=== PATIENT | male | born 1950 | race Caucasian/White ===

== ENCOUNTER → 2022-01-31 | Outpatient (CLI) | payer MEDICARE, SELFPAY ==
--- NOTE | 2022-01-31 07:27 | ECHOD_ITS ---
Reason For Study: Abnormal EKG Procedure This was a 2D Doppler, Color Flow transthoracic echocardiogram. Bubble Study performed. Exam performed in department. Left Ventricle Normal LV size. Left ventricular systolic function is normal. The estimated ejection fraction is 55 %. No regional wall motion abnormalities noted. Right Ventricle Normal RV size. Normal systolic function. Atria Normal left atrium. Normal right atrium. Bubble contrast study negative for right to left interatrial shunt. Mitral Valve Normal mitral valve. Tricuspid Valve Normal tricuspid valve. Trivial tricuspid valve insufficiency. Aortic Valve Normal aortic valve. Trisinus/trileaflet aortic valve. Pulmonic Valve Normal pulmonic valve. Great Vessels Normal aortic root. The pulmonary artery is normal size. Normal inferior vena cava. Pericardium/Pleural No pericardial effusion. Medication 22 gauge I.V. with prn adaptor inserted into left arm. Performed a rapid injection of agitated mix of 9 cc saline and 1cc air to assess for atrial septal defect. MMode/2D Measurements & Calculations LVIDd: 3.6 cm IVSd: 1.1 cm LA dimension: 2.7 cm LVIDs: 2.3 cm LVPWd: 0.91 cm RVDd: 2.8 cm FS: 35.2 % LAV(MOD-bp): 21.7 ml LA A4 area: 8.8 cm2 RA A4 area: 7.9 cm2 LAV(MOD-bp) Indexed: 12.3 ml/m2 LAV(MOD-sp2): 27.9 ml LAV(MOD-sp4): 15.3 ml Doppler Measurements & Calculations MV E max ignacio: 59.2 cm/sec Lat Peak E' Ignacio: 7.7 cm/sec Med Peak E' Ignacio: 6.6 cm/sec E/E' lat: 7.7 E/E' med: 8.9 Ao V2 max: 98.2 cm/sec LV V1 max: 86.6 cm/sec PA V2 max: 86.7 cm/sec Ao max P.9 mmHg LV V1 max P.0 mmHg TR max ignacio: 219.0 cm/sec TR max P.2 mmHg ECHO/Echo Complete Interpretation Summary Normal LV size. Left ventricular systolic function is normal. The estimated ejection fraction is 55 %. Trivial tricuspid valve insufficiency. Bubble contrast study negative for right to left interatrial shunt. Ordering Physician: Juan Jose Lynne Referring Physician: Juan Jose Lynne Performed By: Juvenal Chung RCS
--- NOTE | 2022-01-31 18:20 | STRESSREP ---
Stress Test Report Exercise myocardial perfusion stress test 71-year-old man with a history of chest pain. Stress protocol: Resting EKG demonstrates normal sinus rhythm with a rate of 82 bpm normal intervals are noted resting blood pressure is 140/72 mmHg. The patient exercised according to the regular Saqib protocol for total duration of 4 minutes completing 1 minute into stage II of the Saqib protocol. The maximum heart rate attained was 137 bpm which was 92% of max impacted heart rate the maximum workload was 7 metabolic equivalents. At rest there were no ST or T wave changes noted to suggest ischemia and at peak exercise upsloping ST changes were noted which did not meet the criteria for ischemia. At peak exercise and during recovery frequent premature ventricular complexes were noted. The above were asymptomatic. The peak blood pressure was 170/72 mmHg and the test was terminated due to dyspnea. Myocardial perfusion protocol. 11.2 mCi of technetium 99m sestamibi was injected at rest. The patient exercised according to regular Saqib protocol for 4 minutes and at peak exercise 31.3 mCi of technetium 99m sestamibi was injected stress images were obtained stress and rest images were reconstructed in comparing the short axis vertical long and horizontal long axis. Gated images were also obtained. Perfusion SPECT analysis: Review of the stress images demonstrate normal uptake of tracer noted in all areas of the myocardium. The resting images similarly demonstrate normal uptake of tracer noted in all areas of the myocardium. No areas of reversibility are noted suggest ischemia and no previous infarct is noted. Gated SPECT analysis: The gated ejection fraction is 69%. Conclusion: Normal exercise myocardial perfusion stress test at a moderate workload. Preserved ejection fraction.
== END | disposition home or self-care (01) ==
PROVIDERS: Referring Provider Internal Medicine Cardiovascular Disease; Visit Provider Internal Medicine Cardiovascular Disease
DX: I49.3 Ventricular premature depolarization (principal); R06.00 Dyspnea, unspecified; R94.31 Abnormal electrocardiogram [ECG] [EKG]
CPT/HCPCS: 78452; 93017; 93306; A9500; A4216

== ENCOUNTER → 2022-02-01 | Outpatient (CLI) | payer MEDICARE, SELFPAY ==
--- NOTE | 2022-02-01 14:57 | CT_ITS ---
STUDY: LOW DOSE CT LUNG CANCER SCREENING REASON FOR EXAM: Male, 71 years old. NICOTINE DEPENDENCE RADIATION DOSAGE (If Supplied By Facility): CTDIvol = ( 3.02 ) mGy, DLP = ( 111.74 ) mGycm TECHNIQUE: No contrast was administered. Low dose technique was utilized (average mAS-38 and kVp 120). 1.25 mm axial source images with a slice interval of 1.25-mm were reconstructed in lung windows. 2.5 mm axial source images with a slice interval of 2.5-mm were reconstructed in lung windows. 5.0 mm axial source images with a slice interval of 5.0-mm were reconstructed in soft tissue windows. COMPARISON: None. NODULES: There is a 1.4 cm x 1.7 cm nodule in the posterior medial aspect of the right upper lobe abutting the pleural surface. A neoplastic process should be ruled out. This is seen on axial image #71 and coronal image #189. Emphysema: Hyperinflation. Diffuse emphysematous changes with multiple bolus formation more prominent in the upper lobes. There is evidence of bronchiectasis and there is scarring with volume loss in the medial aspect of the right upper lobe. Endobronchial lesion: None Aorta: Atherosclerotic plaque formation. CORONARY ARTERIES: Coronary artery calcification is seen. Heart: Unremarkable Pulmonary artery: Unremarkable Mediastinal nodes: Small mediastinal lymph nodes. Other chest and abdominal findings: CT/Low Dose CT Lung Screening IMPRESSION: Lung-RADS category 4B - Chest CT with or without contrast, PET/CT and/or tissue sampling can be obtained depending on the probability of malignancy and comorbidities. IMPORTANT NOTES FOR USE: ACR Lung-RADS Version 1.1 Assessment Categories Release Date: 2018 Category: Coded 0-4 bases on nodule(s) with highest degree of suspicion. Negative screen is defined as categories 1 and 2; a positive screen is defined as categories 3 and 4. Category 3 and 4A nodules that are unchanged on interval CT should be coded as category 2, and individuals returned to screening in 12 months. Category 4X: Category 3 or 4 nodules with additional imaging findings that increase the suspicion of lung cancer, such as spiculation, GGN that doubles in size in 1 year, enlarged lymph notes, etc. Category Modifiers: S (significant finding unrelated to lung cancer) Electronically Signed: Chino Camilo MD at 15:40 EDT ,
== END | disposition home or self-care (01) ==
LOC: CT 14:53
PROVIDERS: PCP Nurse Practitioner Adult Health; Visit Provider Nurse Practitioner Adult Health
DX: Z87.891 Personal history of nicotine dependence (principal); Z12.2 Encounter for screening for malignant neoplasm of respiratory organs
CPT/HCPCS: 71271

== ENCOUNTER → 2022-03-16 | Outpatient (CLI) | payer MEDICARE, SELFPAY ==
--- NOTE | 2022-03-16 08:00 | PET_ITS ---
EXAMINATION: FDG PET-CT INDICATIONS: A 71-year-old male with history of pulmonary nodularity. COMPARISON EXAMINATION: CT of the chest report dated 02/01/22 INDEX LESION SIZE SUV INTERPRETATION Superior-right precarinal mediastinum, right of the midline, midline 51.2-mm (largest) 10.6 (max) Fulfills quantitative criteria for viable neoplasm Right posteromedial lung zone, pleural-based density 14.7-mm 3.3 Fulfills quantitative criteria for viable neoplasm Second right upper lobe posterior nodule 1.3 (max) Quantitative criteria for viable neoplasm are not fulfilled Left lateral neck level IIA 11.1-mm 7.2 May necessitate histopathologic investigation secondary to the quantitative degree of uptake TECHNIQUE: Following the intravenous administration of 13.32 mCi of F-18 deoxyglucose via the right antecubital fossa, multiplanar image acquisitions of the neck, chest, abdomen and pelvis to level of mid thigh, obtained at one hour post radiopharmaceutical administration contemporaneously interpreted with the current CT of the neck, chest, abdomen and pelvis, to level of mid thigh, dated 03/16/[address] of the chest report dated 02/01/22 reveals: BLOOD GLUCOSE LEVEL:?? 63 mg/dl? FINDINGS: Head/Neck: A focus of increased radiopharmaceutical is asymmetrically apparent in the left lateral neck involving level IIA, the periauricular region. The calculated maximal standard uptake value is 7.2. The maximal axial diameter of the metabolic, morphologic abnormality is 11.1-mm. The visualized portion of the cerebral cortical-subcortical structures demonstrate symmetric and preserved glucose metabolism. CHEST: A focus of enhanced FDG uptake is identified in the superior-precarinal mediastinum in the midline and to the right of the midline. The calculated maximal standard uptake value is 10.6. The maximal axial diameter of the metabolic, morphologic abnormality is 51.2-mm. Focal increased glucose metabolism is identified in the right upper posteromedial lung field, right upper lobe generating a calculated maximal standard uptake value of 3.3. The maximal axial diameter of the metabolic, morphologic pleural based parenchymal density is 14.7-mm. A mild increase in glucose uptake is defined in the right upper posterior lung zone, right upper lobe adjacent to the major fissure. The calculated maximal standard uptake value is 1.3. Pertinent chest CT findings are as follows. There is atherosclerotic calcification defined in the thoracic aorta without evidence of dilatation-aneurysm formation. Coronary arterial calcification is observed. Bilateral axillary soft tissue densities are non-glucose avid, the majority of which express fatty hilus. Additional parenchymal densities defined in the bilateral hemithorax are non-glucose avid. Additional mediastinal soft tissue is non-glucose avid. Abdomen/Pelvis: Mild enhanced FDG uptake is defined in the region of the normal size right adrenal gland with a calculated maximal standard uptake value of 2.1. Quantitative criteria for viable neoplasm are not fulfilled. Normal physiologic distribution of the radiopharmaceutical is apparent in the hepatic (2.4) and splenic parenchyma, both renal units, bladder and visualized intestinal tract. Diffuse radiopharmaceutical concentration is noted in all four quadrants of the abdomen and pelvis. Review of the CT of the abdomen and reveals the following. Atherosclerotic calcification is defined in the abdominal aorta. The maximal axial diameter of the distal abdominal aorta is 36.2-mm. The maximal axial diameter of the right common iliac artery is 17.1-mm. Cyst formation is encountered in the right kidney. Right and left inguinal soft tissue is ametabolic. Calcification is defined in the prostate gland. Occasional colonic diverticulosis is noted without evidence of colonic diverticulitis. Skeletal: Degenerative changes are noted in the cervical, thoracic and lumbar spine without evidence of increased radiopharmaceutical concentration. There are no well-defined sclerotic-lytic changes manifest on review of the appendicular-axial skeletal structures. PET/PET/CT Tumor Base -Thigh Init IMPRESSION: 1. The increase in glucose metabolism identified in the superior and precarinal mediastinum to the right of the midline and in the midline should be further investigated with histopathologic analysis secondary to the quantitative degree of uptake. 2. Enhanced tracer concentration noted in the right upper posteromedial lung zone fulfills quantitative criteria for viable neoplasm. (Joshi et al, Annals of Internal Medicine, 138:724, 2003). 3. The second right lobe anatomic abnormality demonstrates minimal glucose metabolism and does not fulfill quantitative criteria for viable malignant transformation. 4. The left lateral neck hypermetabolic focus may necessitate histopathologic investigation secondary to the quantitative degree of uptake. Electronic Signature Torito Multani D.O. Accurate Quantification of SUVs for this report are calculated using the exclusive [employer] Technology. (U.S. Patent No. 10, [id number] 983). Standardization and correction of the FDG SUV metric via [employer] technology allow for vendor non-specific objective quantitative examination comparison and optimization of the sensitivity and specificity of the FDG PET-CT examination. Electronically Signed: Torito Multani, at 16:32 EDT ,
== END | disposition home or self-care (01) ==
PROVIDERS: PCP Nurse Practitioner Adult Health; Referring Provider Nurse Practitioner Adult Health; Visit Provider Nurse Practitioner Adult Health
DX: R91.1 Solitary pulmonary nodule (principal)
CPT/HCPCS: 78815; A9552

== ENCOUNTER 2022-04-12 10:44 | Day surgery (SDC) | payer MEDICARE, SELFPAY ==
[2022-04-12] VITALS (7 sets, daily range): BP systolic 125–159; BP diastolic 64–88; PULSE 54–74; RESP 16; TEMP 36.4; O2SAT 94–98; BMI 20.9
[2022-04-12] MEDS: Lactated Ringers 1,000 ML 15 ML IV (11:18)
--- NOTE | 2022-04-12 12:00 | HP.PCM_ITS ---
History and Physical Date of Admission: 04/12/22 NADIYA MACHADO, is a 71 M who presents to the office today for Initial consult. Nadiya established with this clinic 04.08.22. August, he had a general physical who noted heart palpitation; EKG and blood test performed and referred to [facility] for this and pulmonology for fingernail clubbing. [facility] ordered imaging which noted lung nodule. Pulmonology seen for pulmonology for mass and fingernail clubbing suspected to be pulmonary origin. Director [employer] discussed case with Gastroenterology who also reviewed PET/CT and was not able to determine if esophageal or pulmonary origin; recommended EGD for evaluation. He has been noting increased phlegm, sometimes blood tinged, requiring spitting; substernal discomfort. Denies dysphagia. History of cigarette smoking for the last 65+years; has quit with recent health concerns. Established with [facility]. CT chest 02.01.22 noting right upper lobe of lung nodule recommend r/o neoplastic process; emphysema; small mediastinal lymph nodes. PET/CT 03.16.22 noting increase uptake in superior and precarinal mediastinum to the right of the midline and in the midline; noted in right upper posteromedial for viable neoplasm; left lateral neck hypermetabolic focus. ROS Const Constitutional: No anorexia, fatigue, fever(s), weight change or sleep problems Eyes Eyes: No change in vision ENT ENT: No abnormal hearing, difficulty swallowing, mouth lesions, tongue swelling or throat swelling Resp Respiratory: No cough or shortness of breath Cardio Cardiology: No chest pain at rest, chest pain with exertion, shortness of breath or dyspnea on exertion Gastro GI: No difficulty swallowing Genitourinary Male: No difficulty urinating or burning urination Musc Musculoskeletal: No joint pain, joint swelling, muscle weakness or decreased muscle mass Skin Skin: No hair loss in leg, yellowing of the eye, itchy eyes, rash, skin ulcer or skin swelling Neuro Neurology: No abnormal hearing, abnormal movements, confusion, unsteady gait/balance or memory loss Psych Psychiatric: No anxiety, No confusion and No memory loss Endo Endocrine: No fatigue or weight change Aller/Imm Allergy/Immunologic: No itchy eyes, throat swelling or tongue swelling Francisco/Lymp Hematologic/Lymphatic: No easy bleeding, easy bruising or enlarged lymph nodes Exam Const General: cooperative and comfortable Nutritional Appearance: average body habitus and well nourished [facility] Head: normal to inspection Ears: hearing grossly normal bilaterally Nose: external nose normal Face and sinus: normal facial exam Mouth: oral mucosae normal Throat: posterior oropharynx normal Eyes General: appearance normal, both eyes and all related structures Neck Neck: normal visual inspection Chest Chest palpation & inspection: normal inspection of the chest and normal palpation of entire chest wall Resp Effort & Inspection: normal respiratory effort Auscultation: Bilateral: Clear to Auscultation Cardio Palpation: normal PMI Rate: regular rate Rhythm: regular rhythm GI Inspection: normal to inspection Auscultation: normal bowel sounds Percussion: normal to percussion Palpation: no hepatosplenomegaly Skin General: no rashes or lesions noted Neuro General: patient alert Extrem General: normal to inspection Psych Affect: normal affect Quality Reporting Tobacco Screening ([facility] [address]) Smoking Status: Current every day smoker Assessment and Plan Assessment and Plan (1) Esophageal mass: ?Status:?Acute ?Plan: Possible esophageal mass as the PET scan cannot ascertain whether it is coming from the mediastinum or from the esophagus.? He is losing weight but is not having any appreciable esophageal dysphagia.? He is not having any chest pain or shortness of breath.? He is not have any nausea, vomiting or diarrhea.? Hopefully we will be able to get him a diagnosis without him having to undergo lung biopsy.? All the questions were asked from the patient appropriately in initial consultation took 45 minutes. I have re-examined the patient. There are no clinical changes since date of exam.
--- NOTE | 2022-04-12 12:00 | IMM_PTH ---
PATIENT: NADIYA MACHADO LOC: EN U#:[id number] AGE/SX: 71/M ROOM: RE04/12/[address]: Dr. Harpreet Mayer DO : 1950 BED: DIS: 04/12/2022 SPEC #: [id number] RECD: 04/13/22 10:07 STATUS: EMILY MAHNAZ #: [id number] RUCHI: 04/12/22 12:[address]: Harpreet Mayer DEPT: IMMUNOHISTOCHEMISTRY RECD BY: Maria Esther Carias ENTERED: 04/13/22 10:08 SP TYPE: IMMUNO OTHR DR: Xiomy Carpenter, WATER TREATMENT TECHNICIAN-C Samra Jones NP-James Tissues: C - Stomach, NOS Procedures: H Pylori (initial) PHYSICIAN & INSTITUTION [place] [address] SPECIMEN INFORMATION: Tissue Source: C ? Antrum biopsy Clinical Info: Esophageal mass Specimen Number: [id number] CPT code: 35525 METHODOLOGY: Deparaffinized sections of prefer/formalin-fixed tissue or PAP/DQ stained slides are incubated with monoclonal/polyclonal antibodies/oligonucleotide probes. Localization is made via biotin free immunoperoxidase method. Appropriate controls are performed and reacted as expected. Results on target cell population are indicated in the following table: RESULTS: ANTIBODY / CLONE RESULT Block C H Pylori (polyclonal) negative These tests were developed and their performance characteristics determined by [facility]. They may not have been cleared or approved by the U.S. Food and Drug Administration. The FDA has determined that such clearance or approval is not necessary. The above immunohistochemical/dualISH markers are ordered and reviewed by the Pathologist. INTERPRETATION: C. Antrum, biopsy: Negative for Helicobacter pylori organisms. DIONE:cherise 04/14/2022
--- NOTE | 2022-04-12 12:00 | EGD_PTH ---
PATIENT: NADIYA MACHADO LOC: EN U#:[id number] AGE/SX: 71/M ROOM: RE04/12/[address]: Dr. Harpreet Mayer DO : 1950 BED: DIS: 04/12/2022 SPEC #: [id number] RECD: 04/12/22 15:18 STATUS: EMILY MAHNAZ #: [id number] RUCHI: 04/12/22 12:[address]: Harpreet Mayer DEPT: SURGICAL PATHOLOGY RECD BY: Porsha Art ENTERED: 04/13/22 07:52 SP TYPE: EGD BIOPSY OT DR: Xiomy Carpenter, DROP BOARD MAN-C WINIFRED LeosC Tissues: A - Esophagus, NOS B - Duodenum, NOS C - Gastric mucous membrane Procedures: Special Stain Group II Surgery Specimen Level IV Alcian Blue/PAS (control) HEADER OPERATION: EGD (MAC), biopsy PRE-OP DIAGNOSIS: Esophageal mass TISSUE SUBMITTED: A ? Distal esophagus biopsy, B ? Duodenum biopsy, C ? Antrum biopsy for histo and H. pylori MICROSCOPIC DIAGNOSIS A. Distal esophagus, biopsy: Fragments of gastroesophageal mucosa with chronic inflammation. Intestinal metaplasia (goblet cell metaplasia) not identified. See comment. B. Duodenum, biopsy: Fragments of duodenal mucosa with focal ulceration and acute and chronic inflammation. C. Antrum, biopsy: Mild gastritis. See microscopic description and comment. SJ:cherise 04/14/2022 COMMENT A. Alcian blue/PAS stain with matched control is used in the evaluation of the specimen. C. The results of immunohistochemistry for Helicobacter pylori will be reported separately ([id number]). MICROSCOPIC DESCRIPTION Slides are reviewed. The specimen shows fragments of gastric mucosa with chronic inflammatory cell infiltrates in the lamina propria consisting of lymphocytes and plasma cells, consistent with mild chronic gastritis. GROSS DESCRIPTION A - Received in fixative is one container labeled with the patient's name and designated distal esophagus. The specimen consists of multiple irregular fragments of light gastelum soft tissue that in aggregate measure 1 x 0.8 x 0.1 cm. The specimen is totally submitted in one cassette. B - Received in fixative is one container labeled with the patient's name and designated duodenum biopsy. The specimen consists of two irregular fragments of light gastelum soft tissue that in aggregate measure 0.5 x 0.4 x 0.1 cm. The specimen is totally submitted in one cassette. C - Received in fixative is one container labeled with the patient's name and designated antrum biopsy. The specimen consists of two irregular fragments of light gastelum soft tissue that in aggregate measure 0.8 x 0.5 x 0.1 cm. The specimen is totally submitted in one cassette. / SJ:rg 04/13/2022 TC:2 CPT: 65917 x3, 38333
--- NOTE | 2022-04-12 12:30 | OP.EGD_ITS ---
Patient Name: Elie Barrios Procedure Date: 04/12/2022 11:01 AM Date of : 1950 Age: 71 Procedure: Upper GI endoscopy Indications: Dysphagia, Heartburn Providers: Harpreet Mayer DO Medicines: Propofol per Anesthesia, Monitored Anesthesia Care Patient Profile: This is a 71 year old male. Refer to note in patient chart for documentation of history and physical. Patient has symptoms. Complications: No immediate complications. Procedure: Pre-Anesthesia Assessment: - Prior to the procedure, a History and Physical was performed, and patient medications and allergies were reviewed. The risks and benefits of the procedure and the sedation options and risks were discussed with the patient. All questions were answered and informed consent was obtained. Patient identification and proposed procedure were verified by the physician in the pre-procedure area. Mental Status Examination: alert and oriented. Airway Examination: normal oropharyngeal airway and neck mobility. Respiratory Examination: clear to auscultation. CV Examination: normal. Prophylactic Antibiotics: The patient does not require prophylactic antibiotics. Prior Anticoagulants: The patient has taken no previous anticoagulant or antiplatelet agents. ASA Grade Assessment: II - A patient with mild systemic disease. After reviewing the risks and benefits, the patient was deemed in satisfactory condition to undergo the procedure. The anesthesia plan was to use monitored anesthesia care (MAC). Immediately prior to administration of medications, the patient was re-assessed for adequacy to receive sedatives. The heart rate, respiratory rate, oxygen saturations, blood pressure, adequacy of pulmonary ventilation, and response to care were monitored throughout the procedure. The physical status of the patient was re-assessed after the procedure. After obtaining informed consent, the endoscope was passed under direct vision. Throughout the procedure, the patient's blood pressure, pulse, and oxygen saturations were monitored continuously. The gastroscope was introduced through the mouth, and advanced to the second part of duodenum. The upper GI endoscopy was accomplished without difficulty. The patient tolerated the procedure well. Scope In: 12:11:47 PM Scope Out: 12:18:47 PM Total Procedure Duration Time 0 hours 7 minutes 0 seconds Findings: LA Grade C (one or more mucosal breaks continuous between tops of 2 or more mucosal folds, less than 75% circumference) esophagitis with no bleeding was found 37 to 39 cm from the incisors. Biopsies were taken with a cold forceps for histology. Verification of patient identification for the specimen was done. Estimated blood loss was minimal. A medium-sized hiatal hernia was present. Patchy moderate inflammation characterized by erythema was found in the gastric body. Biopsies were taken with a cold forceps for histology. Verification of patient identification for the specimen was done. Estimated blood loss was minimal. Three non-bleeding cratered duodenal ulcers with no stigmata of bleeding were found in the duodenal bulb. The largest lesion was 6 mm in largest dimension. Biopsies were taken with a cold forceps for histology. Verification of patient identification for the specimen was done. Estimated blood loss was minimal. Impression: - LA Grade C reflux esophagitis. Biopsied. - Medium-sized hiatal hernia. - Chronic gastritis. Biopsied. - Multiple non-bleeding duodenal ulcers with no stigmata of bleeding. Biopsied. Recommendation: - Discharge patient to home. - Resume previous diet. - Continue present medications. - Await pathology results. - Repeat upper endoscopy in 3 months for surveillance based on pathology results. - Use Protonix (pantoprazole) 40 mg PO BID for 8 weeks. Procedure Code(s): --- Professional --- 60083, Esophagogastroduodenoscopy, flexible, transoral; with biopsy, single or multiple CPT copyright 2017 [employer]. All rights reserved. The codes documented in this report are preliminary and upon photoengraving sketch maker review may be revised to meet current compliance requirements. Harpreet Mayer DO 04/12/2022 12:30:17 PM This report has been signed electronically. Number of Addenda: 0 Note Initiated On: 04/12/2022 11:01 AM
--- NOTE | 2022-04-12 12:30 | OP.CCLET_ITS ---
04/12/2022 Alysia Pat Re : Upper GI endoscopy procedure for Elie Barrios Dear Jayden This procedure was performed on Tuesday, April 12, 2022. My impressions and recommendations are as follows: Impressions : - LA Grade C reflux esophagitis. Biopsied. - Medium-sized hiatal hernia. - Chronic gastritis. Biopsied. - Multiple non-bleeding duodenal ulcers with no stigmata of bleeding. Biopsied. Recommendations : - Discharge patient to home. - Resume previous diet. - Continue present medications. - Await pathology results. - Repeat upper endoscopy in 3 months for surveillance based on pathology results. - Use Protonix (pantoprazole) 40 mg PO BID for 8 weeks. My findings are described in the full procedure note, which is enclosed. If I can be of further assistance, please feel free to contact me at . Sincerely, Harpreet Friend, 04/12/2022 12:30:17 PM This report has been signed electronically.
== END 2022-04-12 13:24 | disposition home or self-care (01) ==
LOC: EN 10:47 → AC 10:49
PROVIDERS: PCP Nurse Practitioner Adult Health; Referring Provider Nurse Practitioner Adult Health; Visit Provider Internal Medicine Gastroenterology
PROC: 0DJ08ZZ Inspection of Upper Intestinal Tract, Via Natural or Artificial Opening Endoscopic (ICD-10-PCS; CPT 43235; principal; 2022-04-12 11:55)
DX: K21.00 Gastro-esophageal reflux disease with esophagitis, without bleeding (principal); K44.9 Diaphragmatic hernia without obstruction or gangrene; K25.3 Acute gastric ulcer without hemorrhage or perforation; K29.50 Unspecified chronic gastritis without bleeding; K31.89 Other diseases of stomach and duodenum; F17.200 Nicotine dependence, unspecified, uncomplicated; E78.5 Hyperlipidemia, unspecified; Z79.899 Other long term (current) drug therapy
CPT/HCPCS: 43239; 88305; 88313; 88342; J7120; J2405

== ENCOUNTER → 2022-04-28 | Outpatient (CLI) | payer MEDICARE, SELFPAY ==
[2022-04-28 12:11] LABS: Platelet Count 239 K/mm3 (150-450)
[2022-04-28 12:19] LABS: Prothrombin Time (Protime)PT. 12.6 SECONDS (11.7-14.9)
== END | disposition home or self-care (01) ==
LOC: PAVLAB 11:52
PROVIDERS: PCP Nurse Practitioner Family; Referring Provider Internal Medicine Critical Care Medicine; Visit Provider Internal Medicine Critical Care Medicine
DX: K22.89 Other specified disease of esophagus (principal)
CPT/HCPCS: 36415; 85049; 85610

== ENCOUNTER 2022-05-05 08:39 | Outpatient (CLI) | payer MEDICARE, SELFPAY ==
[2022-05-05] VITALS (12 sets, daily range): BP systolic 120–169; BP diastolic 65–100; PULSE 57–76; RESP 12–20; TEMP 37.1; O2SAT 92–98; BMI 22.0
--- NOTE | 2022-05-05 | ASPIGT_PTH ---
PATIENT: NADIYA MACHADO LOC: [place] U#:[id number] AGE/SX: 71/M ROOM: RE05/05/[address]: Dr. Santana Arreola DO : 1950 BED: DIS: 05/05/2022 SPEC #: [id number] RECD: 05/05/22 11:00 STATUS: EMILY MAHNAZ #: [id number] RUCHI: 05/05/22 00:[address]: Santana Arreola DEPT: SURGICAL PATHOLOGY RECD BY: Porsha Art ENTERED: 05/05/22 11:01 SP TYPE: ASP RAD OTHR DR: Ruchi Rosales, BALING MACHINE OPERATOR-C Tissues: Lung, NOS Procedures: FNA Specimen Adequacy Special Stain Group II Surgery Specimen Level IV Imprint (control) HEADER OPERATION: CT-guided lung biopsy PRE-OP DIAGNOSIS: RUL lung nodule TISSUE SUBMITTED: Lung 20-gauge core x6 MICROSCOPIC DIAGNOSIS Right upper lung nodule, CT-guided core biopsy: Consistent with hamartoma. Negative for malignancy. See comment. DIONE:cherise 05/06/2022 COMMENT The specimen is evaluated at the time of biopsy by Dr. Viveros. Immediate Evaluation: Set 1 - Negative for malignant cells (2 touch imprints). Set 2 - Negative for malignant cells (2 touch imprints). The touch imprints show numerous carbon-laden histiocytes. Correlation with clinical, radiologic findings and appropriate follow-up are necessary. Case has been reviewed in consultation with Dr. Pak who concurs with the above diagnosis. IDC:AM MICROSCOPIC DESCRIPTION Slides are reviewed. GROSS DESCRIPTION Received in fixative is one container labeled with the patient's name and designated right upper lung nodule. The specimen consists of multiple elongated fragments of light gastelum soft tissue that in aggregate measure 1.5 x 0.3 x 0.1 cm. The specimen is totally submitted in one cassette. Four touch imprints are prepared at the time of core biopsy. / DIONE:cherise 05/05/2022 TC:5 CPT: 49754, 67936, 46895
--- NOTE | 2022-05-05 08:41 | CT_ITS ---
PROCEDURE: CT GUIDED CORE NEEDLE BIOPSY OF A right upper lobe LUNG LESION INDICATION: Male, 71 years old. RUL PET + Nodule PHYSICIAN: Dr. NADIR Carranza CONSENT: Written informed consent was obtained having explained the risks, benefits and alternatives in detail with the patient who accepted the risks and agreed to proceed. Laboratory review and clinical assessment was performed. CONSCIOUS SEDATION PROTOCOL: The Drugs used were: 2 mg Versed, IV., and 50 mcg Fentanyl, IV. The sedation time was: 24 minutes. Conscious sedation was started at 9:40 AM and terminated at 10:04 AM. The conscious sedation protocol was independently monitored. RADIATION DOSAGE (If Supplied By Facility): CTDIvol = ( 12 ) mGy, DLP = ( 242.04 ) mGycm Individualized dose optimization techniques were used for this CT. TECHNIQUE: The patient was placed in the prone position. A noncontrast CT was performed to localize the lesion in the posterior aspect of the right upper lobe . The skin surface was prepped and draped in a sterile fashion. 1% lidocaine was used for local anesthesia. Using CT guidance, a 20 coaxial biopsy device was advanced to the periphery of the lesion. A total of 6 core specimens were obtained. The specimens were placed in a formalin solution. A post procedure CT demonstrated no adverse sequelae or pneumothorax. The patient tolerated the procedure well without adverse event. A negative biopsy does not exclude malignancy. Further imaging or clinical followup based on patient condition and degree of clinical suspicion for malignancy. Suggest rebiopsy, if biopsy results do not match with clinical scenario. CT/Biopsy/Inj or Needle Placement IMPRESSION: 1. CT directed core needle biopsy of the right upper lobe lung nodule using CT image guidance with image documentation as described. Pathology results are pending. 2. Conscious Sedation protocol utilized with independent monitoring. Electronically Signed: Chino Camilo MD at 10:35 EDT ,
[2022-05-05] MEDS: Midazolam 2 MG/2 ML Syringe IV (09:39)
[2022-05-05] MEDS: fentaNYL 100 MCG/2 ML Ampul IV (09:40)
[2022-05-05] MEDS: Lidocaine 2% (20 ml mdv) 20 ML Vial (09:55)
--- NOTE | 2022-05-05 10:12 | RAD_ITS ---
STUDY: X-RAY CHEST REASON FOR EXAM: Male, 71 years old. POST LUNG BIOPSY -- Immediately post lung biopsy TECHNIQUE: AP inspiration and expiration views. COMPARISON: None. FINDINGS: The patient is status post right upper lobe lung biopsy. There is no evidence of pneumothorax. RAD/Chest Insp/Exp 2 View IMPRESSION: No evidence of pneumothorax on the immediate postright lung biopsy. Electronically Signed: Chino Camilo MD at 10:23 EDT ,
--- NOTE | 2022-05-05 12:30 | RAD_ITS ---
STUDY: X-RAY CHEST REASON FOR EXAM: Male, 71 years old. POST LUNG BIOPSY -- 2 hours post lung biopsy TECHNIQUE: AP inspiration and expiration view. COMPARISON: Comparison is made with prior study done earlier in the day. FINDINGS: The patient is status post biopsy of the right upper lobe nodule. No evidence of pneumothorax. RAD/Chest Insp/Exp 2 View IMPRESSION: No evidence of pneumothorax on the 2 hour postright lung biopsy radiographs. Electronically Signed: Chino Camilo MD at 12:34 EDT ,
== END 2022-05-05 23:59 | disposition home or self-care (01) ==
PROVIDERS: PCP Nurse Practitioner Family; Referring Provider Internal Medicine Critical Care Medicine; Visit Provider Internal Medicine Critical Care Medicine
DX: D14.31 Benign neoplasm of right bronchus and lung (principal); F17.210 Nicotine dependence, cigarettes, uncomplicated
CPT/HCPCS: 32408; 71046; 77012; 88172; 88305; 88313; 99156; 99157; J7050; A4216; C2613

== ENCOUNTER → 2022-05-24 | Outpatient (CLI) | payer MEDICARE, SELFPAY ==
[2022-05-24 11:03] LABS: AST(SGOT) 19 U/L (15-37); Alanine Aminotransfer ALT/SGPT 21 U/L (16-61); Albumin, Serum 3.3 g/dL (3.2-5.0); Alkaline Phosphatase 92 U/L (45-117); Anion Gap 4 (5-15); BUN 12 mg/dL (7-18); BUN/Creat Ratio 10.7 RATIO (10-20); CPK Total, Creatine Kinase 127 U/L (39-308); Calcium,Total 8.9 mg/dL (8.5-10.1); Chloride 102 mmol/L (98-107); Creatinine, Serum 1.12 mg/dL (0.70-1.30); EST Glomerular Filtration Rate 68 mL/min (>60); Est Glom Filt Rate - Afr Amer 83 mL/min (>60); Globulin 3.3 g/dL (2.2-4.2); Glucose 88 mg/dL (74-106); Potassium 4.5 mmol/L (3.5-5.1); Protein, Total 6.6 g/dL (6.4-8.2); Sodium Level 136 mmol/L (136-145)
[2022-05-24 11:10] LABS: Erythrocyte Sedimentation Rate 16 mm/hr (0-20)
[2022-05-26 14:09] LABS: Vitamin D 1,25-Dihydroxy 47.6 pg/mL (24.8-81.5)
[2022-05-26 16:11] LABS: ANTINUCLEAR ANTIBODIES DIRECT Negative (Negative)
== END | disposition home or self-care (01) ==
LOC: LAB 09:51
DX: M35.3 Polymyalgia rheumatica (principal)
CPT/HCPCS: 36415; 80053; 82550; 82652; 85652; 86038; 86140

== ENCOUNTER 2022-06-08 01:14 | Emergency (ER) | payer MEDICARE, SELFPAY ==
[2022-06-08 01:15] VITALS: BP 187/100; PULSE 86; RESP 25; TEMP 36.3; O2SAT 96; BMI 21.1
[2022-06-08] MEDS: Orphenadrine 60 MG/2 ML Ampul IM (02:33)
[2022-06-08] MEDS: Ketorolac 30 MG/ML Syringe IM (02:36)
--- NOTE | 2022-06-08 02:40 | EDS_ITS ---
HPI History of Present Illness Chief Complaint: Chest Other Narrative Narrative: Patient is a 71-year-old male from home with past medical history of hiatal hernia GERD esophageal mass and tobacco abuse. He states he has been having right-sided chest discomfort for approximately 6 months. He states he has been worked up with EKGs and blood work as well as CT scans. He reports he has had EGDs and is also scheduled to undergo biopsy of esophageal mass that was found during his work-up. He states that he was informed that he may have neuropathic pain from the esophageal mass compressing a nerve structure. Patient states that there has been no new injury or excessive activity. He states the pain has been similar to its chronic issues but he cannot controlled at home any further and therefore comes in for evaluation. [facility] Medical History Alcohol use Cardiology follow-up encounter Easy bruising Gonorrhea History of diverticulitis History of echocardiogram History of edema History of irregular heartbeat History of stress test Hyperlipidemia Inguinal hernia Injury of head and neck Rectal prolapse Schizophrenia Shortness of breath on exertion Tobacco abuse Wears glasses Wears partial dentures Home Medications cholecalciferol (vitamin D3) 25 mcg (1,000 unit) capsule 25 mcg PO DAILY [History Last Taken Unknown] triamcinolone acetonide 0.1 % topical cream 1 applic topical BID PRN Rash 12/08/21 [History Last Taken Unknown] albuterol sulfate 90 mcg/actuation aerosol inhaler 2 puff inhalation Q4H PRN PRN breathing 04/08/22 [History Last Taken Unknown] cyclobenzaprine 10 mg tablet 10 mg PO BID 05/19/22 [History Last Taken Unknown] prednisone 20 mg tablet 20 mg PO DAILY 05/19/22 [History Last Taken Unknown] pantoprazole 40 mg tablet,delayed release 40 mg PO DAILY #30 tabs 06/06/22 [Rx Last Taken Unknown] diazepam 5 mg tablet (Valium) 5 mg PO TID Muscle pain/spasm 5 days #15 tabs 06/08/22 [Rx Last Taken Unknown] oxycodone-acetaminophen 5 mg-325 mg tablet (Percocet) 1 tab PO Q6H PRN pain 3 days #12 tabs 06/08/22 [Rx Last Taken Unknown] Allergy/AdvReac Type Severity Reaction Status Date / Time No Known Allergies Allergy Verified 05/19/22 12:52 Family History Father Heart disease Brother Heart disease COPD (chronic obstructive pulmonary disease) Surgical History History of herniorrhaphy History of meniscectomy of left knee Social History Smoking Status: Current some day smoker tobacco type: cigarettes Tobacco: How many years used: 55 ROS ROS ED Constitutional Constitutional ED: Denies chills or fever(s) ENT ENT ED: Denies sore throat Cardiovascular Cardiovascular: Reports chest pain Respiratory/Chest Respiratory/Chest: Denies cough or dyspnea Gastrointestinal Gastrointestinal: Denies abdominal pain, diarrhea, nausea or vomiting Genitourinary Genitourinary ED: Denies dysuria Musculoskeletal Musculoskeletal: Reports other Details: Positive right shoulder/chest wall pain Integumentary Denies Abrasions or rash Neurologic Neurologic: Denies headache(s) or paresthesias Hematologic/Lymphatic Hematologic/Lymphatic: Denies easy bleeding or easy bruising EXAM Physical Exam Const Vital Signs: 06/08/22 01:15 06/08/22 01:15 06/08/22 02:41 Temperature 97.4 F L Temperature Source Temporal Pulse Rate 86 Respiratory Rate 25 H 18 Respiratory Effort Short of Breath Blood Pressure 187/100 H Blood Pressure Mean 129 Pulse Ox 96 Positive well nourished and well developed General Appearance ED: well developed Eyes PERRL and EOMs intact bilaterally Neck supple Chest Wall Chest Narrative: Patient has reproducible pain to the right anterior chest wall/shoulder region without bony deformity or crepitus noted Resp normal respiratory effort Resp Narrative: Patient has faint rhonchi in the bilateral bases consistent with smoking history but no signs of respiratory distress Cardio regular rate and regular rhythm GI normal to inspection, nondistended, normoactive bowel sounds, non-tender and non-distended GI Narrative: No voluntary guarding or rigidity no pulsatile mass Auscultation: normoactive bowel sounds Palpation: soft Extremity Extremity Narrative: Right upper extremity is neurovascular intact. No obvious bony deformity or joint effusion. No overlying soft tissue changes to suggest trauma or infection. There is diffuse pain on palpation of the anterior and posterior right shoulder. Remainder the exam is normal Neuro oriented x3 and CN's II-XII intact bilaterally Sensorium / Orientation: alert Psych mental status grossly normal Skin no rashes or lesions noted MDM MDM MDM Narrative Medical decision making narrative: Patient presented to the ER hypertensive but secondary to his pain this is to be expected and otherwise vitals are stable. He states his pain has been present for months and he has had it worked up with the EKGs blood work CAT scans and even EGDs and biopsies. Therefore this time I do not feel this would be cardiac or pulmonary and feel no need for imaging or laboratory studies. I do feel this is most likely neuropathic pain based on the presence of his esophageal mass and the fact that the pain is always located in the same area. Therefore patient will be given Toradol and Norflex to help with this and is otherwise safe for discharge and can follow-up on an outpatient as previously directed Discharge Plan Triage Chief Complaint: Chest Other ED Provider: Reji Higgins Dx/Rx/DC Orders Clinical Impression: Acute chest wall pain, Neuropathic pain, Esophageal mass Instructions: ED Chest Pain, Noncardiac Prescriptions: New oxycodone-acetaminophen [Percocet] 5-325 mg tablet 1 tab PO Q6H PRN (Reason: pain) 3 Days Qty: 12 0RF diazepam [Valium] 5 mg tablet 5 mg PO TID 5 Days Qty: 15 0RF No Action triamcinolone acetonide 0.1 % cream 1 applic topical BID PRN (Reason: Rash) cholecalciferol (vitamin D3) 25 mcg (1,000 unit) capsule 25 mcg PO DAILY cyclobenzaprine 10 mg tablet 10 mg PO BID Label Comments: TAKE 1 TABLET TWICE DAILY as needed for muscle pain prednisone 20 mg tablet 20 mg PO DAILY Label Comments: TAKE 1 TABLET BY MOUTH DAILY albuterol sulfate 90 mcg/actuation HFA aerosol inhaler 2 puff INHALATION Q4H PRN PRN (Reason: breathing) Label Comments: INHALE 2 PUFFS every FOUR hours as needed for FOR WHEEZING or SHORTNESS OF BREATH pantoprazole 40 mg tablet,delayed release (DR/EC) 40 mg PO DAILY Qty: 30 2RF Primary Care Provider: [facility] Abi Roldan Referrals: [facility] Abi Roldan [Primary Care Provider] - Disposition Disposition: Home, Self Care Discharge Date/Time: 06/08/22 02:48
[2022-06-08 02:41] VITALS: RESP 18
== END 2022-06-08 02:48 | disposition home or self-care (01) ==
PROVIDERS: Emergency Provider Emergency Medicine; Visit Provider Emergency Medicine
DX: R07.89 Other chest pain (principal); G62.9 Polyneuropathy, unspecified; E78.5 Hyperlipidemia, unspecified; F17.210 Nicotine dependence, cigarettes, uncomplicated; K22.9 Disease of esophagus, unspecified
CPT/HCPCS: 96372; 99282

== ENCOUNTER 2022-06-09 12:17 | Outpatient (CLI) | payer MEDICARE, SELFPAY ==
[2022-06-09 12:58] LABS: Allen Test POS; Blood Gas Specimen Type ART; SITE R BRACHIAL
[2022-06-09 12:59] LABS: Base Excess -1 mmol/L (-2 to +2); Bicarbonate 24.2 mmol/L (22-26); FI02 21; O2 Delivery Device Room Air; PO2 76 mmHG (75-100); Time Given 1230; pCO2 40.8 mmHg (35-45); pH 7.38 (7.35-7.45)
[2022-06-09 13:00] LABS: Total Carbon Dioxide 25 mmol/L
[2022-06-09 13:02] LABS: SO2 95 % (95-99)
--- NOTE | 2022-06-10 11:03 | PFT ---
INTRODUCTION: The patient is a 71-year-old male who presents for pulmonary function studies secondary to a diagnosis of lung nodule. Respiratory therapy reported good patient effort. Bronchodilators were used during testing. INTERPRETATION: Forced expiration spirometry demonstrates the presence of a moderately severe large airways obstructive ventilatory defect. There was no significant response to aerosolized bronchodilators. Spirograms are of good quality but do not plateau indicating slow emptying of the lungs. Body plethysmography was performed and demonstrated an elevated TLC and RV, indicative of underlying hyperinflation and air trapping. Diffusing capacity by single breath CO is within normal limits. IMPRESSION: Irreversible moderately severe large airways obstructive ventilatory defect with associated hyperinflation and air trapping.
== END 2022-06-09 23:59 | disposition home or self-care (01) ==
DX: R91.1 Solitary pulmonary nodule (principal)
CPT/HCPCS: 36600; 82803; 94060; 94726; 94729

== ENCOUNTER → 2022-07-07 | Outpatient (CLI) | payer MEDICARE, SELFPAY ==
--- NOTE | 2022-07-07 14:08 | RAD_ITS ---
STUDY: X-RAY - CERVICAL SPINE REASON FOR EXAM: Male, 71 years old patient with cervicalgia. TECHNIQUE: 5 view(s) of the cervical spine were obtained. COMPARISON: Prior comparison studies are not available for review at this time. FINDINGS: Normal anterior atlantoaxial articulation. Normal odontoid process. There is an exaggerated cervical lordosis. There is multi-level endplate spondylosis. There is multi-level degenerative disc disease with multilevel disc space narrowing. There is moderately severe multilevel degenerative arthropathy of the uncovertebral and facet joints. There is right apical pleural thickening. There is nonspecific right-sided paratracheal soft tissue. The lung apices appear to be clear, otherwise. Prevertebral and paraspinal soft tissues are within normal limits. There is no demonstrated fracture of the cervical spine. RAD/Cerv Spine 4 or 5 Views IMPRESSION: 1. Moderately severe multilevel degenerative changes of the cervical spine as described. 2. Right apical pleural thickening and nonspecific right-sided paratracheal soft tissue. Electronically Signed: Heidi Singh MD at 4:13 EST ,
== END | disposition home or self-care (01) ==
LOC: RAD 14:05
PROVIDERS: Referring Provider Nurse Practitioner Family; Visit Provider Nurse Practitioner Family
DX: M54.2 Cervicalgia (principal)
CPT/HCPCS: 72050

== ENCOUNTER → 2022-07-22 | Outpatient (CLI) | payer MEDICARE, SELFPAY ==
--- NOTE | 2022-07-22 09:08 | MRI_ITS ---
EXAM: MR HEAD WITHOUT AND WITH INTRAVENOUS CONTRAST CLINICAL INDICATION: STAGING METASTATIC LUNG CA TECHNIQUE: Multiplanar and multisequence MR images of the brain were obtained without and with intravenous contrast. This report was created using [employer] With report generation technology. CONTRAST: 12ml Clariscan via IV COMPARISON: None. FINDINGS: BRAIN AND EXTRA-AXIAL SPACES: Small T2 FLAIR hyperintensity foci in the posterior periatrial white matter and minimally in the frontal lobe white matter are chronic white matter ischemic changes. No midline shift and no mass effects. Following IV contrast administration, there are no abnormally enhancing lesions intra-axially and extra-axially. No intra- or extra-axial hemorrhage. Posterior fossa structures are unremarkable. Ventricles are appropriate for age. No hydrocephalus. Basal cisterns are patent. SELLA: Unremarkable. Normal sella turcica, pituitary gland, infundibular stalk, optic chiasm and hypothalamus. AUDITORY SYSTEM: Unremarkable. The internal auditory canals are patent. BONES/JOINTS: Unremarkable. No discrete lytic or blastic abnormalities. SINUSES: Unremarkable as visualized. Clear. MASTOID AIR CELLS: Unremarkable as visualized. Clear. ORBITS: Unremarkable as visualized. Both globes, extraocular muscles, optic nerves and retrobulbar fat appear unremarkable. VASCULATURE: Unremarkable as visualized. Normal flow voids in the major intracranial circulation. MRI/Brain W/WO Contrast IMPRESSION: 1. No MRI evidence of intracranial metastatic disease or acute intracranial abnormality. 2. Chronic white matter ischemic changes in both cerebral hemispheres. Electronically Signed: Tommie Meza MD at 11:04 [facility] ,
[2022-07-22 10:00] LABS: EGFR FINGERSTICK > 60.0000 mL/min (>60)
== END | disposition home or self-care (01) ==
LOC: MRI 09:08
PROVIDERS: Visit Provider Internal Medicine Medical Oncology
DX: C34.90 Malignant neoplasm of unspecified part of unspecified bronchus or lung (principal)
CPT/HCPCS: 70553; A9575

== ENCOUNTER → 2022-07-26 | Outpatient (CLI) | payer MEDICARE, SELFPAY ==
--- NOTE | 2022-07-26 08:46 | MRI_ITS ---
EXAM: MR THORACIC SPINE WITHOUT AND WITH INTRAVENOUS CONTRAST CLINICAL INDICATION: BONE METS, NEW LUNG CA DIAGNOSIS, F/U TO PET SCAN TECHNIQUE: Multiplanar and multisequence MR images of the thoracic spine without and with intravenous contrast. This report was created using [employer] report [employer] technology. CONTRAST: IV 11ml Clariscan COMPARISON: PET 07.20.22 FINDINGS: VERTEBRAE: See below. DISCS/SPINAL CANAL/NEURAL FORAMINA: Compression deformity of T1, T2, and partially at T3. These are stable and may be pathologic. These vertebral body segments demonstrate low T1 and increased STIR signal consistent with metastatic foci. There is a mass with is noted along the posterior mediastinum measuring 93 x 41mm. There is a mass which extends from the T2 vertebral body into the spinal canal measuring 15 x 8mm causing severe spinal stenosis. Abnormal enhancement of spinous processes at T1-T2 and T3 with overlying soft tissue enhancement concerning for metastatic disease. SPINAL CORD: Unremarkable. Normal in signal and morphology. Normal conus medullaris. SOFT TISSUES: Unremarkable. LUNGS AND PLEURAL SPACES: Metastatic pulmonary nodules are partially seen. MRI/Spine Thoracic W/WO Contrast IMPRESSION: 1. Compression deformity of T1, T2, and partially at T3. These are stable and may be pathologic. These vertebral body segments demonstrate low T1 and increased STIR signal consistent with metastatic foci. There is a mass with is noted along the posterior mediastinum measuring 93 x 41mm. There is a mass which extends from the T2 vertebral body into the spinal canal measuring 15 x 8mm causing severe spinal stenosis. 2. Metastatic pulmonary nodules are partially seen. 3. Abnormal enhancement of spinous processes at T1-T2 and T3 with overlying soft tissue enhancement concerning for metastatic disease. Electronically Signed: Juan C Purcell MD at 16:45 EST ,
== END | disposition home or self-care (01) ==
PROVIDERS: Visit Provider Internal Medicine Medical Oncology
DX: C34.90 Malignant neoplasm of unspecified part of unspecified bronchus or lung (principal); C79.51 Secondary malignant neoplasm of bone
CPT/HCPCS: 72157; A9575

== ENCOUNTER → 2022-08-22 | Outpatient (CLI) | payer MEDICARE, SELFPAY ==
--- NOTE | 2022-08-22 13:12 | CT_ITS ---
INDICATION: NECK MASS ON PET SCAN EXAMINATION: CT NECK WITH CONTRAST - CT Soft Tissue Neck W/ Contrast Injection TECHNIQUE: Helically acquired images were obtained of the neck following IV contrast. A radiation dose optimization technique was used for this scan. IV Contrast dosage and agent: 100 mL [id number] COMPARISON: Thoracic spine MRI July 26, 2022. PET/CT July 20, 2022 and March 16, 2022. CT chest February 01, 2022.. FINDINGS: 5.0 x 3.1 x 7.3 cm mass along the medial right lung apex and superior mediastinal margin which correlates with PET avid mass on July 21, 2020 09/16/2021, which abuts and likely invades right esophageal wall, axial image 22, similar in overall size to February 01, 2022 no difficult to compare given differences in technique. The mass erodes into the vertebral body T1, coronal image 69, T2 vertebral body coronal image 71 and likely T3 coronal image 76, which is new from February 01, 2022. Vertebral plana at T1 and vertebral height loss at T2 and T3 are unchanged from July 20, 2021 2. Central spinal canal evaluation is limited by CT. Additional partially seen posterior right upper lobe nodule, axial image 16 is unchanged from prior exams and correlate with non-PET avid nodule. 1.2 x 0.7 cm lymph node immediately anterior to the left subclavian artery and posterior to left internal carotid axial image 33 correlates with PET avid lymph node on July 20, 2022, partially encased by smaller branch arteries. No evidence of gus necrosis or other suspicious cervical lymph nodes. Prevertebral soft tissues are unremarkable. Normal epiglottis. Unremarkable thyroid with diminutive Isthmus. Salivary glands are normal in appearance. Parapharyngeal tonsils and parapharyngeal fat are unremarkable. Base of tongue is symmetric without abnormal enhancing mass. No odontogenic abscess is appreciated. CT/Soft Tissue Neck WITH Contrast IMPRESSION: 7.3cm medial right lung apex mass correlates with PET avid lesion, similar in overall size to August 04, 2021 though concerning for invasion of the right esophageal wall and T1-T3 vertebral bodies. Limited central spinal canal evaluation by CT, better assessed on recent thoracic spine MRI. Prominent left supraclavicular lymph node correlates with PET avid lymph node on July 20, 2022, partially encased by large arteries as above. Electronically Signed: Lamin Barrios MD at 9:29 EST ,
== END | disposition home or self-care (01) ==
PROVIDERS: Visit Provider Otolaryngology
DX: R22.1 Localized swelling, mass and lump, neck (principal)
CPT/HCPCS: 70491; Q9967

== ENCOUNTER → 2022-08-30 | Outpatient (CLI) | payer MEDICARE, SELFPAY ==
[2022-08-30 13:35] VITALS: PULSE 100; PULSE 103; PULSE 107; PULSE 108; PULSE 84; PULSE 92; PULSE 97; PULSE 99; O2SAT 87; O2SAT 88; O2SAT 89; O2SAT 93; O2SAT 96; O2SAT 97; O2SAT 98
--- NOTE | 2022-08-30 14:01 | CPS ---
Pt rested at the 2 minute monty for a few moments do to increased work of breathing. Pt was placed on 1 lpm at 3 minutes. Pt was increased to 2 lpm at 4 minutes. Pt finished walk on 2 lpm. Pt did state the oxygen made a difference and he felt much better wearing it and was able to rate his work of breathing to a 1 on 2 lpm with a saturation of 93% from a 3 on room air.
--- NOTE | 2022-09-01 10:15 | WT_ITS ---
PSN 6 Minute Walk Test 6 Minute Walk Test 6 Minute Walk Test: 6 Minute Walk Test PSN:6-Minute Walk Test Start: 08/30/22 13:56 Freq: Status: Active Protocol: [id number] Document 08/30/22 13:35 AE (Rec: 08/30/22 14:06 [facility] [id number]) 6 Minute Walk Test Date Performed 08/30/22 Time Performed 13:35 Height 5 ft 7 in Weight: 126 lb Weight in Pounds 126.[address]: Danelle Assistive device used: None Pre-test Oxygen Delivery Method Room Air Pulse Ox (%) 97 Pulse Rate (60-100 beats/min) 100 Dyspnea Elías Scale (0-10) 2 Exertion Elías Scale (6-20) 6 1st minute Oxygen Delivery Method Room Air Pulse Ox (%) 93 Pulse Rate (60-100 beats/min) 103 H 2nd minute Oxygen Delivery Method Room Air Pulse Ox (%) 89 Pulse Rate (60-100 beats/min) 97 Number of Rests Taken 1 Reported Symptoms Increased Work of Breathing 3rd minute Oxygen Delivery Method Room Air Pulse Ox (%) 87 Pulse Rate (60-100 beats/min) 108 H Dyspnea Elías Scale (0-10) 3 Reported Symptoms Increased Work of Breathing 4th minute Oxygen Flow Rate (L/min) (L/min) 1 Oxygen Delivery Method Nasal Cannula Pulse Ox (%) 88 Pulse Rate (60-100 beats/min) 107 H 5th minute Oxygen Flow Rate (L/min) (L/min) 2 Oxygen Delivery Method Nasal Cannula Pulse Ox (%) 96 Pulse Rate (60-100 beats/min) 92 6th minute Oxygen Flow Rate (L/min) (L/min) 2 Oxygen Delivery Method Nasal Cannula Pulse Ox (%) 93 Pulse Rate (60-100 beats/min) 84 Dyspnea Elías Scale (0-10) 1 Exertion Elías Scale (6-20) 13 Reported Symptoms Increased Work of Breathing Post-test Oxygen Flow Rate (L/min) (L/min) 2 Oxygen Delivery Method Nasal Cannula Pulse Ox (%) 98 Pulse Rate (60-100 beats/min) 99 Full Laps Walked 10 Partial Lap, Number of Tiles Walked 29 Total Distance Walked (ft) 619 08/30/22 14:01 Cardiopulmonary Services by Amber Khalil Pt rested at the 2 minute monty for a few moments do to increased work of breathing. Pt was placed on 1 lpm at 3 minutes. Pt was increased to 2 lpm at 4 minutes. Pt finished walk on 2 lpm. Pt did state the oxygen made a difference and he felt much better wearing it and was able to rate his work of breathing to a 1 on 2 lpm with a saturation of 93% from a 3 on room air. Initialized on 08/30/22 14:01 - END OF NOTE Interpretation Interpretation: The patient ambulated 619 feet over the course of 6 minutes beginning on room air without assistive devices. Pretesting oxygen saturation was noted to be 97% on room air. With ambulation, the patient desaturated on several occasions requiring the initiation and subsequent escalation of supplemental O2 to 2 L/min to maintain appropriate saturations. Recommendations Recommendations: 2 L/min of supplemental oxygen should be utilized with exertion.
== END | disposition home or self-care (01) ==
PROVIDERS: Visit Provider Nurse Practitioner Acute Care
DX: R06.02 Shortness of breath (principal)
CPT/HCPCS: 94618

== ENCOUNTER 2022-09-05 07:10 | Day surgery (SDC) | payer MEDICARE, SELFPAY ==
[2022-09-05] VITALS (7 sets, daily range): BP systolic 132–154; BP diastolic 82–103; PULSE 82–91; RESP 16–22; TEMP 36.8–37; O2SAT 92–100; BMI 19.3
[2022-09-05] MEDS: Lactated Ringers 1,000 ML 15 ML IV (07:25)
--- NOTE | 2022-09-05 07:38 | HP.PCM_ITS ---
History and Physical Date of Admission: 09/05/22 Date of Service:? 08/22/22 MR#: [id number] Acct: [id number] Name:? NADIYA MACHADO Rep #: [id number] : 1950 ? ? Provider: Dr. Telma Burr MD Age/Sex:? 72/M ? ? Location: [facility] Status: Signed Intake Vital Signs ? 08/22/2313:31 Height 5 ft 8 in Weight: 125 lb 2 oz BMI 19.0 BP 139/87 H Blood Pressure Location Lt brachial Position Sitting Respiration 17 Pulse 95 Pulse Source Monitor Temp 97.4 F L Temp Source Temporal Pulse Oximetry (%) 96 Oxygen Delivery Method room air Intake Visit Reasons:?PORT PLACEMENT Chief Complaint: port placement Allergies No Known Allergies Allergy (Verified 08/22/22 14:32) Medications cholecalciferol (vitamin D3) 25 mcg (1,000 unit) capsule 25 mcg PO DAILY 12/08/21 [History Confirmed 08/22/22] triamcinolone acetonide 0.1 % topical cream 1 applic topical BID PRN Rash 12/08/21 [History Confirmed 08/22/22] albuterol sulfate 90 mcg/actuation aerosol inhaler 2 puff inhalation Q4H PRN PRN breathing 04/08/22 [History Confirmed 08/22/22] cyclobenzaprine 10 mg tablet 10 mg PO BID 05/19/22 [History Confirmed 08/22/22] prednisone 20 mg tablet 20 mg PO DAILY 05/19/22 [History Confirmed 08/22/22] diazepam 5 mg tablet (Valium) 5 mg PO TID Muscle pain/spasm 5 days #15 tabs 06/08/22 [Rx Confirmed 08/22/22] oxycodone-acetaminophen 5 mg-325 mg tablet (Percocet) 1 tab PO Q6H PRN pain 3 days #12 tabs 06/08/22 [Rx Confirmed 08/22/22] pantoprazole 40 mg tablet,delayed release 40 mg PO QAM #90 tabs 07/22/22 [Rx Confirmed 08/22/22] sucralfate 1 gram tablet 1 g PO QAC #90 tabs 07/22/22 [Rx Confirmed 08/22/22] amitriptyline 25 mg tablet 25 mg PO QHS 30 days #30 tabs 07/28/22 [Rx Confirmed 08/22/22] oxycodone myristate 9 mg capsule sprinkle extended release 12 hr(DON'T CRUSH) (Xtampza ER) 9 mg PO Q12H 30 days #60 ea 07/28/22 [Rx Confirmed 08/22/22] MAGIC MOUTH WASH (BMX) 180 mL suspension 15 ml PO .qid PRN pain #300 mL 08/17/22 [Rx Confirmed 08/22/22] dexamethasone 4 mg tablet 4 mg PO TID #45 tabs 08/17/22 [Rx Confirmed 08/22/22] PFSH Medical History? Alcohol use Cardiology follow-up encounter Easy bruising Gonorrhea History of diverticulitis History of echocardiogram History of edema History of irregular heartbeat History of stress test Hyperlipidemia Inguinal hernia Injury of head and neck Rectal prolapse Schizophrenia Shortness of breath on exertion Tobacco abuse Wears glasses Wears partial dentures Surgical History? History of herniorrhaphy History of meniscectomy of left knee Family History? Father Heart diseaseBrother Heart disease COPD (chronic obstructive pulmonary disease) Social History? Smoking Status:? Current some day smoker tobacco type: cigarettes Tobacco: How many years used:? 55 HPI HPI HPI: 72 y/o M presents for port placement. 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 Planning to start chemo on 09/07. ROS General General: Yes weight change and fatigue; No appetite, colon cancer or breast cancer HEENT HEENT: Yes difficulty swallowing; No eye injury, eye surgery, swollen glands or hoarseness Endo Endocrine: No thyroid disease, diabetes mellitus, thyroid cancer, Hair loss, heat intolerance or cold intolerance Skin Skin: No rash or changing moles Musc Musculoskeletal: Yes back problems; No arthritis, rheumatoid arthritis, gout or joint pain Cardio Cardiovascular: Yes heart disease Psych Psychiatric: Yes anxiety; No depression or hearing voices Resp Respiratory: Yes shortness of breath, No sleep apnea, Yes cough, Yes COPD, No asthma, Yes emphysema and No wheezing Gastro Gastrointestinal: No abdominal pain and No diarrhea Francisco Hematologic: No blood thinners, No blood disorders, No bleeding, No anemia and No blood clots Neuro Neurologic: Yes numbness and Yes tingling Exam Const General: cooperative, healthy appearing and no acute distress HENMT Head: normal to inspection Chest Other: normal palpation to bilateral upper chest Resp Effort & Inspection: normal respiratory effort Cardio Rate: regular rate GI Inspection: non-distended Palpation: soft and nontender Skin General: no rashes or lesions noted Neuro General: patient oriented x3 Extrem General: no clubbing, cyanosis or edema Psych Affect: normal affect Assessment and Plan Assessment and Plan (1) Encounter for insertion of venous access port: ?Status:?Acute (2) Adenocarcinoma of right lung: ?Status:?Chronic ?Comment: Metastatic NSCLC adenocarcinoma type, R Superior Sulcus tumor. TMB high 13.3, PD-L1 TPS 10%, MET amplification. ?PET/CT 07/20/2023 reviewed, shows progressive disease in right and left hemithorax pulmonary parenchymal, progression in mediastinal nodes, increase in left lateral neck, T1-T3 vertebral bodies, Periauricular area. MRI thoracic spine 07/26/2022 reviewed, shows compression deformity of T1-T2 and T3, mass along the posterior mediastinum, mass from the T2 vertebral body into the spinal canal measuring 15 mm. On Radiation therapy to the upper spine. Discussed further therapy after Radiation therapy with Chemotherapy-Carboplatin + Alimta and Immunotherapy-Keytruda. Discussed risks, benefits and side effects. Pt agrees to proceed. (3) Metastatic adenocarcinoma to bone: ?Status:?Acute ?Comment: T1,2,3 vertebral metastases. On Radiation therapy. Plan I have discussed above with the patient- Port-a-Cath placement. Patient has been counseled as to the risks/benefits of the procedure. I have explained the risks of the surgery, including but not limited to: infection, bleeding, injury to any blood vessels/nerves, injury to lungs (such as pneumothorax or hemothorax and need for chest tube), not having any access, nonfunctioning of port due to thrombosis, infection of port, etc.? the patient understands and agrees to proceed. I have answered all the patient's questions to the patient?s satisfaction and the patient has no further questions. Coding Level of Care Code Off vis,new,level 3 Diagnoses Encounter for insertion of venous access port? Z45.2 Adenocarcinoma of right lung? C34.91 Metastatic adenocarcinoma to bone? C79.51 08/22/222024 <Electronically signed by Telma Burr MD> Date Telma Burr MD
[2022-09-05] MEDS: Ipratropium/Albuterol Sulfate 3 ML AMPUL.NEB INHALATION (08:10)
[2022-09-05] MEDS: Cefazolin 2 GM in 0.9% Normal Saline 100 ML IV (09:40)
[2022-09-05] MEDS: Bupivacaine 0.5% PF 10 ML VIAL (09:55)
[2022-09-05] MEDS: Lidocaine 2% /Epi 1:100 (20ml) 20 ML VIAL (09:55)
--- NOTE | 2022-09-05 10:24 | PCM.OPRPT ---
Report of Operation Date of Procedure: 09/05/22 Pre-Operative Diagnosis: Z45.2, adenocarcinoma right lung Post-Operative Diagnosis: Same Surgery/Procedure Performed:: 1. Placement of left IJ Port-A-Cath 2. Use of fluoroscopy 3. Use of ultrasound Surgeon: Telma Burr Type of Anesthesia: MAC/Supplemental Anesthesiologist: Sonny Santana Special Medications: Ancef 2 g IV x1 Specimen's removed: None Estimated Blood Loss (mL): <10 cc Fluids Replaced: Per anesthesia Description of Procedure: After informed consent was given, the patient was brought to the operating room and placed in the supine position. Appropriate time out protocol was followed. Patient was then given IV conscious sedation for anesthesia. The patient's left upper chest and neck were then prepped with a surgical skin preparation and sterile surgical drapes were placed. After proper landmarks were ascertained, the skin at the upper left chest area was then infiltrated with 1:1 mixture of 1% lidocaine with epinephrine and 0.5% marcaine. A needle trocar was then inserted into the left internal jugular vein with ultrasound guidance-multiple vessels were viewed with u/s and the left IJ was chosen-- and there was good aspiration of venous blood. A wire was then threaded into the needle trocar and this was visualized under fluoroscopy to ensure that the wire was in the superior vena cava. Once this was done, then the needle trocar was removed. A small skin casey was made with an 11 blade knife at the wire entrance site. The dilator with the introducer sheath attached was then placed over the wire into the left internal jugular vein via the Seldinger technique and this was visualized under fluoroscopy. The dilator and sheath were in proper position as visualized by fluoroscopy. A subcutaneous pocket was then created caudad to the catheter insertion site. A transverse skin incision was made after the skin and subcutaneous tissues were infiltrated with local anesthetic. Blunt dissection was then used to create a space large enough for placement of the subcutaneous port. The catheter was then tunneled into the subcutaneous pocket. The wire and dilator were then removed. The catheter was then threaded into the introducer sheath and was positioned with its tip at the junction of the superior vena cava and the right atrium as visualized under fluoroscopy. The excess catheter was transected. The catheter was then attached to the subcutaneous port using manufacturers guidelines. The catheter was flushed with a heparin saline mixture prior to placement. Hemostasis was carefully controlled with electrocautery. The port was sutured to the subcutaneous fascia using 2-0 Vicryl suture at two sites. The port was then placed in the subcutaneous pocket. The incision were reapproximated with interrupted subdermal 3-0 vicryl sutures. The skin was reapproximated with 3-0 nylon suture in a interrupted fashion. Steristrips were used for reinforcement of the skin closure at IJ insertion site and a sterile opsite dressings were applied. The patient tolerated the procedure well. Grafts/Implants Used: [employer] PowerPort isp M.R.I. 6Fr Lot lot [id number] [id number] Complications none
--- NOTE | 2022-09-05 10:27 | DCINST_ITS ---
Discharge Instructions Procedure Port-A-Cath Diet Discharge Diet: Light diet - advance as tolerated Activity May shower in (days): 5 (Keep port site clean and dry x5 days. Neck incision okay to get wet after 1 day. Okay to lower shower and upper sponge bath. OR okay to taper off port site with a Ziploc bag to shower) Lifting Restrictions: No lifting > 15 pounds for 3 days with the arm on the side of the port Dressing / Incision Call your doctor if your incision/area has: Continuous Slow Oozing, Sudden Increased Bleeding, Increased Pain/ Swelling, Increased Redness, Foul Smelling Discharge and Swelling at the incision site Call your doctor if you observe: Fever of 101 or Higher Change Dressing in: 2 days Follow Up Care Please Follow Up With: Telma Burr MD When: In 10 days for permanent suture removal?call office for appointment Test Results: Test results from this visit will be discussed in further detail at your follow- up appointment, if applicable. Discharge Plan Admission Attending Provider: Telma Burr [facility]Pres[facility] Prescriptions: New oxycodone-acetaminophen 5-325 mg tablet 1 tab PO Q6H PRN (Reason: pain) 2 Days Qty: 5 0RF Continued cholecalciferol (vitamin D3) 25 mcg (1,000 unit) capsule 25 mcg PO DAILY amitriptyline 25 mg tablet 25 mg PO QHS 30 Days Qty: 30 1RF MAGIC MOUTH WASH (BMX) 180 mL suspension 15 ml PO .qid PRN (Reason: pain) Qty: 300 5RF Rx Instructions: diphenhydramine 12.5 mg/5 mL oral liquid 60 mL; aluminum-mag hydroxide- simethicone 400 mg-400 mg-40 mg/5 mL oral susp 60 mL; Lidocaine Viscous 2 % mucosal solution 60 mL; Per 180 mL lidocaine-prilocaine 2.5-2.5 % cream 1 applic topical ONCE PRN (Reason: port access) 30 Days Qty: 30 2RF ondansetron 8 mg tablet,disintegrating 8 mg PO Q8H PRN (Reason: nausea and vomiting) Qty: 30 2RF folic acid 1 mg tablet 1 mg PO DAILY Qty: 90 1RF albuterol sulfate 90 mcg/actuation HFA aerosol inhaler 2 puff INHALATION Q4H PRN PRN (Reason: breathing) Label Comments: INHALE 2 PUFFS every FOUR hours as needed for FOR WHEEZING or SHORTNESS OF BREATH acetaminophen 500 mg Tablet 500 mg PO Q6H PRN (Reason: Pain) meloxicam 7.5 mg Tablet 7.5 mg PO BID ibuprofen 200 mg Tablet 600 mg PO Q6H PRN (Reason: Pain) magnesium 200 mg Tablet 800 mg PO DAILY sucralfate 1 gram tablet 1 g PO DAILY dexamethasone 4 mg tablet 4 mg PO BID Rx Instructions: take tid, on 08/22 begin taper, twice daily for one week, then once daily for one week, then every other day for one week then stop pantoprazole 40 mg tablet,delayed release (DR/EC) 40 mg PO QAM Qty: 90 3RF Referrals / Follow Up: [facility] [Primary Care Provider] - Disposition Disposition (needs filled in before D/C Order can be placed): Home, Self Care
--- NOTE | 2022-09-05 10:30 | RAD_ITS ---
STUDY: X-RAY CHEST REASON FOR EXAM: Male, 72 years old. Port -- pacu TECHNIQUE: Single AP portable view of the chest. COMPARISON: Comparison is made with prior examination dated 05/05/2022. FINDINGS: A left-sided Port-A-Cath has been placed. The tip is in the proximal portion of the superior vena cava. EKG electrodes are seen. Hyperinflation. Persistent 2.2 cm nodule in the medial aspect of the right upper lobe. There is no demonstrated pleural abnormality. Normal size heart. Normal mediastinum and leon. Normal visualized pulmonary arteries. There is atherosclerotic calcification of the aortic arch with tortuosity. Normal visualized thoracic spine. Normal visualized ribs, clavicles, and shoulders. There is no demonstrated abnormality of the visualized soft tissue structures of the upper abdomen. RAD/Chest 1 View (Portable) IMPRESSION: The left-sided portacatheter has been placed. The tip is in the proximal portion of the superior vena cava. Hypoinflation. 2.2 cm nodular density in the medial aspect of the right upper lobe. Electronically Signed: Chino Camilo MD at 10:57 EST ,
== END 2022-09-05 11:40 | disposition home or self-care (01) ==
LOC: SDC 07:13 → AC 07:14
PROVIDERS: Visit Provider Surgery
PROC: (CPT 36561; principal; 2022-09-05 08:45)
DX: Z45.2 Encounter for adjustment and management of vascular access device (principal); C79.51 Secondary malignant neoplasm of bone; C34.91 Malignant neoplasm of unspecified part of right bronchus or lung; E78.5 Hyperlipidemia, unspecified; K21.9 Gastro-esophageal reflux disease without esophagitis; F17.210 Nicotine dependence, cigarettes, uncomplicated; Z79.52 Long term (current) use of systemic steroids; Z79.899 Other long term (current) drug therapy; Z92.3 Personal history of irradiation
CPT/HCPCS: 36561; 00532; 71045; 77001; 94640; J7120; J2405

== ENCOUNTER 2022-09-19 11:20 | Inpatient (IN) | payer MEDICARE, SELFPAY ==
[2022-09-19] VITALS (7 sets, daily range): BP systolic 116–143; BP diastolic 72–88; PULSE 53–102; RESP 18–22; TEMP 35.9–36.6; O2SAT 94–99; BMI 18.3; BMI 17.7
--- NOTE | 2022-09-19 12:52 | RAD_ITS ---
STUDY: X-RAY CHEST REASON FOR EXAM: Male, 72 years old. Chest pain. Shortness of breath. TECHNIQUE: Single AP portable view of the chest. COMPARISON: Comparison is made with prior study dated 09/05/2022. FINDINGS: EKG electrodes are seen. A left-sided Port-A-Cath is seen with the tip at the junction of the superior vena cava and right atrium. There now is evidence of a right upper lobe infiltration. Mild increased markings are also seen at the right lung base. Stable increased markings in the left upper lobe. Stable nodular density in the right upper lobe. There is no demonstrated pleural abnormality. Normal size heart. Normal mediastinum and leon. Normal visualized pulmonary arteries. There is atherosclerotic calcification of the aortic arch with tortuosity. There are diffuse degenerative changes of the visualized thoracic spine. Dextroscoliosis. Normal visualized ribs, clavicles, and shoulders. There is no demonstrated abnormality of the visualized soft tissue structures of the upper abdomen. RAD/Chest 1 View (Portable) IMPRESSION: Right upper lobe infiltrate as well as increased markings at the right lung base. Stable increased markings in the left upper lobe. Stable nodular density in the medial aspect of the right upper lobe. Electronically Signed: hCino Camilo MD at 14:07 EST ,
--- NOTE | 2022-09-19 13:00 | EKG12_ITS ---
Test Reason : Blood Pressure : / mmHG Vent. Rate : 094 BPM Atrial Rate : 094 BPM P-R Int : 144 ms QRS Dur : 092 ms QT Int : 344 ms P-R-T Axes : 079 087 069 degrees QTc Int : 430 ms Sinus rhythm with frequent Premature ventricular complexes Low voltage QRS (Limb Leads) Poor R wave progression Confirmed by DERREK JUÁREZ, ELYSSA ([id number]), design editor GEORGE KESSLER ([id number]) on 09/21/2022 10:24:00 AM Referred By: ROLANDO Confirmed By:ELYSSA ANGLIN MD
--- NOTE | 2022-09-19 13:11 | ED.VIS.DYS ---
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 He is chronically on 4 L nasal cannula O2 for COPD. Today he was in his radiation oncologist office had a pulse ox of 60% on room air they thought it looked worse than his baseline seen in the emergency department for evaluation. He denies any chest pain or history of PE or DVT no leg pain or swelling. No hemoptysis. No fever or chills. He does have a cough of clear sputum. When they placed him on his oxygen in our office he improved to the low 90s on oxygen. PE Risk Factors: Positive for Cancer; Negative for OCP + Smoking + > 35, Prior DVT or PE, Recent immobilization, Recent surgery or Recent travel Prior similar symptoms: Yes Recent Illness/Hospitalization: No PFSH PFSH Medical History Alcohol use Cancer Cardiology follow-up encounter Easy bruising Emphysema, unspecified Encounter for education Gastric reflux Gonorrhea History of diverticulitis History of echocardiogram History of edema History of hiatal hernia History of irregular heartbeat History of steroid therapy History of stress test Hoarseness Hyperlipidemia Inguinal hernia Injury of head and neck On home oxygen therapy Rectal prolapse Schizophrenia Shortness of breath on exertion Shortness of breath on exertion Smoker Tobacco abuse Wears glasses Wears partial dentures Home Medications cholecalciferol (vitamin D3) 25 mcg (1,000 unit) capsule 25 mcg PO DAILY 12/08/21 [History Last Taken 09/18/22] albuterol sulfate 90 mcg/actuation aerosol inhaler 2 puff inhalation Q4H PRN PRN breathing 04/08/22 [History Last Taken 09/18/22] pantoprazole 40 mg tablet,delayed release 40 mg PO QAM #90 tabs 07/22/22 [Rx Last Taken 09/18/22] amitriptyline 25 mg tablet 25 mg PO QHS 30 days #30 tabs 07/28/22 [Rx Last Taken 09/18/22] folic acid 1 mg tablet 1 mg PO DAILY #90 tabs 08/25/22 [Rx Last Taken 09/18/22] lidocaine-prilocaine 2.5 %-2.5 % topical cream 1 applic topical ONCE PRN port access 30 days #30 grams 08/25/22 [Rx Last Taken Unknown] ondansetron 8 mg disintegrating tablet 8 mg PO Q8H PRN nausea and vomiting #30 tabs 08/25/22 [Rx Last Taken Unknown] acetaminophen 500 mg tablet 500 mg PO Q6H PRN Pain 08/29/22 [History Last Taken Unknown] ibuprofen 200 mg tablet 600 mg PO Q6H PRN Pain 08/29/22 [History Last Taken Unknown] magnesium 200 mg tablet 800 mg PO DAILY 08/29/22 [History Last Taken 09/18/22] sucralfate 1 gram tablet 1 g PO DAILY 08/29/22 [History Last Taken 09/05/22] oxycodone-acetaminophen 5 mg-325 mg tablet 1 tab PO Q6H PRN pain 2 days #5 tabs 09/05/22 [Rx Last Taken 09/19/22] cyclobenzaprine 10 mg tablet 10 mg PO DAILY PRN Muscle Spasm 09/19/22 [History Last Taken 09/19/22] Allergy/AdvReac Type Severity Reaction Status Date / Time No Known Allergies Allergy Verified 09/19/22 11:21 Family History Father Heart disease Brother Heart disease COPD (chronic obstructive pulmonary disease) Surgical History History of esophagogastroduodenoscopy (EGD) History of herniorrhaphy History of meniscectomy of left knee Hx of biopsy Social History Smoking Status: Former smoker Tobacco: How many years used: 55 ROS ROS ED ROS Narrative Cough. Shortness of breath. Generalized weakness. Review of Systems ROS Unobtainable: Denies due to encephalopathy Constitutional Constitutional ED: Denies chills or fever(s) Eyes Eyes: Denies blurry vision ENT ENT ED: Denies ear pain or rhinorrhea Cardiovascular Cardiovascular: Denies chest pain or palpitations Respiratory/Chest Respiratory/Chest: Reports cough, dyspnea, dyspnea on exertion and sputum Gastrointestinal Gastrointestinal: Denies abdominal pain, constipation, diarrhea, melena or nausea Genitourinary Genitourinary ED: Denies dysuria or hematuria Musculoskeletal Musculoskeletal: Denies arthralgias Integumentary Denies abscess Neurologic Neurologic: Denies headache(s) Psychiatric Psychiatric: Denies anxiety Endocrine Endocrinology: Denies cold intolerance Hematologic/Lymphatic Hematologic/Lymphatic: Denies easy bleeding Allergic/Immunologic Allergic/Immunologic ED: Denies mouth swelling or tongue swelling EXAM Physical Exam Narrative Exam Narrative: 72-year-old male vital signs are stable afebrile. On 4 L of oxygen is 95%. Patient looks cachectic, thin, weak and wasted. H EENT exam dry mucous membranes. Neck is nontender no lymphadenopathy. No JVD. Trachea midline. Lungs coarse breath sounds bilaterally. Few scattered wheezes. No rales. Heart regular rhythm rate about 98 no murmur. Chest wall nontender. Healing med port on the left. Suture still in place. Abdomen is soft and nontender. Moves all 4 extremities. Calves are nontender without edema or cords. He is cachectic. Back nontender. Lipoma. Neurologically is awake and alert with no focal motor deficits. Generalized weakness. Const Vital Signs: 09/19/22 11:21 09/19/22 13:23 09/19/22 13:15 Temperature 96.6 F L Temperature Source Temporal Pulse Rate 98 97 Respiratory Rate 22 H 20 H Respiratory Effort Respiratory Pattern Normal Blood Pressure 116/83 H Blood Pressure Mean 94 Pulse Ox 95 98 Oxygen Delivery Method Nasal Cannula Nasal Cannula Oxygen Flow Rate (L/min) 4 4 09/19/22 13:15 09/19/22 13:57 09/19/22 15:34 Temperature 96.6 F L Temperature Source Temporal Pulse Rate 94 92 Respiratory Rate 20 H 18 Respiratory Effort Short of Breath Labored Respiratory Pattern Tachypnea Blood Pressure 124/75 H 143/88 H Blood Pressure Mean 91 106 Pulse Ox 98 96 Oxygen Delivery Method Nasal Cannula Nasal Cannula Oxygen Flow Rate (L/min) 4 4 Positive well nourished and well developed; Negative for obese, cachectic, contractures or unkempt General Appearance ED: well developed and NAD; Negative for unkempt, cachectic, contractures or pallor Nutritional Appearance: Negative for cachectic or obese HEENT Reports dry mucous membranes; Denies moist mucous membranes atraumatic; Negative for trauma or tenderness Mouth ED: Yes dry mucous membranes Mouth: dry mucous membranes Eyes PERRL and EOMs intact bilaterally General Eye ED: Negative for pale conjunctiva or scleral icterus Neck no lymphadenopathy, supple, no meningeal signs and no JVD General: Negative for tenderness Lymph Lymphatic: Negative for other Chest Wall Chest: Negative for other Resp normal respiratory effort and No clear to auscultation bilaterally Auscultation: wheezes; Negative for rales or rhonchi Cardio regular rate, regular rhythm, S1 normal heart sound, S2 normal heart sound and no murmurs Rate: Negative for bradycardia or tachycardic Rhythm: Negative for abnormal rhythm GI non-tender, non-distended and no masses Inspection: Negative for other Auscultation: normoactive bowel sounds Palpation: soft; Negative for tender or guarding Bladder / Kidney Exam: No other Back/Spine no CVA tenderness and normal to inspection General Back: Negative for CVA tenderness or tenderness Extremity normal to inspection General Extremety ED: Negative for edema or tenderness General Extremity: Negative for edema Neuro oriented x3 and CN's II-XII intact bilaterally Sensorium / Orientation: alert, oriented to person, oriented to place, oriented to time and orientation impaired; Negative for confused, lethargic or stuporous Speech: speech normal Motor Exam: strength 5/5 throughout Psych mental status grossly normal Appearance: Negative for unkempt Attitude: No agitated Mood & Affect: Negative for depressed Thought Process: normal thought process Skin General Skin Exam: Negative for jaundice or pallor Lesions: no lesions Rashes: no rashes Trauma: Negative for abrasion or laceration MDM MDM MDM Narrative Medical decision making narrative: 72-year-old male short of breath with a history of COPD and lung CA with metastases. Undergo a cardiac work-up. PE is a possibility due to his cancer history. Obviously pneumonia versus COPD flare versus cardiac in etiology. Also pleural effusions would be a possibility. Chest x-ray and labs are pending. He will be given a DuoNeb aerosol and Solu-Medrol. Patient was started on Rocephin and IV Zithromax prior to the CTA results. I have the hospitalist on page to have the patient admitted for neutropenia, right upper lobe pneumonia, dyspnea, hypoxia and lung cancer. Lab Data Attestation: I reviewed the patient's lab results. Lab results narrative: CBC shows a white count 0.8 H&H 12.1 and 36.5. Platelet count is only 26,000. Patient is undergoing chemotherapy. D-dimer is elevated 1.78 a CTA of the chest to be obtained. Electrolytes show a sodium 135. Gap of 5. Normal BUN of 14 creatinine 0.63. Glucose 143. Troponin is normal at 12. Chest x-ray shows chronic changes. Scarring. Hyperdensity in the right upper lung which could be pneumonia versus changes from radiation versus his history of malignancy. Due to the elevated D-dimer a CTA is being obtained which should help clarify this. CT of the chest and abdomen showed no PE. He does appear to be a right upper lobe pneumonia and known lung cancer. Labs: Laboratory Results - last 24 hr 09/19/22 09/19/22 09/19/22 13:15 13:15 13:15 WBC 0.8 L* RBC 3.77 L Hgb 12.1 L Hct 36.5 L MCV 96.8 H MCH 32.1 H MCHC 33.2 RDW Std Deviation 54.9 H RDW Coeff of Deidra 15.3 H Plt Count 26 L* MPV 11.0 Immature Gran % (Auto) 2.700 H Neut % (Auto) 68.0 Lymph % (Auto) 12.0 L Beadle % (Auto) 14.7 H Eos % (Auto) 1.3 Baso % (Auto) 1.3 H Absolute Neuts (auto) 0.5 L Absolute Lymphs (auto) 0.09 L Nucleated RBC % 0 Differential Comment Diff Path Review May foll D-Dimer Quant (PE/DVT) 1.78 H* Sodium 135 L Potassium 3.8 Chloride 96 L Carbon Dioxide 34.0 H Anion Gap 5 BUN 14 Creatinine 0.63 L Estim Creat Clear Calc 49.47 Est GFR (MDRD) Af Amer 161 Est GFR (MDRD) Non-Af 133 BUN/Creatinine Ratio 22.3 H Glucose 143 H Calcium 9.2 Troponin I High Sens 12 Radiography Chest X-Ray - ED: 1 View, Read by ED Physician, Heart, Mediastinum, Bony Structures, No Acute Disease and Chronic Changes Diagnostic Testing: Clinical Impression(s) from Imaging Studies Chest X-Ray 09/19/22 12:52 IMPRESSION: Right upper lobe infiltrate as well as increased markings at the right lung base. Stable increased markings in the left upper lobe. Stable nodular density in the medial aspect of the right upper lobe. Electronically Signed: Chino Camilo MD at 14:07 EST , Chest CTA 09/19/22 14:34 IMPRESSION: No evidence of bone embolism. Hyperinflation and changes compatible with the emphysematous changes and bullous formation as described. Infiltration in the posterior aspect of the right upper lobe abutting the major fissure as well as the right middle lobe. Stable nodule in the right upper lobe. New 9.2 mm pleural-based nodule in the left lower lobe. Electronically Signed: Chino Camilo MD at 15:28 EST , Chest x-ray, portable, single view interpreted both by myself and the radiologist shows right upper lobe density which could be infiltrate versus radiation changes versus malignancy. CTAs being obtained. Rhythm Strip Rhythm Strip: Sinus Rhythm Rate: 94 Ectopy: PVC(s) EKG Initial EKG: Attestation: I personally reviewed and interpreted this EKG as follows: Interpretation: Sinus Rhythm and No Acute Injury Pattern Comments: Sinus rhythm rate of 94 no acute signs of DE or ischemia. Frequent PVCs. Discharge Plan Dx/Rx/DC Orders Clinical Impression: Acute dyspnea, Hypoxia, Right upper lobe pneumonia, Lung cancer metastatic to bone, COPD exacerbation, Neutropenia, Chemotherapy induced neutropenia Disposition Disposition: [facility]
[2022-09-19] MEDS: Ipratropium/Albuterol Sulfate 3 ML AMPUL.NEB INHALATION (13:23)
[2022-09-19 13:31] LABS: Absolute Lymphocyte Count 0.09 X10^3/uL (0.83-4.51); Absolute Neutrophil Count 0.5 X10^3/uL (2.0-7.7); Basophil# 0.01 X10^3/uL; Basophil% 1.3 % (0-1); Eosinophil# 0.01 X10^3/uL; Eosinophils% 1.3 % (0-5); Hematocrit 36.5 % (40-54); Hemoglobin 12.1 g/dL (13.0-16.5); Lymphocyte # 0.09 X10^3/ul (0.83-4.51); Mean Corp Hgb Conc 33.2 g/dL (32-36); Mean Corpuscular Hgb 32.1 pg (27.0-32.0); Mean Corpuscular Volume 96.8 fL (80-94); Monocyte# 0.11 X10^3/uL; Monocyte% 14.7 % (0-10); NRBC Flagged by Analyzer 0 % (0-5); Neutrophil # 0.51 X10^3/uL (2.7-7.7); POSITIVE COUNT YES; POSITIVE DIFFERENTIAL YES; POSITIVE MORPHOLOGY YES; Platelet Count 26 K/mm3 (150-450); RBC Distribution Width CV 15.3 % (11.6-14.6); RBC Distribution Width SD 54.9 fl (35.1-43.9); Red Blood Count 3.77 M/mm3 (4.6-6.2); White Blood Count 0.8 K/mm3 (4.4-11.0)
[2022-09-19 13:35] LABS: Differential Indicated SCAN CRITERIA MET
[2022-09-19 13:40] LABS: D-Dimer Quantitative (DVT/PE) 1.78 FEU/ug/m (0.27-0.49)
[2022-09-19 13:46] LABS: Anion Gap 5 (5-15); BUN 14 mg/dL (7-18); BUN/Creat Ratio 22.3 RATIO (10-20); Calcium,Total 9.2 mg/dL (8.5-10.1); Chloride 96 mmol/L (98-107); Creatinine, Serum 0.63 mg/dL (0.70-1.30); EST Glomerular Filtration Rate 133 mL/min (>60); Est Glom Filt Rate - Afr Amer 161 mL/min (>60); Estimated Creatinine Clearance 49.47 ml/min; Glucose 143 mg/dL (74-106); Potassium 3.8 mmol/L (3.5-5.1); Sodium Level 135 mmol/L (136-145); Troponin-I HS 12 pg/mL (3.0-78.0)
[2022-09-19] MEDS: MethylPREDNISolone 125 MG/2 ML Vial IV (13:53)
--- NOTE | 2022-09-19 14:34 | CT_ITS ---
STUDY: CTA CHEST REASON FOR EXAM: Male, 72 years old. Elevated d-dimer RADIATION DOSAGE (If Supplied By Facility): CTDIvol = ( 4.30 ) mGy, DLP = ( 161.83 ) mGycm TECHNIQUE: The examination was performed with the intravenous administration of IV 100mL [id number]-370. Post-processing of the angiographic images was performed, with multiplanar reformation and 3D reconstruction. Individualized dose optimization techniques were used for this CT. COMPARISON: Comparison is made with prior chest radiograph done earlier today as well as prior unenhanced CT scan of the chest dated 02/01/2022. FINDINGS: Normal enhancement of the main pulmonary artery and right and left pulmonary arteries. Normal enhancement of the bilateral peripheral pulmonary arteries. There is no demonstrated pulmonary embolism. Normal thoracic aorta and visualized great vessels. There is no demonstrated aortic dissection. Normal heart and pericardium. No coronary artery calcification is seen. Normal mediastinum. Normal hilar regions. Normal visualized trachea and bronchi. Hyperinflation. Once again, there is evidence of diffuse emphysematous changes with bullous formation in the upper lobes more prominent in the medial aspect of the left upper lobe. Stable bronchiectasis and scarring in the right upper lobe. There is a 1.3 cm x 1.2 cm pleural-based nodule in the posterior medial aspect of the right upper lobe. This has decreased slightly in size as compared to prior study. New consolidation in the proximal aspect of the right upper lobe abutting the right major fissure. Mild scarring in the anterior aspect of the left upper lobe. Stable scarring in both lower lobes. Mild infiltrate in the posterior aspect of the right middle lobe abutting the major fissure as well as mild increased markings at the left lung base. There is a new 9.2 mm pleural-based nodule in the left lower lobe posteriorly as seen on axial image #82. 6 mm noncalcified nodule in the peripheral lateral aspect of the right lower lobe as seen on axial image #122. Normal chest wall structures. There are degenerative changes of thoracic spine. Mild loss of height of the upper dorsal vertebrae with the altered density suggestive of possible metastatic disease. Loss of height of the C6 vertebrae with a mild sclerosis. Normal visualized upper abdomen. CT/CTA Chest W/WO Contrast IMPRESSION: No evidence of bone embolism. Hyperinflation and changes compatible with the emphysematous changes and bullous formation as described. Infiltration in the posterior aspect of the right upper lobe abutting the major fissure as well as the right middle lobe. Stable nodule in the right upper lobe. New 9.2 mm pleural-based nodule in the left lower lobe. Electronically Signed: Chino Camilo MD at 15:28 EST ,
[2022-09-19] MEDS: Ceftriaxone 1 GM/50 ML BAG IV (15:33)
--- NOTE | 2022-09-19 17:16 | HP.PCM.HOS_ITS ---
[facility] - General General Date of Service: 09/19/22 Chief Complaint: Shortness of breath HPI Narrative NADIYA MACHADO, is a 72 M who presents to radiation with progressive weakness and shortness of breath. While he was in radiation awaiting treatment, his pulse ox was noted to be 60%. Patient was sent to the emergency room. In the emergency room, patient was not hypoxic but maintained on his 4 L nasal cannula. Patient underwent a CTA that showed possible pneumonia. Patient received 125 mg of methylprednisolone, ceftriaxone and azithromycin. The hospitalist service was contacted for admission. Patient has had some subjective fevers. He is coughing up some white phlegm. [facility] Medical History (Updated 09/19/22 @ 17:[address] Reynaldo Arana, DO) Alcohol use Cancer Cardiology follow-up encounter Easy bruising Emphysema, unspecified Encounter for education Gastric reflux Gonorrhea History of diverticulitis History of echocardiogram History of edema History of hiatal hernia History of irregular heartbeat History of steroid therapy History of stress test Hoarseness Hyperlipidemia Inguinal hernia Injury of head and neck On home oxygen therapy Protein calorie malnutrition Rectal prolapse Schizophrenia Shortness of breath on exertion Shortness of breath on exertion Smoker Tobacco abuse Wears glasses Wears partial dentures Home Medications cholecalciferol (vitamin D3) 25 mcg (1,000 unit) capsule 25 mcg PO DAILY 12/08/21 [History Last Taken 09/18/22] albuterol sulfate 90 mcg/actuation aerosol inhaler 2 puff inhalation Q4H PRN PRN breathing 04/08/22 [History Last Taken 09/18/22] pantoprazole 40 mg tablet,delayed release 40 mg PO QAM #90 tabs 07/22/22 [Rx Last Taken 09/18/22] amitriptyline 25 mg tablet 25 mg PO QHS 30 days #30 tabs 07/28/22 [Rx Last Taken 09/18/22] folic acid 1 mg tablet 1 mg PO DAILY #90 tabs 08/25/22 [Rx Last Taken 09/18/22] lidocaine-prilocaine 2.5 %-2.5 % topical cream 1 applic topical ONCE PRN port access 30 days #30 grams 08/25/22 [Rx Last Taken Unknown] ondansetron 8 mg disintegrating tablet 8 mg PO Q8H PRN nausea and vomiting #30 tabs 08/25/22 [Rx Last Taken Unknown] acetaminophen 500 mg tablet 500 mg PO Q6H PRN Pain 08/29/22 [History Last Taken Unknown] ibuprofen 200 mg tablet 600 mg PO Q6H PRN Pain 08/29/22 [History Last Taken Unknown] magnesium 200 mg tablet 800 mg PO DAILY 08/29/22 [History Last Taken 09/18/22] sucralfate 1 gram tablet 1 g PO DAILY 08/29/22 [History Last Taken 09/05/22] oxycodone-acetaminophen 5 mg-325 mg tablet 1 tab PO Q6H PRN pain 2 days #5 tabs 09/05/22 [Rx Last Taken 09/19/22] cyclobenzaprine 10 mg tablet 10 mg PO DAILY PRN Muscle Spasm 09/19/22 [History Last Taken 09/19/22] Allergy/AdvReac Type Severity Reaction Status Date / Time No Known Allergies Allergy Verified 09/19/22 11:21 Family History Father Heart disease Brother Heart disease COPD (chronic obstructive pulmonary disease) Surgical History History of esophagogastroduodenoscopy (EGD) History of herniorrhaphy History of meniscectomy of left knee Hx of biopsy Social History Smoking Status: Former smoker Tobacco: How many years used: 55 ROS ROS Narrative Over the past several days, patient has noted some erythema over his left medial arm around his elbow. All review of systems were negative except as mentioned above in the history of present illness and the other review of systems. Vital Signs Vital Signs Vital Signs: 09/19/22 11:21 09/19/22 13:23 09/19/22 13:15 Temperature 35.9 C L Temperature Source Temporal Pulse Rate 98 97 Respiratory Rate 22 H 20 H Respiratory Effort Respiratory Pattern Normal Blood Pressure 116/83 H Blood Pressure Mean 94 Pulse Ox 95 98 Oxygen Delivery Method Nasal Cannula Nasal Cannula Oxygen Flow Rate (L/min) 4 4 09/19/22 13:15 09/19/22 13:57 09/19/22 15:34 Temperature 35.9 C L Temperature Source Temporal Pulse Rate 94 92 Respiratory Rate 20 H 18 Respiratory Effort Short of Breath Labored Respiratory Pattern Tachypnea Blood Pressure 124/75 H 143/88 H Blood Pressure Mean 91 106 Pulse Ox 98 96 Oxygen Delivery Method Nasal Cannula Nasal Cannula Oxygen Flow Rate (L/min) 4 4 Weight Weight: 53.161 kg Body Mass Index (BMI) 18.3 Physical Exam Const alert Constitutional Narrative: Has nasal cannula in his mouth. Awake and alert. Appears chronically unwell. No respiratory distress. Taking short shallow breaths. HEENT HEENT Narrative: Temporal wasting Eyes Eyes Narrative: No icterus Neck no lymphadenopathy and no JVD Resp Resp Narrative: Diminished breath sounds bilaterally. Crackles on the right. Cardio regular rate, regular rhythm, S1 normal heart sound and S2 normal heart sound GI normal to inspection, nondistended, normoactive bowel sounds, soft to palpation, non-tender and non-distended Extremity no clubbing, cyanosis or edema Extremity Narrative: Marked atrophy throughout. Skin Skin Narrative: Does have some erythema with some swelling in the medial left arm around his elbow. No fluctuance noted, slight induration. Neuro moves all extremities Psych Mood & Affect: anxious Results Lab / Micro Data Attestation: I reviewed the patient's lab results. Result Diagrams: 09/19/22 13:15 09/19/22 13:15 Labs: Laboratory Results - last 24 hr 09/19/22 13:15: WBC 0.8 L*, RBC 3.77 L, Hgb 12.1 L, Hct 36.5 L, MCV 96.8 H, MCH 32.1 H, MCHC 33.2, RDW Std Deviation 54.9 H, RDW Coeff of Deidra 15.3 H, Plt Count 26 L*, MPV 11.0, Immature Gran % (Auto) 2.700 H, Neut % (Auto) 68.0, Lymph % ( Auto) 12.0 L, Mcintosh % (Auto) 14.7 H, Eos % (Auto) 1.3, Baso % (Auto) 1.3 H, Absolute Neuts (auto) 0.5 L, Absolute Lymphs (auto) 0.09 L, Nucleated RBC % 0, Differential Comment , Diff Path Review November09/19/22 13:15: Sodium 135 L, Potassium 3.8, Chloride 96 L, Carbon Dioxide 34.0 H, Anion Gap 5, BUN 14, Creatinine 0.63 L, Estim Creat Clear Calc 49.47, Est GFR (MDRD) Af Amer 161, Est GFR (MDRD) Non-Af 133, BUN/Creatinine Ratio 22.3 H, Glucose 143 H, Calcium 9.2, Troponin I High Sens 12 09/19/22 13:15: D-Dimer Quant (PE/DVT) 1.78 H* Rhythm Strip Rhythm Strip: Sinus Rhythm Rate: 94 Ectopy: PVC(s) Radiology Impression Chest X-Ray 09/19/22 12:52 IMPRESSION: Right upper lobe infiltrate as well as increased markings at the right lung base. Stable increased markings in the left upper lobe. Stable nodular density in the medial aspect of the right upper lobe. Electronically Signed: Chino Camilo MD at 14:07 EST , Chest CTA 09/19/22 14:34 IMPRESSION: No evidence of bone embolism. Hyperinflation and changes compatible with the emphysematous changes and bullous formation as described. Infiltration in the posterior aspect of the right upper lobe abutting the major fissure as well as the right middle lobe. Stable nodule in the right upper lobe. New 9.2 mm pleural-based nodule in the left lower lobe. Electronically Signed: Chino Camilo MD at 15:28 EST , Assessment & Plan Assessment/Plan (1) Acute and chronic respiratory failure with hypoxia: PLAN: Multifactorial: Secondary to patient's underlying COPD which is likely an exacerbation. Plus pneumonia versus pneumonitis Currently stable on his normal 4 L nasal cannula though he is using the nasal cannula in his mouth. (2) Radiation pneumonitis: PLAN: Suspected. I discussed the case with Dr. Zepeda who is concerned that this is radiation pneumonitis and recommended dexamethasone 4 mg IV 3 times daily for this. (3) Left arm cellulitis: PLAN: Patient has a port so would not be IV infusions it is concerning for cellulitis. Vancomycin and observe. (4) Neutropenia: QUALIFIERS: Neutropenia type: secondary to cancer chemotherapy Qualified Code(s): D70.1 - Agranulocytosis secondary to cancer chemotherapy; T45.1X5A - Adverse effect of antineoplastic and immunosuppressive drugs, initial encounter PLAN: After his chemotherapy. Patient did receive carboplatin as well as another agent for his lung cancer. Discussed with Dr. Pizano, who recommends Granix 300 mcg daily until his ANC is [phone], then it can be discontinued. Currently his ANC is 500. (5) COPD exacerbation: PLAN: Patient has very marked COPD on his CAT scan. On steroids as well as bronchodilators (6) Lung cancer metastatic to bone: PLAN: Per oncology notes on September 07: * Metastatic NSCLC adenocarcinoma type, R Superior Sulcus tumor. TMB high 13.3, PD-L1 TPS 10%, MET amplification. ?PET/CT 07/20/2023 reviewed, shows progressive disease in right and left hemithorax pulmonary parenchymal, pro gression in mediastinal nodes, increase in left lateral neck, T1-T3 vertebral bodies, Periauricular area. MRI thoracic spine 07/26/2022 reviewed, shows compression deformity of T1-T2 and T3, mass along the posterior mediastinum, mass from the T2 vertebral body into the spinal canal measuring 15 mm. Re ceived Radiation therapy to the upper spine/chest from 08/01/2022 to 08/19/2022. Port was placed on 09/05/2022. Comes for follow up to start Alimta/Carboplatin and Keytruda. Counts and chemistry? reviewed and OK to start therapy. ? * Plan: To start Carboplatin, Alimta and Keytruda C1 today. Monitor Counts and Chemistry. RTC 2 weeks for toxicity check. Consult oncology. (7) Protein calorie malnutrition: QUALIFIERS: Protein-calorie malnutrition severity: severe Qualified Code(s): E43 - Unspecified severe protein-calorie malnutrition PLAN: Patient very cachectic looking. Add supplements Consult nutrition PLAN: Plan Chronic conditions * Chronic pain: Continue with oxycodone/acetaminophen and cyclobenzaprine * Esophageal ulcers: Continue with pantoprazole and sucralfate VTE prophylaxis: High risk. Enoxaparin. CODE STATUS: Addressed with the patient. Patient is DNR Comfort Care arrest but okay with intubation. Charges/Coding Visit Charges Inpatient E&M: 80032 Init Hosp L3
[2022-09-19] MEDS: 0.9% Normal Saline 1,000 ML 150 ML IV (20:42)
[2022-09-19] MEDS: 0.9% Saline Lock 10 ML Syringe IV (20:49)
[2022-09-19] MEDS: Acetaminophen 500 MG Tablet PO (20:49)
[2022-09-19] MEDS: oxyCODONE 5 MG Tablet PO (20:50)
[2022-09-19] MEDS: Ensure Clear 120 ML Liquid PO (20:57)
[2022-09-19] MEDS: TBO-FILGRASTIM 300 MCG/0.5 ML ML SC (21:18)
[2022-09-19] MEDS: Amitriptyline 25 MG Tablet PO (21:19)
[2022-09-19] MEDS: dexAMETHasone 4 MG/ML Vial IV (21:19)
[2022-09-20] VITALS (10 sets, daily range): BP systolic 111–125; BP diastolic 68–81; PULSE 65–781; RESP 16–22; TEMP 36.3–36.6; O2SAT 85–98
--- NOTE | 2022-09-20 02:45 | PCM.RX.CS ---
Consult Pharmacy has been consulted to manage selected antiobiotic: Vancomycin Type of Consult: New start Labs: Sodium 135 mmol/L (136-145) L 09/19/22 13:15 Potassium 3.8 mmol/L (3.5-5.1) 09/19/22 13:15 Chloride 96 mmol/L (98-107) L 09/19/22 13:15 Carbon Dioxide 34.0 mmol/L (21.0-32.0) H 09/19/22 13:15 Anion Gap 5 (5-15) 09/19/22 13:15 BUN 14 mg/dL (7-18) 09/19/22 13:15 Creatinine 0.63 mg/dL (0.70-1.30) L 09/19/22 13:15 Est GFR (MDRD) Af Amer 161 mL/min (>60) 09/19/22 13:15 Est GFR (MDRD) Non-Af 133 mL/min (>60) 09/19/22 13:15 BUN/Creatinine Ratio 22.3 RATIO (10-20) H 09/19/22 13:15 Glucose 143 mg/dL (74-106) H 09/19/22 13:15 Goal Trough: 15-20 mcg/mL Pharmacy Plan for Drug Dosing: Pharmacy Service will continue to monitor and adjust dosing as required. Medications Vancomycin HCl (Vancomycin) 1,000 mg in 200 mls @ 200 mls/hr IV Q24H [place] Discontinued Medications Vancomycin HCl 1,250 mg/ (Sodium Chloride) 275 mls @ 167 mls/hr IV X1 ONE Stop: 09/19/22 22:38 Last Admin: 09/19/22 23:05 Dose: Infused Follow-Up Labs: Trough Vancomycin Labs to be done on [date and time ordered]: 09/21 @ 2030
[2022-09-20] MEDS: dexAMETHasone 4 MG/ML Vial IV ×3 (05:10→21:44)
[2022-09-20] MEDS: oxyCODONE 5 MG Tablet PO ×2 (05:16→21:44)
[2022-09-20] MEDS: Acetaminophen 500 MG Tablet PO ×2 (05:16→21:44)
[2022-09-20 06:46] LABS: Hematocrit 33.4 % (40-54); Hemoglobin 11.1 g/dL (13.0-16.5); Mean Corp Hgb Conc 33.2 g/dL (32-36); Mean Corpuscular Volume 96.3 fL (80-94); Mean Platelet Vol. 11.1 fl (6.2-12.0); POSITIVE COUNT YES; POSITIVE DIFFERENTIAL YES; POSITIVE MORPHOLOGY YES; RBC Distribution Width CV 15.1 % (11.6-14.6); RBC Distribution Width SD 53.5 fl (35.1-43.9); Red Blood Count 3.47 M/mm3 (4.6-6.2); White Blood Count 2.2 K/mm3 (4.4-11.0)
[2022-09-20 06:56] LABS: Differential Indicated MANUAL DIFF; Platelet Count 31 K/mm3 (150-450)
[2022-09-20 07:16] LABS: ALB/GLOB Ratio 0.4 RATIO (0.9-2.4); AST(SGOT) 10 U/L (15-37); Alanine Aminotransfer ALT/SGPT 25 U/L (16-61); Albumin, Serum 1.4 g/dL (3.2-5.0); Alkaline Phosphatase 60 U/L (45-117); Anion Gap 4 (5-15); BUN 8 mg/dL (7-18); BUN/Creat Ratio 17.5 RATIO (10-20); Calcium,Total 8.5 mg/dL (8.5-10.1); Chloride 99 mmol/L (98-107); Creatinine, Serum 0.46 mg/dL (0.70-1.30); EST Glomerular Filtration Rate 192 mL/min (>60); Est Glom Filt Rate - Afr Amer 233 mL/min (>60); Estimated Creatinine Clearance 47.91 ml/min; Globulin 3.6 g/dL (2.2-4.2); Glucose 124 mg/dL (74-106); Potassium 4.2 mmol/L (3.5-5.1); Sodium Level 136 mmol/L (136-145)
[2022-09-20] MEDS: Ipratropium/Albuterol Sulfate 3 ML AMPUL.NEB INHALATION ×4 (07:16→19:12)
[2022-09-20 07:19] LABS: Lymphocyte 1 % (19-41); Metamyelocyte 12 % (0-1); Monocyte 7 % (0-10); Myelocyte 1 % (0-0); Neutrophil-Band 19 % (0-5); Neutrophil-Segmented 60 % (47-70); Total Cells Counted 100 (MANUAL DIFF)
[2022-09-20 07:20] LABS: Neutrophil # 2.03 X10^3/uL (2.7-7.7)
[2022-09-20 07:21] LABS: Absolute Lymphocyte Count 0.02 X10^3/uL (0.83-4.51); Lymphocyte # 0.02 X10^3/ul (0.83-4.51)
[2022-09-20 07:26] LABS: Platelet Estimate MKD DEC (ADEQ); Red Cell Morphology NORM C+C NORMAL (NORM C&C)
--- NOTE | 2022-09-20 08:24 | ONC.CONSULT ---
Assessment & Plan Assessment/Plan (1) Radiation pneumonitis: Status: Acute Code(s): J70.0 - Acute pulmonary manifestations due to radiation Plan: To continue Decadron, discharge home on Decadron. (2) Neutropenia: Status: Acute Code(s): D70.9 - Neutropenia, unspecified Qualifiers: Neutropenia type: secondary to cancer chemotherapy Qualified Code(s): D70.1 - Agranulocytosis secondary to cancer chemotherapy; T45.1X5A - Adverse effect of antineoplastic and immunosuppressive drugs, initial encounter Plan: Started on Granix, Neutrophils 2K today. To give Granix today and stop. (3) Lung cancer metastatic to bone: Status: Acute Code(s): C34.90 - Malignant neoplasm of unspecified part of unspecified bronchus or lung; C79.51 - Secondary malignant neoplasm of bone Plan: S/p Radiation therapy. Started Carboplatin, Alimta and Keytruda on 09/07/2022. Will continue management as outpatient. If he is stable, can discharge home and follow up with Outpatient Oncology. Will not follow further on this admission. Please call if new problems arise. (4) Pneumonitis: Status: Acute Code(s): J18.9 - Pneumonia, unspecified organism Plan: Maybe due to Immunotherapy or infection/Radiation therapy. To continue Decadron. Monitor O2 requirement. HPI Consult Data Date of Service:: 09/20/22 PCP / Referring Provider: [facility] Attending: Dr. Maurice Daredn DO Chief Complaint Chief Complaint: Asked to see Pt for Neutropenia, NSCLC History of Present Illness History of Present Illness: 72-year-old man presented with right upper lobe mass. PET CT scan on 03/16/2022 showed right upper lobe lung mass extending into the midline mediastinum and involving the upper thoracic vertebrae with activity in the left parotid diarrhea.? CT-guided biopsy on of lung on 05/05/2022 was negative.? He was referred to thoracic surgery Dr. Lopes and had a right mini thoracotomy on 06/22/2022 with biopsy of right upper lobe mass.? Pathology showed right upper lobe and mediastinal mass positive for primary lung adenocarcinoma. Has been having pain in the R shoulder and neck which is getting worse. Had a PET/CT done for restaging on 07/20/2022 which showed Activity in the left parotid area, new activity in the anterior and superior subcarinal area, activity in both lungs, activity in T1-T2 and T3 vertebral bodies showing progressive disease compared to PET/CT scan done on 03/16/2022.? MRI brain on 07/22/2022 was negative for metastatic disease. MRI thoracic spine on 07/26/2022 showed compression deformity of T1-T2 and T3, concerning for metastatic disease, there is mass extending from T2 vertebral body into the spinal canal causing spinal stenosis.? He received palliative radiation? to thoracic spine and chest from 08/01/2022 to 08/19/2022.? Left IC Port was placed on 09/05/2022. Started Chemotherapy and Immunotherapy with Alimta, Carboplatin and Keytruda on 09/07/2022. He is now admitted to [facility] after he presented with hypoxia, SOB and neutropenia. This morning, he feels better, still on O2 therapy. Advanced Directives Power of Stockroom Supervisor: Yes Living Will: No [facility] Medical History Alcohol use Asthma Atrial fibrillation Cancer Cardiology follow-up encounter COPD (chronic obstructive pulmonary disease) Depression Easy bruising Emphysema, unspecified Encounter for education Gastric reflux Gonorrhea History of diverticulitis History of echocardiogram History of edema History of hiatal hernia History of irregular heartbeat History of steroid therapy History of stress test Hoarseness Hyperlipidemia Inguinal hernia Injury of head and neck Irregular heart beat On home oxygen therapy Protein calorie malnutrition Rectal prolapse Schizophrenia Shortness of breath on exertion Shortness of breath on exertion Smoker Tobacco abuse Wears glasses Wears partial dentures Home Medications cholecalciferol (vitamin D3) 25 mcg (1,000 unit) capsule 25 mcg PO DAILY 12/08/21 [History Last Taken 09/18/22] albuterol sulfate 90 mcg/actuation aerosol inhaler 2 puff inhalation Q4H PRN PRN breathing 04/08/22 [History Last Taken 09/18/22] pantoprazole 40 mg tablet,delayed release 40 mg PO QAM #90 tabs 07/22/22 [Rx Last Taken 09/18/22] amitriptyline 25 mg tablet 25 mg PO QHS 30 days #30 tabs 07/28/22 [Rx Last Taken 09/18/22] folic acid 1 mg tablet 1 mg PO DAILY #90 tabs 08/25/22 [Rx Last Taken 09/18/22] lidocaine-prilocaine 2.5 %-2.5 % topical cream 1 applic topical ONCE PRN port access 30 days #30 grams 08/25/22 [Rx Last Taken Unknown] ondansetron 8 mg disintegrating tablet 8 mg PO Q8H PRN nausea and vomiting #30 tabs 08/25/22 [Rx Last Taken Unknown] acetaminophen 500 mg tablet 500 mg PO Q6H PRN Pain 08/29/22 [History Last Taken Unknown] ibuprofen 200 mg tablet 600 mg PO Q6H PRN Pain 08/29/22 [History Last Taken Unknown] magnesium 200 mg tablet 800 mg PO DAILY 08/29/22 [History Last Taken 09/18/22] oxycodone-acetaminophen 5 mg-325 mg tablet 1 tab PO Q6H PRN pain 2 days #5 tabs 09/05/22 [Rx Last Taken 09/19/22] cyclobenzaprine 10 mg tablet 10 mg PO DAILY PRN Muscle Spasm 09/19/22 [History Last Taken 09/19/22] Allergy/AdvReac Type Severity Reaction Status Date / Time No Known Allergies Allergy Verified 09/19/22 11:21 Family History Father Heart disease Brother Heart disease COPD (chronic obstructive pulmonary disease) Surgical History History of esophagogastroduodenoscopy (EGD) History of herniorrhaphy History of meniscectomy of left knee Hx of biopsy Social History Smoking Status: Former smoker Tobacco: How many years used: 55 ROS ENT HEENT: Denies dysphagia, hoarseness or sore throat Respiratory/Chest Respiratory/Chest: Reports cough; Denies chest tightness or hemoptysis Gastrointestinal Gastrointestinal: Denies abdominal pain or anorexia Genitourinary Genitourinary: Denies change in urinary stream Musculoskeletal Musculoskeletal: Reports abnormal gait; Denies back pain or extremity pain Integumentary Integumentary: Denies rash Neurologic Neurologic: Denies abnormal speech or focal weakness Psychiatric Psychiatric: Denies anxiety or depression Endocrine Endocrinology: Denies flushing or heat intolerance Hematologic/Lymphatic Hematologic/Lymphatic: Denies easy bleeding, easy bruising or lymphadenopathy Physical Exam Narrative Elderly man Const alert, oriented x3 and no apparent distress HEENT Negative for normocephalic HEENT Narrative: + dentures Eyes PERRL and conjunctivae normal; Negative for no scleral icterus Neck No no lymphadenopathy Lymph Lymphatic: no lymphadenopathy noted Chest Chest Narrative: +Port L IC area Resp normal respiratory effort and clear to auscultation bilaterally Cardio regular rate, regular rhythm and S1 normal heart sound GI normal to inspection, nondistended, normoactive bowel sounds Extremity no clubbing, cyanosis or edema Skin no rashes or lesions noted Neuro CN's II-XII intact bilaterally, moves all extremities and no focal motor deficits Psych mental status grossly normal Vital Signs Temperature 97.9 F 09/20/22 05:18 Temperature Source Oral 09/20/22 05:18 Pulse Rate 781 H 09/20/22 07:16 Pulse Strength Normal (2+) 09/19/22 22:00 Respiratory Rate 18 09/20/22 07:16 Respiratory Effort 09/20/22 05:19 Respiratory Depth Normal 09/20/22 05:19 Respiratory Pattern Normal 09/20/22 05:19 Blood Pressure 114/81 H 09/20/22 05:18 Blood Pressure Mean 92 09/20/22 05:18 Blood Pressure Source Monitor 09/20/22 05:18 Blood Pressure Position Semi-Fowlers 09/20/22 05:18 Blood Pressure Location Right Arm 09/20/22 05:18 Pulse Ox 98 09/20/22 07:16 Oxygen Delivery Method Nasal Cannula 09/20/22 07:16 Oxygen Flow Rate (L/min) 3 09/20/22 07:16 Laboratory Results - last 24 hr 09/19/22 13:15: WBC 0.8 L*, RBC 3.77 L, Hgb 12.1 L, Hct 36.5 L, MCV 96.8 H, MCH 32.1 H, MCHC 33.2, RDW Std Deviation 54.9 H, RDW Coeff of Deidra 15.3 H, Plt Count 26 L*, MPV 11.0, Immature Gran % (Auto) 2.700 H, Neut % (Auto) 68.0, Lymph % (Auto) 12.0 L, Mayes % (Auto) 14.7 H, Eos % (Auto) 1.3, Baso % (Auto) 1.3 H, Absolute Neuts (auto) 0.5 L, Absolute Lymphs (auto) 0.09 L, Nucleated RBC % 0, Differential Comment , Diff Path Review November [facility] 09/19/22 13:15: Sodium 135 L, Potassium 3.8, Chloride 96 L, Carbon Dioxide 34.0 H, Anion Gap 5, BUN 14, Creatinine 0.63 L, Estim Creat Clear Calc 49.47, Est GFR (MDRD) Af Amer 161, Est GFR (MDRD) Non-Af 133, BUN/Creatinine Ratio 22.3 H, Glucose 143 H, Calcium 9.2, Troponin I High Sens 12 09/19/22 13:15: D-Dimer Quant (PE/DVT) 1.78 H* 09/20/22 05:55: WBC 2.2 L, RBC 3.47 L, Hgb 11.1 L, Hct 33.4 L, MCV 96.3 H, MCH 32.0, MCHC 33.2, RDW Std Deviation 53.5 H, RDW Coeff of Deidra 15.1 H, Plt Count 31 L*, MPV 11.1, Neut % (Auto) Not Reportable, Absolute Neuts (auto) 2.0, Absolute Lymphs (auto) 0.02 L, Total Counted 100, Neutrophils % (Manual) 60, Band Neutrophils % 19 H, Lymphocytes % (Manual) 1 L, Monocytes % (Manual) 7, Metamyelocytes % 12 H, Myelocytes % 1 H, Diff Path Review November [facility], Platelet Estimate MKD DEC, RBC Morphology NORM C+C 09/20/22 05:55: Sodium 136, Potassium 4.2, Chloride 99, Carbon Dioxide 33.0 H, Anion Gap 4 L, BUN 8, Creatinine 0.46 L, Estim Creat Clear Calc 47.91, Est GFR (MDRD) Af Amer 233, Est GFR (MDRD) Non-Af 192, BUN/Creatinine Ratio 17.5, Glucose 124 H, Calcium 8.5, Total Bilirubin 0.20, AST 10 L, ALT 25, Alkaline Phosphatase 60, Total Protein 5.0 L, Albumin 1.4 L, Globulin 3.6, Albumin/Globulin Ratio 0.4 L Diagnostic Data Chest X-Ray 09/19/22 12:52 IMPRESSION: Right upper lobe infiltrate as well as increased markings at the right lung base. Stable increased markings in the left upper lobe. Stable nodular density in the medial aspect of the right upper lobe. Electronically Signed: Chino Camilo MD at 14:07 EST , Chest CTA 09/19/22 14:34 IMPRESSION: No evidence of bone embolism. Hyperinflation and changes compatible with the emphysematous changes and bullous formation as described. Infiltration in the posterior aspect of the right upper lobe abutting the major fissure as well as the right middle lobe. Stable nodule in the right upper lobe. New 9.2 mm pleural-based nodule in the left lower lobe. Electronically Signed: Chino Camilo MD at 15:28 EST , Charges/Coding Visit Charges Office Visits / Consults: 73122 IP Consult L4
[2022-09-20] MEDS: Magnesium Chloride 64 MG Delay Rel.Tablet 256 MG PO (09:09)
[2022-09-20] MEDS: Cholecalciferol (VIT D3) 25 MCG TABLET (1,000 UNITS) PO (09:09)
[2022-09-20] MEDS: Pantoprazole Sodium 40 MG Tablet PO (09:09)
[2022-09-20] MEDS: Folic Acid 1 MG Tablet PO (09:09)
[2022-09-20] MEDS: 0.9% Saline Lock 10 ML Syringe IV ×2 (09:10→21:45)
[2022-09-20] MEDS: Ceftriaxone 1 GM/50 ML BAG IV (09:10)
--- NOTE | 2022-09-20 10:34 | CON.PCM.ID_ITS ---
Assessment & Plan Assessment/Plan (1) Adenocarcinoma of right lung: (2) Hypoxia: PLAN: Back on home 3L, satting well. Neutropenia from yesterday has resolved. No fever. Stable symptoms over past few weeks. CT showed ? new infiltrate. 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 Currently on azithro/ceftriaxone, overall low suspicion for new acute infection. I think it would be reasonable to monitor off of abx. If true pneumonia is suspected, would recommend checking bcx x2, sputum cx, resp pcr panel, and urine antigens. Will follow, thank you HPI Consult Data Date of Consult: 09/20/22 HPI Narrative Reason for Consultation: pneumonia HPI Narrative: NADIYA MACHADO, is a 72 M with lung cancer, recent radiation therapy, sent to hospital yesterday with hypoxia. On 3L NC at home, was found to be hypoxic off of O2 yesterday. C/o several weeks thick mucus in sinuses and lungs. No change in sputum recently, no fever, no issues with L chest port. In ED, given iv steroids, azithro/ceftriaxone. Feeling about the same today, concerned that he may be too weak to return home today. Full ROS performed and neg except as noted above. [facility] Medical History Alcohol use Asthma Atrial fibrillation Cancer Cardiology follow-up encounter COPD (chronic obstructive pulmonary disease) Depression Easy bruising Emphysema, unspecified Encounter for education Gastric reflux Gonorrhea History of diverticulitis History of echocardiogram History of edema History of hiatal hernia History of irregular heartbeat History of steroid therapy History of stress test Hoarseness Hyperlipidemia Inguinal hernia Injury of head and neck Irregular heart beat On home oxygen therapy Protein calorie malnutrition Rectal prolapse Schizophrenia Shortness of breath on exertion Shortness of breath on exertion Smoker Tobacco abuse Wears glasses Wears partial dentures Home Medications cholecalciferol (vitamin D3) 25 mcg (1,000 unit) capsule 25 mcg PO DAILY 12/08/21 [History Last Taken 09/18/22] albuterol sulfate 90 mcg/actuation aerosol inhaler 2 puff inhalation Q4H PRN PRN breathing 04/08/22 [History Last Taken 09/18/22] pantoprazole 40 mg tablet,delayed release 40 mg PO QAM #90 tabs 07/22/22 [Rx Last Taken 09/18/22] amitriptyline 25 mg tablet 25 mg PO QHS 30 days #30 tabs 07/28/22 [Rx Last Taken 09/18/22] folic acid 1 mg tablet 1 mg PO DAILY #90 tabs 08/25/22 [Rx Last Taken 09/18/22] lidocaine-prilocaine 2.5 %-2.5 % topical cream 1 applic topical ONCE PRN port access 30 days #30 grams 08/25/22 [Rx Last Taken Unknown] ondansetron 8 mg disintegrating tablet 8 mg PO Q8H PRN nausea and vomiting #30 tabs 08/25/22 [Rx Last Taken Unknown] acetaminophen 500 mg tablet 500 mg PO Q6H PRN Pain 08/29/22 [History Last Taken Unknown] ibuprofen 200 mg tablet 600 mg PO Q6H PRN Pain 08/29/22 [History Last Taken Unknown] magnesium 200 mg tablet 800 mg PO DAILY 08/29/22 [History Last Taken 09/18/22] oxycodone-acetaminophen 5 mg-325 mg tablet 1 tab PO Q6H PRN pain 2 days #5 tabs 09/05/22 [Rx Last Taken 09/19/22] cyclobenzaprine 10 mg tablet 10 mg PO DAILY PRN Muscle Spasm 09/19/22 [History Last Taken 09/19/22] Allergy/AdvReac Type Severity Reaction Status Date / Time No Known Allergies Allergy Verified 09/19/22 11:21 Family History Father Heart disease Brother Heart disease COPD (chronic obstructive pulmonary disease) Surgical History History of esophagogastroduodenoscopy (EGD) History of herniorrhaphy History of meniscectomy of left knee Hx of biopsy Social History Smoking Status: Former smoker Tobacco: How many years used: 55 Physical Exam Const alert, oriented x3 and no apparent distress General Appearance: cooperative HEENT normocephalic and head/scalp atraumatic Eyes PERRL and EOMs intact bilaterally Neck supple and No nodes Resp Auscultation: diminished lung sounds Cardio regular rate and regular rhythm GI soft to palpation, non-tender and non-distended Extremity General Extremity: Negative for edema Skin no rashes or lesions noted Neuro CN's II-XII intact bilaterally Lab / Micro Data Attestation: I reviewed the patient's lab results. Result Diagrams: 09/20/22 05:55 09/20/22 05:55 Labs: Laboratory Results - last 24 hr 09/19/22 13:15: WBC 0.8 L*, RBC 3.77 L, Hgb 12.1 L, Hct 36.5 L, MCV 96.8 H, MCH 32.1 H, MCHC 33.2, RDW Std Deviation 54.9 H, RDW Coeff of Deidra 15.3 H, Plt Count 26 L*, MPV 11.0, Immature Gran % (Auto) 2.700 H, Neut % (Auto) 68.0, Lymph % (Auto) 12.0 L, Gordon % (Auto) 14.7 H, Eos % (Auto) 1.3, Baso % (Auto) 1.3 H, Absolute Neuts (auto) 0.5 L, Absolute Lymphs (auto) 0.09 L, Nucleated RBC % 0, Differential Comment , Diff Path Review November foll 09/19/22 13:15: Sodium 135 L, Potassium 3.8, Chloride 96 L, Carbon Dioxide 34.0 H, Anion Gap 5, BUN 14, Creatinine 0.63 L, Estim Creat Clear Calc 49.47, Est GFR (MDRD) Af Amer 161, Est GFR (MDRD) Non-Af 133, BUN/Creatinine Ratio 22.3 H, Glucose 143 H, Calcium 9.2, Troponin I High Sens 12 09/19/22 13:15: D-Dimer Quant (PE/DVT) 1.78 H* 09/20/22 05:55: WBC 2.2 L, RBC 3.47 L, Hgb 11.1 L, Hct 33.4 L, MCV 96.3 H, MCH 32.0, MCHC 33.2, RDW Std Deviation 53.5 H, RDW Coeff of Deidra 15.1 H, Plt Count 31 L*, MPV 11.1, Neut % (Auto) Not Reportable, Absolute Neuts (auto) 2.0, Absolute Lymphs (auto) 0.02 L, Total Counted 100, Neutrophils % (Manual) 60, Band Neutrophils % 19 H, Lymphocytes % (Manual) 1 L, Monocytes % (Manual) 7, Metamyelocytes % 12 H, Myelocytes % 1 H, Diff Path Review May foll, Platelet Estimate MKD DEC, RBC Morphology NORM C+C 09/20/22 05:55: Sodium 136, Potassium 4.2, Chloride 99, Carbon Dioxide 33.0 H, Anion Gap 4 L, BUN 8, Creatinine 0.46 L, Estim Creat Clear Calc 47.91, Est GFR (MDRD) Af Amer 233, Est GFR (MDRD) Non-Af 192, BUN/Creatinine Ratio 17.5, Glucose 124 H, Calcium 8.5, Total Bilirubin 0.20, AST 10 L, ALT 25, Alkaline Phosphatase 60, Total Protein 5.0 L, Albumin 1.4 L, Globulin 3.6, Albumin/Globulin Ratio 0.4 L Rhythm Strip Rhythm Strip: Sinus Rhythm Rate: 94 Ectopy: PVC(s) Radiology Impression Chest X-Ray 09/19/22 12:52 IMPRESSION: Right upper lobe infiltrate as well as increased markings at the right lung base. Stable increased markings in the left upper lobe. Stable nodular density in the medial aspect of the right upper lobe. Electronically Signed: Chino Camilo MD at 14:07 EST , Chest CTA 09/19/22 14:34 IMPRESSION: No evidence of bone embolism. Hyperinflation and changes compatible with the emphysematous changes and bullous formation as described. Infiltration in the posterior aspect of the right upper lobe abutting the major fissure as well as the right middle lobe. Stable nodule in the right upper lobe. New 9.2 mm pleural-based nodule in the left lower lobe. Electronically Signed: Chino Camilo MD at 15:28 EST ,
[2022-09-20] MEDS: TBO-FILGRASTIM 300 MCG/0.5 ML ML SC (10:54)
[2022-09-20] MEDS: Enoxaparin 40 MG/0.4 ML Syringe SC (10:54)
[2022-09-20 13:13] LABS: Pathologist Review Reviewed
[2022-09-20 13:15] LABS: Pathologist Review Reviewed
[2022-09-20] MEDS: Ensure Plus High Protein 120 ML LIQUID PO (13:31)
--- NOTE | 2022-09-20 13:40 | CASEMGMT ---
WOODROW CARMICHAEL DC Planning Assessment: Face to Face with patient for initial transition planning/care coordination assessment. WOODROW CARMICHAEL introduced self and role at [facility], pt voices understanding. Pt alert, oriented x4, sitting up in chair and agreeable to participating in assessment. Care providers, pharmacy, and demographics verified. Admitting dx: Acute on chronic respiratory failure, COPD exac, radiation pneumonitis, lung cancer with bone mets. PCP: Pt currently is seen at the [facility] but has applied and is being seen by Юлия Shelby DO at [facility] on 10/04 for acceptance/establishment of care. Specialists: Dr. Pizano (oncology), Dr. Franz (radiation oncology), Jose (ENT), Maxwell (pulmonary), Guera (cardiology)--previously but not in active follow-up, Friend (GI) Preferred Pharmacy: [facility] Insurance: [facility] Prescription Benefit: yes Living Will/HPOA: yes/HPOA is Jessi Adebayo 1st, Katja Adebayo 2nd, Redd Barrios #3 (documents on file in EMR) LNOK: friend Jessi, son Redd Living Arrangements: Pt lives alone in a single story apartment that is located in the basement of a multiapartment building. Pt reports 13 steps down to get into his apartment and then the same to exit. 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 Pt states he was unable to carry his small bag of trash up the steps to dispose of it and states when he does make it up the steps it has taken his 10 minutes to recover. Noted pt reported to PT/OT that he has been having food delivered. Pt reports to not have had much of an appetite in the last couple of weeks and has not eaten much. Pt states he manages his own medications and does so by color coding bottles and them in boxes. Pt understands the purposes of his meds and states he spreads them out throughout the day at 08, 11, 1400, 1600, and 2000. Transportation: Pt states he had been driving but recently he has been using his friends/neighbors or the [facility] van to transport him to appointments, get groceries, etc. DME: Pt states he uses a cane or walking stick when he ambulates. States he has a hand held shower but does not have any additional bathroom aides. Pt states he has home O2 from [facility] with his baseline O2 flow at 3l/min. Call placed to [facility] who confirmed pt is an active client but their prescription is for 2l/min continuously. Pt states he does not have a pulse oximeter but states he will obtain one when he gets his new insurance card. Pt states his insurance will cover this type of device. HHC/SNF: Pt denies any previous SNF or HHC. Palliative Care: Pt states he is active with [facility] Smoking/ETOH: Pt denies smoking and states he has a small amount of wine with dinner only. Plan: Pt plans to return home at discharge with current supports in place. Pt is receptive to HHC if an option. Since pt is not a current patient of Dr. Shelby, will need to investigate options regarding a provider after discharge to follow for this service. Will also follow for O2 needs and facilitate an updated prescription as appropriate. Will continue to monitor and assist with DC needs as appropriate. Destiny Jett RN CM
--- NOTE | 2022-09-20 18:28 | PCM.PN.HOSP ---
Reason for Visit Reason for Visit: Diagnoses Malignant neoplasm of unspecified part of unspecified bronchus or lung (09/19/22) Malignant neoplasm of unspecified part of right bronchus or lung (09/19/22) Secondary malignant neoplasm of bone (09/19/22) Agranulocytosis secondary to cancer chemotherapy (09/19/22) Unspecified severe protein-calorie malnutrition (09/19/22) Chronic obstructive pulmonary disease with (acute) exacerbation (09/19/22) Acute pulmonary manifestations due to radiation (09/19/22) Acute and chronic respiratory failure with hypoxia (09/19/22) Cellulitis of left upper limb (09/19/22) Hypoxemia (09/19/22) Adverse effect of antineoplastic and immunosuppressive drugs, initial encounter (09/19/22) Subjective Subjective Patient was seen and examined today, I talked with oncology about his care, I also had infectious diseases see the patient for appropriate antibiotic coverage. It is unknown at this time whether the patient's infiltrate is due to radiation scarring from his radiation treatment or whether he actually has a pneumonia. The other possibility is that it is a reaction to the Keytruda that he received. It was recommended from oncology that we keep the patient on IV corticosteroids for now and that he go home with Decadron 4 mg twice daily for 1 week. Objective Data Objective Data Vital Signs: Vital Signs Temp Pulse Resp BP Pulse Ox O2 Del Method O2 Flow Rate 97.4 F L 97 20 H 111/68 94 Nasal Cannula 4 09/20/22 14:23 09/20/22 15:26 09/20/22 15:26 09/20/22 14:23 09/20/22 14:23 09/20/22 14:23 09/20/22 14:23 Oxygen Flow Rate (L/min) [ 6 AMBULATING with Oxygen #2] Oxygen Flow Rate (L/min) [ 3 AMBULATING with Oxygen #1] Oxygen Flow Rate (L/min) 4 Oxygen Delivery Method Nasal Cannula Weight: 51.483 kg Body Mass Index (BMI) 17.7 Intake & Output: Intake and Output for Last 24 Hours 09/18/22 09/19/22 09/20/22 23:59 23:59 23:59 Intake Total 580 / 980 1905.75 / 1905.75 Balance 580 / 980 1905.75 / 1905.75 Medical Nutrition Assessment Dietitian: Malnutrition Criteria Met Start: 09/20/22 12:10 Freq: Status: Active Protocol: Document 09/20/22 12:10 LO (Rec: 09/20/22 12:10 LO [id number]) Nutrition Malnutrition Evidence of Malnutrition Exists Yes Malnutrition (severe): Chronic Evidenced By Suboptimal Energy Intake ( Severe),Weight Loss (Severe) Clinical Problem Chronic Disease or Condition Related Malnutrition Etiology severe related to lung cancer with mets to bone Signs/Symptoms as evidenced by pt consuming < 75% of estimated energy needs and 25.6lbs (18.4%) weight loss in 3.5 months. Status Active Problem Recommendation Dietitian Recommendations/Changes Continue Regular diet to optimize oral intakes. RD will discontinue Ensure Clear with medpass. RD will order 120mL Ensure Plus High Protein 4x with medpass to provide supplemental energy and promote weight maintenance/ gain. Lab / Micro Data Result Diagrams: 09/20/22 05:55 09/20/22 05:55 Labs: Laboratory Results - last 24 hr 09/19/22 13:15: Diff Path Review Reviewed 09/20/22 05:55: WBC 2.2 L, RBC 3.47 L, Hgb 11.1 L, Hct 33.4 L, MCV 96.3 H, MCH 32.0, MCHC 33.2, RDW Std Deviation 53.5 H, RDW Coeff of Deidra 15.1 H, Plt Count 31 L*, MPV 11.1, Neut % (Auto) Not Reportable, Absolute Neuts (auto) 2.0, Absolute Lymphs (auto) 0.02 L, Total Counted 100, Neutrophils % (Manual) 60, Band Neutrophils % 19 H, Lymphocytes % (Manual) 1 L, Monocytes % (Manual) 7, Metamyelocytes % 12 H, Myelocytes % 1 H, Diff Path Review Reviewed, Platelet Estimate MKD DEC, RBC Morphology NORM C+C 09/20/22 05:55: Sodium 136, Potassium 4.2, Chloride 99, Carbon Dioxide 33.0 H, Anion Gap 4 L, BUN 8, Creatinine 0.46 L, Estim Creat Clear Calc 47.91, Est GFR (MDRD) Af Amer 233, Est GFR (MDRD) Non-Af 192, BUN/Creatinine Ratio 17.5, Glucose 124 H, Calcium 8.5, Total Bilirubin 0.20, AST 10 L, ALT 25, Alkaline Phosphatase 60, Total Protein 5.0 L, Albumin 1.4 L, Globulin 3.6, Albumin/Globulin Ratio 0.4 L Rhythm Strip Rhythm Strip: Sinus Rhythm Rate: 94 Ectopy: PVC(s) Physical Exam Const alert, oriented x3 and no apparent distress Constitutional Narrative: Patient appears cachectic and unwell, he appears older than his stated age General Appearance: cooperative and well developed Orientation / Consciousness: awake, oriented to person, oriented to place and oriented to time HEENT normocephalic, head/scalp atraumatic and moist oral mucous membranes Eyes PERRL, EOMs intact bilaterally and conjunctivae normal Neck supple, no JVD, thyroid normal and no carotid bruits General: trachea midline Resp normal respiratory effort, no retractions and no use of accessory muscles Resp Narrative: Breath sounds are diminished bilaterally Auscultation: Negative for rales, rhonchi or wheezes Cardio regular rate, regular rhythm, S1 normal heart sound, S2 normal heart sound, no murmurs, no rub and no gallops GI normal to inspection, nondistended, normoactive bowel sounds, soft to palpation, non-tender and non-distended Extremity no clubbing, cyanosis or edema Skin no rashes or lesions noted Skin Narrative: Patient has healing eschar on his right elbow area Neuro oriented x3, CN's II-XII intact bilaterally, moves all extremities, no focal motor deficits and no sensory deficits noted Sensorium / Orientation: awake, alert, oriented to person, oriented to place and oriented to time Speech: speech normal Psych affect normal Assessment & Plan Assessment/Plan (1) Pneumonitis: PLAN: Plan 1. Hypoxia on a backdrop of chronic hypoxic respiratory failure-at rest the patient's oxygen requirement appears to be similar to his home oxygen requirement which is 4 L, when he ambulates however, he requires 6 L of oxygen. Patient may need to be set up for a different oxygen concentrator if he still has this requirement when he goes home. #2 Right upper lobe pneumonitis-probably secondary to radiation versus drug-induced (Keytruda)-patient will remain on IV dexamethasone, oncology saw the patient today, I had infectious diseases see the patient and for now he will remain on antibiotics but according to ID, there is suspicion for acute infection is low. #3 pancytopenia secondary to recent chemotherapy-patient will receive another dose of Granix tonurmila, oncology states that it can be discontinued after this. #4 chronic obstructive pulmonary disease-complicates care, medical course, recovery, and prognosis #5 left elbow cellulitis-patient's left elbow area is reddened, he is currently on Rocephin and Zithromax, I do not feel he needs vancomycin at this point and I will discontinue it. #6 exacerbation of COPD-patient is currently on aerosol treatments and IV corticosteroids #7 non-small cell lung cancer with metastases to the bone-complicates care, medical course, recovery, and prognosis #8 generalized debility-patient is being seen by PT and OT, patient looks frail and unwell #9 chronic severe protein and caloric malnutrition-as evidenced by patient consuming less than 75% of estimated energy needs and 25.6 pounds weight loss in 3.5 months-regular diet was continued, patient was provided with Ensure supplements, he will be provided with Ensure Plus high-protein while in the hospital, he will be followed by nutritional services. Patient was encouraged to increase his caloric intake while he is in the hospital. Total clinical time spent by myself addressing the patient's medical problems, reviewing medical data, and collaborating with patient's care team: 50 minutes Charges/Coding Visit Charges Inpatient E&M: 58554 Subs Hosp L3
[2022-09-20] MEDS: cycloBENZAPRine HCl 10 MG Tablet PO (21:44)
[2022-09-20] MEDS: Amitriptyline 25 MG Tablet PO (21:45)
[2022-09-21] VITALS (11 sets, daily range): BP systolic 119–135; BP diastolic 71–94; PULSE 86–100; RESP 18; TEMP 36.4–37; O2SAT 90–99
[2022-09-21] MEDS: 0.9% Saline Lock 10 ML Syringe IV ×4 (06:19→21:44)
[2022-09-21] MEDS: dexAMETHasone 4 MG/ML Vial IV ×3 (06:19→21:44)
--- NOTE | 2022-09-21 06:32 | NURSING ---
Attempted to do walking pulse ox with patient. pt was 92% on 5L. Pt stood up and started walking in room, pulse ox went down to 84% and patient was too fatigued to continue walking while this nurse turned up his O2. will pass along to day shift that walking pulse ox was not completed
[2022-09-21] MEDS: Ipratropium/Albuterol Sulfate 3 ML AMPUL.NEB INHALATION ×4 (07:25→19:14)
--- NOTE | 2022-09-21 07:53 | RAD_ITS ---
EXAM: XR CHEST, 2 VIEWS CLINICAL INDICATION: pneumonia, lung cancer TECHNIQUE: Frontal and lateral views of the chest. This report was created using [employer] report generation technology. COMPARISON: Previous chest radiographs of 09/19/2022 and 09/05/2022. FINDINGS: LUNGS AND PLEURAL SPACES: Lungs remain hyperinflated with flattening of the hemidiaphragms and pruning of the peripheral pulmonary vascular markings secondary to pulmonary emphysema. The patchy airspace disease within the right upper lobe posteriorly is again noted, mildly improved as compared to the prior study of 09/19/2022, indicating improving pneumonia. The nodular opacity previously seen within the medial aspect of the right upper lung shows mild interval decrease in size. Multiple bands of chronic parenchymal scarring again noted within the left lung. There is chronic minimal blunting of the right lateral costophrenic angles consistent with pleural thickening. No pneumothorax is noted. HEART: Heart size remains within normal limits. Pruning of the peripheral pulmonary vascular markings due to pulmonary emphysema. No pulmonary venous hypertension. MEDIASTINUM: Minimal elongation and calcification of the thoracic aorta. No mediastinal widening. BONES/JOINTS: Osseous structures remain demineralized. There is stable mild anterior wedging of one of the upper thoracic vertebral bodies as compared to prior CTA chest of 09/19/2022. Mediport-type catheter positioning is unchanged. SOFT TISSUES: Unremarkable. RAD/Chest PA and Lateral IMPRESSION: Mild improvement of right upper lobe pneumonia. Continued radiographic follow-up suggested to document interval resolution. Severe pulmonary emphysema again. Electronically Signed: Cliff Linder MD at 4:57 EST ,
[2022-09-21] MEDS: Folic Acid 1 MG Tablet PO (09:06)
[2022-09-21] MEDS: Enoxaparin 40 MG/0.4 ML Syringe SC (09:06)
[2022-09-21] MEDS: Ensure Plus High Protein 120 ML LIQUID PO ×3 (09:06→17:46)
[2022-09-21] MEDS: Magnesium Chloride 64 MG Delay Rel.Tablet 256 MG PO (09:07)
[2022-09-21] MEDS: Ceftriaxone 1 GM/50 ML BAG IV (09:08)
[2022-09-21] MEDS: Cholecalciferol (VIT D3) 25 MCG TABLET (1,000 UNITS) PO (09:08)
[2022-09-21] MEDS: Pantoprazole Sodium 40 MG Tablet PO (09:08)
[2022-09-21] MEDS: Acetaminophen 500 MG Tablet PO ×2 (09:32→21:45)
[2022-09-21] MEDS: oxyCODONE 5 MG Tablet PO ×2 (09:33→21:45)
--- NOTE | 2022-09-21 10:25 | CASEMGMT ---
Addendum entered by Sara Schulz 09/21/22 14:21: PAIGE tried several more times to reach someone at [facility] to assist with getting port discharge meals set up for pt. SW has information sheet and a number printed on the bottom. Last call made SW was made aware pt has to call for self and request assistance with getting the meals from a [facility]. SW in to pt room to discuss. SW provided info for Mom's Meals and Meals on wheels. SW also gave pt printout sheet of directions on requesting post discharge meals and explained process to pt. Pt voiced understanding. Original Note: Social Work SW notified in handoff from PAIGE covering case yesterday that pt wants information/assistance obtaining home delivered meals. SW attempted to call [facility] to refer pt for Healthy at Home Program that would provide 28 post discharge meals. SW called three times and got through various stages of the call, however was hung up on each time. SW provided call back number each time and did not receive call back. SW to provide information for Mom's Meals and Meals on Wheels to pt when pt is back on the MS floor. PAIGE to inquire if pt would also like information regarding Direction Home. ZA Martini
--- NOTE | 2022-09-21 12:28 | CASEMGMT ---
Addendum entered by Jana Connelly 09/21/22 14:31: Received answer that palliative is unable to follow for HHC. RN CM in to pt room to discuss. Pt is aware that HHC could not be ordered currently unless he would like to have this attempted through oncology. Pt states currently he is so sob that he does not feel the therapy would be beneficial to him. Discussed OT and possiblitities of energy conservation techniques. Pt states he will wait until he gets established with and decide if he needs the HHC. He politely declined for now stating he has too many irons in the fire. Pt is aware that should he change his mind to ask for the CM. Original Note: Per hospitalist, pt is not interested in going to a SNF. [facility] for HHC for a patient. Email to palliative to see if it is an option for their physician to follow until pt establishes PCP. Will await answer.
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
[2022-09-21] MEDS: Docusate Sodium 100 MG Capsule 200 MG PO (13:42)
[2022-09-21] MEDS: guaiFENesin 1,200 MG Tablet 1200 MG PO ×2 (13:42→21:44)
--- NOTE | 2022-09-21 13:46 | PN.ID_ITS ---
Physical Exam Narrative Feeling about the same. Still cough and dyspnea, no fever Const alert and no apparent distress General Appearance: cooperative Resp Auscultation: diminished lung sounds Cardio regular rate and regular rhythm GI soft to palpation, non-tender and non-distended Skin no rashes or lesions noted ID ID: Route of nutrition/ use of supplements: [] Nutritional Intake: [] IV Site: [] Hearn Catheter: [] Assessment & Plan Assessment/Plan (1) Adenocarcinoma of right lung: (2) Hypoxia: PLAN: Worsened O2, now on 6L. Neutropenia from admit has resolved. No fever. Stable symptoms over past few weeks. CT showed ? new infiltrate. Seen by oncology, thought to be due to radiation pneumonitis, recommended course of ster oids. Currently on azithro/ceftriaxone. Will check Urine antigens. Pulm following. Will follow
--- NOTE | 2022-09-21 16:54 | PN.HOSP_ITS ---
Reason for Visit Reason for Visit: Diagnoses Malignant neoplasm of unspecified part of unspecified bronchus or lung ( 3) Malignant neoplasm of unspecified part of right bronchus or lung (09/19/22) Secondary malignant neoplasm of bone (09/19/22) Agranulocytosis secondary to cancer chemotherapy (09/19/22) Unspecified severe protein-calorie malnutrition (09/19/22) Pneumonia, unspecified organism (09/19/22) Chronic obstructive pulmonary disease with (acute) exacerbation (09/19/22) Acute pulmonary manifestations due to radiation (09/19/22) Acute and chronic respiratory failure with hypoxia (09/19/22) Cellulitis of left upper limb (09/19/22) Hypoxemia (09/19/22) Adverse effect of antineoplastic and immunosuppressive drugs, initial encounter (09/19/22) Subjective Subjective Seen and examined today, briefly talked to him about his medical condition and inquired on whether he would consider going to a residential facility for short-term rehab services, he stated he would prefer to go home and he does not want to go to an extended care facility. I had pulmonary medicine see the patient today for added input in his care. Patient's white blood cell count today was 2,200, platelet count was 31,000. Patient's hemoglobin was 11.1. Patient appears winded when he talks to this examiner. Objective Data Objective Data Vital Signs: Vital Signs Temp Pulse Resp BP Pulse Ox O2 Del Method O2 Flow Rate 98.6 F 90 18 132/74 H 99 Nasal Cannula 6 09/21/22 16:07 09/21/22 16:07 09/21/22 16:07 09/21/22 16:07 09/21/22 16:07 09/21/22 16:07 09/21/22 16:07 Oxygen Flow Rate (L/min) [At 5 REST with Oxygen] Oxygen Flow Rate (L/min) [ 6 AMBULATING with Oxygen #2] Oxygen Flow Rate (L/min) [ 3 AMBULATING with Oxygen #1] Oxygen Flow Rate (L/min) 6 Oxygen Delivery Method Nasal Cannula Weight: 51.483 kg Body Mass Index (BMI) 17.7 Intake & Output: Intake and Output for Last 24 Hours 09/19/22 09/20/22 09/21/22 23:59 23:59 23:59 Intake Total 580 / 980 1905.75 / 1905.75 649.25 / 649.25 Balance 580 / 980 1905.75 / 1905.75 649.25 / 649.25 Medical Nutrition Assessment Dietitian: Malnutrition Criteria Met Start: 09/20/22 12:10 Freq: Status: Active Protocol: Document 09/20/22 12:10 LO (Rec: 09/20/22 12:10 LO [id number]) Nutrition Malnutrition Evidence of Malnutrition Exists Yes Malnutrition (severe): Chronic Evidenced By Suboptimal Energy Intake ( Severe),Weight Loss (Severe) Clinical Problem Chronic Disease or Condition Related Malnutrition Etiology severe related to lung cancer with mets to bone Signs/Symptoms as evidenced by pt consuming < 75% of estimated energy needs and 25.6lbs (18.4%) weight loss in 3.5 months. Status Active Problem Recommendation Dietitian Recommendations/Changes Continue Regular diet to optimize oral intakes. RD will discontinue Ensure Clear with medpass. RD will order 120mL Ensure Plus High Protein 4x with medpass to provide supplemental energy and promote weight maintenance/ gain. Lab / Micro Data Result Diagrams: 09/20/22 05:55 09/20/22 05:55 Rhythm Strip Rhythm Strip: Sinus Rhythm Rate: 94 Ectopy: PVC(s) Physical Exam Narrative alert, oriented x3 and no apparent distress Constitutional Narrative: Patient appears cachectic and unwell, he appears older than his stated age General Appearance: cooperative and well developed Orientation / Consciousness: awake, oriented to person, oriented to place and oriented to time HEENT normocephalic, head/scalp atraumatic and moist oral mucous membranes Eyes PERRL, EOMs intact bilaterally and conjunctivae normal Neck supple, no JVD, thyroid normal and no carotid bruits General: trachea midline Resp normal respiratory effort, no retractions and no use of accessory muscles Resp Narrative: Breath sounds are diminished bilaterally Auscultation: Negative for rales, rhonchi or wheezes Cardio regular rate, regular rhythm, S1 normal heart sound, S2 normal heart sound, no murmurs, no rub and no gallops GI normal to inspection, nondistended, normoactive bowel sounds, soft to palpation, non-tender and non-distended Extremity no clubbing, cyanosis or edema Skin no rashes or lesions noted Skin Narrative: Patient has healing eschar on his right elbow area Neuro oriented x3, CN's II-XII intact bilaterally, moves all extremities, no focal motor deficits and no sensory deficits noted Sensorium / Orientation: awake, alert, oriented to person, oriented to place and oriented to time Speech: speech normal Psych affect normal Const alert, oriented x3 and no apparent distress Constitutional Narrative: Patient appears cachectic and unwell, he appears older than his stated age General Appearance: cooperative and well developed Orientation / Consciousness: awake, oriented to person, oriented to place and oriented to time HEENT normocephalic, head/scalp atraumatic and moist oral mucous membranes Eyes PERRL, EOMs intact bilaterally and conjunctivae normal Eyes Narrative: No icterus Neck no lymphadenopathy, supple, no JVD, thyroid normal and no carotid bruits General: trachea midline Resp normal respiratory effort, no retractions and no use of accessory muscles Resp Narrative: Breath sounds are diminished bilaterally Auscultation: Negative for rales, rhonchi or wheezes Cardio regular rate, regular rhythm, S1 normal heart sound, S2 normal heart sound, no murmurs, no rub and no gallops GI normal to inspection, nondistended, normoactive bowel sounds, soft to palpation, non-tender and non-distended Extremity no clubbing, cyanosis or edema Extremity Narrative: Marked atrophy throughout. Skin no rashes or lesions noted Skin Narrative: Patient has healing eschar on his right elbow area Neuro oriented x3, CN's II-XII intact bilaterally, moves all extremities, no focal mot or deficits and no sensory deficits noted Sensorium / Orientation: awake, alert, oriented to person, oriented to place and oriented to time Speech: speech normal Psych affect normal Mood & Affect: anxious Assessment & Plan Assessment/Plan (1) Pneumonitis: PLAN: Plan 1. Hypoxia on a backdrop of chronic hypoxic respiratory failure-at rest the patient's oxygen requirement is 6 L/min, he will require much more than that on ambulation, pulse ox will be monitored #2 Right upper lobe pneumonitis-probably secondary to radiation versus drug- induced (Keytruda)-patient will remain on IV dexamethasone, oncology saw the patient today, I had infectious diseases see the patient and for now he will remain on antibiotics but according to ID, there is suspicion for acute infection is low. #3 pancytopenia secondary to recent chemotherapy-patient's labs will be rechecked tomorrow #4 chronic obstructive pulmonary disease-complicates care, medical course, recovery, and prognosis #5 left elbow cellulitis-minor, continue present IV antibiotic #6 exacerbation of COPD-patient is currently on aerosol treatments and IV corticosteroids #7 non-small cell lung cancer with metastases to the bone-complicates care, medi jalyn course, recovery, and prognosis #8 generalized debility-patient is being seen by PT and OT, patient looks frail and unwell #9 chronic severe protein and caloric malnutrition-as evidenced by patient consuming less than 75% of estimated energy needs and 25.6 pounds weight loss in 3.5 months-regular diet was continued, patient was provided with Ensure supplements, he will be provided with Ensure Plus high-protein while in the hospital, he will be followed by nutritional services. Patient was encouraged to increase his caloric intake while he is in the hospital. Total clinical time spent by myself addressing the patient's medical problems, reviewing medical data, and collaborating with patient's care team: 35 minutes Charges/Coding Visit Charges Inpatient E&M: 86539 Subs Hosp L2
[2022-09-21] MEDS: Amitriptyline 25 MG Tablet PO (21:44)
[2022-09-21] MEDS: cycloBENZAPRine HCl 10 MG Tablet PO (21:45)
[2022-09-22] VITALS (12 sets, daily range): BP systolic 135–152; BP diastolic 83–86; PULSE 57–104; RESP 16–20; TEMP 36.4–36.9; O2SAT 82–98
[2022-09-22 06:02] LABS: Hematocrit 32.9 % (40-54); Hemoglobin 10.5 g/dL (13.0-16.5); Mean Corp Hgb Conc 31.9 g/dL (32-36); Mean Corpuscular Hgb 31.6 pg (27.0-32.0); Mean Corpuscular Volume 99.1 fL (80-94); Mean Platelet Vol. 11.2 fl (6.2-12.0); POSITIVE COUNT YES; POSITIVE DIFFERENTIAL YES; POSITIVE MORPHOLOGY YES; Platelet Count 72 K/mm3 (150-450); RBC Distribution Width CV 15.8 % (11.6-14.6); Red Blood Count 3.32 M/mm3 (4.6-6.2); White Blood Count 12.2 K/mm3 (4.4-11.0)
[2022-09-22 06:04] LABS: Differential Indicated MANUAL DIFF
[2022-09-22 06:25] LABS: Lymphocyte 7 % (19-41); Monocyte 6 % (0-10); Myelocyte 6 % (0-0); Neutrophil-Band 6 % (0-5); Neutrophil-Segmented 75 % (47-70); Nucleated Red Bld Cells,Manual 2 % (0-5); Total Cells Counted 100 (MANUAL DIFF)
[2022-09-22 06:26] LABS: Absolute Neutrophil Count 9.9 X10^3/uL (2.0-7.7); Atypical Lymphocyte RARE %; Neutrophil # 9.88 X10^3/uL (2.7-7.7); Platelet Estimate MOD DEC (ADEQ); Red Cell Morphology NORM C+C NORMAL (NORM C&C)
[2022-09-22 06:27] LABS: Absolute Lymphocyte Count 0.85 X10^3/uL (0.83-4.51); Lymphocyte # 0.85 X10^3/ul (0.83-4.51)
[2022-09-22] MEDS: dexAMETHasone 4 MG/ML Vial IV ×3 (06:34→22:35)
[2022-09-22] MEDS: 0.9% Saline Lock 10 ML Syringe IV ×4 (06:34→22:35)
[2022-09-22 07:11] LABS: Anion Gap 6 (5-15); BUN 15 mg/dL (7-18); Calcium,Total 8.4 mg/dL (8.5-10.1); Chloride 102 mmol/L (98-107); Creatinine, Serum 0.62 mg/dL (0.70-1.30); EST Glomerular Filtration Rate 134 mL/min (>60); Est Glom Filt Rate - Afr Amer 162 mL/min (>60); Estimated Creatinine Clearance 47.91 ml/min; Glucose 134 mg/dL (74-106); Potassium 4.5 mmol/L (3.5-5.1); Sodium Level 141 mmol/L (136-145)
[2022-09-22] MEDS: Ipratropium/Albuterol Sulfate 3 ML AMPUL.NEB INHALATION ×3 (07:28→20:25)
[2022-09-22] MEDS: Ceftriaxone 1 GM/50 ML BAG IV (09:25)
[2022-09-22] MEDS: Docusate Sodium 100 MG Capsule 200 MG PO (09:30)
[2022-09-22] MEDS: Folic Acid 1 MG Tablet PO (09:31)
[2022-09-22] MEDS: Enoxaparin 40 MG/0.4 ML Syringe SC (09:31)
[2022-09-22] MEDS: Ensure Plus High Protein 120 ML LIQUID PO ×4 (09:31→22:40)
[2022-09-22] MEDS: Magnesium Chloride 64 MG Delay Rel.Tablet 256 MG PO (09:31)
[2022-09-22] MEDS: Pantoprazole Sodium 40 MG Tablet PO (09:32)
[2022-09-22] MEDS: guaiFENesin 1,200 MG Tablet 1200 MG PO ×2 (09:32→22:34)
[2022-09-22] MEDS: Cholecalciferol (VIT D3) 25 MCG TABLET (1,000 UNITS) PO (09:32)
[2022-09-22] MEDS: Acetaminophen 500 MG Tablet PO ×2 (09:39→22:34)
[2022-09-22] MEDS: oxyCODONE 5 MG Tablet PO ×2 (09:40→22:34)
--- NOTE | 2022-09-22 09:46 | PN.CC_ITS ---
Assessment & Plan Assessment/Plan (1) Pneumonitis: PLAN: Plan RECOMMENDATIONS: 1. Continue Decadron, antibiotics and bronchodilators 2. Likely transition to prednisone therapy tomorrow 3. Wean oxygen as tolerated. Obtain walking oximetry. 4. No transfusions at this time 5. Increase activity as tolerated IMPRESSIONS: 1. Acute on chronic hypoxic respiratory insufficiency Patient is gone from a baseline of 4 L/min up to 6 L/min. CT scan of the chest does show some infiltrates posteriorly. However, imaging studies are limited as patient does have significant emphysematous changes. Differential diagnosis would include radiation pneumonitis, pneumonia, inhalation pneumonitis and pneumonitis secondary to Keytruda. Unclear patient has pneumonitis secondary to Keytruda as this appears to be localized on the right-hand side, which would be atypical. Patient is pancytopenic secondary to chemotherapy, so continuation of empiric antibiotics is not unreasonable. We will continue a mucolytic to help with pulmonary toileting. Patient does have significant debility and COPD, so recovery may be protracted. If patient continues to recover, will likely transition to 40 mg of prednisone tomorrow with a taper. Patient encouraged to increase activity as tolerated today 2. Stage IV non-small cell lung cancer status postradiation and chemotherapy Patient with pancytopenia secondary to chemotherapy. Patient is receiving Granix during this hospitalization. Counts appear to be improving. No indication for transfusion at this time. Will monitor for bleeding complications. 3. Generalized debility/chronic severe protein and caloric malnutrition/hiatal hernia Complicates care, management, recovery and prognosis. Okay to continue with baseline medications. Dietitian is offering supplements. Unclear if patient's malnutrition is secondary to malignancy, pulmonary cachexia, chemotherapy or a combination thereof. Previous echocardiogram shows preserved ejection fraction and patient does not have any lower extremity swelling suggestive of HFpEF Subjective Subjective Patient appears to be somewhat improved compared to yesterday. Patient states he was able to ambulate to the bathroom and tolerated this relatively well. Cough is slightly improved. Patient is not reporting any chest pain. Objective Data Objective Data Vital Signs: Vital Signs Temp Pulse Resp BP Pulse Ox O2 Del Method O2 Flow Rate 36.5 C L 81 16 144/83 H 98 Nasal Cannula 5 09/22/22 03:41 09/22/22 07:27 09/22/22 07:27 09/22/22 03:41 09/22/22 07:27 09/22/22 07:27 09/22/22 07:27 Oxygen Flow Rate (L/min) [At 5 REST with Oxygen] Oxygen Flow Rate (L/min) [ 6 AMBULATING with Oxygen #2] Oxygen Flow Rate (L/min) [ 3 AMBULATING with Oxygen #1] Oxygen Flow Rate (L/min) 5 Oxygen Delivery Method Nasal Cannula Weight: 51.483 kg Body Mass Index (BMI) 17.7 Intake & Output: Intake and Output for Last 24 Hours 09/20/22 09/21/22 09/22/22 23:59 23:59 23:59 Intake Total 1905.75 / 1905.75 649.25 / 649.25 Balance 1905.75 / 1905.75 649.25 / 649.25 Medical Nutrition Assessment Dietitian: Malnutrition Criteria Met Start: 09/20/22 12:1 0 Freq: Status: Active Protocol: Document 09/20/22 12:10 LO (Rec: 09/20/22 12:10 [id number]) Nutrition Malnutrition Evidence of Malnutrition Exists Yes Malnutrition (severe): Chronic Evidenced By Suboptimal Energy Intake ( Severe),Weight Loss (Severe) Clinical Problem Chronic Disease or Condition Related Malnutrition Etiology severe related to lung cancer with mets to bone Signs/Symptoms as evidenced by pt consuming < 75% of estimated energy needs and 25.6lbs (18.4%) weight loss in 3.5 months. Status Active Problem Recommendation Dietitian Recommendations/Changes Continue Regular diet to optimize oral intakes. RD will discontinue Ensure Clear with medpass. RD will order 120mL Ensure Plus High Protein 4x with medpass to provide supplemental energy and promote weight maintenance/ gain. Lab / Micro Data Attestation: I reviewed the patient's lab results. Result Diagrams: 09/22/22 05:40 09/22/22 05:44 Labs: Laboratory Results - last 24 hr 09/22/22 05:40: WBC 12.2 H, RBC 3.32 L, Hgb 10.5 L, Hct 32.9 L, MCV 99.1 H, MCH 31.6, MCHC 31.9 L, RDW Std Deviation 57.0 H, RDW Coeff of Deidra 15.8 H, Plt Count 72 L, MPV 11.2, Neut % (Auto) Not Reportable, Absolute Neuts (auto) 9.9 H, Absolute Lymphs (auto) 0.85, Total Counted 100, Neutrophils % (Manual) 75 H, Band Neutrophils % 6 H, Lymphocytes % (Manual) 7 L, Monocytes % (Manual) 6, Myelocytes % 6 H, Nucleated RBCs/100 WBC 2, Diff Path Review May foll, Atypical Lymphocytes RARE, Platelet Estimate MOD DEC, RBC Morphology NORM C+C 09/22/22 05:44: Sodium 141, Potassium 4.5, Chloride 102, Carbon Dioxide 33.0 H, Anion Gap 6, BUN 15, Creatinine 0.62 L, Estim Creat Clear Calc 47.91, Est GFR (MDRD) Af Amer 162, Est GFR (MDRD) Non-Af 134, BUN/Creatinine Ratio 24.0 H, Glucose 134 H, Calcium 8.4 L Micro: Microbiology 09/21/22 17:39 Urine, Random Legionella Antigen - Final 09/21/22 17:39 Urine, Random Streptococcus pneumoniae Antigen (M - Final Radiography Diagnostic Testing: Radiology Impression Chest X-Ray 09/21/22 07:53 IMPRESSION: Mild improvement of right upper lobe pneumonia. Continued radiographic follow-up suggested to document interval resolution. Severe pulmonary emphysema again. Electronically Signed: Cliff Linder MD at 4:57 EST , Rhythm Strip Rhythm Strip: Sinus Rhythm Rate: 94 Ectopy: PVC(s) Physical Exam Const alert, oriented x3 and no apparent distress Constitutional Narrative: Patient appears cachectic and unwell, he appears older than his stated age General Appearance: cooperative and well developed HEENT normocephalic, head/scalp atraumatic and moist oral mucous membranes Eyes PERRL, EOMs intact bilaterally and conjunctivae normal Neck supple, no JVD, thyroid normal and no carotid bruits General: trachea midline Chest Chest: abnormal inspection of the chest increased A-P diameter Resp no retractions and no use of accessory muscles Auscultation: diminished lung sounds; Negative for rales, rhonchi or wheezes Cardio regular rate, regular rhythm, S1 normal heart sound, S2 normal heart sound, no murmurs, no rub and no gallops GI normal to inspection, nondistended, normoactive bowel sounds, soft to palpation, non-tender and non-distended Extremity no clubbing, cyanosis or edema Skin no rashes or lesions noted Skin Narrative: Patient has healing eschar on his right elbow area Neuro oriented x3, CN's II-XII intact bilaterally, moves all extremities, no focal motor deficits and no sensory deficits noted Psych cooperative and affect normal Charges/Coding Visit Charges Inpatient E&M: 33914 Subs Hosp L2
--- NOTE | 2022-09-22 10:07 | PCM.PN.ID ---
Physical Exam Narrative Feeling about the same, cough slightly better, no fever, some sputum Const alert and no apparent distress Resp Auscultation: rhonchi and diminished lung sounds Cardio regular rate and regular rhythm GI soft to palpation, non-tender and non-distended Skin no rashes or lesions noted ID ID: Route of nutrition/ use of supplements: [] Nutritional Intake: [] IV Site: [] Hearn Catheter: [] Assessment & Plan Assessment/Plan (1) Adenocarcinoma of right lung: (2) Hypoxia: PLAN: Presented with worsened O2, now down 5L. Neutropenia from admit has resolved. No fever. Stable symptoms over past few weeks. CT showed ? new infiltrate. 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 Currently on azithro/ceftriaxone. Neg Urine antigens. Pending sputum. Pulm following. Will stop azithro today. Will follow
[2022-09-22 13:00] LABS: Pathologist Review Reviewed
--- NOTE | 2022-09-22 13:41 | CASEMGMT ---
Addendum entered by Dallas Giraldo 09/22/22 16:42: Spoke w/Dr Shelby's office. Appt scheduled w/nurse for Dr Shelby on 09/27 @ 3 PM, so pt can get established w/them for HHC. Call placed to Jessi/ROSARIO and she was made aware. Jessi states she has no preference of HHC agency, although she feels [facility] would be best, she would like pt to make that decision. Jessi voiced how pt is needing more assistance @ home. Discussed [facility] and [facility], as a possibility after HHC services complete. She states is interested in further information. WOODROW CARMICHAEL informed her this would be placed in pt's folder in his room for them to look over. She voices appreciation. WOODROW CARMICHAEL to pt's room. He was made aware of appt w/nurse @ Dr Shelby's office on 09/27. Discussed HHC and he states he would like [facility]. He declines wanting list of other HHC options. Both pt and Jessi were made aware referral process can be started, but would need to await on pt's visit @ Dr Shelby's office before official acceptance could be made. They voiced understanding. Addendum entered by Dallas Giraldo 09/22/22 13:48: Jessi also inquired how pt could obtain a WW. She was made aware this would be obtained prior to pt leaving the hospital and sent home w/him. She voices appreciation. Original Note: WOODROW CARMICHAEL NOTE: VM received from pt's Jessi PONCE, inquiring about discharge plan for pt, stating pt has difficulty recalling details and she wants to be able to better assist him. Call placed back to Jessi. She was made aware, until he gets established w/Dr Shelby, HHC is unable to be set up. She was made aware WOODROW Bates CM, has reached out to both [facility] and [facility] and neither are agreeable to following for HHC. Discussed pt's upcoming appt w/Dr Shelby on 10/04. Per Jessi, she thinks this appt has been rescheduled for 10/11 and voices much concern that HHC could not be started until after that appt. Jessi informed that this RN CM would reach out to Dr Shelby's office to inquire if sooner appt could be made. Jeannine WIGGINSN RN CM
--- NOTE | 2022-09-22 17:53 | PN.HOSP_ITS ---
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 Patient asked me questions about his hospital bill, I told him to concentrate on getting well and not to worry about his time spent in the hospital at this time. Patient does not have an aerosol machine at home for nebulizer treatments, I will set him up for one. Patient is still dyspneic on ambulation. Objective Data Objective Data Vital Signs: Vital Signs Temp Pulse Resp BP Pulse Ox O2 Del Method O2 Flow Rate 97.5 F L 85 16 152/85 H 97 Nasal Cannula 5 09/22/22 09:00 09/22/22 15:24 09/22/22 15:24 09/22/22 09:00 09/22/22 15:24 09/22/22 15:24 09/22/22 15:24 Oxygen Flow Rate (L/min) [At 5 REST with Oxygen] Oxygen Flow Rate (L/min) [ 6 AMBULATING with Oxygen #2] Oxygen Flow Rate (L/min) [ 6 AMBULATING with Oxygen #1] Oxygen Flow Rate (L/min) 5 Oxygen Delivery Method Nasal Cannula Weight: 51.483 kg Body Mass Index (BMI) 17.7 Intake & Output: Intake and Output for Last 24 Hours 09/20/22 09/21/22 09/22/22 23:59 23:59 23:59 Intake Total 1905.75 / 1905.75 649.25 / 649.25 305 / 305 Balance 1905.75 / 1905.75 649.25 / 649.25 305 / 305 Medical Nutrition Assessment Dietitian: Malnutrition Criteria Met Start: 09/20/22 12:10 Freq: Status: Active Protocol: Document 09/20/22 12:10 LO (Rec: 09/20/22 12:10 LO [id number]) Nutrition Malnutrition Evidence of Malnutrition Exists Yes Malnutrition (severe): Chronic Evidenced By Suboptimal Energy Intake ( Severe),Weight Loss (Severe) Clinical Problem Chronic Disease or Condition Related Malnutrition Etiology severe related to lung cancer with mets to bone Signs/Symptoms as evidenced by pt consuming < 75% of estimated energy needs and 25.6lbs (18.4%) weight loss in 3.5 months. Status Active Problem Recommendation Dietitian Recommendations/Changes Continue Regular diet to optimize oral intakes. RD will discontinue Ensure Clear with medpass. RD will order 120mL Ensure Plus High Protein 4x with medpass to provide supplemental energy and promote weight maintenance/ gain. Lab / Micro Data Result Diagrams: 09/22/22 05:40 09/22/22 05:44 Labs: Laboratory Results - last 24 hr 09/22/22 05:40: WBC 12.2 H, RBC 3.32 L, Hgb 10.5 L, Hct 32.9 L, MCV 99.1 H, MCH 31.6, MCHC 31.9 L, RDW Std Deviation 57.0 H, RDW Coeff of Deidra 15.8 H, Plt Count 72 L, MPV 11.2, Neut % (Auto) Not Reportable, Absolute Neuts (auto) 9.9 H, Absolute Lymphs (auto) 0.85, Total Counted 100, Neutrophils % (Manual) 75 H, Band Neutrophils % 6 H, Lymphocytes % (Manual) 7 L, Monocytes % (Manual) 6, Myelocytes % 6 H, Nucleated RBCs/100 WBC 2, Diff Path Review Reviewed, Atypical Lymphocytes RARE, Platelet Estimate MOD DEC, RBC Morphology NORM C+C 09/22/22 05:44: Sodium 141, Potassium 4.5, Chloride 102, Carbon Dioxide 33.0 H, Anion Gap 6, BUN 15, Creatinine 0.62 L, Estim Creat Clear Calc 47.91, Est GFR (MDRD) Af Amer 162, Est GFR (MDRD) Non-Af 134, BUN/Creatinine Ratio 24.0 H, Glucose 134 H, Calcium 8.4 L Micro: Microbiology 09/21/22 23:00 Sputum, Expectorated/Coughed Gram Stain - Final 09/21/22 17:39 Urine, Random Legionella Antigen - Final 09/21/22 17:39 Urine, Random Streptococcus pneumoniae Antigen (M - Final Radiography Diagnostic Testing: Radiology Impression Chest X-Ray 09/21/22 07:53 IMPRESSION: Mild improvement of right upper lobe pneumonia. Continued radiographic follow-up suggested to document interval resolution. Severe pulmonary emphysema again. Electronically Signed: Cliff Linder MD at 4:57 EST , Rhythm Strip Rhythm Strip: Sinus Rhythm Rate: 94 Ectopy: PVC(s) Physical Exam Narrative Constitutional Narrative: Patient appears cachectic and unwell, he appears older than his stated age General Appearance: cooperative and well developed Orientation / Consciousness: awake, oriented to person, oriented to place and oriented to time HEENT normocephalic, head/scalp atraumatic and moist oral mucous membranes Eyes PERRL, EOMs intact bilaterally and conjunctivae normal Eyes Narrative: No icterus Neck no lymphadenopathy, supple, no JVD, thyroid normal and no carotid bruits General: trachea midline Resp normal respiratory effort, no retractions and no use of accessory muscles Resp Narrative: Breath sounds are diminished bilaterally Auscultation: Negative for rales, rhonchi or wheezes Cardio regular rate, regular rhythm, S1 normal heart sound, S2 normal heart sound, no murmurs, no rub and no gallops GI normal to inspection, nondistended, normoactive bowel sounds, soft to palpation, non-tender and non-distended Extremity no clubbing, cyanosis or edema Extremity Narrative: Marked atrophy throughout. Skin no rashes or lesions noted Skin Narrative: Patient has healing eschar on his right elbow area Neuro oriented x3, CN's II-XII intact bilaterally, moves all extremities, no focal motor deficits and no sensory deficits noted Sensorium / Orientation: awake, alert, oriented to person, oriented to place and oriented to time Speech: speech normal Psych affect normal Mood & Affect: Normal Assessment & Plan Assessment/Plan (1) Pneumonitis: PLAN: Plan 1. Hypoxia on a backdrop of chronic hypoxic respiratory failure-at rest the patient's oxygen requirement is 5 L/min, he will require much more than that on ambulation, pulse ox will be monitored #2 Right upper lobe pneumonitis-probably secondary to radiation versus drug- induced (Keytruda)-patient will remain on IV dexamethasone, patient remains on IV Rocephin at this time, Zithromax was stopped by ID. #3 pancytopenia secondary to recent chemotherapy-resolved at this time, patiaminah spencer's platelet count remains low, hemoglobin was 10.5 today but white count was 12.2-this is likely secondary to recovery on a backdrop of IV steroid usage. #4 chronic obstructive pulmonary disease-complicates care, medical course, recovery, and prognosis #5 left elbow cellulitis-minor, continue present IV antibiotic #6 exacerbation of COPD-patient is currently on aerosol treatments and IV cortic osteroids #7 non-small cell lung cancer with metastases to the bone-complicates care, medical course, recovery, and prognosis #8 generalized debility-patient is being seen by PT and OT, patient looks frail and unwell #9 chronic severe protein and caloric malnutrition-as evidenced by patient consu dionna less than 75% of estimated energy needs and 25.6 pounds weight loss in 3.5 months-regular diet was continued, patient was provided with Ensure supplements, he will be provided with Ensure Plus high-protein while in the hospital, he will be followed by nutritional services. Patient was encouraged to increase his caloric intake while he is in the hospital. Total clinical time spent by myself addressing the patient's medical problems, reviewing medical data, and collaborating with patient's care team: 35 minutes Charges/Coding Visit Charges Inpatient E&M: 98510 Subs Hosp L2
[2022-09-22] MEDS: cycloBENZAPRine HCl 10 MG Tablet PO (22:34)
[2022-09-22] MEDS: Amitriptyline 25 MG Tablet PO (22:34)
[2022-09-23 05:12] VITALS: BP 154/102; PULSE 87; RESP 18; TEMP 36.4; O2SAT 95
[2022-09-23] MEDS: 0.9% Saline Lock 10 ML Syringe IV ×3 (05:20→14:34)
[2022-09-23] MEDS: dexAMETHasone 4 MG/ML Vial IV ×2 (05:20→14:33)
[2022-09-23 06:56] LABS: Hematocrit 33.7 % (40-54); Mean Corp Hgb Conc 32.6 g/dL (32-36); Mean Corpuscular Hgb 31.8 pg (27.0-32.0); Mean Corpuscular Volume 97.4 fL (80-94); Mean Platelet Vol. 11.5 fl (6.2-12.0); POSITIVE COUNT YES; POSITIVE DIFFERENTIAL YES; POSITIVE MORPHOLOGY YES; Platelet Count 98 K/mm3 (150-450); RBC Distribution Width CV 15.8 % (11.6-14.6); RBC Distribution Width SD 55.9 fl (35.1-43.9); Red Blood Count 3.46 M/mm3 (4.6-6.2); White Blood Count 14.6 K/mm3 (4.4-11.0)
[2022-09-23 07:05] LABS: Differential Indicated MANUAL DIFF
[2022-09-23 07:25] LABS: Metamyelocyte 7 % (0-1); Neutrophil-Band 6 % (0-5); Neutrophil-Segmented 72 % (47-70); Total Cells Counted 100 (MANUAL DIFF)
[2022-09-23 07:26] LABS: Anion Gap 5 (5-15); BUN 19 mg/dL (7-18); BUN/Creat Ratio 31.6 RATIO (10-20); Calcium,Total 8.7 mg/dL (8.5-10.1); Chloride 100 mmol/L (98-107); EST Glomerular Filtration Rate 140 mL/min (>60); Est Glom Filt Rate - Afr Amer 169 mL/min (>60); Estimated Creatinine Clearance 47.91 ml/min; Glucose 98 mg/dL (74-106); Lymphocyte 2 % (19-41); Monocyte 3 % (0-10); Myelocyte 5 % (0-0); Platelet Estimate SLT DEC (ADEQ); Potassium 4.6 mmol/L (3.5-5.1); Promyelocyte 2 % (0-0); Sodium Level 138 mmol/L (136-145)
[2022-09-23 07:27] LABS: Absolute Lymphocyte Count 0.29 X10^3/uL (0.83-4.51); Absolute Neutrophil Count 11.4 X10^3/uL (2.0-7.7); Lymphocyte # 0.29 X10^3/ul (0.83-4.51); Neutrophil # 11.36 X10^3/uL (2.7-7.7); Red Cell Morphology NORM C+C NORMAL (NORM C&C)
[2022-09-23 07:29] LABS: Nucleated Red Bld Cells,Manual 1 % (0-5)
[2022-09-23 08:57] VITALS: O2SAT 95
[2022-09-23] MEDS: Docusate Sodium 100 MG Capsule 200 MG PO (09:06)
[2022-09-23] MEDS: guaiFENesin 1,200 MG Tablet 1200 MG PO (09:06)
[2022-09-23] MEDS: Folic Acid 1 MG Tablet PO (09:06)
[2022-09-23] MEDS: Pantoprazole Sodium 40 MG Tablet PO (09:06)
[2022-09-23] MEDS: Magnesium Chloride 64 MG Delay Rel.Tablet 256 MG PO (09:06)
[2022-09-23] MEDS: Ceftriaxone 1 GM/50 ML BAG IV (09:07)
[2022-09-23] MEDS: Cholecalciferol (VIT D3) 25 MCG TABLET (1,000 UNITS) PO (09:07)
[2022-09-23] MEDS: Enoxaparin 40 MG/0.4 ML Syringe SC (09:07)
[2022-09-23 09:28] VITALS: BP 142/101; PULSE 93; RESP 20; TEMP 36.6; O2SAT 99
--- NOTE | 2022-09-23 09:39 | PCM.PN.INT ---
Assessment & Plan Assessment/Plan (1) Pneumonitis: PLAN: Plan RECOMMENDATIONS: 1. Continue Decadron, antibiotics and bronchodilators 2. Likely transition to prednisone on discharge 3. Wean oxygen as tolerated. Obtain walking oximetry. 4. No transfusions at this time 5. Increase activity as tolerated. Potential discharge later today IMPRESSIONS: 1. Acute on chronic hypoxic respiratory insufficiency Oxygenation continues to improve. Patient is gone from a baseline of 4 L/min up to 6 L/min. CT scan of the chest does show some infiltrates posteriorly. However, imaging studies are limited as patient does have significant emphysematous changes. Differential diagnosis would include radiation pneumonitis, pneumonia, inhalation pneumonitis and pneumonitis secondary to Keytruda. Unclear patient has pneumonitis secondary to Keytruda as this appears to be localized on the right-hand side, which would be atypical. Patient is pancytopenic secondary to chemotherapy, so continuation of empiric antibiotics is not unreasonable. We will continue a mucolytic to help with pulmonary toileting. Patient does have significant debility and COPD, so recovery may be protracted. If patient continues to recover, will likely transition to 40 mg of prednisone on discharge with a taper. Patient encouraged to increase activity as tolerated today 2. Stage IV non-small cell lung cancer status postradiation and chemotherapy Patient with pancytopenia secondary to chemotherapy. Patient is receiving Granix during this hospitalization. Counts appear to be improving. No indication for transfusion at this time. Will monitor for bleeding complications. 3. Generalized debility/chronic severe protein and caloric malnutrition/hiatal hernia Complicates care, management, recovery and prognosis. Okay to continue with baseline medications. Dietitian is offering supplements. Unclear if patient's malnutrition is secondary to malignancy, pulmonary cachexia, chemotherapy or a combination thereof. Previous echocardiogram shows preserved ejection fraction and patient does not have any lower extremity swelling suggestive of HFpEF Subjective Subjective Patient did well overnight. No acute issues were reported. Patient states he feels subjectively improved compared to previous. Patient has been able to ambulate more and feels his cough is improved. Objective Data Objective Data Vital Signs: Vital Signs Temp Pulse Resp BP Pulse Ox O2 Del Method O2 Flow Rate 36.6 C 93 20 H 142/101 H 99 Nasal Cannula 3 09/23/22 09:28 09/23/22 09:28 09/23/22 09:28 09/23/22 09:28 09/23/22 09:28 09/23/22 09:30 09/23/22 09:30 Oxygen Flow Rate (L/min) [At 5 REST with Oxygen] Oxygen Flow Rate (L/min) [ 6 AMBULATING with Oxygen #2] Oxygen Flow Rate (L/min) [ 6 AMBULATING with Oxygen #1] Oxygen Flow Rate (L/min) 3 Oxygen Delivery Method Nasal Cannula Weight: 51.483 kg Body Mass Index (BMI) 17.7 Intake & Output: Intake and Output for Last 24 Hours 09/21/22 09/22/22 09/23/22 23:59 23:59 23:59 Intake Total 649.25 / 649.25 425 / 425 500 / 500 Balance 649.25 / 649.25 425 / 425 500 / 500 Medical Nutrition Assessment Dietitian: Malnutrition Criteria Met Start: 09/20/22 12:10 Freq: Status: Active Protocol: Document 09/20/22 12:10 LO (Rec: 09/20/22 12:10 [id number]) Nutrition Malnutrition Evidence of Malnutrition Exists Yes Malnutrition (severe): Chronic Evidenced By Suboptimal Energy Intake ( Severe),Weight Loss (Severe) Clinical Problem Chronic Disease or Condition Related Malnutrition Etiology severe related to lung cancer with mets to bone Signs/Symptoms as evidenced by pt consuming < 75% of estimated energy needs and 25.6lbs (18.4%) weight loss in 3.5 months. Status Active Problem Recommendation Dietitian Recommendations/Changes Continue Regular diet to optimize oral intakes. RD will discontinue Ensure Clear with medpass. RD will order 120mL Ensure Plus High Protein 4x with medpass to provide supplemental energy and promote weight maintenance/ gain. Lab / Micro Data Attestation: I reviewed the patient's lab results. Result Diagrams: 09/23/22 06:05 09/23/22 06:05 Labs: Laboratory Results - last 24 hr 09/22/22 05:40: Diff Path Review Reviewed 09/23/22 06:05: WBC 14.6 H, RBC 3.46 L, Hgb 11.0 L, Hct 33.7 L, MCV 97.4 H, MCH 31.8, MCHC 32.6, RDW Std Deviation 55.9 H, RDW Coeff of Deidra 15.8 H, Plt Count 98 L, MPV 11.5, Neut % (Auto) Not Reportable, Absolute Neuts (auto) 11.4 H, Absolute Lymphs (auto) 0.29 L, Total Counted 100, Neutrophils % (Manual) 72 H, Band Neutrophils % 6 H, Lymphocytes % (Manual) 2 L, Monocytes % (Manual) 3, Metamyelocytes % 7 H, Myelocytes % 5 H, Promyelocytes % 2 H, Nucleated RBCs/100 WBC 1, Diff Path Review November, Platelet Estimate SLT DEC, RBC Morphology NORM C+C 09/23/22 06:05: Sodium 138, Potassium 4.6, Chloride 100, Carbon Dioxide 33.0 H, Anion Gap 5, BUN 19 H, Creatinine 0.60 L, Estim Creat Clear Calc 47.91, Est GFR (MDRD) Af Amer 169, Est GFR (MDRD) Non-Af 140, BUN/Creatinine Ratio 31.6 H, Glucose 98, Calcium 8.7 Micro: Microbiology 09/21/22 23:00 Sputum, Expectorated/Coughed Gram Stain - Final 09/21/22 17:39 Urine, Random Legionella Antigen - Final 09/21/22 17:39 Urine, Random Streptococcus pneumoniae Antigen (M - Final Rhythm Strip Rhythm Strip: Sinus Rhythm Rate: 87 Ectopy: PVC(s) Physical Exam Const alert, oriented x3 and no apparent distress Constitutional Narrative: Patient appears cachectic and unwell, he appears older than his stated age. Patient was sitting at the bedside during my evaluation General Appearance: cooperative and well developed HEENT normocephalic, head/scalp atraumatic and moist oral mucous membranes Eyes PERRL, EOMs intact bilaterally and conjunctivae normal Neck supple, no JVD, thyroid normal and no carotid bruits General: trachea midline Chest Chest: abnormal inspection of the chest increased A-P diameter Resp Resp Narrative: Breath sounds are diminished bilaterally Auscultation: diminished lung sounds; Negative for rales, rhonchi or wheezes Cardio regular rate, regular rhythm, S1 normal heart sound, S2 normal heart sound, no murmurs, no rub and no gallops GI normal to inspection, nondistended, normoactive bowel sounds Extremity General Extremity: clubbing; Negative for edema Skin no rashes or lesions noted Skin Narrative: Patient has healing eschar on his right elbow area Neuro oriented x3, CN's II-XII intact bilaterally, moves all extremities, no focal motor deficits and no sensory deficits noted Psych cooperative and affect normal Charges/Coding Visit Charges Inpatient E&M: 36972 Subs Hosp L2
[2022-09-23 10:00] VITALS: O2SAT 86; O2SAT 94; O2SAT 96
--- NOTE | 2022-09-23 10:26 | CASEMGMT ---
Spoke with Nia at [facility], she is aware that pt will have a follow up visit on 09/27 and [facility] can start after if is agreeable to following. She will review referral and call back with acceptance.
--- NOTE | 2022-09-23 11:51 | PCM.DC ---
Discharge Instructions Diet Discharge Diet: No restrictions Activity Discharge Activity: Return to Normal Activity Follow Up Care Test Results: Test results from this visit will be discussed in further detail at your follow-up appointment, if applicable. Discharge Plan Admission Admit Date/Time: 09/19/22 17:07 Primary Reason for Your Visit: pneumonitis, copd exac Attending Provider: Maurice Darden Primary Care Provider: [facility] Consulting Providers: Steven Khan ; Kevin Pizano ; Jonatan Leija ; King Middleton ; Herbie Langston ; Tunde Flaherty ; Billy Franz ; Chrystal Stephenson NP ; Reynaldo Arana ; King Orellana ; Saqib Grullon ; Santana Arreola ; Nasim River ; Jerome Fernandez ; Xiomy Moses CUSTOMS COMPLIANCE MANAGER Discharge Orders/Prescriptions Prescriptions: New ipratropium-albuterol 0.5 mg-3 mg(2.5 mg base)/3 mL Solution For Nebulization 3 ml inhalation Q4HWA.RT Qty: 180 0RF Rx Instructions: use four times a day -may laso use every two hours for severe shortness of breath cefdinir 300 mg capsule 300 mg PO BID Qty: 10 0RF Rx Instructions: start on 09/24/22 prednisone 20 mg tablet 20 mg PO BID Qty: 11 0RF Rx Instructions: one twice a day for 3 days, then one per day for 3 days, then 1/2 per day for 4 days, then stop Continued cholecalciferol (vitamin D3) 25 mcg (1,000 unit) capsule 25 mcg PO DAILY amitriptyline 25 mg tablet 25 mg PO QHS 30 Days Qty: 30 1RF lidocaine-prilocaine 2.5-2.5 % cream 1 applic topical ONCE PRN (Reason: port access) 30 Days Qty: 30 2RF ondansetron 8 mg tablet,disintegrating 8 mg PO Q8H PRN (Reason: nausea and vomiting) Qty: 30 2RF folic acid 1 mg tablet 1 mg PO DAILY Qty: 90 1RF acetaminophen 500 mg Tablet 500 mg PO Q6H PRN (Reason: Pain) ibuprofen 200 mg Tablet 600 mg PO Q6H PRN (Reason: Pain) magnesium 200 mg Tablet 800 mg PO DAILY oxycodone-acetaminophen 5-325 mg tablet 1 tab PO Q6H PRN (Reason: pain) 2 Days Qty: 5 0RF cyclobenzaprine 10 mg tablet 10 mg PO DAILY PRN (Reason: Muscle Spasm) pantoprazole 40 mg tablet,delayed release (DR/EC) 40 mg PO QAM Qty: 90 3RF Discontinued albuterol sulfate 90 mcg/actuation HFA aerosol inhaler 2 puff INHALATION Q4H PRN PRN (Reason: breathing) Label Comments: INHALE 2 PUFFS every FOUR hours as needed for FOR WHEEZING or SHORTNESS OF BREATH Referrals / Follow Up: Saqib Grullon MD [Med Staff - Active Staff] - See Referral Note (in 2 weeks) Юлия Shelby DO [Med Staff - Salon Receptionist] - 09/27/22 3:00 pm (Please arrive 30-40 min earlier to complete paperwork. This will be a nurse visit. ) Disposition Disposition (needs filled in before D/C Order can be placed): Home Health Service
--- NOTE | 2022-09-23 12:46 | PCM.PN.ID ---
Physical Exam Narrative Feeling better, ready to go home, no fever, breathing improved Const alert and no apparent distress Resp Auscultation: diminished lung sounds Cardio regular rate and regular rhythm GI soft to palpation, non-tender and non-distended Skin no rashes or lesions noted ID ID: Route of nutrition/ use of supplements: [] Nutritional Intake: [] IV Site: [] Hearn Catheter: [] Assessment & Plan Assessment/Plan (1) Adenocarcinoma of right lung: (2) Hypoxia: PLAN: Presented with worsened O2, now down 5L. Neutropenia from admit has resolved. No fever. Stable symptoms over past few weeks. CT showed ? new infiltrate. 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 Currently on ceftriaxone. Neg Urine antigens. Neg sputum so far. Pulm following. Ok for home with 3-4 more days augmentin or omnicef. Will follow as needed, d/w Dr. Darden
--- NOTE | 2022-09-23 12:55 | CASEMGMT ---
Addendum entered by Jana Connelly 09/23/22 16:18: Pt friend Jessi present in room and requests to speak face to face. WOODROW CARMICHAEL into pt room. Jessi questions pt heater and stove that is gas. TC to Simran at [facility], placed her on speakerphone and questions answered to pt and Jessi's satisfaction. She states they would not have left the oxygen at the time of delivery if it was not safe. Simran is aware of dimensions of the room. Pt landlord called also, took his number and called him after the conversation to make aware that the safety issues were discussed. Jessi questions pt if he would want to go to SNF, pt declines. He states he wants to go home. Discussed with patient his new oxygen needs, confirmed that he has his walker and nebulizer. Pt is aware he needs to go to his PCP appt for the C to start and that they will be in touch with him after his appt. Jessi will transport pt home. Pt and Jessi deny further questions. Pt had meds delivered to room as well. Addendum entered by Jana Connelly 09/23/22 15:36: Pt requires increase in oxygen needs. [facility] rep came to hospital and requested different rx be signed for nebulizer and faxed instead of being sent via careport. Rx signed and faxed along with increase in oxygen rx. WOODROW CARMICHAEL made aware by Albertina that pt contact Jessi called in with concerns of pt not having transportation home and using oxygen with his gas stove. WOODROW CARMICHAEL in to pt room, pt states he has a friend who works at [employer] that can come after she gets off work to take him home. TC to [facility] karina, this is not an option for today. Pt also states he spoke with the [facility] rep and he is aware that he can use his oxygen at home but not to be directly over the stove. He states he is aware of this and feels safe with it. Pt denies further needs. Addendum entered by Jana Connelly 09/23/22 13:10: Referral sent to [facility] via careport for walker and nebulizer at this time. Addendum entered by Jana Connelly 09/23/22 12:57: Pt accepted by [facility] once appt completed. Original Note: RN CM in to pt room to discuss walker and nebulizer. Pt provided with a verbal local in network list of DME providers, pt chose [facility] as his oxygen is through there. Noted pt tested on 3L oxygen, notified nurse that pt will need tested on 2L as this is ordered liter flow. Pt to be retested. Pt given care patrol and CCN information, 2 copies as requested. Pt to have HHC once appt with 's office.
[2022-09-23 13:27] LABS: Pathologist Review Reviewed
[2022-09-23] MEDS: Ensure Plus High Protein 120 ML LIQUID PO (14:34)
--- NOTE | 2022-10-15 18:45 | PCM.DC.SUM ---
Providers Date of Admission: 09/19/22 Date of Discharge: 09/23/22 Primary Care Physician: [facility] Consultations 09/19/22 19:15 Consult: Oncology/Hematology Routine Consulting Provider: [facility]) Reason for Consult: neutropenia EMERGENT Consult: No Notified: Yes Date Notified: 09/19/22 Time Notified: 17:13 Method of Notification: Verbal 09/20/22 10:33 Consult: Infectious Disease Routine Consulting Provider: King Orellana Reason for Consult: antibiotic coverage EMERGENT Consult: No Notified: Yes Date Notified: 09/20/22 Time Notified: 10:35 Method of Notification: Verbal 09/21/22 10:02 Consult: Ultrasound Tester / Pulmonary Medicine Routine Consulting Provider: [facility] Reason for Consult: pneumonitis EMERGENT Consult: No Notified: Yes Date Notified: 09/21/22 Time Notified: 10:04 Method of Notification: Verbal Reason For Visit: RESPIRATORY FAILURE Diagnosis Discharge Diagnosis (1) Adenocarcinoma of right lung: Status: Chronic Code(s): C34.91 - Malignant neoplasm of unspecified part of right bronchus or lung (2) Hypoxia: Status: Acute Code(s): R09.02 - Hypoxemia Plan 1. Hypoxia on a backdrop of chronic hypoxic respiratory failure-at rest the patient's oxygen requirement is 5 L/min, he will require much more than that on ambulation, pulse ox will be monitored #2 Right upper lobe pneumonitis-probably secondary to radiation versus drug-induced (Keytruda)-patient will remain on IV dexamethasone, patient remains on IV Rocephin at this time, Zithromax was stopped by ID. #3 pancytopenia secondary to recent chemotherapy-resolved at this time, patient's platelet count remains low, hemoglobin was 10.5 today but white count was 12.2-this is likely secondary to recovery on a backdrop of IV steroid usage. 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 Patient was encouraged to increase his caloric intake while he is in the hospital. Total clinical time spent by myself addressing the patient's medical problems, reviewing medical data, and collaborating with patient's care team: 35 minutes Medications at Discharge Home Medications cholecalciferol (vitamin D3) 25 mcg (1,000 unit) capsule 25 mcg PO DAILY 12/08/21 pantoprazole 40 mg tablet,delayed release 40 mg PO QAM #90 tabs 07/22/22 amitriptyline 25 mg tablet 25 mg PO QHS 30 days #30 tabs 07/28/22 folic acid 1 mg tablet 1 mg PO DAILY #90 tabs 08/25/22 lidocaine-prilocaine 2.5 %-2.5 % topical cream 1 applic topical ONCE PRN port access 30 days #30 grams 08/25/22 ondansetron 8 mg disintegrating tablet 8 mg PO Q8H PRN nausea and vomiting #30 tabs 08/25/22 acetaminophen 500 mg tablet 500 mg PO Q6H PRN Pain 08/29/22 ibuprofen 200 mg tablet 600 mg PO Q6H PRN Pain 08/29/22 magnesium 200 mg tablet 800 mg PO DAILY 08/29/22 oxycodone-acetaminophen 5 mg-325 mg tablet 1 tab PO Q6H PRN pain 2 days #5 tabs 09/05/22 cyclobenzaprine 10 mg tablet 10 mg PO DAILY PRN Muscle Spasm 09/19/22 ipratropium 0.5 mg-albuterol 3 mg (2.5 mg base)/3 mL nebulization soln 3 ml inhalation Q4HWA.RT #180 mL 09/23/22 albuterol sulfate 90 mcg/actuation aerosol inhaler inhalation 09/28/22 furosemide 20 mg tablet (Lasix) 20 mg PO DAILY #3 tabs 10/12/22 lactulose 20 gram/30 mL oral solution 20 g (30 mL) PO BID #3,000 mL 10/12/22 Hospital Course Operations None Procedures None Summary of Care Provided Minutes Spent on Discharge: 31 Hospital Course: This 72-year-old white male was seen in the emergency room at [facility] after he was sent in for evaluation from his oncologist office due to a low pulse ox of 60% on room air and appearing as if he was short of breath at his oncologist office. Patient denied any fevers or chills, he did state that he had a cough with clear sputum production. Patient is chronically on 4 L of oxygen via nasal cannula due to COPD. Work-up in the emergency room revealed the patient to be neutropenic, his hemoglobin was 12.1, CT of the chest showed a right upper lobe infiltrate or pneumonitis. CT of the chest showed no PE. Patient was admitted to [place] [id number] for right upper lobe pneumonitis, he was seen in consultation by pulmonary medicine and oncology, he was also seen by infectious diseases. Patient received IV antibiotics in the hospital as well as corticosteroids. Granix was also administered to the patient during his hospitalization. Patient's respiratory status improved during his hospitalization, at the time of discharge on 09/23/2022, patient's oxygen requirement was 3 L on ambulation and at rest. On 09/23/2022, patient was seen and examined: On examination he appeared frail and older than his stated age. Vital signs as documented. Skin warm and dry and without overt rashes. Neck without JVD, neck was supple, trachea midline, thyroid was normal. Lungs clear bilaterally, decreased air movement was noted bilaterally. Heart exam notable for regular rhythm, normal sounds and absence of murmurs, rubs or gallops. Abdomen unremarkable and without evidence of organomegaly, masses, or abdominal aortic enlargement. Bowel sounds are present, abdomen is not distended. Extremities nonedematous, no cyanosis was noted, no clubbing was noted. Neuro: Cranial nerves II through XII are grossly intact, no focal motor deficits were noted, sensation to light touch and pinprick intact, motor exam 5/5 throughout. Psych: Patient is alert and oriented x3, he does not appear anxious or depressed, he does not appear agitated. Patient appeared stable for discharge on 09/23/2022. Weight / BMI Weight Weight: 51.483 kg Body Mass Index (BMI) 17.7 ABG / Lab / Microbiology Data Result Diagrams: 09/23/22 06:05 09/23/22 06:05 Microbiology: Microbiology 09/21/22 23:00 Sputum, Expectorated/Coughed Gram Stain - Final 09/21/22 23:00 Sputum, Expectorated/Coughed Respiratory Culture - Final Mixed normal respiratory janet. No Streptococcus pneumoniae, beta-hemolytic Streptococcus or Staphylococcus aureus isolated. 09/21/22 17:39 Urine, Random Legionella Antigen - Final 09/21/22 17:39 Urine, Random Streptococcus pneumoniae Antigen (M - Final D/C Instructions Discharge Diet: No restrictions Meaningful Use Info Meaningful Use Diagnoses (Choose all that apply): None applicable Discharge Plan Admission Admit Date/Time: 09/19/22 17:07 Primary Reason for Your Visit: pneumonitis, copd exac Attending Provider: Maurice Darden Primary Care Provider: [facility] Consulting Providers: Steven Khan ; Kevin Pizano ; Jonatan Leija ; King Middleton ; Herbie Langston ; Tunde Flaherty ; Billy Franz ; Chrystal Stephenson OYSTER UNLOADER ; Reynaldo Arana ; King Orellana ; Saqib Grullon ; Santana Arreola ; Nasim River ; Jerome Fernandez ; Xiomy Moses OYSTER UNLOADER Discharge Orders/Prescriptions Prescriptions: New ipratropium-albuterol 0.5 mg-3 mg(2.5 mg base)/3 mL Solution For Nebulization 3 ml inhalation Q4HWA.RT Qty: 180 0RF Rx Instructions: use four times a day -may laso use every two hours for severe shortness of breath Continued cholecalciferol (vitamin D3) 25 mcg (1,000 unit) capsule 25 mcg PO DAILY amitriptyline 25 mg tablet 25 mg PO QHS 30 Days Qty: 30 1RF lidocaine-prilocaine 2.5-2.5 % cream 1 applic topical ONCE PRN (Reason: port access) 30 Days Qty: 30 2RF ondansetron 8 mg tablet,disintegrating 8 mg PO Q8H PRN (Reason: nausea and vomiting) Qty: 30 2RF folic acid 1 mg tablet 1 mg PO DAILY Qty: 90 1RF acetaminophen 500 mg Tablet 500 mg PO Q6H PRN (Reason: Pain) ibuprofen 200 mg Tablet 600 mg PO Q6H PRN (Reason: Pain) magnesium 200 mg Tablet 800 mg PO DAILY oxycodone-acetaminophen 5-325 mg tablet 1 tab PO Q6H PRN (Reason: pain) 2 Days Qty: 5 0RF cyclobenzaprine 10 mg tablet 10 mg PO DAILY PRN (Reason: Muscle Spasm) pantoprazole 40 mg tablet,delayed release (DR/EC) 40 mg PO QAM Qty: 90 3RF Discontinued albuterol sulfate 90 mcg/actuation HFA aerosol inhaler 2 puff INHALATION Q4H PRN PRN (Reason: breathing) Label Comments: INHALE 2 PUFFS every FOUR hours as needed for FOR WHEEZING or SHORTNESS OF BREATH No Action lactulose 20 gram/30 mL solution 20 g PO BID Qty: 3000 0RF albuterol sulfate 90 mcg/actuation HFA aerosol inhaler INHALATION Label Comments: Inhale 2 puffs every 4 hours as needed for wheezing or shortness of breath furosemide [Lasix] 20 mg tablet 20 mg PO DAILY Qty: 3 0RF Referrals / Follow Up: Saqib Grullon MD [Med Staff - Active Staff] - 10/13/22 7:45 am (in 2 weeks) Юлия Shelby DO [Med Staff - Development Geologist] - 09/27/22 3:00 pm (Please arrive 30-40 min earlier to complete paperwork. This will be a nurse visit. ) Disposition Disposition (needs filled in before D/C Order can be placed): Home Health Service Charges/Coding Visit Charges Inpatient E&M: 42708 Disch Hosp >30min
== END 2022-09-23 16:54 | disposition home health service (06) | DRG 205 ==
LOC: ED 16:35 → MS3 17:24
PROVIDERS: Internal Medicine Critical Care Medicine; Emergency Provider Emergency Medicine; Visit Provider Internal Medicine
DX: J70.0 Acute pulmonary manifestations due to radiation (principal); E43 Unspecified severe protein-calorie malnutrition; D61.810 Antineoplastic chemotherapy induced pancytopenia; C79.51 Secondary malignant neoplasm of bone; C78.89 Secondary malignant neoplasm of other digestive organs; K22.10 Ulcer of esophagus without bleeding; J44.1 Chronic obstructive pulmonary disease with (acute) exacerbation; J96.11 Chronic respiratory failure with hypoxia; C34.91 Malignant neoplasm of unspecified part of right bronchus or lung; J44.0 Chronic obstructive pulmonary disease with (acute) lower respiratory infection; L03.114 Cellulitis of left upper limb; Z68.1 Body mass index [BMI] 19.9 or less, adult; D70.1 Agranulocytosis secondary to cancer chemotherapy; J70.4 Drug-induced interstitial lung disorders, unspecified; E78.5 Hyperlipidemia, unspecified; M48.04 Spinal stenosis, thoracic region; Y84.2 Radiological procedure and radiotherapy as the cause of abnormal reaction of the patient, or of later complication, without mention of misadventure at the time of the procedure; T45.1X5A Adverse effect of antineoplastic and immunosuppressive drugs, initial encounter; G89.29 Other chronic pain; Z79.891 Long term (current) use of opiate analgesic; Z87.891 Personal history of nicotine dependence; Z92.3 Personal history of irradiation; Z99.81 Dependence on supplemental oxygen
CPT/HCPCS: 36415; 36591; 71045; 71046; 71275; 80048; 80053; 84484; 85025; 85379; 87070; 87205; 87449; 93005; 94640; 94667; 94668; 97110; 97162; 97166; 97530; 97535; 97802; 99284; J7030; J7050; Q9967; A4216; J1447

== ENCOUNTER 2022-10-12 12:32 | Outpatient (CLI) | payer MEDICARE, SELFPAY ==
--- NOTE | 2022-10-12 12:34 | VDLE_ITS ---
Reason For Study: Swelling RIGHT LEFT GSV is normal. GSV is normal. CFV is compressible, spontaneous, phasic, CFV is compressible, spontaneous, phasic, competent and demonstrates normal competent, and demonstrates normal augmentation. augmentation. FV is compressible, spontaneous, phasic, FV is compressible, spontaneous, phasic, competent and demonstrates normal competent and demonstrates normal augmentation. augmentation. POP V is compressible, spontaneous, phasic, POP V is compressible, spontaneous, phasic, competent and demonstrates normal competent and demonstrates normal augmentation. augmentation. T/P Trunk is compressible. T/P Trunk is compressible. PTV is compressible. PTV is compressible. RT PerV is compressible. LT PerV is compressible. Procedure This is a venous duplex using B-mode, color flow and spectral Doppler. Exam performed in department. A preliminary report was called and/or faxed to Gwen TROY. VL/Venous Duplex US - Jesse Extrem Interpretation Summary No evidence for acute deep venous thrombosis bilateral lower extremities with p atent and compressible bilateral great saphenous veins. Ordering Physician: Chrystal Stephenson Referring Physician: Юлия Shelby Performed By: Sidra Harrell RVT
== END 2022-10-12 23:59 | disposition home or self-care (01) ==
PROVIDERS: PCP Family Medicine; Referring Provider Nurse Practitioner Family; Visit Provider Nurse Practitioner Family
DX: M79.89 Other specified soft tissue disorders (principal); C79.51 Secondary malignant neoplasm of bone; C34.90 Malignant neoplasm of unspecified part of unspecified bronchus or lung; R94.31 Abnormal electrocardiogram [ECG] [EKG]; Z79.899 Other long term (current) drug therapy
CPT/HCPCS: 36591; 80053; 83615; 85025; 93970; 97803; A4216

== ENCOUNTER → 2022-10-17 | Outpatient (CLI) | payer MEDICARE, SELFPAY ==
--- NOTE | 2022-10-17 14:07 | CT_ITS ---
STUDY: CT CHEST WITH CONTRAST REASON FOR EXAM: Male, 72 years old. MONITOR TREATMENT RESPONSE-LUNG CA RADIATION DOSAGE (If Supplied By Facility): CTDIvol = ( 8.72 ) mGy, DLP = ( 215.63 ) mGycm TECHNIQUE: Transaxial imaging was performed following intravenous administration of IV-100 mL IsoVue 370. Multiplanar coronal and sagittal images were reformatted. Individualized dose optimization techniques were used for this CT. COMPARISON: Comparison is made with prior examination dated September 19, 2022. FINDINGS: CHEST A left-sided Port-A-Cath is seen with the tip in the superior vena cava. Hyperinflation. Diffuse emphysematous changes with bullous formation worse in the upper lobes more prominent in the medial aspect of the left upper lobe. Stable bronchiectasis and scarring in the right lung apex. There has been a progression in the airspace disease in the posterior lateral aspect of the right upper lobe with evidence of bronchiectasis as compared to prior study. Multiple bilateral pulmonary nodules. These have increased in size as compared to prior study. There is no demonstrated pleural abnormality. There are calcifications of the coronary arteries. There are multiple small lymph nodes within the mediastinum, which are normal in size and morphology most compatible with reactive lymph hyperplasia. There is enlargement of a right hilar lymph node measuring 2.5 cm x 1.4 cm. Normal unenhanced pulmonary arteries. Normal aorta arch and descending thoracic aorta. Once again, there is a loss of height of approximately 60% of the upper thoracic vertebrae. There is also evidence of a loss of height of mid cervical vertebrae with altered attenuation suggests of metastatic disease. Right renal cyst. CT/Chest WITH Contrast IMPRESSION: Increased size of the previously seen multiple bilateral pulmonary nodules. Enlarged right hilar lymph node as well as prominence of the mediastinum in the right upper mediastinum. Findings suggestive of bony metastasis involving cervical and thoracic vertebrae. Electronically Signed: Chino Camilo MD at 9:27 EDT ,
[2022-10-17] MEDS: 0.9% Saline Lock 10 ML Syringe IV (14:50)
== END | disposition home or self-care (01) ==
PROVIDERS: PCP Family Medicine; Referring Provider Internal Medicine Medical Oncology; Visit Provider Internal Medicine Medical Oncology
DX: C34.90 Malignant neoplasm of unspecified part of unspecified bronchus or lung (principal)
CPT/HCPCS: 71260; Q9967; A4216

== ENCOUNTER 2022-11-18 11:30 | Outpatient (RCR) | payer MEDICARE, SELFPAY ==
[2022-10-28 10:42] VITALS: BP 136/73; PULSE 101; RESP 18; TEMP 36.7
--- NOTE | 2022-10-28 13:33 | PCM.WC.HP ---
History of Present Illness Date of Service: 10/28/22 Chief Complaint: R buttock wound History of Wound: Patient is a 72-year-old male who presents with complaint of a right buttock wound as referred by his PCP. He notes that this wound has been present since approximately May 2022. Around that time is when he first noticed some irritation in that area though could not visualize the wound. He does have some associated pain. While he is ambulatory, patient was unfortunately recently diagnosed with stage IV metastatic lung cancer. He recalls that back towards May is when he really started to feel quite fatigued and otherwise unwell and as such was far more inactive than usual. He tells me that he was officially diagnosed with cancer in August. He was undergoing chemotherapy, immunotherapy, and radiation, but chemotherapy has recently been held due to his overall debility/frailty and recent severe side effects. He was recently hospitalized for pneumonitis and pancytopenia felt to be secondary to his cancer treatments. He does continue to have activity limiting dyspnea. He is on 2 L of oxygen at his visit today. He denies a history of diabetes. Since his cancer diagnosis he no longer smokes though he did for many decades prior. He has been making an effort to increase protein in his diet and overall to gain back some of the weight lost since initiating oncologic treatment. Today he denies any new or worsening chest pain or shortness of breath, fever, chills, nausea, vomiting, blood in the stool or urine. [facility] Medical History Alcohol use Asthma Atrial fibrillation Barretts esophagus Cancer Cardiology follow-up encounter COPD (chronic obstructive pulmonary disease) Depression Easy bruising Emphysema, unspecified Encounter for education Gastric reflux GERD (gastroesophageal reflux disease) Gonorrhea Hiatal hernia History of diverticulitis History of echocardiogram History of edema History of hiatal hernia History of irregular heartbeat History of steroid therapy History of stress test Hoarseness Hyperlipidemia Inguinal hernia Injury of head and neck Irregular heart beat On home oxygen therapy Protein calorie malnutrition Rectal prolapse Right upper lobe pneumonia Schizophrenia Shortness of breath on exertion Shortness of breath on exertion Smoker Swelling of both lower extremities Tobacco abuse Wears glasses Wears partial dentures Home Medications pantoprazole 40 mg tablet,delayed release 40 mg PO QAM #90 tabs 07/22/22 [Rx Last Taken 09/18/22] folic acid 1 mg tablet 1 mg PO DAILY #90 tabs 08/25/22 [Rx Last Taken 09/18/22] lidocaine-prilocaine 2.5 %-2.5 % topical cream 1 applic topical ONCE PRN port access 30 days #30 grams 08/25/22 [Rx Last Taken Unknown] ondansetron 8 mg disintegrating tablet 8 mg PO Q8H PRN nausea and vomiting #30 tabs 08/25/22 [Rx Last Taken Unknown] ibuprofen 200 mg tablet 600 mg PO Q6H PRN Pain 08/29/22 [History Last Taken Unknown] magnesium 200 mg tablet 800 mg PO DAILY 08/29/22 [History Last Taken 09/18/22] oxycodone-acetaminophen 5 mg-325 mg tablet 1 tab PO Q6H PRN pain 2 days #5 tabs 09/05/22 [Rx Last Taken 09/19/22] cyclobenzaprine 10 mg tablet 10 mg PO BID 09/19/22 [History Last Taken 09/19/22] ipratropium 0.5 mg-albuterol 3 mg (2.5 mg base)/3 mL nebulization soln 3 ml inhalation Q4HWA.RT #180 mL 09/23/22 [Rx Last Taken Unknown] acetaminophen 500 mg tablet mg PO DAILY PRN PRN Pain 10/28/22 [History Last Taken Unknown] cholecalciferol (vitamin D3) 25 mcg (1,000 unit) tablet (Vitamin D3) 25 mcg PO DAILY 10/28/22 [History Last Taken Unknown] pantoprazole 40 mg tablet,delayed release 40 mg PO DAILY 10/28/22 [History Last Taken Unknown] Allergy/AdvReac Type Severity Reaction Status Date / Time No Known Allergies Allergy Verified 10/19/22 10:30 Family History Father Heart disease Brother Heart disease COPD (chronic obstructive pulmonary disease) Surgical History History of esophagogastroduodenoscopy (EGD) History of herniorrhaphy History of meniscectomy of left knee Hx of biopsy Social History Smoking Status: Former smoker Tobacco: How many years used: 55 ROS Constitutional Constitutional: Reports fatigue, weakness and weight loss; Denies systems reviewed and no addt'l complaints, except as documented, as per HPI, anorexia, body ache(s), change in weight, chills, daytime sleepiness, difficulty sleeping, excessive sweating, fever(s), frequent falls, headache(s), increased appetite, lethargy, malaise, night sweats, poor appetite, snoring, stops breathing during sleep, weight gain or other Eyes Eyes: Denies systems reviewed and no addt'l complaints, except as documented, as per HPI, none, acute decrease in peripheral vision, blindness, blind spots, bloody eye, blurry vision, burning, change in eye color, change in vision, decreased night vision, diplopia, discharge from eye(s), discongugate gaze, double vision, dry eyes, erythema, excessive blinking, exophthalmos, eye pain, floaters, foreign body, halo effect, irritation, itchy eyes, loss of central vision, loss of peripheral vision, loss of vision, miosis, mydriasis, numbness, nystagmus, other visual disturbances, periorbital itching, photophobia, ptosis, puffy eyes, requires corrective lenses, seeing flashes, spots in vision, sunken eyes, tearing, tunnel vision or other ENT HEENT: Reports nasal congestion; Denies systems reviewed and no addt'l complaints, except as documented, as per HPI, none, abnormal hearing, bleeding gums, change in voice, dental pain, disequillibrium, dizziness, dry mouth, dysphagia, ear discharge, ear pain, epistaxis, facial pain, foreign body in nose, halitosis, headache(s), hearing loss, hoarseness, lip swelling, loss taste/smell, mouth lesions, mouth pain, mucositis, nasal discharge, nasal obstruction, nasal trauma, neck mass, neck pain, nose pain, odynophagia, otalgia, post nasal drip, rhinorrhea, sinus pain, sinus pressure, sore throat, throat swelling, tinnitus, tongue swelling, vertigo or other Cardiovascular Cardiovascular: Reports fatigue and leg edema; Denies systems reviewed and no addt'l complaints, except as documented, as per HPI, none, abdominal bloating, abdominal edema, abdominal pain, arrhythmia on telemetry, bluish discoloration of hand/feet, chest pain, chest pain at rest, chest pain with activity, claudication, clubbing, cold extremities, cyanosis, diaphoresis, dizziness, dyspnea, dyspnea at rest, dyspnea on exertion, easily tiring during activity, edema, erythema on extremities, flutter in chest, hypertension, irregular heart rhythm, leg ulcers, lightheadedness, nausea, numbness in extremities, orthopnea, orthostatic symptoms, pale gonzalez skin, palpitations, paroxysmal nocturnal dyspnea, pedal edema, periorbital swelling, pounding heartbeat, racing heartbeat, radiating jaw, neck or arm pain, rapid heart rate, slow heart rate, syncope, tachypnea, vomiting, weakness in extremities, weight gain or other Respiratory/Chest Respiratory/Chest: Reports chest congestion, cough and shortness of breath with exertion; Denies systems reviewed and no addt'l complaints, except as documented, as per HPI, none, change in mental status, change in phlegm color, chest tightness, difficulty clearing secretions, dry cough, dusky skin, dyspnea, dyspnea on exertion, excessive phlegm production, hemoptysis, hoarseness, inability to speak, mouth breathing, nail bed cyanosis, non-rest sleep EDS, pain on inspiration, pain with cough, pale skin, teresa-oral cyanosis, portable oxygen @ home, productive cough, red skin, restlessness, shortness of breath at rest, snoring, stridor, tachypnea, wheezing, witnessed apneas, breast mass, breast pain, breast skin changes, breast swelling, change in breast shape, nipple discharge or other Gastrointestinal Gastrointestinal: Reports constipation and weight changes; Denies systems reviewed and no addt'l complaints, except as documented, as per HPI, none, abdominal pain, anorexia, belching, bloating, change in bowel habits, change in stool character, chewing difficulty, coffee ground emesis, cramping, diarrhea, dry heaves, dyspepsia, dysphagia, early satiety, excessive flatus, fecal incontinence, heartburn, hematemesis, hematochezia, hemorrhoids, loose stools, melena, nausea, odynophagia, rectal bleeding, taste impaired, tenesmus, vomiting or other Genitourinary Genitourinary: Reports systems reviewed and no addt'l complaints, except as documented Musculoskeletal Musculoskeletal: Reports back pain and joint pain; Denies systems reviewed and no addt'l complaints, except as documented, as per HPI, none, abnormal gait, arthralgias, atrophy, deformity, difficulty walking, extremity pain, joint stiffness, joint swelling, limited range of motion, loss of height, muscle cramps, muscle spasms, muscle weakness, myalgias, neck pain, numbness, radiating pain into limb, stiffness, tingling, tremors or other Integumentary Integumentary: Reports non-healing lesions; Denies systems reviewed and no addt'l complaints, except as documented, as per HPI, none, acne, alopecia, bleeding lesions, change in hair, change in pigmentation, changing lesions, dry skin, erythema, furuncle, hirsutism, jaundice, lesions, nail changes, new lesions, photosensitivity, pruritus, rash, skin pain, skin ulcer, skin swelling, sores, striae, unusual bruising, wounds or other Neurologic Neurologic: Reports systems reviewed and no addt'l complaints, except as documented Psychiatric Psychiatric: Reports systems reviewed and no addt'l complaints, except as documented Endocrine Endocrinology: Reports systems reviewed and no addt'l complaints, except as documented Hematologic/Lymphatic Hematologic/Lymphatic: Reports systems reviewed and no addt'l complaints, except as documented Allergic/Immunologic Allergic/Immunologic: Reports systems reviewed and no addt'l complaints, except as documented Vital Signs Vital Signs Vital Signs: 10/28/22 10:42 Temperature 98.0 F Temperature Source Temporal Pulse Rate 101 H Respiratory Rate 18 Blood Pressure 136/73 H Blood Pressure Mean 94 Blood Pressure Source Monitor Blood Pressure Position Semi-Fowlers Blood Pressure Location Left Arm Oxygen Delivery Method Nasal Cannula Oxygen Flow Rate (L/min) 2 Physical Exam Const alert, oriented x3 and no apparent distress General Appearance: cooperative and frail HEENT normocephalic, head/scalp atraumatic, hearing grossly normal bilaterally, external ears normal and external nose normal Eyes EOMs intact bilaterally General Eye: normal appearance of both eyes Neck General: normal visual inspection and trachea midline Resp normal respiratory effort, no retractions and no use of accessory muscles Effort and Inspection: Negative for respiratory distress, grunting, stridor or audible wheezes Auscultation: clear to auscultation bilaterally and diminished lung sounds Cardio regular rate, regular rhythm and no murmurs Skin Wounds: wounds noted Wound Narrative: Small pressure wound into the subcutaneous tissue noted to the medial aspect of the R buttock. Moderate slough in the wound bed. No significant erythema, no focal swelling, no appreciable warmth or fluctuance. Neuro oriented x3, CN's II-XII intact bilaterally, moves all extremities and no focal motor deficits Speech: speech normal Psych mental status grossly normal, cooperative, affect normal, speech normal and activity/motor behavior normal Debridement Note Debridement Note Wound debrided: R buttock Laterality: Right Type of Debridement: Excisional debridement Anesthesia Used: 5% Lidocaine Gel Depth: Down to and including healthy tissue and in the subcutaneous layer Percentage of wound debrided: 100 Instrument Used: 5mm curette Tissue Removed: slough, devitalized tissue Severity: Fat Layer Exposed Amount of bleeding with debridement: Mild Bleeding Controlled with: Pressure Patient tolerated procedure: Patient tolerated procedure well Post-Debridement Measurements and Additional Note: Post-Debridement Measurements/Treatment - Nurse 1 - General Ulcer Assessment Start: 10/28/22 10:41 Freq: Status: Active Protocol: OSVALDO Activity Type Activity Date Activity User E-sign Co-sign Detail Recorded Client Recorded Date Recorded By Document 10/28/22 10:42 JODY [id number] 10/28/22 10:58 JODY 10/28/22 10:42 - Today's Visit Information Type of service Initial Visit Arrival Mode Ambulatory Patient Identification Verified (Name & Yes ) Patient Requires Transmission-Based No Precautions Vital Signs Temperature (97.8 F-99.1 F) 98.0 F Temperature Source Temporal Pulse Rate (60-100) 101 H Pulse Location Monitor Respiratory Rate (12-18) 18 Respiratory rate source Observation Oxygen Delivery Method Nasal Cannula O2 L/MIN 2 Blood Pressure (90/60-120/80) 136/73 H Blood Pressure Mean 94 Source Monitor Position Semi-Fowlers Blood Pressure Location Left Arm History Since Last Visit- (Skip if this is Patient's initial visit) Left Footwear Regular Shoe Right Footwear Regular Shoe Pain Scale: 0-10 Numeric Is Patient Pain Free? 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 No Able to Read Yes Able to Write Yes Communication Tools None Right Hearing Abillity Normal Left Hearing Abillity Normal Visual Assistive Devices Glasses Teaching Assessment Preferences Verbal,Written, Audio/Visual, Demonstration Barriers to Learning None Readiness To Learn Good Willingness to Engage in Self Management Med Activies Readiness to Engage in Self Management Med Activities Anxiety Level Calm Cooperation Cooperative Perception Coherent Interest in Health Problem Asks Questions Education Importance Acknowledges Need Does Patient Smoke tobacco or other No substances Smoking Status Former smoker Is Patient Diabetic No Functional Assessment Recent Decline in Ability to Perform Denies Any Declines Culture/Rastafari/Tomato Pulper Operator Cultural/Rastafari Needs that may affect No Treatment Plan Tomato Pulper Operator to contact place of orthodox No Teaching: Wound Center *Debridement -Person Taught Patient -Teaching Method Discussion, Demonstration -Response to teaching Return demonstration, Verbalize understanding [facility] Orientation/ Contacting Physician -Person Taught Patient -Teaching Method Discussion, Demonstration -Response to teaching Return demonstration, Verbalize understanding - Nurse 1 - General Ulcer Measurement Start: 10/28/22 10:41 Freq: Status: Active Protocol: Activity Type Activity Date Activity User E-sign Co-sign Detail Recorded Client Recorded Date Recorded By Document 10/28/22 10:42 JODY [id number] 10/28/22 10:58 JODY 10/28/22 10:42 Wound Center Nurse 1 1-right buttucks -Current Size (cm) - Length 0.8 -Current Size (cm) - Width 0.9 -Current Size (cm) - Depth 0.1 -Total Square Cm 0.72 -Photo Taken Yes -Epithelialization Small 1-33% -Tunneling No -Undermining/Tunneling No -Circular Undermining No -Classification - Thickness Full Thickness without Exposed Support Structure -Exudate Amt Small -Exudate Type Serosanguineous -Wound Margin Flat & Intact -Granulation Amt Small (1-33%) -Granulation Quality [place] -Slough/Fibrin Yes -Necrosis Amt Large (67-100%) -Necrotic Tissue Type Adherent Slough -Structure Exposed N/A -Texture (Teresa-wound Skin Appearance) Assessed -Moisture (Teresa-wound Skin Appearance) Assessed,Dry/ Scaly -Color (Teresa-wound Skin Appearance) Assessed -Temperature (Teresa-wound Skin No Abnormality Appearance) (Pt Warm) -Tenderness on Palpation (Teresa-wound No Skin Appearance) -Ulcer Cleansing Rinsed/ Irrigated with Saline -Foul Odor after Cleansing No -Anesthetic Used 5% Lidocaine Gel Lower Limb Edema Present NA - Nurse 2 - General Ulcer CM Notes Start: 10/28/22 10:41 Freq: Status: Active Protocol: Activity Type Activity Date Activity User E-sign Co-sign Detail Recorded Client Recorded Date Recorded By Document 10/28/22 11:49 PL [id number] 10/28/22 11:51 PL 10/28/22 11:49 Wound Center Nurse 2 1-right buttucks -Time 11:10 -Correct Patient Yes -Correct Side, Site, Position Yes -Correct Procedure Yes -Procedure Performed Yes -Type of Procedure Debridement -Clinical Debridement Subcutaneous -Tissue Removed Subcutaneous -Post Debridement (cm) - Length 1.0 -Post Debridement (cm) - Width 0.9 -Post Debridement (cm) - Depth 0.2 -Total Square (Post) (cm) 0.90 -Area of Debridement (cm) - Length 1.0 -Area of Debridement (cm) - Width 0.9 -Total Square (Area) (cm) 0.90 -Tunneling No -Undermining/Tunneling No -Circular Undermining No -Wound/Ulcer Outcome Not Healed -Ulcer Cleansing Rinsed/ Irrigated with Saline -Foul Odor after Cleansing No -Bioengineered Tissue No -Bleeding Controlled with Pressure -Treatment Response Procedure Tolerated Well -Debridement - Subq, 1st 20sq cm Yes Pain Scale: 0-10 Numeric Is Patient Pain Free? Yes Charges/Coding Multi Select Codes Visit Charges Office Visit/Consults: 95790 OV L3 New Integumentary Integumentary CPT Codes: 82156 Gabriela subq tissue 20 sq cm/< Assessment/Plan Assessment/Plan (1) Pressure ulcer of right buttock, stage 2: CODE(S): L89.312 - Pressure ulcer of right buttock, stage 2 PLAN: Patient has small, slightly less than 1x1cm stage 2 pressure ulcer to the right buttock. Good bleeding was attained with debridement, wound bed is without necrosis. Patient tolerated the procedure well. Will apply slightly moistened Amber as primary dressing, foam dressing with silicone border as secondary. Okay to change 3-4 times a week during home health visits, but do change more often as needed if the dressing becomes wet or soiled. We will send wound care orders to home health agency. If needed, patient may return on Mondays and Wednesdays to the wound clinic for nurse visits for dressing changes. We discussed the importance of off-loading pressure to the area to promote healing. I recommend obtaining a foam pad for the chair he sits in most often at home. I advise trying to change positions every 20-30 minutes. Try to at least stand up at least every hour, walk around a bit as able. We discussed the importance of increasing protein in the diet, both through food and supplements such as Mario and Ensure. Patient does use both of these supplements currently. I encourage continued tobacco cessation. No signs/symptoms of infection today so no cultures obtained. Patient will follow-up in the wound care clinic in 1 week or sooner as needed.
[2022-11-04 10:16] VITALS: BP 148/81; PULSE 99; RESP 16; TEMP 36.3
--- NOTE | 2022-11-04 14:15 | PN.PCM_ITS ---
History of Present Illness Date of Service: 11/04/22 Chief Complaint: R buttock wound History of Wound: Patient is a 72-year-old male who presents with complaint of a right buttock wound as referred by his PCP. He notes that this wound has been present since approximately May 2022. Around that time is when he first noticed some irritation in that area though could not visualize the wound. He does have some associated pain. While he is ambulatory, patient was unfortunately recently diagnosed with stage IV metastatic lung cancer. He recalls that back towards May is when he really started to feel quite fatigued and otherwise unwell and as such was far more inactive than usual. He tells me that he was officially diagnosed with cancer in August. He was undergoing chemotherapy, immunotherapy, and radiation, but chemotherapy has recently been held due to his overall debili ty/frailty and recent severe side effects. He was recently hospitalized for pneumonitis and pancytopenia felt to be secondary to his cancer treatments. He does continue to have activity limiting dyspnea. He is on 2 L of oxygen at his visit today. He denies a history of diabetes. Since his cancer diagnosis he no longer smokes though he did for many decades prior. He has been making an effort to increase protein in his diet and overall to gain back some of the weight lost since initiating oncologic treatment. Today he denies any new or worsening chest pain or shortness of breath, fever, chills, nausea, vomiting, blood in the stool or urine. Subjective Subjective [facility] schedule is still getting worked out. He changed the dressing once on his own this week, he finds the silicone bordered dressing a bit too bulky and it seems to slide off so just using a dry dressing in addition to the Carmelo. He is keeping the area clean. He has not been able to get the eggcrate foam pad, but does have another thick cushion at home that he is trying to use. He is trying to get up and move a bit more as he is able and is trying to remember to change positions frequently to help relieve pressure. He is also taking care not to carry his wallet in his back pocket so as to sit on it and have pressure there and he thinks this is hel ping. Otherwise, he is doing okay. He reports they are continuing to hold off on chemo due to his lungs/blood counts. He denies any F/C, N/V, new or worsening pain. Objective Data Objective Data Vital Signs: Vital Signs Temp Pulse Resp BP O2 Del Method O2 Flow Rate 97.3 F L 99 16 148/81 H Nasal Cannula 2 11/04/22 10:16 11/04/22 10:16 11/04/22 10:16 11/04/22 10:16 11/04/22 10:16 10/28/22 10:42 Oxygen Flow Rate (L/min) 2 Oxygen Delivery Method Nasal Cannula Charges/Coding Procedures Integumentary 111xxx-113xx: 92380 Gabriela subq tissue 20 sq cm/< Physical Exam Const alert, oriented x3 and no apparent distress General Appearance: cooperative and frail HEENT normocephalic, head/scalp atraumatic, hearing grossly normal bilaterally, external ears normal and external nose normal Eyes EOMs intact bilaterally General Eye: normal appearance of both eyes Neck General: normal visual inspection and trachea midline Resp normal respiratory effort, no retractions and no use of accessory muscles Effort and Inspection: Negative for respiratory distress, grunting, stridor or audible wheezes Auscultation: clear to auscultation bilaterally and diminished lung sounds Cardio regular rate, regular rhythm and no murmurs Skin Wounds: wounds noted Wound Narrative: Small pressure wound into the subcutaneous tissue noted to the medial aspect of the R buttock. Moderate slough in the wound bed. No significant erythema, no focal swelling, no appreciable warmth or fluctuance. Neuro oriented x3, CN's II-XII intact bilaterally, moves all extremities and no focal motor deficits Speech: speech normal Psych mental status grossly normal, cooperative, affect normal, speech normal and activity/motor behavior normal Debridement Note Debridement Note Wound debrided: R buttock Laterality: Right Type of Debridement: Excisional debridement Anesthesia Used: 5% Lidocaine Gel Depth: Down to and including healthy tissue and in the subcutaneous layer Percentage of wound debrided: 100 Instrument Used: 5mm curette Tissue Removed: slough, devitalized tissue Severity: Fat Layer Exposed Amount of bleeding with debridement: Mild Bleeding Controlled with: Pressure Patient tolerated procedure: Patient tolerated procedure well Post-Debridement Measurements and Additional Note: Post-Debridement Measurements/Treatment ILENE - Nurse 1 - General Ulcer Assessment Start: 10/28/22 10:41 Freq: Status: Active Protocol: OSVALDO Activity Type Activity Date Activity User E-sign Co-sign Detail Recorded Client Recorded Date Recorded By Document 10/28/22 10:42 [id number] 10/28/22 10:58 Document 11/04/22 10:16 [facility] [id number] 11/04/22 10:21 BM 10/28/22 11/04/22 10:42 10:16 - Today's Visit Information Type of service Initial Visit Follow-up Visit (Physician/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 ) Arrival Mode Ambulatory Ambulatory Transfer Assistance None Patient Identification Verified (Name & Yes Yes ) Patient Requires Transmission-Based No No Precautions Vital Signs Temperature (97.8 F-99.1 F) 98.0 F 97.3 F L Temperature Source Temporal Temporal Pulse Rate (60-100) 101 H 99 Pulse Location Monitor Monitor Respiratory Rate (12-18) 18 16 Respiratory rate source Observation Observation Oxygen Delivery Method Nasal Cannula Nasal Cannula O2 L/MIN (L/min) 2 Blood Pressure (90/60-120/80) 136/73 H 148/81 H Blood Pressure Mean (mm Hg) 94 103 Source Monitor Monitor Position Semi-Fowlers Sitting Blood Pressure Location Left Arm History Since Last Visit- (Skip if this is Patient's initial visit) Have you changed medications since your No last visit? Any new allergies or adverse reactions No Had a fall/change in ADL's that may No increase risk of falls Signs or symptoms of abuse and/or No neglect since last visit Have you been in the hospital since your No last visit? Has dressing in place as prescribed Yes Has compression in place as prescribed N/A Has offloadiing in place as prescribed N/A Experienced any changes in pain level or No management Left Footwear Regular Shoe Regular Shoe Right Footwear Regular Shoe Regular Shoe Pain Scale: 0-10 Numeric Is Patient Pain Free? Yes Yes Communication Assessment Preferred language [employer] Reading Tutor Required No Able to Read Yes Able to Write Yes Communication Tools None Right Hearing Abillity Normal Left Hearing Abillity Normal Visual Assistive Devices Glasses Teaching Assessment Preferences Verbal,Written, Audio/Visual, Demonstration Barriers to Learning None Readiness To Learn Good Willingness to Engage in Self Management Med Activies Readiness to Engage in Self Management Med Activities Anxiety Level Calm Cooperation Cooperative Perception Coherent Interest in Health Problem Asks Questions Education Importance Acknowledges Need Does Patient Smoke tobacco or other No substances Smoking Status Former smoker Is Patient Diabetic No Functional Assessment Recent Decline in Ability to Perform Denies Any Declines Culture/Orthodox/Software Engineer Backend Cultural/Orthodox Needs that may affect No Treatment Plan Software Engineer Backend to contact place of religious No Teaching: Wound Center *Debridement -Person Taught Patient -Teaching Method Discussion, Demonstration -Response to teaching Return demonstration, Verbalize understanding [facility] Orientation/ Contacting Physician -Person Taught Patient -Teaching Method Discussion, Demonstration -Response to teaching Return demonstration, Verbalize understanding - Nurse 1 - General Ulcer Measurement Start: 10/28/22 10:41 Freq: Status: Active Protocol: Activity Type Activity Date Activity User E-sign Co-sign Detail Recorded Client Recorded Date Recorded By Document 10/28/22 10:42 [id number] 10/28/22 10:58 Document 11/04/22 10:16 [facility] [id number] 11/04/22 10:21 BM 10/28/22 11/04/22 10:42 10:16 Wound Center Nurse 1 1-right buttucks -Combined with other wound No -Current Size (cm) - Length 0.8 0.7 -Current Size (cm) - Width 0.9 0.8 -Current Size (cm) - Depth 0.1 0.1 -Total Square Cm 0.72 0.56 -Date of Last Picture (Recall this 11/04/22 field) -Photo Taken Yes Yes -Epithelialization Small 1-33% None Present -Tunneling No No -Undermining/Tunneling No No -Circular Undermining No No -Classification - Thickness Full Thickness without Exposed Support Structure -Exudate Amt Small Small -Exudate Type Serosanguineous Serous -Wound Margin Flat & Intact Distinct, Outline Attached -Granulation Amt Small (1-33%) Small (1-33%) -Granulation Quality [place] Red -Slough/Fibrin Yes Yes -Necrosis Amt Large (67-100%) Large (67-100%) -Necrotic Tissue Type Adherent Slough Adherent Slough -Structure Exposed N/A -Texture (Teresa-wound Skin Appearance) Assessed Assessed, Scarring -Moisture (Teresa-wound Skin Appearance) Assessed,Dry/ Assessed Scaly -Color (Teresa-wound Skin Appearance) Assessed Assessed -Temperature (Teresa-wound Skin No Abnormality No Abnormality Appearance) (Pt Warm) (Pt Warm) -Tenderness on Palpation (Teresa-wound No No Skin Appearance) -Ulcer Cleansing Rinsed/ Rinsed/ Irrigated with Irrigated with Saline Saline -Foul Odor after Cleansing No No -Anesthetic Used 5% Lidocaine 5% Lidocaine Gel Gel Lower Limb Edema Present NA - Nurse 2 - General Ulcer CM Notes Start: 10/28/22 10:41 Freq: Status: Active Protocol: Activity Type Activity Date Activity User E-sign Co-sign Detail Recorded Client Recorded Date Recorded By Document 10/28/22 11:[address] PL [id number] 10/28/22 11:51 PL Document 11/04/22 11:59 PL [id number] 11/04/22 12:00 PL 10/28/22 11/04/22 11:49 11:59 Wound Center Nurse 2 1-right buttucks -Time 11:10 10:28 -Correct Patient Yes Yes -Correct Side, Site, Position Yes Yes -Correct Procedure Yes Yes -Procedure Performed Yes Yes -Type of Procedure Debridement Debridement -Clinical Debridement Subcutaneous Subcutaneous -Tissue Removed Subcutaneous Subcutaneous -Post Debridement (cm) - Length 1.0 0.5 -Post Debridement (cm) - Width 0.9 0.6 -Post Debridement (cm) - Depth 0.2 0.1 -Total Square (Post) (cm) 0.90 0.30 -Area of Debridement (cm) - Length 1.0 0.5 -Area of Debridement (cm) - Width 0.9 0.6 -Total Square (Area) (cm) 0.90 0.30 -Tunneling No No -Undermining/Tunneling No No -Circular Undermining No No -Wound/Ulcer Outcome Not Healed Not Healed -Ulcer Cleansing Rinsed/ Rinsed/ Irrigated with Irrigated with Saline Saline -Foul Odor after Cleansing No No -Bioengineered Tissue No No -Bleeding Controlled with Pressure Pressure -Treatment Response Procedure Procedure Tolerated Well Tolerated Well -Debridement - Subq, 1st 20sq cm Yes Yes Pain Scale: 0-10 Numeric Is Patient Pain Free? Yes Yes - Nurse 3 - General Ulcer D/C NN Start: 10/28/22 10:41 Freq: Status: Active Protocol: Activity Type Activity Date Activity User E-sign Co-sign Detail Recorded Client Recorded Date Recorded By Document 11/04/22 10:40 BMF [id number] 11/04/22 10:40 BMF Edit Result 04/14/23 10:40 BMF (1) [id number] 11/04/22 10:40 BMF (1) Facility Type => Home Health 11/04/22 10:40 Wound Care Center Nurse 3 1-right buttucks -Ulcer Cleansing Rinsed/ Irrigated with Saline -Foul Odor after Cleansing No -Other Dressing CARMELO -Primary Dressing Covered/Secured with Dry Gauze, Secured with Tape -Other Covering DRSG PER JODY RN Treatment Response Procedure Tolerated Well Pain Scale: 0-10 Numeric Is Patient Pain Free? Yes WC - Visit Discharge Discharge Condition Stable Ambulatory Status Ambulatory Transportation Private Auto Facility Type Home Health Assessment/Plan Assessment/Plan (1) Pressure ulcer of right buttock, stage 2: CODE(S): L89.312 - Pressure ulcer of right buttock, stage 2 PLAN: Patient has small, slightly less than 1x1cm stage 2 pressure ulcer to the right buttock. Good bleeding was attained with debridement, wound bed is without necrosis. Patient tolerated the procedure well. Continue slightly moistened Carmelo as primary dressing. Will switch to dry gauze dressing over top. Okay to change 2-3 times a week during home health visits, but do change more often as needed if the dressing becomes wet or soiled. Reminded patient that ff needed, he could come in for nurse visits for dressing changes, he declines at this time. Continue to make efforts to offload pressure to the area as discussed: try change positions every 20-30 minutes, try to stand up at least every hour, walk around a bit as able. We discussed the importance of increasing protein in the diet, both through food and supplements such as Mario and Ensure. Patient does use both of these supplements currently. I encourage continued tobacco cessation. No signs/symptoms of infection today so no cultures obtained. Patient will follow-up in the wound care clinic in 1 week or sooner as needed.
[2022-11-11 10:41] VITALS: BP 136/70; PULSE 103; RESP 16; TEMP 36.2
--- NOTE | 2022-11-11 15:41 | PN.PCM_ITS ---
History of Present Illness Date of Service: 11/11/22 Chief Complaint: R buttock wound History of Wound: Patient is a 72-year-old male who presents with complaint of a right buttock wound as referred by his PCP. He notes that this wound has been present since approximately May 2022. Around that time is when he first noticed some irritation in that area though could not visualize the wound. He does have some associated pain. While he is ambulatory, patient was unfortunately recently diagnosed with stage IV metastatic lung cancer. He recalls that back towards May is when he really started to feel quite fatigued and otherwise unwell and as such was far more inactive than usual. He tells me that he was officially diagnosed with cancer in August. He was undergoing chemotherapy, immunotherapy, and radiation, but chemotherapy has recently been held due to his overall debili ty/frailty and recent severe side effects. He was recently hospitalized for pneumonitis and pancytopenia felt to be secondary to his cancer treatments. He does continue to have activity limiting dyspnea. He is on 2 L of oxygen at his visit today. He denies a history of diabetes. Since his cancer diagnosis he no longer smokes though he did for many decades prior. He has been making an effort to increase protein in his diet and overall to gain back some of the weight lost since initiating oncologic treatment. Subjective Subjective Patient is doing well with dressing changes at home, [facility] helping. He reports he has been keeping the area clean. No new/worsening pain, N/V, F/C. Objective Data Objective Data Vital Signs: Vital Signs Temp Pulse Resp BP O2 Del Method O2 Flow Rate 97.1 F L 103 H 16 136/70 H Room Air 2 11/11/22 10:41 11/11/22 10:41 11/11/22 10:41 11/11/22 10:41 11/11/22 10:41 10/28/22 10:42 Oxygen Flow Rate (L/min) 2 Oxygen Delivery Method Room Air Charges/Coding Procedures Integumentary 111xxx-113xx: [id number] Gabriela subq tissue 20 sq cm/< Physical Exam Const alert, oriented x3 and no apparent distress General Appearance: cooperative and frail HEENT normocephalic, head/scalp atraumatic, hearing grossly normal bilaterally, external ears normal and external nose normal Eyes EOMs intact bilaterally General Eye: normal appearance of both eyes Neck General: normal visual inspection and trachea midline Resp normal respiratory effort, no retractions and no use of accessory muscles Effort and Inspection: Negative for respiratory distress, grunting, stridor or audible wheezes Auscultation: clear to auscultation bilaterally and diminished lung sounds Cardio regular rate, regular rhythm and no murmurs Skin Wounds: wounds noted Wound Narrative: Small pressure wound into the subcutaneous tissue noted to the medial aspect of the R buttock. Moderate slough in the wound bed. No significant erythema, no focal swelling, no appreciable warmth or fluctuance. Neuro oriented x3, CN's II-XII intact bilaterally, moves all extremities and no focal motor deficits Speech: speech normal Psych mental status grossly normal, cooperative, affect normal, speech normal and activity/motor behavior normal Debridement Note Debridement Note Wound debrided: R buttock Laterality: Right Type of Debridement: Excisional debridement Anesthesia Used: 5% Lidocaine Gel Depth: Down to and including healthy tissue and in the subcutaneous layer Percentage of wound debrided: 100 Instrument Used: 5mm curette Tissue Removed: slough, devitalized tissue Severity: Fat Layer Exposed Amount of bleeding with debridement: Mild Bleeding Controlled with: Pressure Patient tolerated procedure: Patient tolerated procedure well Post-Debridement Measurements and Additional Note: Post-Debridement Measurements/Treatment - Nurse 1 - General Ulcer Assessment Start: 10/28/22 10:41 Freq: Status: Active Protocol: OSVALDO Activity Type Activity Date Activity User E-sign Co-sign Detail Recorded Client Recorded Date Recorded By Document 10/28/22 10:42 [id number] 10/28/22 10:58 Document 11/04/22 10:[address] [facility] [id number] 11/04/22 10:[address] [facility] Document 11/11/22 10:[address] [facility] [id number] 11/11/22 10:[address] [facility] 10/28/22 11/04/22 11/11/22 10:42 10:16 10:41 - Today's Visit Information Type of service Initial Visit Follow-up Visit Follow-up Visit (Physician/OFFICE MACHINE SERVICER APPRENTICE (Physician/OFFICE MACHINE SERVICER APPRENTICE ) ) Arrival Mode Ambulatory Ambulatory Ambulatory Transfer Assistance None None Patient Identification Verified (Name & Yes Yes Yes ) Patient Requires Transmission-Based No No No Precautions Vital Signs Temperature (97.8 F-99.1 F) 98.0 F 97.3 F L 97.1 F L Temperature Source Temporal Temporal Temporal Pulse Rate (60-100) 101 H 99 103 H Pulse Location Monitor Monitor Monitor Respiratory Rate (12-18) 18 16 16 Respiratory rate source Observation Observation Observation Oxygen Delivery Method Nasal Cannula Nasal Cannula Room Air O2 L/MIN (L/min) 2 Blood Pressure (90/60-120/80) 136/73 H 148/81 H 136/70 H Blood Pressure Mean (mm Hg) 94 103 92 Source Monitor Monitor Monitor Position Semi-Fowlers Sitting Supine Blood Pressure Location Left Arm Right Arm History Since Last Visit- (Skip if this is Patient's initial visit) Have you changed medications since your No No last visit? Any new allergies or adverse reactions No No Had a fall/change in ADL's that may No No increase risk of falls Signs or symptoms of abuse and/or No No neglect since last visit Have you been in the hospital since your No No last visit? Has dressing in place as prescribed Yes No Has compression in place as prescribed N/A N/A Has offloadiing in place as prescribed N/A N/A Experienced any changes in pain level or No No management Left Footwear Regular Shoe Regular Shoe Regular Shoe Right Footwear Regular Shoe Regular Shoe Regular Shoe Pain Scale: 0-10 Numeric Is Patient Pain Free? Yes Yes Yes Communication Assessment Preferred language Azeri Breakfast Attendant Required No Able to Read Yes Able to Write Yes Communication Tools None Right Hearing Abillity Normal Left Hearing Abillity Normal Visual Assistive Devices Glasses Teaching Assessment Preferences Verbal,Written, Audio/Visual, Demonstration Barriers to Learning None Readiness To Learn Good Willingness to Engage in Self Management Med Activies Readiness to Engage in Self Management Med Activities Anxiety Level Calm Cooperation Cooperative Perception Coherent Interest in Health Problem Asks Questions Education Importance Acknowledges Need Does Patient Smoke tobacco or other No substances Smoking Status Former smoker Is Patient Diabetic No Functional Assessment Recent Decline in Ability to Perform Denies Any Declines Culture/Pentecostalism/Press Setup Operator Cultural/Pentecostalism Needs that may affect No Treatment Plan Press Setup Operator to contact place of yazdanism No Teaching: Wound Center *Debridement -Person Taught Patient -Teaching Method Discussion, Demonstration -Response to teaching Return demonstration, Verbalize understanding [facility] Orientation/ Contacting Physician -Person Taught Patient -Teaching Method Discussion, Demonstration -Response to teaching Return demonstration, Verbalize understanding [facility] Nurse 1 - General Ulcer Measurement Start: 10/28/22 10:41 Freq: Status: Active Protocol: Activity Type Activity Date Activity User E-sign Co-sign Detail Recorded Client Recorded Date Recorded By Document 10/28/22 10:42 [id number] 10/28/22 10:58 Document 11/04/22 10:[address] [facility] [id number] 11/04/22 10:[address] [facility] Document 11/11/22 10:[address] [facility] [id number] 11/11/22 10:[address] [facility] 10/28/22 11/04/22 11/11/22 10:42 10:16 10:41 Wound Center Nurse 1 1-right buttucks -Combined with other wound No No -Current Size (cm) - Length 0.8 0.7 0.2 -Current Size (cm) - Width 0.9 0.8 0.2 -Current Size (cm) - Depth 0.1 0.1 0.1 -Total Square Cm 0.72 0.56 0.04 -Date of Last Picture (Recall this 11/04/22 11/11/22 field) -Photo Taken Yes Yes Yes -Epithelialization Small 1-33% None Present Large 67-100% -Tunneling No No No -Undermining/Tunneling No No No -Circular Undermining No No No -Classification - Thickness Full Thickness without Exposed Support Structure -Exudate Amt Small Small None Present -Exudate Type Serosanguineous Serous -Wound Margin Flat & Intact Distinct, Distinct, Outline Outline Attached Attached -Granulation Amt Small (1-33%) Small (1-33%) Small (1-33%) -Granulation Quality Emmons Red Red -Slough/Fibrin Yes Yes Yes -Necrosis Amt Large (67-100%) Large (67-100%) Medium (34-66%) -Necrotic Tissue Type Adherent Slough Adherent Slough Adherent Slough -Structure Exposed N/A -Texture (Teresa-wound Skin Appearance) Assessed Assessed, Assessed, Scarring Scarring -Moisture (Teresa-wound Skin Appearance) Assessed,Dry/ Assessed Assessed,Dry/ Scaly Scaly -Color (Teresa-wound Skin Appearance) Assessed Assessed Assessed -Temperature (Teresa-wound Skin No Abnormality No Abnormality No Abnormality Appearance) (Pt Warm) (Pt Warm) (Pt Warm) -Tenderness on Palpation (Teresa-wound No No No Skin Appearance) -Ulcer Cleansing Rinsed/ Rinsed/ Rinsed/ Irrigated with Irrigated with Irrigated with Saline Saline Saline -Foul Odor after Cleansing No No No -Anesthetic Used 5% Lidocaine 5% Lidocaine 5% Lidocaine Gel Gel Gel Lower Limb Edema Present NA WC - Nurse 2 - General Ulcer CM Notes Start: 10/28/22 10:41 Freq: Status: Active Protocol: Activity Type Activity Date Activity User E-sign Co-sign Detail Recorded Client Recorded Date Recorded By Document 10/28/22 11:[address] [id number] 10/28/22 11:51 PL Document 11/04/22 11:59 PL [id number] 11/04/22 12:00 PL Document 11/11/22 11:12 PL [id number] 11/11/22 11:13 PL 10/28/22 11/04/22 11/11/22 11:49 11:59 11:12 Wound Center Nurse 2 1-right buttucks -Time 11:10 10:28 10:50 -Correct Patient Yes Yes Yes -Correct Side, Site, Position Yes Yes Yes -Correct Procedure Yes Yes Yes -Procedure Performed Yes Yes Yes -Type of Procedure Debridement Debridement Debridement -Clinical Debridement Subcutaneous Subcutaneous Subcutaneous -Tissue Removed Subcutaneous Subcutaneous Subcutaneous -Post Debridement (cm) - Length 1.0 0.5 0.4 -Post Debridement (cm) - Width 0.9 0.6 0.4 -Post Debridement (cm) - Depth 0.2 0.1 0.1 -Total Square (Post) (cm) 0.90 0.30 0.16 -Area of Debridement (cm) - Length 1.0 0.5 0.4 -Area of Debridement (cm) - Width 0.9 0.6 0.4 -Total Square (Area) (cm) 0.90 0.30 0.16 -Tunneling No No No -Undermining/Tunneling No No -Circular Undermining No No No -Wound/Ulcer Outcome Not Healed Not Healed Not Healed -Ulcer Cleansing Rinsed/ Rinsed/ Rinsed/ Irrigated with Irrigated with Irrigated with Saline Saline Saline -Foul Odor after Cleansing No No No -Bioengineered Tissue No No No -Bleeding Controlled with Pressure Pressure Pressure -Treatment Response Procedure Procedure Procedure Tolerated Well Tolerated Well Tolerated Well -Debridement - Subq, 1st 20sq cm Yes Yes Yes Pain Scale: 0-10 Numeric Is Patient Pain Free? Yes Yes Yes WC - Nurse 3 - General Ulcer D/C NN Start: 10/28/22 10:41 Freq: Status: Active Protocol: Activity Type Activity Date Activity User E-sign Co-sign Detail Recorded Client Recorded Date Recorded By Document 11/04/22 10:40 BMF [id number] 11/04/22 10:40 BMF Edit Result 11/04/22 10:40 BMF (1) [id number] 11/04/22 10:40 BMF Document 11/11/22 11:04 [id number] 11/11/22 11:05 JF (1) Facility Type => Home Health 11/04/22 11/11/22 10:40 11:04 Wound Care Center Nurse 3 1-right buttucks -Ulcer Cleansing Rinsed/ Rinsed/ Irrigated with Irrigated with Saline Saline -Foul Odor after Cleansing No No -Primary Dressing Applied Promogran Carmelo Matter, Mepilex Border -Other Dressing CARMELO -Primary Dressing Covered/Secured with Dry Gauze, Secured with Tape -Other Covering DRSG PER JF RN -Mepilex Border 1 -Promogran Carmelo Matter 0 Treatment Response Procedure Tolerated Well Pain Scale: 0-10 Numeric Is Patient Pain Free? Yes Yes - Visit Discharge Discharge Condition Stable Stable Ambulatory Status Ambulatory Ambulatory Transportation Private Auto Private Auto Medication Reconcilliation completed & Yes provided to patient/care provider Clinical Summary of Care Provided Yes Facility Type Home Health Assessment/Plan Assessment/Plan (1) Pressure ulcer of right buttock, stage 2: CODE(S): L89.312 - Pressure ulcer of right buttock, stage 2 PLAN: Patient has small, stage 2 pressure ulcer to the right buttock. Good bleeding was attained with debridement, wound bed is without necrosis. Patient tolerated the procedure well. Continue slightly moistened Carmelo as primary dressing. Continue dry gauze dressing over top. Change at least 3 times weekly or more often as needed to keep clean and dry. Reminded patient that ff needed, he could come in for nurse visits for dressing changes, he declines at this time. Continue to make efforts to offload pressure to the area as discussed: try change positions every 20-30 minutes, try to stand up at least every hour, walk around a bit as able. No signs/symptoms of infection today so no cultures obtained. Patient will follow-up in the wound care clinic in 1 week or sooner as needed.
[2022-11-18 11:15] VITALS: BP 114/68; PULSE 105; RESP 20; TEMP 36.4
--- NOTE | 2022-11-18 14:26 | PN.PCM_ITS ---
History of Present Illness Date of Service: 11/18/22 Chief Complaint: R buttock wound History of Wound: Patient is a 72-year-old male who presents with complaint of a right buttock wound as referred by his PCP. He notes that this wound has been present since approximately May 2022. Around that time is when he first noticed some irritation in that area though could not visualize the wound. He does have some associated pain. While he is ambulatory, patient was unfortunately recently diagnosed with stage IV metastatic lung cancer. He recalls that back towards May is when he really started to feel quite fatigued and otherwise unwell and as such was far more inactive than usual. He tells me that he was officially diagnosed with cancer in August. He was undergoing chemotherapy, immunotherapy, and radiation, but chemotherapy has recently been held due to his overall debili ty/frailty and recent severe side effects. He was recently hospitalized for pneumonitis and pancytopenia felt to be secondary to his cancer treatments. He does continue to have activity limiting dyspnea. He is on 2 L of oxygen at his visit today. He denies a history of diabetes. Since his cancer diagnosis he no longer smokes though he did for many decades prior. He has been making an effort to increase protein in his diet and overall to gain back some of the weight lost since initiating oncologic treatment. Subjective Subjective Patient is doing well with dressing changes at home, C helping. No new/worsening pain, N/V, F/C. Objective Data Objective Data Vital Signs: Vital Signs Temp Pulse Resp BP O2 Del Method O2 Flow Rate 97.5 F L 105 H 20 H 114/68 Room Air 2 11/18/22 11:15 11/18/22 11:15 11/18/22 11:15 11/18/22 11:15 11/11/22 10:41 10/28/22 10:42 Oxygen Flow Rate (L/min) 2 Oxygen Delivery Method Room Air Charges/Coding Visit Charges Office Visits / Consults: [id number] OV L3 Est Physical Exam Const alert, oriented x3 and no apparent distress General Appearance: cooperative and frail HEENT normocephalic, head/scalp atraumatic, hearing grossly normal bilaterally, external ears normal and external nose normal Eyes EOMs intact bilaterally General Eye: normal appearance of both eyes Neck General: normal visual inspection and trachea midline Resp normal respiratory effort, no retractions and no use of accessory muscles Effort and Inspection: Negative for respiratory distress, grunting, stridor or audible wheezes Auscultation: clear to auscultation bilaterally and diminished lung sounds Cardio regular rate, regular rhythm and no murmurs Skin Wounds: wounds noted Wound Narrative: R buttock pressure wound is fully epithelialized. No significant redness or swelling noted. Neuro oriented x3, CN's II-XII intact bilaterally, moves all extremities and no focal motor deficits Speech: speech normal Psych mental status grossly normal, cooperative, affect normal, speech normal and activity/motor behavior normal Debridement Note Debridement Note No debridement was completed: No debridement was completed today Assessment/Plan Assessment/Plan (1) Pressure ulcer of right buttock, stage 2: CODE(S): L89.312 - Pressure ulcer of right buttock, stage 2 PLAN: R buttock pressure wound is healed. May continue to apply foam dressing to pad and protect the area for the next week or so as the newly healed skin is still delicate. Continue to make efforts to offload pressure to the area as discussed: try change positions every 20-30 minutes, try to stand up at least every hour, walk around a bit as able. Patient is discharged from wound healing center. Return as needed.
== END 2022-11-18 13:29 | disposition home or self-care (01) ==
LOC: WC 11:30
PROVIDERS: PCP Family Medicine; Referring Provider Family Medicine; Visit Provider Physician Assistant
DX: L89.312 Pressure ulcer of right buttock, stage 2 (principal); J44.9 Chronic obstructive pulmonary disease, unspecified; E78.5 Hyperlipidemia, unspecified; Z87.891 Personal history of nicotine dependence
CPT/HCPCS: 11042; 99213; G0463

== ENCOUNTER → 2023-01-05 | Outpatient (CLI) | payer MEDICARE, SELFPAY ==
--- NOTE | 2023-01-05 13:47 | CT_ITS ---
EXAM: CT CHEST AND ABDOMEN WITH INTRAVENOUS CONTRAST CLINICAL INDICATION: ASSESS TREATMENT-LUNG CA-IV ONLY TECHNIQUE: Helically acquired images were obtained of the chest and abdomen with intravenous contrast. This CT exam was performed using one or more of the following dose reduction techniques: automated exposure control, adjustment of the mA and/or kV according to patient size, and/or use of iterative reconstruction technique. RADIATION DOSE: CTDIvol = 8.53 mGy, DLP = 359.43 mGy-cm Contrast: IV 100mL Isovue-300 COMPARISON: September 27, [address] MRI thoracic spine July 26, 2022 mentioned metastatic foci in T1, T2 and T3 and mass extending from T2 vertebral body into the canal measuring 1.5 cm with associated severe spinal stenosis FINDINGS: CHEST: LUNGS AND PLEURAL SPACES: Similar appearance of severe bullous disease and presumed bilateral apical scarring with thick bands of opacity and postoperative change at the right lung apex. Severe diffuse bullous emphysema. Similar very thick band of parenchymal opacity from anterior to posterior in the right upper lobe abutting the fissures. The posterior thick consolidated lung component similar in configuration and size, measuring about 5.2 cm craniocaudal on the sagittal images, it was 6 cm. Smaller size of dominant left posterior lung base nodule, now 9 mm x 7 mm x 9 mm, it was 1.4 cm x 1.6 cm x 1.6 cm. Smaller size of an additional left lingular nodule, now 8 mm x 7 mm x 8 mm, it was 1 cm x 1.2 cm x 1.5 cm. A previously seen nodule in the more superior left lower lobe is no longer apparent, it was 1.3 cm maximum diameter. Smaller size of left anterior upper lobe juxtapleural nodule, now 1.1 cm x 0.9 cm x 9 mm, it was 1.7 cm x 1.6 cm x 1.3 cm. No central airway obstruction. HEART: Similar mild coronary artery calcifications. No intracardiac filling defects cardiomegaly. Trace pericardial thickening or effusion appears similar. MEDIASTINUM: Similar soft tissue thickness abutting the right mediastinum, right upper esophageal margin and similar configuration of the adjacent trachea, no significant narrowing. Mildly smaller size of right precarinal lymph node, now 7 mm short axis, it was 1.2 cm. No hiatal hernia. THYROID: Unremarkable. No thyroid lesions. ABDOMEN: LIVER: Heterogeneous liver enhancement on early arterial phase exam of the chest including part of the liver. Similar to prior exam. Cannot exclude multiple but similar subtle lesions. GALLBLADDER AND BILE DUCTS: Unremarkable. No calcified gallstones. No gallbladder distention or wall edema. No intra- or extrahepatic biliary ductal dilation. PANCREAS: Unremarkable. No focal cystic or solid mass. SPLEEN: Unremarkable. Normal size without focal cystic or solid mass. ADRENALS: Unremarkable. No adrenal mass. KIDNEYS AND URETERS: Exophytic right renal cystic lesion, not fully included on the prior exam. Normal renal size and position. STOMACH AND BOWEL: Mild fluid and gas in the stomach and mildly prominent small bowel content. Moderate stool in the proximal right colon. Collapsed segments of some of the mid to distal colon. Mild diverticulosis in the distal descending and proximal sigmoid colon. The pelvis and bowel are not completely included. A segment of normal retrocecal appendix is visible. No stomach or bowel distention. No focal inflammatory change. INTRAPERITONEAL SPACE: Unremarkable. No ascites or other fluid collection. No free air. CHEST and ABDOMEN: BONES/JOINTS: There is stable and severe compression deformity T1, stable and at least 50% compression deformity and sclerosis of T2, stable and roughly 30% stable and anterior compression deformity at T3, better seen but probably stable small lucent line the upper anterior endplate of C4, similar mild decreased height at T5, and similar roughly 50% compression deformity of T6. No evidence of high-grade spinal stenosis or convincing new fracture. There is a sclerotic right iliac bone lesion, indeterminate, 1.5 cm AP without obvious associated cortical destruction. No lumbar vertebral body lesions or fractures. Mild annular disc bulges. SOFT TISSUES: Unremarkable. No discrete abdominal wall hernia. VASCULATURE: The aneurysmal descending thoracic aorta is stable, 3.3 cm maximum diameter. Descending thoracic aorta is mildly aneurysmal at 3.1 cm AP similar to prior exam. There is infrarenal aortic aneurysm, measuring 3.7 cm AP and 4 cm transverse just proximal to the aortoiliac bifurcation and aneurysmal dilatation of the right common iliac artery to 2 cm AP. No retroperitoneal hemorrhage. LYMPH NODES: Decreased size of right infrahilar node, now 1.2 cm AP by 1.2 cm transverse, it was at least 2.1 cm AP by 1.8 cm transverse. Minimally decreased size of left medial infrahilar node or adjacent nodule, now 1.5 cm AP by 1.1 cm transverse, it was 1.7 cm AP by 1.[address]/CT Chest AND Abd W/ Contrast IMPRESSION: 1. Multiple significantly smaller pulmonary nodules and smaller mediastinal and hilar lymph nodes. 2. Similar thick band of parenchymal opacity with air bronchograms in the right upper lobe. 3. Similar soft tissue density abutting the right mediastinum. 4. The intraspinous mass noted on a prior MRI at T2 is not clearly seen on the unenhanced CT. The thoracic contour deformities and compression fractures appear similar. 5. Indeterminate sclerotic nondestructive lesion in right iliac bone near the SI joint from July 20, 2022. A lesion was not mentioned in this location on prior PET/CT exams. 6. Heterogeneous liver best seen on early arterial phase exam, similar to exam October 17, 2022. Cannot exclude multiple new subtle liver metastases. Prior PET/CT reports from July 20, 2022 and February 24, 2022 did not identify liver lesions. 7. Simple-appearing right renal cyst, mentioned on prior exam. 8. Similar thoracic aneurysm. Distal infrarenal aortic aneurysm of 3.7 cm transverse, it was reported to be 3.6 cm transverse on PET CT March 16, 2022. No retroperitoneal hemorrhage. Electronically Signed: Jennifer Granados MD at 2:29 EDT ,
[2023-01-05] MEDS: 0.9% Saline Lock 10 ML Syringe IV (14:18)
== END | disposition home or self-care (01) ==
PROVIDERS: PCP Family Medicine; Referring Provider Internal Medicine Medical Oncology; Visit Provider Internal Medicine Medical Oncology
DX: C34.90 Malignant neoplasm of unspecified part of unspecified bronchus or lung (principal)
CPT/HCPCS: 71260; 74160; Q9967; A4216

== ENCOUNTER → 2023-04-19 | Outpatient (CLI) | payer MEDICARE, SELFPAY ==
[2023-04-19] VITALS (12 sets, daily range): BP systolic 141–195; BP diastolic 61–99; PULSE 63–82; RESP 13–18; TEMP 36.4; O2SAT 94–99; BMI 19.7
--- NOTE | 2023-04-19 | ASPIGT_PTH ---
PATIENT: NADIYA MACHADO LOC: CT U#:[id number] AGE/SX: 72/M ROOM: RE04/19/[address]: Dr. Kevin Pizano MD : 1950 BED: DIS: 04/19/2023 SPEC #: [id number] RECD: 04/19/23 11:28 STATUS: EMILY REAbel #: [id number] RUCHI: 04/19/23 00:[address]: Kevin Pizano DEPT: SURGICAL PATHOLOGY RECD BY: Figueroa Silva ENTERED: 04/19/23 11:29 SP TYPE: ASP RAD OTHR DR: Юлия Shelby DO Tissues: Lung, NOS Procedures: FNA Specimen Adequacy Special Stain Group II Special Stain Group I Surgery Specimen Level IV AFB Stain (control) GMS Stain (control) Imprint (control) HEADER OPERATION: CT-guided right lung biopsy PRE-OP DIAGNOSIS: Mass TISSUE SUBMITTED: Right lung 20-gauge core x5 MICROSCOPIC DIAGNOSIS Right lung, CT-guided core biopsy: Extensive fibrosis, focal necrosis, and focal non-necrotizing granuloma formation. Negative for malignancy. See comment. Felicitas 04/20/2023 COMMENT The specimen is evaluated at the time of biopsy by Dr. Viveros. Immediate Evaluation = Negative for malignant cells. Rare mildly atypical and giant cells noted. The findings may represent therapy-related changes. Special stains for acid fast bacilli and fungi are negative for organisms; matched controls are appropriate. Correlation with clinical, radiologic studies and appropriate follow up are necessary. Case has been reviewed in consultation with Dr. Pak who concurs with the above diagnosis. IDC:AM MICROSCOPIC DESCRIPTION Slides are reviewed. GROSS DESCRIPTION Received in fixative is one container labeled with the patient's name and designated right lung. The specimen consists of multiple elongated fragments of gastelum soft tissue that in aggregate measure 1.0 x 0.1 x 0.1 cm. The specimen is totally submitted in one cassette. Five touch imprints are prepared at the time of core biopsy. / Felicitas 04/19/2023 TC:5 CPT: 25639, 94741, 15548 x2
--- NOTE | 2023-04-19 08:49 | CT_ITS ---
PROCEDURE: CT GUIDED CORE NEEDLE BIOPSY OF A right upper lobe LUNG LESION INDICATION: Male, 72 years old. BX OF NEW RIGHT LUNG MASS PHYSICIAN: Dr. Leslee aCrranza CONSENT: Written informed consent was obtained having explained the risks, benefits and alternatives in detail with the patient who accepted the risks and agreed to proceed. Laboratory review and clinical assessment was performed. CONSCIOUS SEDATION PROTOCOL: The Drugs used were: 1 mg Versed, IV., and 25 mcg Fentanyl, IV. The sedation time was: 27 minutes. Conscious sedation was started at 10:02 AM and terminated at 10:29 AM. The conscious sedation protocol was independently monitored. RADIATION DOSAGE (If Supplied By Facility): CTDIvol = ( 18 ) mGy, DLP = ( 306.15 ) mGycm Individualized dose optimization techniques were used for this CT. TECHNIQUE: The patient was placed in the right side up position. A noncontrast CT was performed to localize the lesion in the peripheral aspect of the right upper lobe . The skin surface was prepped and draped in a sterile fashion. 1% lidocaine was used for local anesthesia. Using CT guidance, a 20-gauge coaxial biopsy device was advanced to the periphery of the lesion. A total of 5 core specimens were obtained. The specimens were placed in a formalin solution. A post procedure CT demonstrated no adverse sequelae or pneumothorax. The patient tolerated the procedure well without adverse event. A negative biopsy does not exclude malignancy. Further imaging or clinical followup based on patient condition and degree of clinical suspicion for malignancy. Suggest rebiopsy, if biopsy results do not match with clinical scenario. CT/Biopsy/Inj or Needle Placement IMPRESSION: 1. CT directed core needle biopsy of the peripheral right upper lobe pulmonary nodule using CT image guidance with image documentation as described. Pathology results are pending. 2. Conscious Sedation protocol utilized with independent monitoring. Electronically Signed: Chino Camilo MD at 11:09 EDT ,
[2023-04-19 08:55] LABS: Absolute Lymphocyte Count 0.53 X10^3/uL (0.83-4.51); Absolute Neutrophil Count 8.4 X10^3/uL (2.0-7.7); Basophil# 0.04 X10^3/uL; Basophil% 0.4 % (0-1); Eosinophil# 0.39 X10^3/uL; Eosinophils% 3.7 % (0-5); Hematocrit 36.1 % (40-54); Hemoglobin 10.9 g/dL (13.0-16.5); Lymphocyte # 0.53 X10^3/ul (0.83-4.51); Lymphocyte % 5.1 % (19-41); Mean Corp Hgb Conc 30.2 g/dL (32-36); Mean Corpuscular Hgb 29.9 pg (27.0-32.0); Mean Corpuscular Volume 99.2 fL (80-94); Mean Platelet Vol. 8.9 fl (6.2-12.0); Monocyte# 1.04 X10^3/uL; Monocyte% 9.9 % (0-10); NRBC Flagged by Analyzer 0 % (0-5); Neutrophil % 80.3 % (47-70); POSITIVE DIFFERENTIAL YES; Platelet Count 339 K/mm3 (150-450); RBC Distribution Width CV 15.3 % (11.6-14.6); RBC Distribution Width SD 56.7 fl (35.1-43.9); Red Blood Count 3.64 M/mm3 (4.6-6.2); White Blood Count 10.5 K/mm3 (4.4-11.0)
[2023-04-19 09:00] LABS: Differential Indicated SCAN CRITERIA MET
[2023-04-19 09:03] LABS: Prothrombin Time (Protime)PT. 13.3 SECONDS (11.7-14.9)
[2023-04-19 09:04] LABS: Partial Thromboplast Time 37.8 Seconds (24.1-36.2)
[2023-04-19 09:34] LABS: Differential Comment SCANNED
[2023-04-19] MEDS: 0.9% Normal Saline (250mL Bag) 250 ML 15 ML IV (09:47)
[2023-04-19] MEDS: Midazolam 2 MG/2 ML Syringe IV (10:02)
[2023-04-19] MEDS: fentaNYL 100 MCG/2 ML Ampul IV (10:07)
[2023-04-19] MEDS: Lidocaine 2% (20 ml mdv) 20 ML Vial INFILT (10:18)
--- NOTE | 2023-04-19 10:35 | RAD_ITS ---
STUDY: X-RAY CHEST REASON FOR EXAM: Male, 72 years old. Post lung biopsy -- Immediately post lung biopsy TECHNIQUE: AP inspiration and expiration views. COMPARISON: Comparison is made with prior study dated September 21, 2022. FINDINGS: EKG elected to proceed. A left-sided portacatheter seen with the tip in the distal portion of the superior vena cava. The patient is status post right upper lobe lung biopsy. No evidence of pneumothorax. RAD/Chest Insp/Exp 2 View IMPRESSION: Stable examination. No pneumothorax is seen on the immediate post right lung biopsy radiographs. Electronically Signed: Chino Camilo MD at 11:58 EDT ,
--- NOTE | 2023-04-19 12:40 | RAD_ITS ---
STUDY: X-RAY CHEST REASON FOR EXAM: Male, 72 years old. 2 hr post lung biopsy -- 2 hours post lung biopsy TECHNIQUE: AP inspiration and expiration views. COMPARISON: Comparison is made with prior examination done earlier in the day. FINDINGS: No evidence of pneumothorax on the two-hour delayed post right lung biopsy radiographs. RAD/Chest Insp/Exp 2 View IMPRESSION: No evidence of pneumothorax on the 2 hour post right lung biopsy radiographs. Electronically Signed: Chino Camilo MD at 15:09 EDT ,
[2023-04-19] MEDS: 0.9 % NaCl (Sterile) Posiflush 10 mL IV (12:50)
[2023-04-19 16:45] LABS: Xtra Tube EP Lab EXTRA TUBE
== END | disposition home or self-care (01) ==
PROVIDERS: PCP Family Medicine; Referring Provider Internal Medicine Medical Oncology; Visit Provider Internal Medicine Medical Oncology
DX: J84.10 Pulmonary fibrosis, unspecified (principal); J85.0 Gangrene and necrosis of lung; R06.02 Shortness of breath
CPT/HCPCS: 32408; 36415; 71046; 77012; 85025; 85610; 85730; 88172; 88305; 88312; 88313; 99156; J7050; A4216; C2613

== ENCOUNTER 2023-05-10 09:58 | Outpatient (RCR) | payer MEDICARE, SELFPAY | END 2023-05-23 23:59 | LOC: NS 09:58 | PROVIDERS: PCP Family Medicine; Visit Provider Internal Medicine Medical Oncology | DX: Z71.3 Dietary counseling and surveillance (principal) ==

== ENCOUNTER 2023-05-26 15:56 | Emergency (ER) | payer MEDICARE, SELFPAY ==
[2023-05-26 15:57] VITALS: BP 155/76; PULSE 79; RESP 18; TEMP 36.1; O2SAT 94; BMI 18.6
--- NOTE | 2023-05-26 16:39 | EDS_ITS ---
HPI History of Present Illness Chief Complaint: Laceration Informant: patient Narrative Narrative: 72-year-old male presenting to the emergency room with left index and long finger lacerations from table saw. Patient had a pair of gloves on and the sawblade to contact the glove and pulled his fingers into the blade. He notes normal sensation. He is in need of a tetanus shot. He is not on any blood thinners and notes bleeding was controlled at the scene. Recently was treated for lung cancer stage IV has not had chemotherapy for several months. Currently on immunotherapy [facility] Medical History Alcohol use Asthma Atrial fibrillation Barretts esophagus Cancer Cardiology follow-up encounter COPD (chronic obstructive pulmonary disease) Dehydration Depression Easy bruising Emphysema, unspecified Encounter for education Gastric reflux GERD (gastroesophageal reflux disease) Gonorrhea Hiatal hernia History of diverticulitis History of echocardiogram History of edema History of hiatal hernia History of irregular heartbeat History of steroid therapy History of stress test Hoarseness Hyperlipidemia Inguinal hernia Injury of head and neck Irregular heart beat On home oxygen therapy Protein calorie malnutrition Rectal prolapse Right upper lobe pneumonia Schizophrenia Shortness of breath on exertion Shortness of breath on exertion Smoker Swelling of both lower extremities Tobacco abuse Wears glasses Wears partial dentures Home Medications lidocaine-prilocaine 2.5 %-2.5 % topical cream 1 applic topical ONCE PRN port access 30 days #30 grams 08/25/22 [Rx Last Taken Unknown] ibuprofen 200 mg tablet 600 mg PO Q6H PRN Pain 08/29/22 [History Last Taken Unknown] oxycodone-acetaminophen 5 mg-325 mg tablet 1 tab PO Q6H PRN pain 2 days #5 tabs 09/05/22 [Rx Last Taken 09/19/22] cyclobenzaprine 10 mg tablet 10 mg PO BID 09/19/22 [History Last Taken 09/19/22] acetaminophen 500 mg tablet 500 mg PO DAILY PRN PRN Pain 10/28/22 [History Last Taken Unknown] cholecalciferol (vitamin D3) 25 mcg (1,000 unit) tablet (Vitamin D3) 25 mcg PO DAILY 10/28/22 [History Last Taken Unknown] ipratropium 0.5 mg-albuterol 3 mg (2.5 mg base)/3 mL nebulization soln 3 ml inhalation Q4HWA.RT #180 mL 11/07/22 [Rx Last Taken Unknown] folic acid 1 mg tablet 1 mg PO DAILY #90 tabs 11/23/22 [Rx Last Taken Unknown] albuterol sulfate 90 mcg/actuation aerosol inhaler (Proventil HFA) 2 puff inhalation Q6H PRN shortness of breath or wheezing #8.5 grams 12/09/22 [Rx Last Taken Unknown] pantoprazole 40 mg tablet,delayed release 40 mg PO DAILY #30 tabs 12/09/22 [Rx Last Taken Unknown] budesonide 160 mcg-glycopyr 9 mcg-formot 4.8 mcg/actuation HFA inhaler (Breztri Aerosphere) 2 inh inhalation BID 01/11/23 [History Last Taken Unknown] polysaccharide iron complex 150 mg iron capsule (Ferrex) 150 mg PO DAILY #90 caps 01/11/23 [Rx Last Taken Unknown] sennosides 8.6 mg-docusate sodium 50 mg capsule (Senna Plus) 1 tab-cap PO DAILY 01/11/23 [History Last Taken Unknown] lactulose 10 gram/15 mL oral solution 15 ml PO BID #946 mL 01/31/23 [Rx Last Taken Unknown] cephalexin 500 mg capsule 500 mg PO Q6 #28 CAPSULES 05/26/23 [Rx Last Taken Unknown] Allergy/AdvReac Type Severity Reaction Status Date / Time No Known Allergies Allergy Verified 05/26/23 15:56 Family History Father Heart disease Brother Heart disease COPD (chronic obstructive pulmonary disease) Surgical History History of esophagogastroduodenoscopy (EGD) History of herniorrhaphy History of meniscectomy of left knee Hx of biopsy Social History Smoking Status: Former smoker Tobacco: How many years used: 55 ROS ROS ED Constitutional Constitutional ED: Denies chills or weight loss Eyes Eyes: Denies change in vision or diplopia ENT ENT ED: Denies ear pain, rhinorrhea or sore throat Cardiovascular Cardiovascular: Denies chest pain, orthopnea, palpitations or racing heartbeat Respiratory/Chest Respiratory/Chest: Reports dyspnea and dyspnea on exertion; Denies cough or orthopnea Gastrointestinal Gastrointestinal: Denies abdominal pain, diarrhea, nausea or vomiting Genitourinary Genitourinary ED: Denies dysuria, hematuria or urinary frequency Musculoskeletal Musculoskeletal: Reports back pain and neck pain; Denies arthralgias or myalgias Integumentary Reports other Details: See history of present illness ; Denies abscess or rash Neurologic Neurologic: Denies headache(s) or weakness Psychiatric Psychiatric: Denies anxiety, depression, suicidal ideation or suicidal thoughts Endocrine Endocrinology: Denies polydipsia, polyphagia or polyuria Allergic/Immunologic Allergic/Immunologic ED: Denies mouth swelling, tongue swelling or urticaria EXAM Physical Exam Const Vital Signs: 05/26/23 15:57 Temperature 97 F L Temperature Source Temporal Pulse Rate 79 Respiratory Rate 18 Blood Pressure 155/76 H Blood Pressure Mean 102 Pulse Ox 94 Oxygen Delivery Method Nasal Cannula Oxygen Flow Rate (L/min) 2 Positive well nourished and well developed General Appearance ED: well developed HEENT Reports normocephalic, head/scalp atraumatic and moist mucous membranes Eyes PERRL and EOMs intact bilaterally Neck no lymphadenopathy, supple and no JVD Resp normal respiratory effort and clear to auscultation bilaterally Cardio regular rate, regular rhythm and no murmurs GI normal to inspection, nondistended, normoactive bowel sounds and non-tender Palpation: soft Back/Spine no CVA tenderness and normal ROM Extremity Extremity Narrative: Left index finger laceration-demonstrates a full-thickness 90% laceration of the flexor tendon profundus. There is an obvious flexor tendon laceration however functionally is intact.though strength is decreased measures approximately 2.5 cm Left middle finger laceration-measures approximately 3 cm. There is dermis loss. There is NO obvious flexor tendon laceration and functionally is intact. General Extremety ED: Negative for edema General Extremity: Negative for edema Neuro oriented x3 and CN's II-XII intact bilaterally Sensorium / Orientation: alert Motor Exam: strength 5/5 throughout Psych mental status grossly normal Mood & Affect: Negative for depressed or tearful Skin no rashes or lesions noted and no wounds MDM MDM MDM Narrative Medical decision making narrative: Discussed with the patient that these would typically be referred to hand surgery. He states that he would defer this at this time. Wounds were locally anesthetized using 1% lidocaine washed with Shur-Clens and explored. No foreign bodies were seen. The wounds were closed using a total of 13 (6 index/7 long finger) 4-0 Ethilon sutures. Patient was advised on wound care. Stitches to be removed in 10 days. He will be placed on Keflex. In terms of splinting these occur right along the DIP joint. Talked with him and using shared decision making we will heavily wrap the DIP joint to limit motion. Discharge Plan Triage Chief Complaint: Laceration ED Provider: Naveen Portillo Dx/Rx/DC Orders Clinical Impression: Finger laceration, Flexor tendon laceration of finger with open wound Instructions: ED Laceration: All Closures, ED Tendon Laceration Prescriptions: New cephalexin [cephalexin] 500 mg capsule 500 mg PO Q6 Qty: 28 0RF No Action lidocaine-prilocaine 2.5-2.5 % cream 1 applic topical ONCE PRN (Reason: port access) 30 Days Qty: 30 2RF ipratropium-albuterol 0.5 mg-3 mg(2.5 mg base)/3 mL solution for nebulization 3 ml inhalation Q4HWA.RT Qty: 180 11RF Rx Instructions: use four times a day -may laso use every two hours for severe shortness of breath Breztri Aerosphere 160-9-4.8 mcg/actuation HFA aerosol inhaler 2 inh inhalation BID Senna Plus 8.6-50 mg capsule 1 tab-cap PO DAILY polysaccharide iron complex [Ferrex 150] 150 mg iron capsule 150 mg PO DAILY Qty: 90 3RF ibuprofen 200 mg Tablet 600 mg PO Q6H PRN (Reason: Pain) oxycodone-acetaminophen 5-325 mg tablet 1 tab PO Q6H PRN (Reason: pain) 2 Days Qty: 5 0RF cyclobenzaprine 10 mg tablet 10 mg PO BID acetaminophen [Tylenol Ex Str Arthritis Pain] 500 mg Tablet 500 mg PO DAILY PRN PRN (Reason: Pain) cholecalciferol (vitamin D3) [Vitamin D3] 25 mcg (1,000 unit) Tablet 25 mcg PO DAILY folic acid 1 mg tablet 1 mg PO DAILY Qty: 90 1RF pantoprazole 40 mg tablet,delayed release (DR/EC) 40 mg PO DAILY Qty: 30 5RF albuterol sulfate [Proventil HFA] 90 mcg/actuation HFA aerosol inhaler 2 puff inhalation Q6H PRN (Reason: shortness of breath or wheezing) Qty: 8.5 11RF lactulose 10 gram/15 mL solution 15 ml PO BID Qty: 946 11RF Primary Care Provider: Юлия Shelby Referrals: Юлия Shelby, DO [Primary Care Provider] - 10 Day for suture removal Disposition Disposition: Home, Self Care
--- NOTE | 2023-05-26 16:45 | RAD_ITS ---
INDICATION: trauma -- May remove wet my for images EXAMINATION/TECHNIQUE: X-RAY - LEFT HAND XR Fingers Min 2 Views COMPARISON: None. FINDINGS: No acute fracture or malalignment. No blastic or lytic lesions. No degenerative changes are seen. Laceration of the second digit. RAD/Finger(s) Min 2 Views IMPRESSION: Laceration of second digit with no fracture. Electronically Signed: rGant Huffman MD at 17:13 EDT ,
[2023-05-26] MEDS: Diphth,Pertuss(Acell),Tet Vac 0.5 ML Vial IM (17:31)
[2023-05-26] MEDS: Lidocaine 1% (20 ml mdv) 20 ML Vial INFILT (17:31)
== END 2023-05-26 17:38 | disposition home or self-care (01) ==
LOC: ED 17:36
PROVIDERS: Emergency Provider Emergency Medicine; PCP Family Medicine; Visit Provider Emergency Medicine
DX: S66.121A Laceration of flexor muscle, fascia and tendon of left index finger at wrist and hand level, initial encounter (principal); C34.90 Malignant neoplasm of unspecified part of unspecified bronchus or lung; J43.9 Emphysema, unspecified; E78.5 Hyperlipidemia, unspecified; Z87.891 Personal history of nicotine dependence; S61.211A Laceration without foreign body of left index finger without damage to nail, initial encounter; S61.213A Laceration without foreign body of left middle finger without damage to nail, initial encounter; Z23 Encounter for immunization; W27.8XXA Contact with other nonpowered hand tool, initial encounter
CPT/HCPCS: 12002; 73140; 90471; 90715; 99284

== ENCOUNTER → 2023-06-12 | Outpatient (CLI) | payer MEDICARE, SELFPAY ==
--- NOTE | 2023-06-12 13:53 | CT_ITS ---
INDICATION: MONITOR LUNG CA EXAMINATION: CT CHEST AND ABDOMEN WITH CONTRAST - CT Chest And Abdomen W/ Contrast Injection TECHNIQUE: Helically acquired images were obtained of the chest and abdomen. A radiation dose optimization technique was used for this scan. IV Contrast dosage and agent: 100 mL of Isovue-370 Oral contrast: None. COMPARISON: Prior studies dated: PET/CT from 03/14/[address] 01/05/2023 and 10/17/2022. FINDINGS: ----Chest: LUNGS, PLEURA AND LARGE AIRWAYS: The central airways are patent. There is consolidated lung of the right upper lobe with air bronchograms and scattered foci of gas internally. Increased gas at the periphery of this area of consolidation, as seen on series 2 image 34. This is a change from prior imaging. There is no new consolidation. There were multiple pulmonary nodules on the prior diagnostic CTs, which are either resolved or continue to decrease in size. For instance, there is a 0.4 cm lingular nodule on series 2 image 96 which had measured 0.6 cm 01/05/2023. There is a right middle lobe 0.7 cm nodule on series 2 image 95 which was FDG avid on the prior PET/CT, unchanged in size from that time. There is a subpleural anterior left upper lobe 0.6 cm nodule on series 2 image 56 which had measured 0.7 cm on the prior PET/CT. There are additional small pulmonary nodules which are either similar or decreased in size compared to previous imaging. No pleural effusion or thickening. No pneumothorax. THYROID: No thyroid lesions. HEART AND PERICARDIUM: Heart size is normal. No pericardial effusion. VESSELS: Thoracic aorta is not dilated. Left chest wall port in place. MEDIASTINUM AND JEANE: There is a prominent precarinal lymph node measuring 1.3 cm on series 2 image 49. This appears similar to prior imaging. No additional enlarged lymph nodes are seen. Esophagus is unremarkable. No hiatal hernia. BONES: Multilevel thoracic vertebral body compression deformities are again noted. This includes T1, T2, T3, and T6. This is similar to prior. There is no focal rib abnormality identified. ----Abdomen (without Pelvis): LIVER: Normal size and shape of the liver with normal enhancement. Nonspecific 1 cm area of hypoattenuation in segment 8 on series 3 image 17. This is not definitively seen on previous imaging. No additional liver lesions are identified. GALLBLADDER AND BILIARY TREE: No calcified gallstones. No gallbladder distension or wall edema. No intra- or extrahepatic biliary ductal dilation. PANCREAS: Atrophic pancreas with no focal abnormality. SPLEEN: Normal size without focal cystic or solid mass. ADRENAL GLANDS: No nodules. KIDNEYS AND URETERS: Normal renal size and position. No hydronephrosis. Right midpole simple renal cyst which requires no specific follow-up. PERITONEUM: No ascites or free air. No other fluid collection. BOWEL: The stomach is unremarkable. Normal caliber small bowel without obstruction. Colonic diverticulosis noted without diverticulitis. Moderate colonic stool burden. No inflammatory changes. Appendix is not the [id number]. LYMPH NODES: No enlarged mesenteric or retroperitoneal lymph nodes. VESSELS: There is redemonstration of an infrarenal abdominal aortic aneurysm measuring 3.8 cm in AP dimension. This is without change from prior. Moderate atherosclerotic calcifications. ABDOMINAL WALL: No discrete abdominal wall hernia. BONES: No lytic or blastic abnormality. Mild degenerative changes of the spine. CT/CT Chest AND Abd W/ Contrast IMPRESSION: 1. Change in appearance of the prominent consolidation of the right upper lobe with increased areas of gas, particularly peripherally associated with the consolidation. Air bronchograms remain present. 2. Multiple pulmonary nodules which are present on previous imaging have either reduced in size or resolved. No new pulmonary nodules are seen. 3. Precarinal lymph node is similar to prior imaging. No new lymphadenopathy. 4. Focus of hypoattenuation in segment 8 of the liver, not definitively seen on previous imaging. The previous heterogeneous enhancement is no longer identified. This could be associated with a metastatic lesion. 5. Similar appearance of the infrarenal abdominal aortic aneurysm. This measures 3.8 cm. Continued follow-up recommended. Electronically Signed: Demarcus Castillo MD at 16:50 EST ,
[2023-06-12 14:27] LABS: Absolute Neutrophil Count 5.6 X10^3/uL (2.0-7.7); Basophil# 0.02 X10^3/uL; Basophil% 0.3 % (0-1); Eosinophil# 0.37 X10^3/uL; Hematocrit 37.2 % (40-54); Hemoglobin 11.6 g/dL (13.0-16.5); Lymphocyte % 6.7 % (19-41); Mean Corp Hgb Conc 31.2 g/dL (32-36); Mean Corpuscular Hgb 29.9 pg (27.0-32.0); Mean Corpuscular Volume 95.9 fL (80-94); Mean Platelet Vol. 9.4 fl (6.2-12.0); Monocyte% 12.1 % (0-10); NRBC Flagged by Analyzer 0 % (0-5); Neutrophil # 5.63 X10^3/uL (2.7-7.7); Neutrophil % 75.8 % (47-70); POSITIVE DIFFERENTIAL YES; Platelet Count 312 K/mm3 (150-450); RBC Distribution Width CV 17.4 % (11.6-14.6); RBC Distribution Width SD 61.8 fl (35.1-43.9); Red Blood Count 3.88 M/mm3 (4.6-6.2); White Blood Count 7.4 K/mm3 (4.4-11.0)
[2023-06-12] MEDS: 0.9% Saline Lock 10 ML Syringe IV (14:27)
[2023-06-12 14:29] LABS: Differential Indicated SCAN CRITERIA MET
[2023-06-12 14:29] LABS: EGFR FINGERSTICK > 60.0000 mL/min (>60)
[2023-06-12 14:54] LABS: ALB/GLOB Ratio 0.7 RATIO (0.9-2.4); AST(SGOT) 13 U/L (15-37); Alanine Aminotransfer ALT/SGPT 14 U/L (16-61); Albumin, Serum 2.9 g/dL (3.2-5.0); Alkaline Phosphatase 89 U/L (45-117); Anion Gap 2 (5-15); BUN 14 mg/dL (7-18); BUN/Creat Ratio 14.2 RATIO (10-20); Calcium,Total 8.9 mg/dL (8.5-10.1); Chloride 100 mmol/L (98-107); Creatinine, Serum 0.98 mg/dL (0.70-1.30); EST Glomerular Filtration Rate 79 mL/min (>60); Est Glom Filt Rate - Afr Amer 96 mL/min (>60); Globulin 3.9 g/dL (2.2-4.2); Glucose 87 mg/dL (74-106); LDH 179 U/L (87-241); Potassium 4.6 mmol/L (3.5-5.1); Protein, Total 6.8 g/dL (6.4-8.2); Sodium Level 136 mmol/L (136-145)
== END | disposition home or self-care (01) ==
LOC: CT 13:38
PROVIDERS: PCP Family Medicine; Referring Provider Internal Medicine Medical Oncology; Visit Provider Internal Medicine Medical Oncology
DX: C34.11 Malignant neoplasm of upper lobe, right bronchus or lung (principal); C79.51 Secondary malignant neoplasm of bone; D50.9 Iron deficiency anemia, unspecified
CPT/HCPCS: 36415; 71260; 74160; 80053; 83615; 85025; Q9967; A4216

== ENCOUNTER → 2023-10-02 | Outpatient (CLI) | payer MEDICARE, SELFPAY ==
--- NOTE | 2023-10-02 13:06 | CT_ITS ---
STUDY: CT CHEST T ABDOMEN WITH CONTRAST REASON FOR EXAM: Male, 73 years old. MONITOR LUNG CA-IV ONLY RADIATION DOSAGE (If Supplied By Facility): CTDIvol = ( 7.96 ) mGy, DLP = ( 486.89 ) mGycm TECHNIQUE: Transaxial imaging was performed following intravenous administration of IV 100mL Isovue-300. Multiplanar coronal and sagittal images were reformatted. Individualized dose optimization techniques were used for this CT. COMPARISON: Comparison is made with prior study dated June 12, 2023. 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 Shift of the heart and mediastinal structures towards the right side of the midline. Emphysematous changes with bullous formation worse in the upper lobes. Focal infiltration and/or scarring in the superior segment of the right lower lobe. There is a new 1.6 cm x 1.8 cm noncalcified nodule in the posterior segment of the left lower lobe. A similar-appearing 1 cm nodule is also seen along the posterior lateral aspect of the left lower lobe. 8.3 mm noncalcified nodule in the anterior aspect of the left upper lobe as seen on axial image #52. There is no demonstrated pleural abnormality. There are calcifications of the coronary arteries. Normal mediastinum. Interval enlargement of a left infrahilar lymph node measuring 2.1 cm. Normal unenhanced pulmonary arteries. Normal aorta arch and descending thoracic aorta. Osteophyte of the T2 or T3 vertebrae with almost complete collapse of the C7. Right renal cyst. ABDOMEN The previously seen 1 cm area of decreased attenuation in the peripheral lateral aspect of the right lobe of the liver is not as well seen at this time. Normal gallbladder and extrahepatic biliary system. Normal spleen. Normal pancreas. Normal bilateral adrenal glands. There is a 2 cm cyst in the posterior medial aspect of the right kidney. Normal left kidney. Normal visualized stomach. Normal small intestine. Normal colon. The appendix is visualized and appears normal. There is diffuse atherosclerotic calcification of the abdominal aorta. There is evidence of a fusiform infrarenal abdominal aortic aneurysm with a transverse dimension of 3.6 cm. Normal inferior vena cava. Normal retroperitoneum. Normal abdominal wall. There are degenerative changes of the visualized lumbar spine. CT/CT Chest AND Abd W/ Contrast IMPRESSION: Progressive volume loss in the right upper lobe with progressive heterogeneous appearance of the right upper lobe suggestive of post radiation fibrosis/pneumonitis. Focal infiltration and/or scarring in the superior segment of the right lower lobe. New 1.6 cm x 1.8 cm noncalcified nodule in the posterior segment of the left lower lobe. A similar-appearing 1 cm nodules also seen in the posterior lateral aspect of the left lower lobe. An 8.3 mm noncalcified nodule is seen in the anterior aspect left upper lobe as seen on axial image #52. Stable loss of height of the lower cervical and upper thoracic vertebrae. Electronically Signed: Chino Camilo MD at 12:13 EDT ,
[2023-10-02] MEDS: 0.9% Saline Lock 10 ML Syringe IV (13:15)
[2023-10-02 13:22] LABS: CREATININE FINGERSTICK < 1.0 mg/dL (0.70-1.30); EGFR FINGERSTICK > 60.0000 mL/min (>60)
--- OUTSIDE RECORDS SUMMARY | 2023-10-02 17:53 | XMS RPT_ITS | CCD ---
Author Name Unknown Address [address] [place] [address] Organization [facility] Care Team Providers Care Packer Name Role Phone Marina JUÁREZ, Naveen Street Unavailable [phone] [facility] Physicia n DONTE JUÁREZ, CUATE Aleman Attending Unavailable [facility], [facility] Unava ilable SABINA JUÁREZ, SHEA Consulting Unavailable CUATE LOPES MD Admitting Unavailable CUATE LOPES MD Consulting Unavailable CUATE LOPES MD Attending Unavailable [facility], [facility] Unava ilable GEOVANI KEARNEY DO Attending Unavailable [facility], [facility] Unava ilable ROMA GONZALEZCONSTRUCTION MATERIALS TESTER, REMY Betts Attending Unavail able [facility], REMY Betts Referring Unavail able [facility], [facility] Unava ilable Medications Current Medications Medication Drug Class(es) Dates Sig (Normalized) Sig (Original) acetaminophen 325 mg oral capsule (2 sources) Start: 06-25-2022 Tylenol 325 mg oral capsule Dose : 650 mg =, Oral, q4h, PRN Pain, scale 1-6, 0 Refill(s) Start Date: 06/25/22 Status: Ordered albuterol MDI (90 mcg/inh) CFC free inhalation aerosol (2 sources) Start: 05-31-2022 take 2 puff(s) by inhalation every four hours as needed for wheezing albuterol MDI (90 mcg/inh) CFC free inhalation aerosol 2 puff(s), Inhalation, q4h, PRN as needed for wheezing, 0 Refill(s) Start Date: 05/31/22 Status: Ordered cyclobenzaprine hydrochloride 10 mg oral tablet (2 sources) Muscle Relaxant Start: 06-02-2022 cyclobenzaprine 10 mg oral tablet Dose : 10 mg = 1 tab(s), Oral, BID, 0 Refill(s) Start Date: 06/02/22 Status: Ordered docusate sodium 100 mg oral capsule (2 sources) Start: 06-25-2022 docusate sodium 100 mg oral capsule Dose : 100 mg = 1 cap(s), Oral, TID, PRN as needed for constipation, 0 Refill(s) Start Date: 06/25/22 Status: Ordered ibuprofen 200 mg oral tablet (2 sources) Nonsteroidal Anti-inflammatory Drug Start: 06-02-2016 ibuprofen 200 mg oral tablet Dose : 400 mg = 2 tab(s), Oral, q4h, PRN for pain, 0 Refill(s) Start Date: 06/02/16 Status: Ordered oxyCODONE hydrochloride 5 mg oral tablet (1 source) Opioid Agonist Start: 06-25-2022 End: 07-02-2022 oxyCODONE 5 mg oral tablet ( IMMEDIATE release ) Dose : 5 mg = 1 tab(s), Oral, q6hr, PRN Pain, scale 7-10, X 7 day(s), # 28 tab(s), 0 Refill(s), 07/02/22 9:54:00 EST, Pharmacy: [id number], Acute postoperative pain, 165.1, cm, 06/22/22 22:13:00 EST, Height, 56.5 Start Date: 06/25/22 Stop Date: 07/02/22 Status: Ordered pantoprazole 40 mg delayed release oral tablet (2 sources) Proton Pump Inhibitor Start: 05-31-2022 pantoprazole 40 mg oral enteric coated tablet Dose : 40 mg = 1 tab(s), Oral, qDay, 0 Refill(s) Start Date: 05/31/22 Status: Ordered Vitamin D3 25 mcg (1000 intl units) oral capsule (2 sources) Start: 06-14-2022 Vitamin D3 25 mcg (1000 intl units) oral capsule Dose : 25 mcg = 1 cap(s), Oral, Daily, 0 Refill(s) Start Date: 06/14/22 Status: Ordered Completed/Discontinued Medications Medication Drug Class(es) Dates Sig (Normalized) Sig (Original) cholecalciferol 1000 unt oral tablet (2 sources) Vitamin D Start: 04-19-2017 take 1 tablet by mouth once daily VITAMIN D3 1000 UNIT TABS One tablet by mouth daily CHOLECALCIFEROL [id number] Naveen Gray MD sucralfate 1000 mg oral tablet (2 sources) Aluminum Complex Start: 06-20-2022 sucralfate 1 g oral tablet Dose : 1 gram(s) = 1 tab(s), Oral, achs, # 360 tab(s), 0 Refill(s) Start Date: 06/20/22 Status: Ordered triamcinolone acetonide 0.001 mg/mg oral paste (2 sources) Corticosteroid Start: 06-02-2022 triamcinolone 0.1% topical paste 1 apps, Topical, qDay, PRN Rash, 0 Refill(s), 62.7 Start Date: 06/02/22 Status: Ordered Problems Active Problems Problem Classification Problem Date Documented Date Episodic/Chronic Chronic obstructive pulmonary disease and bronchiectasis (2 sources) Chronic obstructive lung disease; Translations: [Chronic obstructive pulmonary disease, unspecified] Onset: 06-22-2022 Chronic Diverticulosis and diverticulitis (2 sources) Diverticulitis 05-31-2022 Chronic Heart valve disorders (2 sources) Irregular heart beat 05-31-2022 Episodic Nonspecific chest pain (1 source) Chest pain; Translations: [Chest pain, unspecified] Episodic Osteoarthritis (2 sources) Osteoarthritis 06-02-2016 Chronic Other lower respiratory disease (2 sources) Solitary nodule of lung; Translations: [Solitary pulmonary nodule] Onset: 06-22-2022 Episodic Other lower respiratory disease (2 sources) Hypoxemia; Translations: [Hypoxemia] Onset: 06-24-2022 Episodic Other lower respiratory disease (2 sources) Nodule of lung 05-31-2022 Episodic Schizophrenia and other psychotic disorders (4 sources) Schizophrenia; Translations: [Schizophrenia, unspecified] Onset: 06-22-2022 Chronic Past or Other Problems Problem Classification Problem Date Documented Da te Episodic/Chronic Anal and rectal conditions (2 sources) Rectal prolapse; Translations: [Rectal prolapse] Onset: 04-19-2017 04-19-2017 Episodic Hemorrhoids (2 sources) Hemorrhoids; Translations: [Unspecified hemorrhoids] Onset: 04-19-2017 04-19-2017 Episodic Results Test Name Value Interpretation Reference Range Facil ity Vital Signs Date Time Vital Sign Value Performing Clinician Facility 06-25-2022 07:10-0500 Body temperature 98.06 [degF] CUATE LOPES MD [facility] 06-25-2022 07:10-0500 Diastolic Blood Pressure Non-Invasive 81 1 CUATE LOPES MD [facility] 06-25-2022 07:10-0500 Heart rate 98 /min CUATE LOPES MD [facility] 06-25-2022 07:10-0500 Mean blood pressure 97 mm[Hg] CUATE LOPES MD [facility] 06-25-2022 07:10-0500 Reason For Taking VItal Signs CUATE LOPES MD [facility] 06-25-2022 07:10-0500 Respiratory rate 17 /min CUATE LOPES MD [facility] 06-25-2022 07:10-0500 Systolic Blood Pressure Non-Invasive 142 1 CUATE LOPES MD [facility] 06-25-2022 04:30-0500 Body temperature 98.06 [degF] CUATE LOPES MD [facility] 06-25-2022 04:30-0500 Diastolic Blood Pressure Non-Invasive 99 1 CUATE LOPES MD [facility] 06-25-2022 04:30-0500 Heart rate 93 /min CUATE LOPES MD [facility] 06-25-2022 04:30-0500 Mean blood pressure 110 mm[Hg] CUATE LOPES MD [facility] 06-25-2022 04:30-0500 Reason For Taking VItal Signs CUATE LOPES MD [facility] 06-25-2022 04:30-0500 Respiratory rate 17 /min CUATE LOPES MD [facility] 06-25-2022 04:30-0500 Systolic Blood Pressure Non-Invasive 130 1 CUATE LOPES MD [facility] 06-25-2022 01:07-0500 Diastolic Blood Pressure Non-Invasive 81 1 CUATE LOPES MD [facility] 06-25-2022 01:07-0500 Heart rate 92 /min CUATE LOPES MD [facility] 06-25-2022 01:07-0500 Mean blood pressure 101 mm[Hg] CUATE LOPES MD [facility] 06-25-2022 01:07-0500 Reason For Taking VItal Signs CUATE LOPES MD [facility] 06-25-2022 01:07-0500 Systolic Blood Pressure Non-Invasive 148 1 CUATE LOPES MD [address] [place] [id number] 06-25-2022 00:39-0500 Heart rate 100 /min CUATE LOPES MD [facility] 06-25-2022 00:07-0500 Heart rate 99 /min CUATE LOPES MD [facility] 06-25-2022 00:07-0500 Respiratory rate 16 /min CUATE LOPES MD [facility] 06-25-2022 00:01-0500 Body temperature 97.88 [degF] CUATE LOPES MD [facility] 06-23-2022 23:47-0500 Body temperature 98.24 [degF] CUATE LOPES MD [facility] 06-23-2022 19:29-0500 Body temperature 98.42 [degF] CUATE LOPES MD [facility] 06-23-2022 17:40-0500 Body temperature 98.24 [degF] CUATE LOPES MD [facility] 06-22-2022 22:13-0500 Body height 165.1 cm CUATE LOPES MD [address] [place] [id number] 06-22-2022 22:13-0500 Body weight 56.5 kg CUATE LOPES MD [address] [place] [address] 06-22-2022 22:13-0500 Body weight 20.73 kg/m2 CUATE LOPES MD [address] [place] [address] 06-22-2022 19:45-0500 Diastolic blood pressure 93 mm[Hg] CUATE LOPES MD [address] [place] [address] 06-22-2022 19:45-0500 Mean blood pressure 115 mm[Hg] CUATE LOPES MD [address] [place] [address] 06-22-2022 19:45-0500 Systolic blood pressure 165 mm[Hg] CUATE LOPES MD [address] [place] [address] 06-22-2022 18:00-0500 Mean blood pressure 269 mm[Hg] CUATE LOPES MD [address] [place] [address] 06-22-2022 17:13-0500 Diastolic blood pressure 85 mm[Hg] CUATE LOPES MD [facility] 06-22-2022 17:13-0500 Mean blood pressure 104 mm[Hg] CUATE LOPES MD [facility] 06-22-2022 17:13-0500 Systolic blood pressure 154 mm[Hg] CUATE LOPES MD [facility] 06-22-2022 15:39-0500 Diastolic blood pressure 125 mm[Hg] CUATE LOPES MD [facility] 06-22-2022 15:39-0500 Systolic blood pressure 146 mm[Hg] CUATE LOPES MD [facility] 06-22-2022 14:05-0500 Body temperature 96.01 [degF] CUATE LOPES MD [facility] 06-22-2022 14:00-0500 Body temperature 95.86 [degF] CUATE LOPES MD [facility] 06-22-2022 13:55-0500 Body temperature 95.74 [degF] CUATE LOPES MD [facility] 06-22-2022 12:22-0500 SaO2% (BldA) [Mass fraction] 99.8 % CUATE LOPES MD [facility] 06-22-2022 11:12-0500 Body temperature 97.16 [degF] CUATE LOPES MD [facility] 06-22-2022 11:12-0500 Heart rate 85 /min CUATE LOPES MD [facility] 06-22-2022 10:25-0500 Body height 165.1 cm CUATE LOPES MD [facility] 06-22-2022 10:25-0500 Body temperature 97.16 [degF] CUATE LOPES MD [facility] 06-22-2022 10:25-0500 Body weight 56.5 kg CUATE LOPES MD [facility] 06-22-2022 10:25-0500 Body weight 20.73 kg/m2 CUATE LOPES MD [facility] 06-22-2022 10:25-0500 diastolic 113 mm[Hg] CUATE LOPES MD [address]30-2022 10:25-0500 systolic 208 mm[Hg] CUATE LOPES MD [facility] 04-19-2017 13:55-0400 BMI (Body Mass Index) 22.47 kg/m2 Naveen Gray MD [facility] Work Phone: 04-19-2017 13:55-0400 Body Temperature 97.9 [degF] Naveen Gray MD [facility] Work Phone: 04-19-2017 13:55-0400 BP Diastolic 83 mm[Hg] Naveen Gray MD [facility] Work Phone: 04-19-2017 13:55-0400 BP Systolic 127 mm[Hg] Naveen Gray MD [facility] Work Phone: 04-19-2017 13:55-0400 Height 173.99 cm Naveen Gray MD [facility] Work Phone: 04-19-2017 13:55-0400 Pulse (Heart Rate) 68 /min Naveen Gray MD [facility] Work Phone: 04-19-2017 13:55-0400 Weight 68.04 kg Naveen Gray MD [facility] Work Phone: Encounters Encounter Date Encounter Type Care Provider Facility Start: 11-16-2022 End: 11-21-2022 ambulatory GEOVANI KEARNEY Facility:B Start: 11-16-2022 End: 11-21-2022 Encounter for general adult medical examination without abnormal findings GEOVANI KEARNEY Facility:B Start: 11-16-2022 End: 11-20-2022 Outreach Lab GEOVANI KEARNEY DO [facility] Start: 07-11-2022 End: 07-12-2022 ambulatory REMY BRANDON RESEARCH HYDROLOGIST-CONSTRUCTION MATERIALS TESTER Facility:A Start: 06-22-2022 End: 06-25-2022 Evaluation and management of inpatient CUATE LOPES MD [facility] Start: 06-14-2022 End: 06-15-2022 ambulatory CUATE LOPES MD Facility:A Procedures Date Procedure Procedure Detail Performing Clinician Start: 06-10-2016 Primary repair of inguinal hernia using synthetic patch CUATE LOPES MD Plan of Treatment Date Care Activity Detail Author Start: 04-19-2017 End: 04-19-2017 Appointment [facility] Work Phone: Immunizations Immunization Date Immunization Notes Care Provider Fa cili 05-10-2022 influenza virus vacc ine, unspecified formulation CUATE LOPES MD [facility] 11-18-2021 SARS-CoV-2 mRNA (xnidhemjksf-dijk-asuicn e) vaccine CUATE LOPES MD [facility] 05-14-2021 influenza virus vacc ine, unspecified formulation CUATE LOPES MD [facility] 05-14-2021 SARS-CoV-2 mRNA (tozinameran) vaccine CUATE LOPES MD [facility] 10-14-2020 SARS-CoV-2 mRNA (tozinameran) vaccine CUATE LOPES MD [facility] 09-21-2020 SARS-CoV-2 mRNA (tozinameran) vaccine CUATE LOPES MD [facility] Payers Date Payer Category Payer Self-pay 2022 Medicare [id number] 1950 Unknown [id number] 1950 Unknown [id number] 1950 Unknown [id number] Unknown [id number] Social History Date Type Detail Facility Start: 06-02-2022 Tobacco smoking status [facility] Functional Status Date Assessment Result Facility 06-25-2022 Functional Status Room check performed [facility] 06-25-2022 Functional Status [facility] 06-25-2022 Functional Status [facility] 06-25-2022 Functional Status [facility] 06-24-2022 Functional Status bilateral knee [facility] 06-24-2022 Functional Status [facility] 06-24-2022 Functional Status Ambulation in [facility] 06-24-2022 Functional Status 100 [facility] 06-24-2022 Functional Status Done [facility] 06-24-2022 Functional Status 75 [facility] 06-23-2022 Functional Status [facility] 06-23-2022 Functional Status [facility] 06-23-2022 Functional Status Apartment [facility] 06-23-2022 Functional Status [facility] 06-23-2022 Functional Status SCD On/Re-applied bilat eral knee [facility] 06-23-2022 Functional Status [facility] 06-23-2022 Functional Status [facility] 06-22-2022 Functional Status N/A [facility] 06-22-2022 Functional Status Patient Identified Iden tification band [facility] 06-22-2022 Functional Status Maintained [facility] Mental Status Date Assessment Result Facility 06-25-2022 Mental Status Oriented x 4 [facility] 06-25-2022 Mental Status [facility] 06-24-2022 Mental Status [facility] 06-24-2022 Mental Status [facility] Clinical Notes 10-11-2021 to 06-25-2022 Note Date & Type Note Facility 06-25-2022 Hospital Discharg e instructions Patient Education 06/25/2022 10:06:36 Thoracotomy, Care After, Oswm-re-Civq Thoracotomy, Care After This sheet gives you information about how to care for yourself after your procedure. Your doctor may also give you more specific instructions. If you have problems or questions, contact your doctor. Follow these instructions at home: Preventing lung infection (pneumonia) Take deep breaths or do breathing exercises as told by your doctor. Cough often. Coughing is important to clear thick spit (phlegm) and open your lungs. If coughing hurts, hold a pillow against your chest or place both hands flat on top of your cut (splinting) when you cough. This may help with discomfort. Use an incentive spirometer as told. This is a tool that measures how well you fill your lungs with each breath. Do lung therapy (pulmonary rehabilitation) as told. Medicines Take alkx-xkr-vxztgpb or prescription medicines only as told by your doctor. If you have pain, take pain-relieving medicine before your pain gets very bad. This will help you breathe and cough more comfortably. If you were prescribed an antibiotic medicine, take it as told by your doctor. Do not stop taking the antibiotic even if you start to feel better. Activity Ask your doctor what activities are safe for you. Do not travel by airplane for 2 weeks after your chest tube is removed, or until your doctor says that this is safe. Do not lift anything that is heavier than 10 lb (4.5 kg), or the limit that your doctor tells you, until he or she says that it is safe. Do not drive until your doctor approves. ?Do not drive or use heavy machinery while taking prescription pain medicine. Incision care Follow instructions from your doctor about how to take care of your cut from surgery (incision). Make sure you: ?Wash your hands with soap and water before you change your bandage (dressing). If you cannot use soap and water, use hand bleach tester. ?Change your bandage as told by your doctor. ?Leave stitches (sutures), skin glue, or skin tape (adhesive) strips in place. They may need to stay in place for 2 weeks or longer. If tape strips get loose and curl up, you may trim the loose edges. Do not remove tape strips completely unless your doctor says it is okay. Keep your bandage dry. Check your cut from surgery every day for signs of infection. Check for: ?More redness, swelling, or pain. ?More fluid or blood. ?Warmth. ?Pus or a bad smell. Bathing Do not take baths, swim, or use a hot tub until your doctor approves. You may take showers. After your bandage has been removed, use soap and water to gently wash your cut from surgery. Do not use anything else to clean your cut unless your doctor tells you to. Eating and drinking Eat a healthy diet as told by your doctor. A healthy diet includes: ?Fresh fruits and vegetables. ?Whole grains. ?Low-fat (lean) proteins. Drink enough fluid to keep your pee (urine) clear or pale yellow. General instructions To prevent or treat trouble pooping (constipation) while you are taking prescription pain medicine, your doctor may recommend that you: ?Take iaxd-sfv-xowimso or prescription medicines. ?Eat foods that are high in fiber. These include fresh fruits and vegetables, whole grains, and beans. ?Limit foods that are high in fat and processed sugars, such as fried and sweet foods. Do not use any products that contain nicotine or tobacco. These include cigarettes and e-cigarettes. If you need help quitting, ask your doctor. Avoid secondhand smoke. Wear compression stockings as told. These help to prevent blood clots and reduce swelling in your legs. If you have a chest tube, care for it as told. Keep all follow-up visits as told by your doctor. This is important. Contact a doctor if: You have more redness, swelling, or pain around your cut from surgery. You have more fluid or blood coming from your cut from surgery. Your cut from surgery feels warm to the touch. You have pus or a bad smell coming from your cut from surgery. You have a fever or chills. Your heartbeat seems uneven. You feel sick to your stomach (nauseous). You throw up (vomit). You have muscle aches. You have trouble pooping (having a bowel movement). This may mean that you: ?Poop fewer times in a week than normal. ?Have a hard time pooping. ?Have poop that is dry, hard, or bigger than normal. Get help right away if: You get a rash. You feel light-headed. You feel like you might pass out (faint). You are short of breath. You have trouble breathing. You are confused. You have trouble talking. You have problems with your seeing (vision). You are not able to move. You lose feeling (have numbness) in your: ?Face. ?Arms. ?Legs. You pass out. You have a sudden, bad headache. You feel weak. You have chest pain. You have pain that: ?Is very bad. ?Gets worse, even with medicine. Summary Take deep breaths, do breathing exercises, and cough often. This helps prevent lung infection (pneumonia). Do not drive until your doctor approves. Do not travel by airplane for 2 weeks after your chest tube is removed, or until your doctor says that this is safe. Check your cut from surgery every day for signs of infection. Eat a healthy diet. This includes fresh fruits and vegetables, whole grains, and low-fat (lean) proteins. This information is not intended to replace advice given to you by your health care provider. Make sure you discuss any questions you have with your health care provider. Document Released: 01/08/2013 Document Revised: 06/22/2018 Document Reviewed: 04/03/2017 [employer] Patient Education 2020 [email or web address] 06/25/2022 10:06:22 Heart-Healthy Eating Plan, Pzcr-on-Ytxg Heart-Healthy Eating Plan Heart-healthy meal planning includes: Eating less unhealthy fats. Eating more healthy fats. Making other changes in your diet. Talk with your doctor or a diet specialist (dietitian) to create an eating plan that is right for you. What is my plan? Your doctor may recommend an eating plan that includes: Total fat: % or less of total calories a day. Saturated fat: % or less of total calories a day. Cholesterol: less than mg a day. What are tips for following this plan? Cooking Avoid frying your food. Try to bake, boil, grill, or broil it instead. You can also reduce fat by: Removing the skin from poultry. Removing all visible fats from meats. Steaming vegetables in water or broth. Meal planning At meals, divide your plate into four equal parts: ?Fill one-half of your plate with vegetables and green salads. ?Fill one-fourth of your plate with whole grains. ?Fill one-fourth of your plate with lean protein foods. Eat 4 5 servings of vegetables per day. A serving of vegetables is: ?1 cup of raw or cooked vegetables. ?2 cups of raw leafy greens. Eat 4 5 servings of fruit per day. A serving of fruit is: ?1 medium whole fruit. ? cup of dried fruit. ? cup of fresh, frozen, or canned fruit. ? cup of 100% fruit juice. Eat more foods that have soluble fiber. These are apples, broccoli, carrots, beans, peas, and barley. Try to get 20 30 g of fiber per day. Eat 4 5 servings of nuts, legumes, and seeds per week: ?1 serving of dried beans or legumes equals cup after being cooked. ?1 serving of nuts is cup. ?1 serving of seeds equals 1 tablespoon. General information Eat more home-cooked food. Eat less restaurant, buffet, and fast food. Limit or avoid alcohol. Limit foods that are high in starch and sugar. Avoid fried foods. Lose weight if you are overweight. Keep track of how much salt (sodium) you eat. This is important if you have high blood pressure. Ask your doctor to tell you more about this. Try to add vegetarian meals each week. Fats Choose healthy fats. These include olive oil and canola oil, flaxseeds, walnuts, almonds, and seeds. Eat more omega-3 fats. These include salmon, mackerel, sardines, tuna, flaxseed oil, and ground flaxseeds. Try to eat fish at least 2 times each week. Check food labels. Avoid foods with trans fats or high amounts of saturated fat. Limit saturated fats. ?These are often found in animal products, such as meats, butter, and cream. ?These are also found in plant foods, such as palm oil, palm kernel oil, and coconut oil. Avoid foods with partially hydrogenated oils in them. These have trans fats. Examples are stick margarine, some tub margarines, cookies, crackers, and other baked goods. What foods can I eat? Fruits All fresh, canned (in natural juice), or frozen fruits. Vegetables Fresh or frozen vegetables (raw, steamed, roasted, or grilled). Green salads. Grains Most grains. Choose whole wheat and whole grains most of the time. Rice and pasta, including brown rice and pastas made with whole wheat. Meats and other proteins Lean, well-trimmed beef, veal, pork, and nash. Chicken and turkey without skin. All fish and shellfish. Wild duck, rabbit, pheasant, and venison. Egg whites or low-cholesterol egg substitutes. Dried beans, peas, lentils, and tofu. Seeds and most nuts. Dairy Low-fat or nonfat cheeses, including ricotta and mozzarella. Skim or 1% milk that is liquid, powdered, or evaporated. Buttermilk that is made with low-fat milk. Nonfat or low-fat yogurt. Fats and oils Non-hydrogenated (trans-free) margarines. Vegetable oils, including soybean, sesame, sunflower, olive, peanut, safflower, corn, canola, and cottonseed. Salad dressings or mayonnaise made with a vegetable oil. Beverages Mineral water. Coffee and tea. Diet carbonated beverages. Sweets and desserts Sherbet, gelatin, and fruit ice. Small amounts of dark chocolate. Limit all sweets and desserts. Seasonings and condiments All seasonings and condiments. The items listed above may not be a complete list of foods and drinks you can eat. Contact a dietitian for more options. What foods should I avoid? Fruits Canned fruit in heavy syrup. Fruit in cream or butter sauce. Fried fruit. Limit coconut. Vegetables Vegetables cooked in cheese, cream, or butter sauce. Fried vegetables. Grains Breads that are made with saturated or trans fats, oils, or whole milk. Croissants. Sweet rolls. Donuts. High-fat crackers, such as cheese crackers. Meats and other proteins Fatty meats, such as hot dogs, ribs, sausage, saavedra, rib-eye roast or steak. High-fat deli meats, such as salami and bologna. Caviar. Domestic duck and goose. Organ meats, such as liver. Dairy Cream, sour cream, cream cheese, and creamed cottage cheese. Whole-milk cheeses. Whole or 2% milk that is liquid, evaporated, or condensed. Whole buttermilk. Cream sauce or high-fat cheese sauce. Yogurt that is made from whole milk. Fats and oils Meat fat, or shortening. Grover butter, hydrogenated oils, palm oil, coconut oil, palm kernel oil. Solid fats and shortenings, including saavedra fat, salt pork, lard, and butter. Nondairy cream substitutes. Salad dressings with cheese or sour cream. Beverages Regular sodas and juice drinks with added sugar. Sweets and desserts Frosting. Pudding. Cookies. Cakes. Pies. Milk chocolate or white chocolate. Buttered syrups. Full-fat ice cream or ice cream drinks. The items listed above may not be a complete list of foods and drinks to avoid. Contact a dietitian for more information. Summary Heart-healthy meal planning includes eating less unhealthy fats, eating more healthy fats, and making other changes in your diet. Eat a balanced diet. This includes fruits and vegetables, low-fat or nonfat dairy, lean protein, nuts and legumes, whole grains, and heart-healthy oils and fats. This information is not intended to replace advice given to you by your health care provider. Make sure you discuss any questions you have with your health care provider. Document Released: 01/08/2013 Document Revised: 09/13/2018 Document Reviewed: 08/17/2018 [employer] Patient Education 2020 [email or web address]. Follow Up Care 06/07/2022 09:37:31 With:ANN ARREOLA DO Address: [address] [place] [address] [phone] When:1-2 days Comments:Please call to find arrange a hospital follow-up With:REMY BRANDON APRN-[employer] Address: [address] [facility] [address] [facility] [address] [facility] [place] [address]- When:07/12/2022 10:00:00 Comments:This will be with Dr. Lopes's nurse practitioner. Please present to [facility] radiology department 1 hour prior to this visit for chest x-ray. With:NADIYA DAVIS MD Address: [facility] [address] [facility] [address] [place] [address]- [phone] When: Unknown Comments:PLEASE FILL OUT THE NEW PATIENT FORMS AND DROP THEM OFF TO THE OFFICE. SOMEONE FROM THE OFFICE WILL CALL YOU WITH APPOINTMENT INFORMATION. With:[facility] Professional follow up Address: When: Unknown Comments:Teresa Krueger or covering Nurse Advanced [facility] Professional will call you and/or your family after your release from the hospital. Office Hours: Monday thru Monday 730am - 4pmPhone: Zfbsj: [email or web address] 06-25-2022 Note Discharge Instructions Thank you for allowing [facility] to assist you with your healthcare needs. The following is important discharge information regarding your hospital visit. Your Care Team ANAID VOGEL Your Diagnosis Lung nodule, Mediastinal Mass S/P Right Lateral Muscle Sparing Mini Thoracotomy, Mass excision with frozen section 06/22/2022 Chronic obstructive pulmonary disease with emphysema Schizophrenia Smoker Hypoxia Acute postoperative pain What to do next Instructions From Your Doctor No ointments/lotions/powders to right chest incision sites Wash right chest surgical incisions with clean washcloth with soap and water, pat dry Please notify Dr. Lopes's office if you develop a fever of 101 F or higher, develop sudden onset of shortness of breath, develop pain uncontrolled by pain medication, and/or develop puslike drainage from chest incision site Scheduled Follow-Up Appointments Appointment Type When With Where Contact InformationCTS OV Post Op 07/12/2022 10:00 AM EST REMY BRANDON [facility] Follow Up Appointments Follow Up with REMY BRANDON When 07/12/2022 10:00 AM EST Why: This will be with Dr. Lopes's nurse practitioner. Please present to [facility] radiology department 1 hour prior to this visit for chest x-ray. Where: [address] [place] [address] [facility] [place] [address]- Follow Up with ANN ARREOLA DO When Within 1-2 days Why: Please call to find arrange a hospital follow-up Where: [address] [facility] [address] [place] [address]- [phone] Follow Up with NADIYA DAVIS MD When Why: PLEASE FILL OUT THE NEW PATIENT FORMS AND DROP THEM OFF TO THE OFFICE. SOMEONE FROM THE OFFICE WILL CALL YOU WITH APPOINTMENT INFORMATION. Where: [address] [address]- [phone] Follow Up with Advanced Practice Professional follow up When Why: Teresa Krueger or covering Nurse Advanced Practice Professional will call you and/or your family after your release from the hospital. Office Hours: Monday thru Monday 730am - 4pm Email: [email or web address] Where: The Following Activity and Diet Have Been Ordered for You Discharge Activity - Ordered -- Other, No lifting greater than 10 pounds, tub baths/soaking, or driving until follow up appointment; MAY SHOWER, 06/25/22 10:12:00 EST Discharge Diet - Ordered -- Type of Diet: Regular, 06/25/22 10:12:00 EST The Following Equipment Has Been Ordered for You Discharge Home Equipment Discharge Wound Care - Ordered -- Wash incisions with soap and water daily using clean wash cloth, pat dry, no ointments/lotions/powders to incision sites, 06/25/22 10:12:00 EST The Following Treatments Have Been Ordered for You Discharge Labs No qualifying data available. Discharge Radiology Discharge Outpatient Radiology - Ordered -- PA and lateral chest x-ray, Right pneumothorax, follow-up within: 2 weeks, Results Notify to: CUATE LOPES MD, Please present to [facility] radiology department 1 hour prior to office visit on 07/12/2022 for chest x-ray, 06/25/22 10:12:00 EST Other Therapies No qualifying data available. Post Acute Orders No qualifying data available. Someone Will Contact You Regarding These Home Health Referrals No home referrals have been ordered for you. No one will call you. Allergies NKA Medications Please ask your primary doctor or pharmacist before taking any other medication not listed, including over the counter drugs, herbal medications, vitamins and or supplements as they may interact with your home medications. What How Much When Why Instructions Last Dose New docusate (docusate sodium 100 mg oral capsule) 1 cap by mouth Three (3) times a day as needed for as needed for constipation New oxyCODONE (oxyCODONE 5 mg oral tablet ( IMMEDIATE release )) 1 tab(s) by mouth Every 6 hours as needed for Pain, scale 7-10 Acute postoperative pain Duration: 7 Days Pickup at [facility] Changed acetaminophen (Tylenol 325 mg oral capsule) 650 Milligram by mouth Every 4 hours as needed for Pain, scale 1-6 Unchanged albuterol (albuterol MDI (90 mcg/ inh) CFC free inhalation aerosol) 2 puff(s) by inhalation Every 4 hours as needed for as needed for wheezing Unchanged cholecalciferol (Vitamin D3 25 mcg (1000 intl units) oral capsule) 1 cap by mouth Every day Unchanged cyclobenzaprine (cyclobenzaprine 10 mg oral tablet) 1 tab(s) by mouth Two (2) times a day Unchanged ibuprofen (ibuprofen 200 mg oral tablet) 2 tab(s) by mouth Every 4 hours as needed for for pain Unchanged pantoprazole (pantoprazole 40 mg oral enteric coated tablet) 1 tab(s) by mouth Once a day Unchanged sucralfate (sucralfate 1 g oral tablet) 1 tab(s) by mouth Four (4) times daily-before meals and at bedtime Unchanged triamcinolone topical (triamcinolone 0.1% topical paste) 1 apps Topical Once a day as needed for Rash Pharmacy Information [facility]: [address] [place], [place] [id number] [phone] What How Much When Comments Stop Taking predniSONE (predniSONE 20 mg oral tablet) 1 tab(s) by mouth Once a day Duration: 5 Days Please take this list to your next doctor s visit. Bring all medications you take, including over the counter medications, herbals and other supplements with you to your doctor s visit. Patients and families are reminded to discard old lists and to update any records with all medication providers or retail pharmacies. Education Materials Thoracotomy, Care After This sheet gives you information about how to care for yourself after your procedure. Your doctor may also give you more specific instructions. If you have problems or questions, contact your doctor. Follow these instructions at home: Preventing lung infection (pneumonia) Take deep breaths or do breathing exercises as told by your doctor. Cough often. Coughing is important to clear thick spit (phlegm) and open your lungs. If coughing hurts, hold a pillow against your chest or place both hands flat on top of your cut (splinting) when you cough. This may help with discomfort. Use an incentive spirometer as told. This is a tool that measures how well you fill your lungs with each breath. Do lung therapy (pulmonary rehabilitation) as told. Medicines Take xxuk-fhn-gggjkhg or prescription medicines only as told by your doctor. If you have pain, take pain-relieving medicine before your pain gets very bad. This will help you breathe and cough more comfortably. If you were prescribed an antibiotic medicine, take it as told by your doctor. Do not stop taking the antibiotic even if you start to feel better. Activity Ask your doctor what activities are safe for you. Do not travel by airplane for 2 weeks after your chest tube is removed, or until your doctor says that this is safe. Do not lift anything that is heavier than 10 lb (4.5 kg), or the limit that your doctor tells you, until he or she says that it is safe. Do not drive until your doctor approves. ? Do not drive or use heavy machinery while taking prescription pain medicine. Incision care Follow instructions from your doctor about how to take care of your cut from surgery (incision). Make sure you: ? Wash your hands with soap and water before you change your bandage (dressing). If you cannot use soap and water, use hand bleach tester. ? Change your bandage as told by your doctor. ? Leave stitches (sutures), skin glue, or skin tape (adhesive) strips in place. They may need to stay in place for 2 weeks or longer. If tape strips get loose and curl up, you may trim the loose edges. Do not remove tape strips completely unless your doctor says it is okay. Keep your bandage dry. Check your cut from surgery every day for signs of infection. Check for: ? More redness, swelling, or pain. ? More fluid or blood. ? Warmth. ? Pus or a bad smell. Bathing Do not take baths, swim, or use a hot tub until your doctor approves. You may take showers. After your bandage has been removed, use soap and water to gently wash your cut from surgery. Do not use anything else to clean your cut unless your doctor tells you to. Eating and drinking Eat a healthy diet as told by your doctor. A healthy diet includes: ? Fresh fruits and vegetables. ? Whole grains. ? Low-fat (lean) proteins. Drink enough fluid to keep your pee (urine) clear or pale yellow. General instructions To prevent or treat trouble pooping (constipation) while you are taking prescription pain medicine, your doctor may recommend that you: ? Take blbx-pgw-zxvltur or prescription medicines. ? Eat foods that are high in fiber. These include fresh fruits and vegetables, whole grains, and beans. ? Limit foods that are high in fat and processed sugars, such as fried and sweet foods. Do not use any products that contain nicotine or tobacco. These include cigarettes and e-cigarettes. If you need help quitting, ask your doctor. Avoid secondhand smoke. Wear compression stockings as told. These help to prevent blood clots and reduce swelling in your legs. If you have a chest tube, care for it as told. Keep all follow-up visits as told by your doctor. This is important. Contact a doctor if: You have more redness, swelling, or pain around your cut from surgery. You have more fluid or blood coming from your cut from surgery. Your cut from surgery feels warm to the touch. You have pus or a bad smell coming from your cut from surgery. You have a fever or chills. Your heartbeat seems uneven. You feel sick to your stomach (nauseous). You throw up (vomit). You have muscle aches. You have trouble pooping (having a bowel movement). This may mean that you: ? Poop fewer times in a week than normal. ? Have a hard time pooping. ? Have poop that is dry, hard, or bigger than normal. Get help right away if: You get a rash. You feel light-headed. You feel like you might pass out (faint). You are short of breath. You have trouble breathing. You are confused. You have trouble talking. You have problems with your seeing (vision). You are not able to move. You lose feeling (have numbness) in your: ? Face. ? Arms. ? Legs. You pass out. You have a sudden, bad headache. You feel weak. You have chest pain. You have pain that: ? Is very bad. ? Gets worse, even with medicine. Summary Take deep breaths, do breathing exercises, and cough often. This helps prevent lung infection (pneumonia). Do not drive until your doctor approves. Do not travel by airplane for 2 weeks after your chest tube is removed, or until your doctor says that this is safe. Check your cut from surgery every day for signs of infection. Eat a healthy diet. This includes fresh fruits and vegetables, whole grains, and low-fat (lean) proteins. This information is not intended to replace advice given to you by your health care provider. Make sure you discuss any questions you have with your health care provider. Document Released: 01/08/2013 Document Revised: 06/22/2018 Document Reviewed: 04/03/2017 [employer] Patient Education 2020 [email or web address]. Heart-Healthy Eating Plan Heart-healthy meal planning includes: Eating less unhealthy fats. Eating more healthy fats. Making other changes in your diet. Talk with your doctor or a diet specialist (dietitian) to create an eating plan that is right for you. What is my plan? Your doctor may recommend an eating plan that includes: Total fat: % or less of total calories a day. Saturated fat: % or less of total calories a day. Cholesterol: less than mg a day. What are tips for following this plan? Cooking Avoid frying your food. Try to bake, boil, grill, or broil it instead. You can also reduce fat by: Removing the skin from poultry. Removing all visible fats from meats. Steaming vegetables in water or broth. Meal planning At meals, divide your plate into four equal parts: ? Fill one-half of your plate with vegetables and green salads. ? Fill one-fourth of your plate with whole grains. ? Fill one-fourth of your plate with lean protein foods. Eat 4 5 servings of vegetables per day. A serving of vegetables is: ? 1 cup of raw or cooked vegetables. ? 2 cups of raw leafy greens. Eat 4 5 servings of fruit per day. A serving of fruit is: ? 1 medium whole fruit. ? cup of dried fruit. ? cup of fresh, frozen, or canned fruit. ? cup of 100% fruit juice. Eat more foods that have soluble fiber. These are apples, broccoli, carrots, beans, peas, and barley. Try to get 20 30 g of fiber per day. Eat 4 5 servings of nuts, legumes, and seeds per week: ? 1 serving of dried beans or legumes equals cup after being cooked. ? 1 serving of nuts is cup. ? 1 serving of seeds equals 1 tablespoon. General information Eat more home-cooked food. Eat less restaurant, buffet, and fast food. Limit or avoid alcohol. Limit foods that are high in starch and sugar. Avoid fried foods. Lose weight if you are overweight. Keep track of how much salt (sodium) you eat. This is important if you have high blood pressure. Ask your doctor to tell you more about this. Try to add vegetarian meals each week. Fats Choose healthy fats. These include olive oil and canola oil, flaxseeds, walnuts, almonds, and seeds. Eat more omega-3 fats. These include salmon, mackerel, sardines, tuna, flaxseed oil, and ground flaxseeds. Try to eat fish at least 2 times each week. Check food labels. Avoid foods with trans fats or high amounts of saturated fat. Limit saturated fats. ? These are often found in animal products, such as meats, butter, and cream. ? These are also found in plant foods, such as palm oil, palm kernel oil, and coconut oil. Avoid foods with partially hydrogenated oils in them. These have trans fats. Examples are stick margarine, some tub margarines, cookies, crackers, and other baked goods. What foods can I eat? Fruits All fresh, canned (in natural juice), or frozen fruits. Vegetables Fresh or frozen vegetables (raw, steamed, roasted, or grilled). Green salads. Grains Most grains. Choose whole wheat and whole grains most of the time. Rice and pasta, including brown rice and pastas made with whole wheat. Meats and other proteins Lean, well-trimmed beef, veal, pork, and nash. Chicken and turkey without skin. All fish and shellfish. Wild duck, rabbit, pheasant, and venison. Egg whites or low-cholesterol egg substitutes. Dried beans, peas, lentils, and tofu. Seeds and most nuts. Dairy Low-fat or nonfat cheeses, including ricotta and mozzarella. Skim or 1% milk that is liquid, powdered, or evaporated. Buttermilk that is made with low-fat milk. Nonfat or low-fat yogurt. Fats and oils Non-hydrogenated (trans-free) margarines. Vegetable oils, including soybean, sesame, sunflower, olive, peanut, safflower, corn, canola, and cottonseed. Salad dressings or mayonnaise made with a vegetable oil. Beverages Mineral water. Coffee and tea. Diet carbonated beverages. Sweets and desserts Sherbet, gelatin, and fruit ice. Small amounts of dark chocolate. Limit all sweets and desserts. Seasonings and condiments All seasonings and condiments. The items listed above may not be a complete list of foods and drinks you can eat. Contact a dietitian for more options. What foods should I avoid? Fruits Canned fruit in heavy syrup. Fruit in cream or butter sauce. Fried fruit. Limit coconut. Vegetables Vegetables cooked in cheese, cream, or butter sauce. Fried vegetables. Grains Breads that are made with saturated or trans fats, oils, or whole milk. Croissants. Sweet rolls. Donuts. High-fat crackers, such as cheese crackers. Meats and other proteins Fatty meats, such as hot dogs, ribs, sausage, saavedra, rib-eye roast or steak. High-fat deli meats, such as salami and bologna. Caviar. Domestic duck and goose. Organ meats, such as liver. Dairy Cream, sour cream, cream cheese, and creamed cottage cheese. Whole-milk cheeses. Whole or 2% milk that is liquid, evaporated, or condensed. Whole buttermilk. Cream sauce or high-fat cheese sauce. Yogurt that is made from whole milk. Fats and oils Meat fat, or shortening. Grover butter, hydrogenated oils, palm oil, coconut oil, palm kernel oil. Solid fats and shortenings, including saavedra fat, salt pork, lard, and butter. Nondairy cream substitutes. Salad dressings with cheese or sour cream. Beverages Regular sodas and juice drinks with added sugar. Sweets and desserts Frosting. Pudding. Cookies. Cakes. Pies. Milk chocolate or white chocolate. Buttered syrups. Full-fat ice cream or ice cream drinks. The items listed above may not be a complete list of foods and drinks to avoid. Contact a dietitian for more information. Summary Heart-healthy meal planning includes eating less unhealthy fats, eating more healthy fats, and making other changes in your diet. Eat a balanced diet. This includes fruits and vegetables, low-fat or nonfat dairy, lean protein, nuts and legumes, whole grains, and heart-healthy oils and fats. This information is not intended to replace advice given to you by your health care provider. Make sure you discuss any questions you have with your health care provider. Document Released: 01/08/2013 Document Revised: 09/13/2018 Document Reviewed: 08/17/2018 [employer] Patient Education 2020 [email or web address]. Additional Information VACCINATE! IT SAVES LIVES! Members of the community who have not yet received the COVID-19 vaccine and would like to receive it can visit one of [facility] vaccine clinics. There are many vaccine clinic locations within the [facility]. For locations and available times, please visit [email or web address] It is important to note that some COVID mobile vaccine clinics are held outdoors and may be canceled in rainy or stormy conditions. To learn more about pediatric vaccinations (ages 5-11), we invite you to visit the [facility] webpage. [email or web address] To learn more about the COVID-19 vaccine, we invite you to visit the [facility] website for a list of frequently asked questions. [email or web address] [facility] Patient Portal Access Instructions: Stay connected with your healthcare team and access your personal medical information anytime with the [facility] Patient Portal.If you would like a full copy of your medical records, please contact the [facility] Medical Records Department, Monday through Monday between 8a.m. and 4:30p.m. Please follow the directions below to access the portal: 1.Access the email account you provided upon registration to the [facility].2.Look for an invitation email from [facility].3.Open the email and access the invitation link: Accept Invitation to [facility].Fill in the required acosta to create your account. Sign into [email or web address] with your username and password that you created in the above steps to stay up to date. You can then view a summary of results, a summary of your visits, and the ability to download your summaries to your computer or send the information securely to a physician. Remember that your healthcare information is confidential, so carefully consider who you will allow to register on the [facility] Patient Portal for access to your information. You can also access the [facility] Patient Portal on the [employer]. Simply click on Health Records under Health Data and then click on the [facility] logo. HOW TO SAFELY DISPOSE OF PRESCRIPTION MEDICATIONS Please use one of the following methods to safely dispose of your unused medications. 1.Use a drug disposal kit: the drug disposal pouch allows you to safely discard your old and unused drugs. Ask your nurse to give you one when you are discharged.2.Visit a local take-back location: Many local pharmacies and police departments have programs that collect old and unwanted prescription drugs. Call your local pharmacy or go to http://[facility].Front Row/6W7Vn4n to find one close to you.3.Make use of household items: Use cat litter or old coffee grounds to dispose medications if other options are not available. Mix your drugs with these household products, seal them in an airtight container and throw it into the garbage. Call [facility]: [phone] to be sure your drugs can be disposed of in this way. Some medicines may require a different approach.4.Never flush your medications down the toilet. IF YOU HAVE BEEN PRESCRIBED AN OPIOID FOR PAIN If you have been prescribed an opioid (such as hydrocodone, oxycodone or morphine), it is critical to understand the possible side effects and risks of opioid pain medications. Even when taken as directed, opioids can have several side effects including: Tolerance, meaning you might need to take more of a medication for the same pain relief. Nausea, vomiting and/or constipation. Sleepiness, dizziness, dry mouth, confusion, depression or itching. Physical dependence, meaning you have withdrawal symptoms when a medication is stopped, can develop within a few days. KNOW YOUR RESPONSIBILITIES It is important to know exactly how much and how often to take the opioid pain medications you are prescribed. Never take opioids in higher amounts or more often than prescribed. Do not combine opioids with alcohol or other drugs that cause drowsiness, such as benzodiazepines, also known as benzos, including diazepam and alprazolam, muscle relaxants or sleep aids. Never sell or share prescription opioids. This is illegal. Store opioids in a secure place and out of reach of others (including children, family, friends and visitors). The last page of this document has been signed and retained as a CHART COPY. Signatures Patient Education Materials Thoracotomy, Care After, [id number] Heart-Healthy Eating Plan, [id number] Medication Leaflets My discharge plan and instructions have been reviewed and explained to me and IJEANNETTE JOHN R understand my current condition and have read and understand these discharge instructions. I have received a written copy of the plan/instructions. If I have questions, I am aware that I should contact my doctor. 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 Lung nodule, Mediastinal Mass S/P Right Lateral Muscle Sparing Mini Thoracotomy, Mass excision with frozen section 06/22/2022 (R91.1 - ICD-10-CM) 2. Chronic obstructive pulmonary disease with emphysema (J44.9 - ICD-10-CM) 3. Schizophrenia (F20.9 - ICD-10-CM) 4. Smoker (F17.200 - ICD-10-CM) 5. Hypoxia (R09.02 - ICD-10-CM) Solitary pulmonary nodule (R91.1 - ICD-10-CM) Emphysema, unspecified (J43.9 - ICD-10-CM) Schizophrenia, unspecified (F20.9 - ICD-10-CM) Nicotine dependence, cigarettes, uncomplicated (F17.210 - ICD-10-CM) Chest pain, unspecified (R07.9 - ICD-10-CM) Hypoxemia (R09.02 - ICD-10-CM) Acute postoperative pain (G89.18 - ICD-10-CM) Ordered: oxyCODONE 5 mg oral tablet ( IMMEDIATE release ); Dose : 5 mg = 1 tab(s), Oral, q6hr, PRN Pain, scale 7-10, X 7 day(s), # 28 tab(s), 0 Refill(s), 07/02/22 9:54:00 EST, Pharmacy: [id number], Acute postoperative pain, 165.1, cm, 06/22/22 22:13:00 EST, Height, 56.5 Additional Orders: Ordered: Telemetry Monitoring - Continue,06/25/22 9:56:00 EST, Constant Order Ordered: Tylenol 325 mg oral capsule,Dose : 650 mg =, Oral, q4h, PRN Pain, scale 1-6, 0 Refill(s) Ordered: docusate sodium 100 mg oral capsule,Dose : 100 mg = 1 cap(s), Oral, TID, PRN as needed for constipation, 0 Refill(s) End of Orders Hospital Course This is a 71-year-old male with a history of emphysema, COPD, schizophrenia and tobacco abuse who was referred by Dr. Ann Arreola with a mediastinal mass and right upper lobe lung mass. CT-guided needle biopsy was inconclusive. On 06/22/2022 he underwent a right lateral muscle-sparing minithoracotomy, mass excision with frozen section for Dr. Lopes. 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 He tolerated procedure well was transferred to SICU in stable condition. HANDLE SANDER OPERATOR pump was used for pain control. POD #1 chest tube 10-10 cm of suction without air leak. O2 per nasal cannula. HANDLE SANDER OPERATOR discontinued. Transfer to stepdown. Chest tube placed to waterseal at 6 PM. POD #2 chest x-ray reviewed. No pneumothorax. Chest tube clamped with plans for chest x-ray in 4 hours. [1] Follow-up chest x-ray no significant change. Chest tube removed.Showed chest x-ray after chest tube removal showing no evidence of pneumothorax. POD #3: SPO2 91 to 94% on room air. Official surgical pathology is pending. Patient will continue to follow with deicer kit assembler, Dr. Ann Arreola in [facility]. Patient cleared for discharge home per Dr. Arreola. Patient has declined home health care nurse or 2 courtesy RN visits. Patient will be discharged home with friend. Allergies NKA Procedures OPERATIVE PROCEDURE: 1. Right lateral muscle sparing mini thoracotomy and incisional biopsy of the right lung mass with frozen section. 2. Intercostal nerve block with 0.25% Marcaine [2] Consults No qualifying data available. Imaging Results and Diagnostics XR Chest 2 Views Result Date: June 24, 2022 Verified By: GALEN BARRAZA DO CLINICAL STATEMENT: IMPRESSION: Interval right chest tube removal. No evident pneumothorax. Similar right paratracheal mass. Physical Exam Vitals and Measurements T: 36.7 C (Oral) TMIN: 36.6 C (Oral) TMAX: 36.8 C (Oral) HR: 98 RR: 17 BP: 142/81 SpO2: 94% Weight Dosing Weight: 56.5 kg (06/22/22) Dosing Weight: 56.5 kg (06/22/22) Dosing Weight: 56.5 kg (06/22/22) Constitutional: Alert, oriented, anxious to leave hospital HEENT: Normocephalic, atraumatic Lungs: Unlabored respirations, lung sounds clear bilaterally, SPO2 91 to 94% on room air, right lateral thoracotomy surgical incision open air, edges approximated, no drainage, previous chest tube site covered with gauze dressing with suture in place Heart: Regular rate and rhythm, S1-S2, no murmur or rub, heart rate ranging 90-100 Abdomen: Soft, nontender, bowel sounds present Extremities: Well perfused, pedal pulses +1 bilaterally, no lower leg edema Disposition: Home with friend Pending Labs and Studies Labs from 06/24/2022 WBC 7.5 Hemoglobin 14.3 Hematocrit 43.4 Platelet 180 Glucose 87 Sodium 136 Potassium 4.7 BUN 21 Creatinine 0.97 Code Status Code Status - Ordered -- 06/22/22 15:43:00 EST, Full Code, Constant Order Admission Date 06/22/2022 Discharge Date 06/25/2022 Patient Instructions No ointments/lotions/powders to right chest incision sites Wash right chest surgical incisions with clean washcloth with soap and water, pat dry Please notify Dr. Lopes's office if you develop a fever of 101 F or higher, develop sudden onset of shortness of breath, develop pain uncontrolled by pain medication, and/or develop puslike drainage from chest incision site Medications New Prescription docusate (docusate sodium 100 mg oral capsule)1 cap by mouth three (3) times a day as needed as needed for constipation. oxyCODONE (oxyCODONE 5 mg oral tablet ( IMMEDIATE release ))1 tab(s) by mouth every 6 hours as needed Pain, scale 7-10 for 7 Days. Refills: 0. Changed acetaminophen (Tylenol 325 mg oral capsule)650 Milligram by mouth every 4 hours as needed Pain, scale 1-6. Unchanged albuterol (albuterol MDI (90 mcg/inh) CFC free inhalation aerosol)2 puff(s) by inhalation every 4 hours as needed as needed for wheezing. cholecalciferol (Vitamin D3 25 mcg (1000 intl units) oral capsule)1 cap by mouth every day. cyclobenzaprine (cyclobenzaprine 10 mg oral tablet)1 tab(s) by mouth two (2) times a day. ibuprofen (ibuprofen 200 mg oral tablet)2 tab(s) by mouth every 4 hours as needed for pain. pantoprazole (pantoprazole 40 mg oral enteric coated tablet)1 tab(s) by mouth once a day. sucralfate (sucralfate 1 g oral tablet)1 tab(s) by mouth four (4) times daily-before meals and at bedtime. triamcinolone topical (triamcinolone 0.1% topical paste)1 apps Topical once a day as needed Rash. Discontinued predniSONE (predniSONE 20 mg oral tablet)1 tab(s) by mouth once a day for 5 Days. I have reviewed the [place] Automated Rx Reporting System (OARRS) report for this patient for refill pattern and other prescriber involvement as part of the appropriate surveillance for the provision of acute and chronic controlled medications. The report was requested and reviewed on the date of this entry, and was considered in the prescribing process. Follow Up Follow Up with REMY BRANDON When 07/12/2022 10:00 AM EST Why: This will be with Dr. Lopes's nurse practitioner. Please present to [facility] radiology department 1 hour prior to this visit for chest x-ray. Where: [address] [facility] [place] [address]- Follow Up with ANN ARREOLA DO When Within 1-2 days Why: Please call to find arrange a hospital follow-up Where: [address] [facility] [address] [place] [address]- [phone] Follow Up with NADIYA DAVIS MD When Why: PLEASE FILL OUT THE NEW PATIENT FORMS AND DROP THEM OFF TO THE OFFICE. SOMEONE FROM THE OFFICE WILL CALL YOU WITH APPOINTMENT INFORMATION. Where: [address] [place] [address]- [phone] Follow Up with Advanced Practice Professional follow up When Why: Teresa Krueger or covering Nurse Advanced Practice Professional will call you and/or your family after your release from the hospital. Office Hours: Monday thru Monday 730am - 4pm Email: [email or web address] Where: Follow Up Appointments No qualifying data available. Follow Up Labs/Studies Discharge Labs No Follow-up Labs Discharge Studies Discharge Outpatient Radiology - Ordered -- PA and lateral chest x-ray, Right pneumothorax, follow-up within: 2 weeks, Results Notify to: CUATE LOPES MD, Please present to [facility] radiology department 1 hour prior to office visit on 07/12/2022 for chest x-ray, 06/25/22 10:12:00 EST Discharge Diet Discharge Diet - Ordered -- Type of Diet: Regular, 06/25/22 10:12:00 EST Discharge Activity Discharge Activity - Ordered -- Other, No lifting greater than 10 pounds, tub baths/soaking, or driving until follow up appointment; MAY SHOWER, 06/25/22 10:12:00 EST Condition on Discharge Stable Discharge Disposition Home with friend care. Patient declines home health care or 2 courtesy RN visits. Information Provided To Patient [1] Progress Note; ALBERTA CAROLINA Gina DIANE 06/24/2022 09:29 EST [2] OPERATIVE NOTE; CUATE LOPES MD 06/22/2022 00:00 EST Digitally Signed by ZE RIDDLE on 06/25/2022 12:04 PM [facility] 06-25-2022 Nurse Progress note Pt began walking with bags down hallway at 0730, attempting to leave after refusing morning medication. Education provided about importance of being cleared by the doctor prior to leaving. Patient made a phone call to his ROSARIO Mitchell at nurses station and admitted to taking his own medication this morning; 40 mg protonix, 10mg flexoril, 10 mg tramadol, 1g sucralfate, 400 mg ibuprofen, and 500 mg acetaminophen. WOODROW Hodge who came down to reinforce education on not leaving without speaking with Dr. Arreola. Patient agreeable to wait until Dr. Arreola comes around, moved patient to chair next to nurses station for increased interaction and redirection if needed. Patient apologetic for attempting to leave. Digitally Signed by Anaid Hernandez RN on 06/25/2022 08:17 AM [facility] 06-24-2022 Note ORIGINAL EXAMINATION: TWO XRAY VIEWS OF THE CHEST06/24/2022 4:26 pm COMPARISON: June 24, 2022 HISTORY: ORDERING SYSTEM PROVIDED HISTORY: Reason for Exam: ptx FINDINGS: Interval removal of right chest tube with mild residual subcutaneous emphysema. No definite right pneumothorax remains. Similar masslike consolidation along the right upper paratracheal stripe. There is scattered areas of scarring with background emphysema. No large pleural effusion. No left pneumothorax. No new focal area of consolidation. Cardiac silhouette is stable. There is aortic atherosclerosis.. IMPRESSION: Interval right chest tube removal. No evident pneumothorax. Similar right paratracheal mass. Interpreted by: Galen Barraza DO Preliminary Report By: Galen Barraza DO Electronically signed By Galen Barraza DO Dictated Date: 06/24/2022 4:35:20 PM Prelim Date: 06/24/2022 4:38:46 PM Sign Date: 06/24/2022 4:38:46 PM Ordering Provider: CAROLINA PINZON [facility] 06-24-2022 Note ORIGINAL EXAMINATION: TWO XRAY VIEWS OF THE CHEST06/24/2022 4:26 pm COMPARISON: June 24, 2022 HISTORY: ORDERING SYSTEM PROVIDED HISTORY: Reason for Exam: ptx FINDINGS: Interval removal of right chest tube with mild residual subcutaneous emphysema. No definite right pneumothorax remains. Similar masslike consolidation along the right upper paratracheal stripe. There is scattered areas of scarring with background emphysema. No large pleural effusion. No left pneumothorax. No new focal area of consolidation. Cardiac silhouette is stable. There is aortic atherosclerosis.. IMPRESSION: Interval right chest tube removal. No evident pneumothorax. Similar right paratracheal mass. Interpreted by: Galen Barraza DO Preliminary Report By: Galen Barraza DO Electronically signed By Galen Barraza DO Dictated Date: 06/24/2022 4:35:20 PM Prelim Date: 06/24/2022 4:38:46 PM Sign Date: 06/24/2022 4:38:46 PM Ordering Provider: [facility] 06-24-2022 Note ORIGINAL EXAMINATION: ONE XRAY VIEW OF THE CHEST06/24/2022 1:44 pm COMPARISON: 06/24/2022 HISTORY: ORDERING SYSTEM PROVIDED HISTORY: Reason for Exam: ptx FINDINGS: The cardiomediastinal contours are normal. Right chest tube noted. No definite pneumothorax seen. Masslike density seen along the high right paratracheal stripe. Background of COPD/emphysema noted. Left upper lung nodule seen on the prior study is not well seen on the current exam. No large pleural effusions visualized. No aggressive osseous lesions identified.Bony detail is not optimal. IMPRESSION: No significant change. Interpreted by: Rikki Dolan MD Preliminary Report By: Rikki Dolan MD Electronically signed By Rikki Dolan MD Dictated Date: 06/24/2022 1:47:24 PM Prelim Date: 06/24/2022 1:49:38 PM Sign Date: 06/24/2022 1:49:38 PM Ordering Provider: [facility] 06-24-2022 Note ORIGINAL EXAMINATION: ONE XRAY VIEW OF THE CHEST06/24/2022 1:44 pm COMPARISON: 06/24/2022 HISTORY: ORDERING SYSTEM PROVIDED HISTORY: Reason for Exam: ptx FINDINGS: The cardiomediastinal contours are normal. Right chest tube noted. No definite pneumothorax seen. Masslike density seen along the high right paratracheal stripe. Background of COPD/emphysema noted. Left upper lung nodule seen on the prior study is not well seen on the current exam. No large pleural effusions visualized. No aggressive osseous lesions identified.Bony detail is not optimal. IMPRESSION: No significant change. Interpreted by: Rikki Dolan MD Preliminary Report By: Rikki Dolan MD Electronically signed By Rikki Dolan MD Dictated Date: 06/24/2022 1:47:24 PM Prelim Date: 06/24/2022 1:49:38 PM Sign Date: 06/24/2022 1:49:38 PM Ordering Provider: [facility] 06-24-2022 Note Date of Service 06/24/2022 POD #2 Chief Complaint This is a 71-year-old male with a history of emphysema, COPD, schizophrenia and tobacco abuse who was referred by Dr. Ann Arreola with a mediastinal mass and right upper lobe lung mass. CT-guided needle biopsy was inconclusive. On 06/22/2022 he underwent a right lateral muscle-sparing minithoracotomy, mass excision with frozen section for Dr. Lopes. 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 He tolerated procedure well was transferred to SICU in stable condition. HANDLE SANDER OPERATOR pump was used for pain control. POD #1 chest tube 10-10 cm of suction without air leak. O2 per nasal cannula. HANDLE SANDER OPERATOR discontinued. Transfer to stepdown. Chest tube placed to waterseal at 6 PM. POD #2 chest x-ray reviewed. No pneumothorax. Chest tube clamped with plans for chest x-ray in 4 hours. Subjective Minimal discomfort Objective Vitals and Measurements T: 36.8 C (Oral) TMIN: 36.7 C (Oral) TMAX: 36.9 C (Axillary) HR: 98(Monitored) RR: 18 BP: 139/76 SpO2: 97% Intake and Output 7AM Yesterday to 7AM Today Intake and Output (Last 24 hours) Intake Oral Intake 770.00 Supplement Intake 90.00 Output Chest Tube Output: 33.00 Urine Voided 380.00 Total Summary Total Intake 860.00 Total Output 413.00 Fluid Balance 447.00 Physical Exam Neurological: Alert and oriented x3, appropriate Lungs: Clear, right chest tube without air leak, clamped, nasal cannula 3 L with SaO2 95% Heart: Slightly irregular S1-S2, NSR frequent PACs Incisions: Right thoracotomy incision without drainage Abdomen: Soft, positive bowel sounds, no BM Extremities: Well perfused Disposition: Home with neighbor support Weight Dosing Weight: 56.5 kg (06/22/22) Dosing Weight: 56.5 kg (06/22/22) Dosing Weight: 56.5 kg (06/22/22) Medications Medications (13) Active Scheduled: (6) docusate sodium 100 mg Capsule 100 mg 1 cap(s), Oral, TID heparin 5,000 units/mL (1 mL) vial 5,000 unit(s) 1 mL, Subcutaneous, q8h ketorolac 15 mg/mL vial 15 mg 1 mL, IV Push, q6h mupirocin 2% Ointment 22 Gram(s) tube 1 amos, Nostril, each, q12h pantoprazole 40 mg EC tablet 40 mg 1 tab(s), Oral, qDayAC sucralfate 1 gm tablet 1 gram(s) 1 tab(s), Oral, achs Continuous: (0) PRN: (7) acetaminophen 325 mg Tablet 650 mg 2 tab(s), Oral, q4h albuterol 0.083% Soln UD (2.5mg/3 mL) 2.5 mg 3 mL, Inhalation, q6hr bisacodyl 10 mg Suppository 10 mg 1 supp, Rectal, Once hydralazine 20 mg/mL (1mL) vial 10 mg 0.5 mL, IV Push, q6h ondansetron 2 mg/ 1 mL 2 mL INJ 4 mg 2 mL, IV Push, q4h oxycodone 5 mg tablet (immediate release) 5 mg 1 tab(s), Oral, q4h oxycodone 5 mg tablet (immediate release) 10 mg 2 tab(s), Oral, q4h Lab Results 06/24 04:23 WBC: 7.5 Hgb: 14.3 Hct: 43.4 Platelet: 180 Neutrophil %: 81.3 H Glucose Level: 87 Sodium Level: 136 Potassium Level: 4.7 BUN: 21.0 Creatinine Lvl (s): 0.97 06/23 04:15 WBC: 11.3 H Hgb: 14.9 Hct: 45.4 Platelet: 205 Neutrophil %: 83.4 H Glucose Level: 113 Sodium Level: 136 Potassium Level: 5.0 BUN: 14.0 Creatinine Lvl (s): 1.01 Imaging Results and Diagnostics XR Chest 2 Views Result Date: June 24, 2022 Verified By: LEA JUÁREZ, BEHZAD Betts CLINICAL STATEMENT: IMPRESSION: Right chest tube in place with no pneumothorax. Stable right upper lobe mass and chronic lung markings. Assessment/Plan 1. Lung nodule, Mediastinal Mass S/P Right Lateral Muscle Sparing Mini Thoracotomy, Mass excision with frozen section 06/22/2022 Chest tube placed to waterseal last evening, no airleak, clamped, follow-up chest x-ray at noon 2. Chronic obstructive pulmonary disease with emphysema Stable 3. Schizophrenia 4. Smoker Smoking cessation counseling 5. Hypoxia Room air SaO2 84%, reevaluate once chest tube out. May need home O2 Orders: Chest Tube Right Side XR Chest 1 View (Portable) Discussed with Dr. Lopes. Chest tube clamped. Chest x-ray in 4 hours. Digitally Signed by CAROLINA PINZON on 06/24/2022 09:31 AM [facility] 06-24-2022 Nurse Progress note I have reviewed and agree with the director of emergency nursing's assessment. Digitally Signed by WOODROW Krueger [facility] on 06/24/2022 09:31 AM [facility] 06-24-2022 Note ORIGINAL EXAMINATION: TWO XRAY VIEWS OF THE CHEST 06/24/2022 6:46 am COMPARISON: Chest x-ray on 06/23/2022 HISTORY: ORDERING SYSTEM PROVIDED HISTORY: Reason for Exam: Abnormal breath sounds FINDINGS: Right chest tube is unchanged in position. There is no visible pneumothorax or significant pleural fluid. Masslike soft tissue density medially in right upper lung zone is stable. Coarse interstitial markings in both lungs are unchanged. 1 cm nodular density in left mid lung zone is again seen. There is soft tissue gas in the right lateral chest wall. No acute skeletal abnormality is detected. IMPRESSION: Right chest tube in place with no pneumothorax. Stable right upper lobe mass and chronic lung markings. Interpreted by: Behzad Pablo MD Preliminary Report By: Behzad Pablo MD Electronically signed By Behzad Pablo MD Dictated Date: 06/24/2022 6:49:35 AM Prelim Date: 06/24/2022 6:52:23 AM Sign Date: 06/24/2022 6:52:23 AM Ordering Provider: [facility] 06-24-2022 Note ORIGINAL EXAMINATION: TWO XRAY VIEWS OF THE CHEST 06/24/2022 6:46 am COMPARISON: Chest x-ray on 06/23/2022 HISTORY: ORDERING SYSTEM PROVIDED HISTORY: Reason for Exam: Abnormal breath sounds FINDINGS: Right chest tube is unchanged in position. There is no visible pneumothorax or significant pleural fluid. Masslike soft tissue density medially in right upper lung zone is stable. Coarse interstitial markings in both lungs are unchanged. 1 cm nodular density in left mid lung zone is again seen. There is soft tissue gas in the right lateral chest wall. No acute skeletal abnormality is detected. IMPRESSION: Right chest tube in place with no pneumothorax. Stable right upper lobe mass and chronic lung markings. Interpreted by: Behzad Pablo MD Preliminary Report By: Behzad Pablo MD Electronically signed By Behzad Pablo MD Dictated Date: 06/24/2022 6:49:35 AM Prelim Date: 06/24/2022 6:52:23 AM Sign Date: 06/24/2022 6:52:23 AM Ordering Provider: [facility] 06-23-2022 Note Date of Service 06/23/2022 postop day #1 Chief Complaint This is a 71-year-old male with past medical history significant for emphysema, COPD, schizophrenia, and tobacco use who was referred by Dr. Ann Arreola with a mediastinal mass and right upper lobe lung mass. CT-guided needle biopsy was inconclusive. Further diagnostic work-up was needed. He underwent a right lateral muscle-sparing minithoracotomy, mass excision with frozen section on 06/22/[address] Lopes. 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 He tolerated the procedure well was transferred to the SICU in stable condition. HANDLE SANDER OPERATOR pump for pain control. Postop day #1 chest tube to atrium and 10 cm of suction with no air leak noted. O2 per nasal cannula. DC HANDLE SANDER OPERATOR. Transfer to stepdown. Plan is to clamp chest tube at 6 PM tonight with chest x-ray in the morning. Subjective Sitting up in the chair, no complaints offered except for some incisional pain Objective Vitals and Measurements T: 36.4 C (Axillary) TMIN: 35.22 C TMAX: 36.8 C (Oral) HR: 69(Monitored) RR: 18 BP: 138/75 BP: 165/93(Line) BP: 208/113(Right Arm) SpO2: 94% HT: 165.1 cm WT: 56.5 kg BMI: 20.73 Intake and Output 7AM Yesterday to 7AM Today Intake and Output (Last 24 hours) Intake Oral Intake 200.00 Administration Information 600.00 Output Chest Tube Output: 23.00 Urinary Catheter Output: 1275.00 Intra-Op EBL 25.00 Intra-Op Urine Catheter 275.00 Stool Count 0.00 Total Summary Total Intake 800.00 Total Output 1598.00 Fluid Balance -798.00 Physical Exam Lungs: Bilateral, clear, diminished throughout, O2 per nasal cannula Heart: Regular S1-S2, monitor normal sinus rhythm Incision: Right thoracotomy dressing without drainage, chest tube dressing without drainage Abdomen: Soft, hypoactive bowel sounds present Neurological: Intact Extremities: Well perfused Discharge plan: Home Weight Dosing Weight: 56.5 kg (06/22/22) Dosing Weight: 56.5 kg (06/22/22) Dosing Weight: 56.5 kg (06/22/22) Medications Medications (16) Active Scheduled: (5) ceFAZolin syringe 2 gram(s) 20 mL, IV Push (INT), q8hr chlorhexidine topical 0.12% Liquid (60 mL) 15 mL, Swish & Spit, PREOP pharm ketorolac 15 mg/mL vial 15 mg 1 mL, IV Push, q6h mupirocin 2% Ointment 22 Gram(s) tube 1 amos, Nostril, each, q12h pantoprazole 40 mg VIAL 40 mg, IV Push, qDayAC Continuous: (6) Dextrose 5% with 0.45% NACL 1,000 mL 1,000 mL, Intravenous, 50 mL/hr HYDROmorphone HANDLE SANDER OPERATOR in 50mL NS 10 mg 10 mg 50 mL, Intravenous nitroprusside 50 mg [0.2 mcg/kg/min] + NS Premix Diluent 100 mL 100 mL, Intravenous, 1.36 mL/hr NS (0.9% nacl) 500 mL 500 mL, Intravenous, 20 mL/hr NS (0.9% nacl) 500 mL 500 mL, Intravenous, 20 mL/hr phenylephrine 50 mg [50 mcg/min] + Dextrose 5% in Water 250 mL 250 mL, Intravenous, 15 mL/hr PRN: (5) albuterol 0.083% Soln UD (2.5mg/3 mL) 2.5 mg 3 mL, Inhalation, q6hr hydralazine 20 mg/mL (1mL) vial 10 mg 0.5 mL, IV Push, q6h naloxone 0.4 mg/mL (1mL) vial 0.2 mg 0.5 mL, IV Push, AsDirected Normal Saline Injection 500 mL * Bolus * 500 mL, IV Bolus, AsDirected ondansetron 2 mg/ 1 mL 2 mL INJ 4 mg 2 mL, IV Push, q4h Lab Results 06/23 04:15 WBC: 11.3 H Hgb: 14.9 Hct: 45.4 Platelet: 205 Neutrophil %: 83.4 H Glucose Level: 113 Sodium Level: 136 Potassium Level: 5.0 BUN: 14.0 Creatinine Lvl (s): 1.01 06/22 14:47 Hgb: 15.1 Hct: 44.0 Glucose Level: 86 Imaging Results and Diagnostics (06/23/2022 05:52 EST XR Chest 1 View) 06/23/2022 5:52 am COMPARISON: Chest x-ray 06/22/2022, PET CT 03/16/2022 HISTORY: ORDERING SYSTEM PROVIDED HISTORY: Reason for Exam: Abnormal Breath Sounds FINDINGS: The cardiomediastinal silhouette is stable. The aorta is mildly atherosclerotic. A right-sided chest tube is in similar position as the prior exam. Redemonstration of soft tissue density along right-side of superior mediastinum relates to patient's known malignancy. New streaky bibasilar opacities are noted, left greater than right. Upper lobe predominant reticular opacities similar to prior exam are most likely secondary to underlying scarring/fibrosis. No pleural effusion or pneumothorax. Right chest wall emphysema has improved since prior exam. IMPRESSION: New mild bibasilar streaky airspace opacities, left greater than right may represent atelectasis or consolidation. Continued follow-up is recommended. Mild chest wall emphysema, improved since prior exam. Unchanged right chest tube without a visualized pneumothorax. [1] Assessment/Plan 1. Lung nodule, Mediastinal Mass S/P Right Lateral Muscle Sparing Mini Thoracotomy, Mass excision with frozen section 06/22/2022 Right chest tube to atrium and 10 cm of suction, no air leak noted Drain 23 mL last 24 hours Clamp chest tube at 6 PM tonight Chest x-ray stable 2. Chronic obstructive pulmonary disease with emphysema Stable, O2 per nasal cannula 3. Schizophrenia 4. Smoker Smoking cessation counseling Transfer to stepdown Discontinue HANDLE SANDER OPERATOR Clamp chest tube at 6 PM tonight Chest x-ray in the morning Discussed with Dr. Lopes [1] XR Chest 1 View; BEHZAD PABLO MD 06/23/2022 05:52 EST Digitally Signed by AMERICA PIEDRA on 06/23/2022 09:37 AM [facility] 06-23-2022 Note Result type: Cardiothoracic Surgery Office Note Result date: June 02, 2022 16:11 EST Result status: Modified Result title: Office Visit Note Performed by: CUATE LOPES MD on June 02, 2022 16:11 EST Verified by: CUATE LOPES MD on June 02, 2022 16:11 EST Encounter info: [id number], CTS CAN, Office, 06/02/2022 - 06/02/2022 Document Contains Addenda Chief Complaint Pt referred by Dr. Ann Arreola, [facility], for RUL lung nodule, with mediastinal involvement. States he has been sob for some time & was told that may be to hiatal hernia. History of Present Illness This is 71-year-old gentleman referred to us from Dr. 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 Patient denies any history of weight loss no history of dysphagia no history of night sweats no history of chest pain. He did complain of musculoskeletal pain in the right side of the neck and in the back. He is long-term chronic smoker 1 pack a day since high school and has been trying to quit smoking for the last several months and he has significantly cut down currently. Does have a history of COPD irregular heartbeat for which she has been worked up and revealed his stress test was negative. He has also underwent EGD to rule out any involvement of the esophagus because the mass was abutting and extubated apparently on EGD there was no evidence of any invasion of the mass he does have some esophageal ulcers and esophagitis. Review of Systems Ambulatory Comprehensive Intake - Specialty Office Entered On: 06/02/2022 14:30 EST Performed On: 06/02/2022 13:53 EST by Shahida Silva RN Primary Subjective AMB Chief Complaint : Pt referred by Dr. Ann Arreola, [facility], for RUL lung nodule, with mediastinal involvement. States he has been sob for some time & was told that may be to hiatal hernia. Pain Present : Yes actual or suspected pain Primary Pain Intensity : 1 Pain Scale Type : 0-10 Pain scale Primary Pain Comments : taking Prednisone for right baer, shoulder & arm pain Shahida Silva RN - 06/02/2022 13:53 EST General Review of Systems Grid Chills : No Difficulty Sleeping : Yes Fatigue : Yes Fever : No Increase of Appetite : No Loss of Appetite : No Night Sweats : No Unintentional Weight Change : No Shahida Silva RN - 06/02/2022 13:53 EST Head and Neck Review of Systems Grid Difficulty swallowing : No Ear Pain or Ringing : No Glasses : Yes Headaches : No Nosebleeds : No Post Nasal Drip : No Sinus problems : No Sore Throat : No Shahida Silva RN - 06/02/2022 13:53 EST Respiratory/Lungs Review of Systems Grid Coughing : Yes Coughing up blood : No Shortness of Breath : Yes Wheezing: : No Shahida Silva RN - 06/02/2022 13:53 EST Skeletal Review of Systems Grid Pain in Joint(s) : Yes Shahida Silva RN - 06/02/2022 13:53 EST Neuro Review of Systems Grid Confusion : No Dizziness : No Forgetfulness : No Headaches : No Seizures : No Tremor(s) : No Trouble with speech : No Shahida Silva RN - 06/02/2022 13:53 EST Heart/Vascular Review of Systems Grid Arm Swelling : No Chest pain/tightness : No Irregular Heartbeat : No Lower Leg Swelling : No Palpitations : No Rapid Heart Beat : No Smothering feeling at night : No Trouble Breathing Laying Flat : No Varicose Veins : Yes Shahida Silva RN - 06/02/2022 13:53 EST Stomach/Bowel Review of Systems Grid Abdominal pain : No Black/Bloody stools : No Bowel Incontinence : No Constipation : No Diarrhea : No Difficulty swallowing : No Heart Burn/Reflux : No Nausea : No Rectal Bleeding : No Shahida Silva RN - 06/02/2022 13:53 EST Skin,Hair Problems Review of System Grid Bruising : No Itching : No Nonhealing Wounds : No Rash : No Shahida Silva RN - 06/02/2022 13:53 EST Male Review of Systems Grid Flank Pain : No Hematuria : No Nocturia : No Painful Urination : No Urinary Frequency : No Urinary Hesitancy : No Urinary Incontinence : No Urinary Retention : No Urine Stream Changes : Yes Shahida Silva RN - 06/02/2022 13:53 EST Hematology Review of Systems Grid Abnormal Bleeding : No Bleeds Easily : No Bruises Easily [1] Physical Exam Vitals and Measurements T: 36.9 C (Oral) HR: 99(Apical) RR: 18 BP: 155/81 SpO2: 95% HT: 172.7 cm WT: 62.7 kg BMI: 21.02 Oxygen Therapy: Room air 71-year-old gentleman thinly built and alert and oriented in no acute distress his HEENT examination within normal limits neck is supple no neck masses, no jugular venous distention and no carotid bruit. His lungs are bilaterally irrigating with slight expiratory wheezing secondary to COPD. Heart S1 and S2 is normally heard normals irregular rhythm no murmur. Abdomen soft nontender active bowel sounds no appreciable organomegaly. Neurologically he is grossly intact no focal neurodeficit. Skin examination is skin is warm dry no active skin lesions or rash. Social History Smoking Status - 06/10/2016 Current every day smoker Alcohol Use: Current. Type: Wine. Frequency: 1-2 times per month., 06/02/2022 Employment/School Status: Retired., 06/02/2022 Home/Environment Living situation: Home/Independent., 06/02/2022 Substance Abuse Use: Past., 06/02/2022 Tobacco Nicotine Use: 10 or more cigarettes (1/2 pack or more)/day in last 30 days. Type: Cigarettes., 06/02/2022 Family History Cancer: Mother and Father. Diabetes mellitus type 2: Brother. Heart disease: Father. Assessment/Plan 1. Mediastinal mass 2. Lung nodule 3. COPD with emphysema I have reviewed patient's CT scan of the chest as well as PET scan of the total body and there is a mass in the mediastinal border and anterior mediastinal and posterior to the trachea is about 4 cm in size and small lung nodule of the posterior medial aspect of the right upper lobe CT scan CT guided needle biopsy was negative for any malignancy PET scan has a high SUV more than 10 highly likely malignant diagnosis not known most likely lung carcinoma. Plan patient does have COPD on steroids. Patient will need lung function test with DLCO and as well as room air blood gases and patient will be scheduled for right lateral muscle-sparing minithoracotomy and excisional biopsy of the mediastinal mass with frozen section and likely wedge resection of the lung also. I have discussed the details of procedure hospital course risk versus benefits were all discussed with the patient including risk of bleeding infection air leak postoperative pain was all discussed he gave good understanding and also discussed was patient will need intercostal cryoanalgesia with intended side effects he also gave good understanding and wanted to proceed with intercostal cryoanalgesia. Patient will go through routine preoperative work-up and then will be scheduled for above procedure. Problem List/Past Medical History Ongoing Diverticulitis Inguinal hernia Irregular heart beat Lung nodule Osteoarthritis Schizophrenia Smoker Historical No qualifying data Procedure/Surgical History Primary mesh repair of inguinal hernia: 06/10/16 Meniscectomy of knee Tonsillectomy Circumcision Cecil tooth Allergies NKA Medications What How Much When Instructions Last Dose Unchanged acetaminophen (acetaminophen 325 mg oral capsule) 1 cap by mouth Every 4 hours as needed for for pain Contact prescriber if questions or concerns Unchanged albuterol (albuterol MDI (90 mcg/ inh) CFC free inhalation aerosol) 2 puff(s) by inhalation Every 4 hours as needed for as needed for wheezing Contact prescriber if questions or concerns Unchanged cholecalciferol (Vitamin D3) 25 Microgram by mouth Every day Contact prescriber if questions or concerns Unchanged cyclobenzaprine (cyclobenzaprine 10 mg oral tablet) 1 tab(s) by mouth Two (2) times a day Contact prescriber if questions or concerns Unchanged ibuprofen (ibuprofen 200 mg oral tablet) 2 tab(s) by mouth Every 4 hours as needed for for pain Contact prescriber if questions or concerns Unchanged pantoprazole (pantoprazole 40 mg oral enteric coated tablet) 1 tab(s) by mouth Two (2) times a day Contact prescriber if questions or concerns Unchanged predniSONE (predniSONE 20 mg oral tablet) 1 tab(s) by mouth Once a day Duration: 5 Days Contact prescriber if questions or concerns Unchanged triamcinolone topical (triamcinolone 0.1% topical paste) by mouth Once a day as needed for Rash Contact prescriber if questions or concerns [1] Ambulatory Comprehensive Intake - Specialty Office; Shahida Silva RN 06/02/2022 13:53 EST Signature Line Digitally Signed by CUATE LOPES MD on 06/02/2022 04:11 PM Addendum by CUATE LOPES MD on June 02, 2022 16:12:51 EST (Verified) Reviewing patient's records and examination with the patient reviewing PET scan and CT scan of the chest and full consultation counseling the patient total encounter time was 45 minutes Signature Line Digitally Signed by CUATE LOPES MD on 06/02/2022 04:13 PM [1] (copied from office note/pp) [1] Office Visit Note; CUATE LOPES MD 06/02/2022 16:11 EST Digitally Signed by ISAAC Magana on 06/23/2022 08:44 AM [facility] 06-23-2022 Note ORIGINAL EXAMINATION: ONE XRAY VIEW OF THE CHEST 06/23/2022 5:52 am COMPARISON: Chest x-ray 06/22/2022, PET CT 03/16/2022 HISTORY: ORDERING SYSTEM PROVIDED HISTORY: Reason for Exam: Abnormal Breath Sounds FINDINGS: The cardiomediastinal silhouette is stable. The aorta is mildly atherosclerotic. A right-sided chest tube is in similar position as the prior exam. Redemonstration of soft tissue density along right-side of superior mediastinum relates to patient's known malignancy. New streaky bibasilar opacities are noted, left greater than right. Upper lobe predominant reticular opacities similar to prior exam are most likely secondary to underlying scarring/fibrosis. No pleural effusion or pneumothorax. Right chest wall emphysema has improved since prior exam. IMPRESSION: New mild bibasilar streaky airspace opacities, left greater than right may represent atelectasis or consolidation. Continued follow-up is recommended. Mild chest wall emphysema, improved since prior exam. Unchanged right chest tube without a visualized pneumothorax. I have personally reviewed the images of this examination, and agree with the resident's findings and interpretation. Interpreted by: Behzad Pablo MD Preliminary Report By: Rodrick Romano Electronically signed By Behzad Pablo MD Dictated Date: 06/23/2022 5:53:01 AM Prelim Date: 06/23/2022 5:58:22 AM Sign Date: 06/23/2022 6:11:15 AM Ordering Provider: [facility] 06-23-2022 Note ORIGINAL EXAMINATION: ONE XRAY VIEW OF THE CHEST 06/23/2022 5:52 am COMPARISON: Chest x-ray 06/22/2022, PET CT 03/16/2022 HISTORY: ORDERING SYSTEM PROVIDED HISTORY: Reason for Exam: Abnormal Breath Sounds FINDINGS: The cardiomediastinal silhouette is stable. The aorta is mildly atherosclerotic. A right-sided chest tube is in similar position as the prior exam. Redemonstration of soft tissue density along right-side of superior mediastinum relates to patient's known malignancy. New streaky bibasilar opacities are noted, left greater than right. Upper lobe predominant reticular opacities similar to prior exam are most likely secondary to underlying scarring/fibrosis. No pleural effusion or pneumothorax. Right chest wall emphysema has improved since prior exam. IMPRESSION: New mild bibasilar streaky airspace opacities, left greater than right may represent atelectasis or consolidation. Continued follow-up is recommended. Mild chest wall emphysema, improved since prior exam. Unchanged right chest tube without a visualized pneumothorax. I have personally reviewed the images of this examination, and agree with the resident's findings and interpretation. Interpreted by: Behzad Pablo MD Preliminary Report By: Rodrick Romano Electronically signed By Behzad Pablo MD Dictated Date: 06/23/2022 5:53:01 AM Prelim Date: 06/23/2022 5:58:22 AM Sign Date: 06/23/2022 6:11:15 AM Ordering Provider: [facility] 06-22-2022 Note ORIGINAL EXAMINATION: ONE XRAY VIEW OF THE CHEST06/22/2022 3:10 pm COMPARISON: 05/05/2022 HISTORY: ORDERING SYSTEM PROVIDED HISTORY: Reason for Exam: Abnormal breath sounds FINDINGS: The heart size is normal. Accentuated vascular markings seen. New right chest tube seen. There is no pneumothorax. Air seen in the right chest wall. Emphysema noted. Masslike soft tissue noted along the right side of the superior mediastinum. Bony detail is not optimal. IMPRESSION: Right chest tube is in place. No pneumothorax Masslike soft tissue along the right side of the superior mediastinum presumably relates to the known neoplasm Interpreted by: Rikki Dolan MD Preliminary Report By: Rikki Dolan MD Electronically signed By Rikki Dolan MD Dictated Date: 06/22/2022 3:57:33 PM Prelim Date: 06/22/2022 4:00:22 PM Sign Date: 06/22/2022 4:00:22 PM Ordering Provider: [facility] 06-22-2022 Note ORIGINAL EXAMINATION: ONE XRAY VIEW OF THE CHEST06/22/2022 3:10 pm COMPARISON: 05/05/2022 HISTORY: ORDERING SYSTEM PROVIDED HISTORY: Reason for Exam: Abnormal breath sounds FINDINGS: The heart size is normal. Accentuated vascular markings seen. New right chest tube seen. There is no pneumothorax. Air seen in the right chest wall. Emphysema noted. Masslike soft tissue noted along the right side of the superior mediastinum. Bony detail is not optimal. IMPRESSION: Right chest tube is in place. No pneumothorax Masslike soft tissue along the right side of the superior mediastinum presumably relates to the known neoplasm Interpreted by: Rikki Dolan MD Preliminary Report By: Rikki Dolan MD Electronically signed By Rikki Dolan MD Dictated Date: 06/22/2022 3:57:33 PM Prelim Date: 06/22/2022 4:00:22 PM Sign Date: 06/22/2022 4:00:22 PM Ordering Provider: [facility] 06-22-2022 Anesthesiology Consult note Patient: NADIYA MACHADO Age: 71 years Sex: Male : 1950 Associated Diagnoses: None Author: SHEA MUHAMMAD MD Preoperative Information Time of last food or liquid consumption: 06/21/2022 23:00:00 Anesthesia history Patient's history: negative. Family's history: negative. History of Present Illness 71 yr old M pt with RUL mass with mediastinal involvement presents for right lateral muscle sparing thoracotomy with possible wedge resection and mediastinal mass excisional biopsy. PMH: Arrhythmia, PVC, GERD, hiatal hernia, COPD, back pain, OA schizophrenia and smoker. Negative stress test in January 2022 per pt. METS more than 4. No GERD symptoms. Review of Systems Ear/Nose/Mouth/Throat: Negative except as documented in history of present illness. Respiratory: Negative except as documented in history of present illness. Cardiovascular: Negative except as documented in history of present illness. Gastrointestinal: Negative except as documented in history of present illness. Genitourinary: Negative except as documented in history of present illness. Endocrine: Negative except as documented in history of present illness. Musculoskeletal: Negative except as documented in history of present illness. Integumentary: Negative except as documented in history of present illness. Neurologic: Negative except as documented in history of present illness. Health Status Allergies: Allergic Reactions (Selected) NKA, Allergies (1) ActiveReaction NKANone Documented Current medications: (Selected) Inpatient Medications Ordered Kefzol: 2 gram(s), 20 mL, 240 mL/hr, IV Push (INT), PREOP pharm Peridex 0.12% oral rinse liquid: 15 mL, Swish & Spit, PREOP pharm Documented Medications Documented Vitamin D3 25 mcg (1000 intl units) oral capsule: 25 mcg, 1 cap(s), Oral, Daily, 0 Refill(s) acetaminophen 325 mg oral capsule: 325 mg, 1 cap(s), Oral, q4hr, PRN: for pain, 0 Refill(s) albuterol MDI (90 mcg/inh) CFC free inhalation aerosol: 2 puff(s), Inhalation, q4h, PRN: as needed for wheezing, 0 Refill(s) cyclobenzaprine 10 mg oral tablet: 10 mg, 1 tab(s), Oral, BID, 0 Refill(s) ibuprofen 200 mg oral tablet: 400 mg, 2 tab(s), Oral, q4h, PRN: for pain, 0 Refill(s) pantoprazole 40 mg oral enteric coated tablet: 40 mg, 1 tab(s), Oral, qDay, 0 Refill(s) predniSONE 20 mg oral tablet: 20 mg, 1 tab(s), Oral, qDay, for 5 day(s), 0 Refill(s) sucralfate 1 g oral tablet: 1 gram(s), 1 tab(s), Oral, achs, 360 tab(s), 0 Refill(s) triamcinolone 0.1% topical paste: 1 apps, Topical, qDay, PRN: Rash, 0 Refill(s), Medications (2) Active Scheduled: (2) ceFAZolin syringe 2 gram(s) 20 mL, IV Push (INT), PREOP pharm chlorhexidine topical 0.12% Liquid (60 mL) 15 mL, Swish & Spit, PREOP pharm Continuous: (0) PRN: (0) Problem list: Medical Diverticulitis / SNOMED CT 389426702 / Confirmed Irregular heart beat / SNOMED CT 242973308 / Confirmed Lung nodule / SNOMED CT 6894571494 / Confirmed Osteoarthritis / SNOMED CT 9038001492 / Confirmed Schizophrenia / SNOMED CT 47255209 / Confirmed Smoker / SNOMED CT 190957033 / Confirmed, Active Problems (19) Acid reflux Back pain Cataract COPD - Chronic obstructive pulmonary disease Diverticulitis Glasses Headache Hiatal hernia Irregular heart beat Lung nodule Mediastinal mass Osteoarthritis Pain management Prediabetes PVC (premature ventricular contraction) Schizophrenia Smoker Tooth loose Wears dentures Histories Past Medical History: Active Smoker ([id number]) Schizophrenia ([id number]) Comments: 06/02/2016 EST 12:11 EST - Alberta Clayton RN DX [place] 1970S Osteoarthritis ([id number]) Resolved Inguinal hernia (3445216871): Resolved. Family History: Heart disease Grandparent Diabetes mellitus type 2 Brother Cancer Father Mother Grandparent CAD (coronary artery disease) 20-Jan-2016 02:42:16<$> Father Heart disease Father Procedure history: Primary mesh repair of inguinal hernia ([id number]) on 06/10/2016 at 65 Years. Comments: 06/10/2016 14:28 EST - Miladis Hollins left Tonsillectomy ([id number]). Circumcision (821152609). Cecil tooth (37390281). Meniscectomy of knee (32021499). Tooth extraction, multiple (69947926). Social History Social & Psychosocial Habits Alcohol 06/14/2022 Use: Current Type: Wine Frequency: 1-2 times per month Average drinks per episode in last year: 0.5 Maximum drinks per episode in last year: 1 Previous treatment: None Employment/School 06/02/2022 Status: Retired Substance Abuse 06/14/2022 Use: Past Type: Marijuana Tobacco 06/02/2022 Tobacco Use: 10 or more cigarettes (1/ Type: Cigarettes Comment: has smoked 55 yrs - 05/31/2022 16:33 - Shahida Silva RN; only smokes occasionally - 06/02/2022 14:15 - Shahida Silva RN Home/Environment 06/14/2022 Domestic Concerns None Living situation: Home/Independent Marital Status of Patient if Patient Independent Adult: Unmarried Comment: single, no kids - 06/02/2022 14:17 - Shahida Silva RN . Physical Examination Vital Signs 06/22/2022 10:25 EST Temperature Temporal Artery 36.2 DegC Peripheral Pulse Rate 89 bpm Respiratory Rate 20 br/min Systolic BP Right Arm 208 mmHg >HHI Diastolic BP Right Arm 113 mmHg >HHI No qualifying data available Pain assessment: 11/30, sternal pain, chronic, painful to touch.. General: Alert and oriented, No acute distress. Airway: Normal temporomandibular joint mobility. Mallampati classification: II (soft palate, fauces, uvula visible). Head: Normocephalic, Atraumatic. Dentition Evaluation: Missing teeth, Chipped teeth. Neck: Supple, Non-tender. Respiratory: Lungs are clear to auscultation, Respirations are non-labored, Breath sounds are equal. Cardiovascular: Normal rate, Regular rhythm, No murmur. Heart Sounds: Normal. Gastrointestinal: Soft, Non-tender. Musculoskeletal Normal range of motion. Normal strength. No swelling. Integumentary: Warm, Dry, No pallor. Neurologic: Alert, Oriented, No focal deficits. Review / Management Results review: No qualifying data available . Assessment and Plan [place] [employer] Anesthesiologists (ASA) physical status classification: Class III. Anesthetic Preoperative Plan Premedication: intravenous. Anesthetic technique: General. Induction: intravenously. Maintenance airway: Oral endotracheal tube, OLV. Regional: Paravertebral/Erector spinae plane block. Special Monitoring: Arterial line. Postoperative pain management: Per surgeon. Risks discussed: nausea, sore throat, dental injury, allergic reaction, serious complications. Informed consent: signed by patient. Digitally Signed by SHEA MUHAMMAD MD on 06/22/2022 11:34 AM [facility] 10-11-2021 Note HNO ID: [id number] Author: Nicolette Vaugahn RN Service: ? Author Type: Registered Nurse Type: Progress Notes Filed: 10/11/2021 2:03 PM Note Text: EKG performed per protocol on Nadiya Machado. Pt tolerated well. Instructed results would be sent to ordering provider. Nicolette Vaughan RN [facility] Evaluation + Plan note Future Appointments Appointment Date:07/12/2022 10:00:00 AM Scheduled Provider:REMY BRANDON Location:CTS CAN Appointment Type:CTS OV Post Op [facility] Hospital course Narrative No data available for this section [facility] Discharge instructions No data available for this section [facility] Progress note No data available for this section [facility] Summary Purpose Family History No Family History Records FoundNo Family History Records Found Advance Directives No Advanced Directives Records FoundNo Advanced Directives Records Found Additional Source Comments (unrecognized sect ion and content) No Status Records FoundNo Status Records Found INFORMATION SOURCE (unrecogn ized section and content) DATE CREATED AUTHOR AUTHOR'S ORGANIZ ATION 11/20/2022 [facility] ([place]) Care Team (unrecognized sect ion and content) Care Team Personnel Name: ANN ARREOLA DO Member Role: Bowl Topper Address: Address: [address] [address]- [place] Name: ANAID VOGEL APRN-CONSTRUCTION MATERIALS TESTER Member Role: Primary Care Physician Address: Address: [address] Care Team Related Persons Name: BLANKA STEPHEN Address: Home [address], [place] [id number] Address: Temporary [address], [place] [id number] Patient Care team informatio n (unrecognized section and content) Care Team Personnel Name: ANN ARREOLA DO Member Role: Bowl Topper Address: Address: [address] [address]- Name: ANAID VOGEL APRN-CONSTRUCTION MATERIALS TESTER Member Role: Primary Care Physician Address: Address: [address] [place] [address]- Care Team Related Persons Name: BLANKA STEPHEN Address: [place] [address], [place] [id number] Address: [facility] [address], [place] [id number] FOR RECORDS PERTAINING TO PATIENTS WHO ARE OR HAVE BEEN ENROLLED IN A CHEMICAL DEPENDENCY/SUBSTANCEABUSE PROGRAM, SOME INFORMATION MAY BE OMITTED. This clinical summary was aggregated from multiple sources. Caution should be exercised in using it in the provision of clinical care. This summary normalizes information from multiple sources, and as a consequence, information in this document may materially change the coding, format and clinical context of patient data. In addition, data may be omitted in some cases. CLINICAL DECISIONS SHOULD BE BASED ON THE PRIMARY CLINICAL RECORDS. [employer] provides no warranty or guarantee of the accuracy or completeness of information in this document.
== END | disposition home or self-care (01) ==
LOC: CT 12:48
PROVIDERS: PCP Family Medicine; Referring Provider Internal Medicine Medical Oncology; Visit Provider Internal Medicine Medical Oncology
DX: Z01.812 Encounter for preprocedural laboratory examination (principal); C34.11 Malignant neoplasm of upper lobe, right bronchus or lung
CPT/HCPCS: 71260; 74160; Q9967; A4216

== ENCOUNTER → 2024-01-22 | Outpatient (CLI) | payer MEDICARE, SELFPAY ==
--- NOTE | 2024-01-22 13:55 | CT_ITS ---
EXAM: CT CHEST AND ABDOMEN WITH INTRAVENOUS CONTRAST CLINICAL INDICATION: metastatic NSCLC; assess response to treatment TECHNIQUE: Helically acquired images were obtained of the chest and abdomen with intravenous contrast. This CT exam was performed using one or more of the following dose reduction techniques: automated exposure control, adjustment of the mA and/or kV according to patient size, and/or use of iterative reconstruction technique. CONTRAST: IV 75mL Isovue-300 COMPARISON: CT Chest Abdomen dated 10/02/2023 FINDINGS: CHEST: LUNGS AND PLEURAL SPACES: The consolidation of the right middle and upper lobes again noted with increasing cavitation. There is increasing airspace opacification within the peripheral portion of the superior segment of the right lower lobe which may represent posttreatment change or underlying pneumonia. Stable extensive centrilobular and paraseptal emphysematous changes of the lungs. Left infrahilar left lower lobe lung mass now measures 18 mm in size from prior measurement of 2.3 cm. The additional peripheral nodular densities at the left lung base also appear less prominent. Interval resolution of the 10 mm left upper lobe pulmonary nodule. No pleural effusion or thickening. HEART: Normal. Normal heart size. Small pericardial effusion. MEDIASTINUM: Normal. No mediastinal or hilar adenopathy. Esophagus is unremarkable. No hiatal hernia. THYROID: Normal. No thyroid nodules or calcification. ABDOMEN: LIVER: Normal. Homogeneous. No focal mass. GALLBLADDER AND BILE DUCTS: Gallbladder is contracted consistent with a nonfasting state. PANCREAS: Normal. No focal cystic or solid mass. SPLEEN: Normal. Normal size without focal cystic or solid mass. ADRENALS: Normal. No nodules. KIDNEYS AND URETERS: 3 cm right renal cyst. No specific follow-up indicated. Normal renal size and position. No hydronephrosis. STOMACH AND BOWEL: Normal. No stomach or bowel distention. No focal inflammatory change. INTRAPERITONEAL SPACE: Normal. No ascites or other fluid collection. No free air. CHEST and ABDOMEN: BONES/JOINTS: The compression deformities of the T1, T2, T3, T4, T5, T6 and L1 vertebral bodies again noted. Small focus of rounded sclerosis within the right ilium is stable. SOFT TISSUES: Normal. No discrete abdominal wall hernia. 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 Stable 4.2 cm infrarenal abdominal aortic aneurysm. No obvious central pulmonary embolism although this study was not performed with the pulmonary embolism protocol. No thoracic aortic aneurysm or dissection. LYMPH NODES: Normal. No enlarged lymph nodes. TUBES, LINES AND DEVICES: Tip of the left IJ infusion catheter extends to the distal SVC. CT/CT Chest AND Abd W/ Contrast IMPRESSION: 1. Persistent diffuse airspace opacification of the right upper and middle lobes with increasing cavitation. 2. Increasing airspace opacification of the superior segment of the right lower lobe which may be related to pneumonia or posttreatment change. 3. Decreasing size of the left lower lobe pulmonary nodules. 4. Resolution of the left upper lobe pulmonary nodule. 5. Stable infrarenal AAA and stable right common iliac artery aneurysm. Electronically Signed: Zacarias Zavala MD at 15:46 EDT ,
[2024-01-22] MEDS: 0.9% Saline Lock 10 ML Syringe IV (14:07)
== END | disposition home or self-care (01) ==
LOC: CT 13:34
PROVIDERS: PCP Family Medicine; Referring Provider Nurse Practitioner Family; Visit Provider Nurse Practitioner Family
DX: C34.91 Malignant neoplasm of unspecified part of right bronchus or lung (principal); C79.51 Secondary malignant neoplasm of bone; K76.9 Liver disease, unspecified
CPT/HCPCS: 71260; 74160; Q9967; A4216

== ENCOUNTER 2024-02-07 10:38 | Day surgery (SDC) | payer MEDICARE, SELFPAY ==
[2024-02-07] VITALS (9 sets, daily range): BP systolic 116–154; BP diastolic 58–94; PULSE 71–85; RESP 16–18; TEMP 36.5–36.6; O2SAT 96–100; BMI 16.5
[2024-02-07] MEDS: Lactated Ringers 1,000 ML 15 ML IV (11:12)
--- NOTE | 2024-02-07 11:35 | PRE.ANES_ITS ---
ASA Classification* ASA Classification ASA Classification: 3 Assessment & Plan Anesthesia* Anesthesia Assessment Anesthesia Assessment: Discussed sedation and/or anesthesia options, risks, benefits, and alternatives with patient/parents/legal guardian/POA. Questions invited. The patient/parents/legal guardian/POA seems to understand and agrees to proceed with anesthesia plan. Reviewed the physical assessment, medical history, allergy history and patient home medications list prior to surgery/procedure/anesthetic and documented any changes. Performed airway and anesthesia risk assessments. Anesthesia Type Anesthesia Type: MAC History Source History Obtained from:: Patient and Chart Anesthesia Focused Assessment* Temperature: 97.9 F Pulse Rate: 73 Blood Pressure: 147/94 Respiratory Rate: 18 Pulse Ox: 96 Oxygen Delivery Method: Nasal Cannula (Patient is on 2 and half liters of oxygen) Airway Assessment Mouth opens: >3 cm Mallampati Score: II Teeth Condition: Chipped/Broken (Multiple chipped teeth) and Missing (Multiple missing teeth.) Neck Range of motion (ROM): Limited ROM (Significantly decreased extension.) Pertinent Findings EKG Pertinent Findings:: September 19, 2022. Sinus rhythm with premature ventricular contractions. Poor R wave progression. Stress Test Pertinent Findings:: January 31, 2022. Ejection fraction 69%. No ischemia or infarct seen. ECHO Pertinent Findings:: January 31, 2022. Ejection fraction is 55%. Normal valves. Consults Pertinent Findings:: December 08, 2021. Seen by Dr. Garcia. Patient had a history of abnormal EKG and smoking. The stress and echo were reviewed and patient is stable. Focused Labs Anesthesia Preop lab: CBC WBC 9.5 K/mm3 (4.4-11.0) 01/29/24 12:45 RBC 3.48 M/mm3 (4.6-6.2) L 01/29/24 12:45 Hgb 10.8 g/dL (13.0-16.5) L 01/29/24 12:45 Hct 34.9 % (40-54) L 01/29/24 12:45 Plt Count 277 K/mm3 (150-450) 01/29/24 12:45 CHEMISTRY Potassium 4.7 mmol/L (3.5-5.1) 01/29/24 12:45 Sodium 133 mmol/L (136-145) L 01/29/24 12:45 Magnesium 1.5 mg/dL (1.6-2.6) L 12/11/23 13:12 Phosphorus 2.6 mg/dL (2.5-4.9) 12/11/23 13:12 BUN 12 mg/dL (7-18) 01/29/24 12:45 Creatinine 0.50 mg/dL (0.70-1.30) L 01/29/24 12:45 Glucose 93 mg/dL (74-106) 01/29/24 12:45 TSH 3.82 uIU/mL (0.358-3.74) H 01/29/24 12:45 COAG PT 13.3 SECONDS (11.7-14.9) 04/19/23 08:44 Pre-Assessment Diagnosis/Proposed Procedure Planned Operative Procedure(s): EGD, CSCOPE Anesthesia History 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 When Was Last Pacemaker Check QUESTION #4 FULL TEXT: You/Your Family Experience fever (hyperthermia) with Anesthesia Last Oral Intake Last Oral intake: Last Oral Intake NPO since 10:00 02/07/24 11:04 Meds taken in AM with sips of No 02/07/24 11:04 water? Meds patient instructed to take am of surgery PONV PONV - sales and retail management recruiter: PONV - sales and retail management recruiter Female No 01/31/24 13:49 HX of Motion Sickness No 01/31/24 13:49 HX of N/V After Surgery No 01/31/24 13:49 Non-Smoker No 01/31/24 13:49 Duration of Surgery greater No 01/31/24 13:49 than 60 minutes Number of Risk Factors PONV Score Height & Weight Height & Weight: Anesthesia: Height & Weight Height 5 ft 7 in 02/07/24 11:04 Weight: 48 kg 02/07/24 11:04 Body Mass Index (BMI) 16.5 02/07/24 11:04 Respiratory Assessment Respiratory Assessment - sales and retail management recruiter: Respiratory Tract Infection Hx - sales and retail management recruiter Hx Respiratory Tract Infection No 01/31/24 13:49 STOP Sleep Apnea STOP Sleep Apnea - sales and retail management recruiter: STOP Sleep Apnea - sales and retail management recruiter Hx Hypertension No 01/31/24 13:49 Hx Sleep Apnea No 01/31/24 13:49 CPAP BIPAP Do you snore loudly (louder No 01/31/24 13:49 than talking or can be heard Do you often feel tired/ No 01/31/24 13:49 fatigued/ sleepy during daytime? Has anyone observed you stop No 01/31/24 13:49 breathing during sleep? STOP Results Negative 01/31/24 13:49 QUESTION #5 FULL TEXT : Do you snore loudly (louder than talking or can be heard through closed doors)? 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 Specify any problems Hx of Preganancy in last 3 N/A 01/31/24 13:49 Months Nurse Filling Out Transfusion NBUCHER 01/31/24 13:49 & Questions: Date: 01/31/24 01/31/24 13:49 Time: 13:53 01/31/24 13:49 Patient unable to answer at this time (ie. confused, unrespo /Reproduction History /Reproductive History - sales and retail management recruiter: /Reproductive Hx- sales and retail management recruiter Hx Now No 01/31/24 13:49 Gestational Age (in weeks): EDC: Hx Hx Para Hx Section SAB No 01/31/24 13:49 Active Medications Active Medications: Current Medications Generic Name Dose Route Start Last Admin Trade Name Freq PRN Reason Stop Dose Admin Heparin Sodium (Beef Lung) 50 units 02/07/24 11:03 Heparin Pf Lock 10 Units/Ml 50 Units/5 Ml Syringe IV UD PRN Port-a-Cath (VAD)Heparin Flush Lactated Ringer's 1,000 mls @ 15 mls/hr 02/07/24 11:00 02/07/24 11:12 IV 15 mls/hr .Q48H [place] Administration Sodium Chloride 10 - 40 ml 02/07/24 11:03 0.9 % Nacl (Sterile) Posiflush 10 Ml IV UD PRN Port access or dressing change Sodium Chloride 10 - 40 ml 02/07/24 11:03 0.9% Saline Lock 10 Ml Syringe IV UD PRN Port-a-Cath (VAD) Flush PFSH Medical History Port-A-Cath in place Weight loss Oral candidiasis Hyponatremia Anemia Dehydration Swelling of both lower extremities Depression COPD (chronic obstructive pulmonary disease) Asthma Atrial fibrillation Irregular heart beat Protein calorie malnutrition Right upper lobe pneumonia Hoarseness Smoker History of steroid therapy Shortness of breath on exertion On home oxygen therapy Gastric reflux History of hiatal hernia Cancer Emphysema, unspecified Encounter for education Hiatal hernia GERD (gastroesophageal reflux disease) Barretts esophagus Wears glasses Alcohol use Easy bruising Injury of head and neck Wears partial dentures History of diverticulitis Shortness of breath on exertion History of edema Cardiology follow-up encounter History of stress test History of echocardiogram History of irregular heartbeat Tobacco abuse Hyperlipidemia Inguinal hernia Rectal prolapse Gonorrhea Schizophrenia Home Medications ?Medication ?Instructions ?Recorded ?Last Taken ?Type lidocaine-prilocaine 2.5 %-2.5 % 1 applic topical ONCE PRN port 08/25/22 Unknown Rx topical cream access 30 days #30 grams ibuprofen 200 mg tablet 600 mg PO Q6H PRN Pain 08/29/22 02/06/24 History oxycodone-acetaminophen 5 mg-325 1 tab PO Q6H PRN pain 2 days #5 09/05/22 02/06/24 Rx mg tablet tabs cyclobenzaprine 10 mg tablet 10 mg PO BID 09/19/22 02/06/24 History acetaminophen 500 mg tablet 500 mg PO DAILY PRN PRN Pain 10/28/22 02/06/24 History cholecalciferol (vitamin D3) 25 25 mcg PO DAILY 10/28/22 02/06/24 History mcg (1,000 unit) tablet (Vitamin D3) lactulose 10 gram/15 mL oral 15 ml PO BID #946 mL 01/31/23 02/05/24 Rx solution ipratropium 0.5 mg-albuterol 3 mg 3 ml inhalation Q4HWA.RT #180 mL 09/11/23 Unknown Rx (2.5 mg base)/3 mL nebulization soln ondansetron 8 mg disintegrating 8 mg PO Q8H PRN nausea and 11/01/23 02/06/24 Rx tablet vomiting #30 tabs folic acid 1 mg tablet 1 mg PO DAILY #90 tabs 11/06/23 Unknown Rx albuterol sulfate 90 mcg/actuation 2 puff inhalation Q6H PRN 01/10/24 Unknown Rx aerosol inhaler (Proventil HFA) shortness of breath or wheezing #8.5 grams budesonide 1 mg/2 mL suspension 1 mg (2 mL) inhalation BID #180 mL 01/10/24 Unknown Rx for nebulization sennosides 8.6 mg-docusate sodium 1 tab-cap PO TID 01/17/24 02/06/24 History 50 mg capsule (Senna Plus) pantoprazole 40 mg tablet,delayed 40 mg PO DAILY #30 tabs 01/23/24 02/06/24 Rx release nystatin 100,000 unit/mL oral 5 ml PO .QID #473 mL 01/29/24 Unknown Rx suspension polysaccharide iron complex 150 mg 150 mg PO DAILY #90 caps 01/29/24 02/06/24 Rx iron capsule (Ferrex) sodium chloride 1,000 mg soluble 1,000 mg PO TID 01/29/24 02/06/24 History tablet docusate sodium 100 mg capsule 100 mg PO DAILY 01/31/24 02/06/24 History (Colace) Allergy/AdvReac Type Severity Reaction Status Date / Time No Known Allergies Allergy Verified 02/07/24 10:58 Family History Father Heart disease Brother Heart disease COPD (chronic obstructive pulmonary disease) Surgical History History of tonsillectomy Hx of biopsy History of esophagogastroduodenoscopy (EGD) History of meniscectomy of left knee History of herniorrhaphy Social History Smoking Status: Former smoker Tobacco: How many years used: 55 Review of Systems (Anesthesia) ROS Narrative System reviewed and no additional complaints, except as documented.
--- NOTE | 2024-02-07 11:45 | EGD_PTH ---
PATIENT: NADIYA MACHADO LOC: EN U#:[id number] AGE/SX: 73/M ROOM: RE02/07/[address]: Dr. Harpreet Mayer DO : 1950 BED: DIS: 02/07/2024 SPEC #: [id number] RECD: 02/07/24 18:11 STATUS: EMILY MAHNAZ #: [id number] RUCHI: 02/07/24 11:[address]: Harpreet Mayer DEPT: SURGICAL PATHOLOGY RECD BY: Nichol Krishnamurthy ENTERED: 02/08/24 06:57 SP TYPE: EGD BIOPSY OT DR: Raul Mcnamara MD Tissues: A - Duodenum, NOS B - Esophagus, NOS C - Transverse colon Procedures: Special Stain Group I Surgery Specimen Level IV Alcian Blue/PAS (control) HEADER OPERATION: Colonoscopy with polypectomy, EGD with biopsy PRE-OP DIAGNOSIS: Constipation, Jaeger's esophagus, GERD, Hiatal hernia, anemia TISSUE SUBMITTED: A- Duodenum biopsy, B- Distal esophagus biopsy, C- Transverse colon polyp MICROSCOPIC DIAGNOSIS A. Duodenum, biopsy: No pathologic change. B. Distal esophagus, biopsy: Fragments of gastric mucosa with mild chronic inflammation. No evidence of goblet cell metaplasia. See comment. C. Transverse colon polyp, biopsy: Fragments of hyperplastic polyp. AM/ 02/09/2024 COMMENT B. Alcian blue/PAS stain with matched control supports the above diagnosis. MICROSCOPIC DESCRIPTION Slides are reviewed. GROSS DESCRIPTION A. Received in fixative is one container labeled with the patient's name and designated Duodenum biopsy. The specimen consists of one irregular fragment of light gastelum soft tissue that measures 0.4 x 0.3 x 0.1 cm. The specimen is totally submitted in one cassette. B. Received in fixative is one container labeled with the patient's name and designated Distal esophagus biopsy. The specimen consists of one irregular fragment of light gastelum soft tissue that measures 0.3 x 0.3 x 0.1 cm. The specimen is totally submitted in one cassette. C. Received in fixative is one container labeled with the patient's name and designated Transverse colon polyp. The specimen consists of multiple irregular fragments of light gastelum soft tissue that in aggregate measure 0.6 x 0.3 x 0.1 cm. The specimen is totally submitted in one cassette. Buddy 02/08/2024 TC:3 CPT:07154o6,36421
--- NOTE | 2024-02-07 12:10 | PCM.HP.BLA ---
History and Physical Date of Admission: 02/07/24 73 M who presents to the office today for follow up. PCP OV who noted heart palpitation; EKG and blood test performed and referred to [facility] for this and pulmonology for fingernail clubbing. [facility] ordered imaging which noted lung nodule. Pulmonology seen for pulmonology for mass and fingernail clubbing suspected to be pulmonary origin. Malt Specifications Control Assistant discussed case with Gastroenterology who also reviewed PET/CT and was not able to determine if esophageal or pulmonary origin; recommended EGD for evaluation. ? CT chest 02.01.22 noting right upper lobe of lung nodule recommend r/o neoplastic process; emphysema; small mediastinal lymph nodes. PET/CT 03.16.22 noting increase uptake in superior and precarinal mediastinum to the right of the midline and in the midline; noted in right upper posteromedial for viable neoplasm; left lateral neck hypermetabolic focus. *BGI established 04.08.22. He has been noting increased phlegm, sometimes blood tinged, requiring spitting; substernal discomfort. Denies dysphagia. ? EGD 04.12.22 noting LA Grade C reflux esophagitis; medium hiatal hernia; chronic gastritis; multiple non-bleeding duodenal ulcers. Protonix 40mg BID. OV 05.19.22 mass not noted in esophagus. Heartburn is well controlled with PPI. [place] cardiothoracic surgery 06.02.22 ? Minithoracotomy 11302 Right lateral muscle-sparing and incisional biopsy of right lung mass. Biopsy positive for adenocarcinoma with lung as primary. C/RadOnc established with radiation and chemotherapy started. [facility] hospitalization 09.19.22-09.23.22. [facility] ED presentation with hypoxia. He was treated for hypoxia, right upper love pneumonitis, pancytopenia r/t chemotherapy, COPD, cellulitis, COPD exacerbation, NSCLC with mets to bone, general debility, malnutrition. OV 10.12.22 presents today in a wheelchair and is now oxygen dependent. Reports that with cancer progression he has had significant pain in his spine for which narcotic pain relief is being utilized. With use of pain medication he is now having significant constipation. OV 6.26.24 pt reports that he would like to discuss his weight loss. States that bm are irregular, but usually goes once a day. Continues with lactulose and senna. ROS Const Constitutional: No fatigue, fever(s) or weight change ENT ENT: No difficulty swallowing Gastro GI: No abdominal pain, belching, bloating, change in bowel habits, change in stool character, coffee ground emesis, constipation, cramping, diarrhea, heartburn, difficulty swallowing, feeling full early, excessive flatus, incontinent of stools, Vomiting blood/hematemesis, Blood in stool, loose stools, Black,tarry stools, nausea/dyspepsia, pain with swallowing, vomiting or other Musc Musculoskeletal: No joint pain Skin Skin: No yellowing of the eye or itchy eyes Psych Psychiatric: No anxiety and No depression Endo Endocrine: No fatigue or weight change Aller/Imm Allergy/Immunologic: No itchy eyes Francisco/Lymp Hematologic/Lymphatic: No easy bleeding or easy bruising Exam Const General: cooperative and comfortable Nutritional Appearance: average body habitus and well nourished [facility] Head: normal to inspection Ears: hearing grossly normal bilaterally Nose: external nose normal Face and sinus: normal facial exam Mouth: oral mucosae normal Throat: posterior oropharynx normal Eyes General: appearance normal, both eyes and all related structures Neck Neck: normal visual inspection Chest Chest palpation & inspection: normal inspection of the chest and normal palpation of entire chest wall Resp Effort & Inspection: normal respiratory effort Auscultation: Bilateral: Clear to Auscultation Cardio Palpation: normal PMI Rate: regular rate Rhythm: regular rhythm GI Inspection: normal to inspection Auscultation: normal bowel sounds Percussion: normal to percussion Palpation: no hepatosplenomegaly Skin General: no rashes or lesions noted Neuro General: patient alert Extrem General: normal to inspection Psych Affect: normal affect Assessment and Plan Assessment and Plan (1) Constipation: Status: Chronic Plan: Medication induced constipation from narcotics. We will give him lactulose. (2) Barretts esophagus: Status: Inactive Plan: He was identified as having short segment Jaeger's esophagus on upper endoscopy. This was confirmed with biopsies. He is on pantoprazole therapy 40 mg once a day and not having any symptoms of gastroesophageal reflux disease. I explained to him that there was no dysplasia in the biopsies and it is very difficult to develop into esophageal cancer. However due to his smoking history he is at an increased risk. We will do surveillance on his Jaeger's esophagus in the future. For now we will continue PPI therapy and stress smoking cessation and limit his alcohol intake. (3) GERD (gastroesophageal reflux disease): Status: Inactive Plan: gastroesophageal reflux disease is controlled on PPI therapy. Maintain 40 mg of pantoprazole once a day. (4) Hiatal hernia: Status: Inactive Plan: He has a small to medium sliding hiatal hernia is contributing to his loose lower esophageal sphincter. I am not recommending surgery at this time as his reflux symptoms are controlled on PPI therapy. (5) Anemia: Status: Acute Qualifiers: Anemia type: other cause Plan: Today patient has been noted to be anemic above and beyond his chemotherapy. He has been losing weight and has never had a colonoscopy and was identified as being fecal occult positive. Therefore he reaches criteria for an upper or lower endoscopy to evaluate his upper and lower GI tract for signs of acute or chronic blood loss anemia. I have examined the patient and the H&P has been reviewed. There are no clinical changes since date of exam.
--- NOTE | 2024-02-07 12:56 | PCM.POST.ANE ---
Anesthesia: Postop Eval I Current Vital Signs Temperature: 97.7 F Pulse Rate: 71 Blood Pressure: 122/58 Respiratory Rate: 16 Pulse Ox: 100 Oxygen Delivery Method: Room Air Assessment Airway patent: Yes Spontaneous unlabored respirations: Yes Mental status: Asleep nausea: No Vomiting: No Anesthesia Complication: No Fluid Hydration Crystalloid volume administer (ml): 500 Total IV fluid infused: 500 Progress Note Anesthesia document: Postop Eval 1 completed: Yes
--- NOTE | 2024-02-07 12:58 | OP.CCLET_ITS ---
02/07/2024 Raul Mcnamara Md Re : Upper GI endoscopy procedure for Elie Barrios Marissar Anders This procedure was performed on Wednesday, February 07, 2024. My impressions and recommendations are as follows: Impressions : - Abnormal esophageal motility, suspicious for achalasia. - Bilious gastric fluid. - Acute duodenitis. Biopsied. Recommendations : - Discharge patient to home. - Resume previous diet. - Continue present medications. - Await pathology results. My findings are described in the full procedure note, which is enclosed. If I can be of further assistance, please feel free to contact me at . Sincerely, Harpreet Mayer, 02/07/2024 12:58:06 PM This report has been signed electronically.
--- NOTE | 2024-02-07 12:58 | OP.EGD_ITS ---
Patient Name: Elie Barrios Procedure Date: 02/07/2024 12:15 PM Date of : 1950 Age: 73 Procedure: Upper GI endoscopy Indications: Iron deficiency anemia, Dysphagia Providers: Harpreet Mayer DO Referring MD: Raul Mcnamara Md Medicines: Monitored Anesthesia Care Patient Profile: This is a 73 year old male. Refer to note in patient chart for documentation of history and physical. Patient has symptoms of chronic dysphagia and chronic dyspepsia. Complications: No immediate complications. Procedure: Pre-Anesthesia Assessment: - Prior to the procedure, a History and Physical was performed, and patient medications and allergies were reviewed. The patient is competent. The risks and benefits of the procedure and the sedation options and risks were discussed with the patient. All questions were answered and informed consent was obtained. Patient identification and proposed procedure were verified by the physician in the pre-procedure area. Mental Status Examination: alert and oriented. Airway Examination: normal oropharyngeal airway and neck mobility. Respiratory Examination: clear to auscultation. CV Examination: normal. Prophylactic Antibiotics: The patient does not require prophylactic antibiotics. Prior Anticoagulants: The patient has taken no anticoagulant or antiplatelet agents. ASA Grade Assessment: II - A patient with mild systemic disease. After reviewing the risks and benefits, the patient was deemed in satisfactory condition to undergo the procedure. The anesthesia plan was to use monitored anesthesia care (MAC). Immediately prior to administration of medications, the patient was re-assessed for adequacy to receive sedatives. The heart rate, respiratory rate, oxygen saturations, blood pressure, adequacy of pulmonary ventilation, and response to care were monitored throughout the procedure. The physical status of the patient was re-assessed after the procedure. After obtaining informed consent, the endoscope was passed under direct vision. Throughout the procedure, the patient's blood pressure, pulse, and oxygen saturations were monitored continuously. The colonoscope was introduced through the mouth, and advanced to the second part of duodenum. The upper GI endoscopy was accomplished without difficulty. The patient tolerated the procedure well. Scope In: 12:22:55 PM Scope Out: 12:32:17 PM Total Procedure Duration Time 0 hours 9 minutes 22 seconds Findings: Abnormal motility was noted at the cricopharyngeus. The cricopharyngeus was abnormal. There is a decrease in motility of the esophageal body. The distal esophagus/lower esophageal sphincter is open. Bilious fluid was found in the stomach. Patchy moderate inflammation characterized by erythema, friability and granularity was found in the duodenal bulb and in the first portion of the duodenum. Biopsies were taken with a cold forceps for histology. Verification of patient identification for the specimen was done. Estimated blood loss was minimal. 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 Mucosa was biopsied with a cold forceps for histology in a targeted manner at intervals of 1 cm in the lower third of the esophagus. One specimen bottle was sent to pathology. Verification of patient identification for the specimen was done. Estimated blood loss was minimal. Impression: - Abnormal esophageal motility, suspicious for achalasia. - Bilious gastric fluid. - Acute duodenitis. Biopsied. Recommendation: - Discharge patient to home. - Resume previous diet. - Continue present medications. - Await pathology results. Procedure Code(s): --- Professional --- 68712, Esophagogastroduodenoscopy, flexible, transoral; with biopsy, single or multiple CPT copyright 2021 [employer]. All rights reserved. The codes documented in this report are preliminary and upon deal architect review may be revised to meet current compliance requirements. Harpreet Mayer DO 02/07/2024 12:58:06 PM This report has been signed electronically. Number of Addenda: 0 Note Initiated On: 02/07/2024 12:15 PM
--- NOTE | 2024-02-07 13:01 | OP.CCLET_ITS ---
02/07/2024 Raul Mcnamara Md Re : Colonoscopy procedure for Elie Barrios Dear Anders This procedure was performed on Wednesday, February 07, 2024. My impressions and recommendations are as follows: Impressions : - Preparation of the colon was fair. - Hemorrhoids found on perianal exam. - Diverticulosis in the sigmoid colon. - One 5 mm polyp in the transverse colon, removed with a hot snare. Resected and retrieved. Recommendations : - Repeat colonoscopy in 6 months for surveillance. - Continue present medications. My findings are described in the full procedure note, which is enclosed. If I can be of further assistance, please feel free to contact me at . Sincerely, Harpreet Mayer, 02/07/2024 1:01:04 PM This report has been signed electronically.
--- NOTE | 2024-02-07 13:01 | OP.COLON_ITS ---
Patient Name: Elie Barrios Procedure Date: 02/07/2024 12:32 PM Date of : 1950 Age: 73 Procedure: Colonoscopy Indications: Iron deficiency anemia Providers: Harpreet Mayer DO Referring MD: Raul Mcnamara Md Medicines: Monitored Anesthesia Care Patient Profile: This is a 73 year old male. Refer to note in patient chart for documentation of history and physical. Patient has symptoms of chronic dysphagia and chronic dyspepsia. Last Colonoscopy: none. The patient's first colonoscopy is today. Complications: No immediate complications. Procedure: Pre-Anesthesia Assessment: - Prior to the procedure, a History and Physical was performed, and patient medications and allergies were reviewed. The patient is competent. The risks and benefits of the procedure and the sedation options and risks were discussed with the patient. All questions were answered and informed consent was obtained. Patient identification and proposed procedure were verified by the physician in the pre-procedure area. Mental Status Examination: alert and oriented. Airway Examination: normal oropharyngeal airway and neck mobility. Respiratory Examination: clear to auscultation. CV Examination: normal. Prophylactic Antibiotics: The patient does not require prophylactic antibiotics. Prior Anticoagulants: The patient has taken no anticoagulant or antiplatelet agents. ASA Grade Assessment: II - A patient with mild systemic disease. After reviewing the risks and benefits, the patient was deemed in satisfactory condition to undergo the procedure. The anesthesia plan was to use monitored anesthesia care (MAC). Immediately prior to administration of medications, the patient was re-assessed for adequacy to receive sedatives. The heart rate, respiratory rate, oxygen saturations, blood pressure, adequacy of pulmonary ventilation, and response to care were monitored throughout the procedure. The physical status of the patient was re-assessed after the procedure. After I obtained informed consent, the scope was passed under direct vision. Throughout the procedure, the patient's blood pressure, pulse, and oxygen saturations were monitored continuously. The Colonoscope was introduced through the anus and advanced to the cecum, identified by appendiceal orifice and ileocecal valve. The colonoscopy was performed without difficulty. The patient tolerated the procedure well. The quality of the bowel preparation was fair. The ileocecal valve, appendiceal orifice, and rectum were photographed. Scope In: 12:34:20 PM Scope Withdrawal Time 0 hours 5 minutes 13 seconds Scope Out: 12:47:20 PM Total Procedure Duration Time 0 hours 13 minutes 0 seconds Findings: Hemorrhoids were found on perianal exam. Multiple small-mouthed diverticula were found in the sigmoid colon. A 5 mm polyp was found in the transverse colon. The polyp was sessile. The polyp was removed with a hot snare. Resection and retrieval were complete. Verification of patient identification for the specimen was done. Estimated blood loss was minimal. Impression: - Preparation of the colon was fair. - Hemorrhoids found on perianal exam. - Diverticulosis in the sigmoid colon. - One 5 mm polyp in the transverse colon, removed with a hot snare. Resected and retrieved. Recommendation: - Repeat colonoscopy in 6 months for surveillance. - Continue present medications. Procedure Code(s): --- Professional --- 61645, Colonoscopy, flexible; with removal of tumor(s), polyp(s), or other lesion(s) by snare technique CPT copyright 2021 [employer]. All rights reserved. The codes documented in this report are preliminary and upon service desk manager review may be revised to meet current compliance requirements. Harpreet Mayer DO 02/07/2024 1:01:04 PM This report has been signed electronically. Number of Addenda: 0 Note Initiated On: 02/07/2024 12:32 PM
[2024-02-07] MEDS: 0.9 % NaCl (Sterile) Posiflush 10 mL IV (13:26)
--- NOTE | 2024-02-07 17:58 | PCM.POSTANE2 ---
Anesthesia Postop Eval I Sum Postop Eval Completion status Anesthesia document: Postop Eval 1 completed: Yes Anesthesia Postop Eval I Summary Anesthesia Postop Eval I Summary: Anesthesia Postop Eval I: Assessment Summary Airway patent Yes 02/07/24 12:58 [email or web address] Spontaneous unlabored Yes 02/07/24 12:58 [email or web address] respirations Mental status Asleep 02/07/24 12:58 [email or web address] nausea No 02/07/24 12:58 [email or web address] Vomiting No 02/07/24 12:58 [email or web address] Anesthesia Postop Eval I: Fluid Summary Crystalloid volume administer 500 02/07/24 12:58 [email or web address] (ml) Colloids volume administered ( ml) Blood Product volume administered (ml) Total IV fluid infused 500 02/07/24 12:58 [email or web address] Anesthesia Postop Eval I: Summary Notes Anesthesia Complication No 02/07/24 12:58 [email or web address] Anesthesia Complication Comment: Post-operative progress note Anesthesia: Postop Eval II Evaluation Mental status: Awake and Calm Pain Level: 0 nausea: No Vomiting: No Complications Anesthesia Complication: No
== END 2024-02-07 13:51 | disposition home or self-care (01) ==
LOC: EN 10:38 → AC 10:40
PROVIDERS: PCP Family Medicine; Referring Provider Family Medicine; Visit Provider Internal Medicine Gastroenterology
PROC: 0DJD8ZZ Inspection of Lower Intestinal Tract, Via Natural or Artificial Opening Endoscopic (ICD-10-PCS; CPT 45378; principal; 2024-02-07 11:40)
DX: K59.09 Other constipation (principal); J44.9 Chronic obstructive pulmonary disease, unspecified; K57.30 Diverticulosis of large intestine without perforation or abscess without bleeding; K29.80 Duodenitis without bleeding; K63.5 Polyp of colon; R13.10 Dysphagia, unspecified; D50.9 Iron deficiency anemia, unspecified; Z92.21 Personal history of antineoplastic chemotherapy; Z99.81 Dependence on supplemental oxygen; K22.70 Barrett's esophagus without dysplasia; K21.9 Gastro-esophageal reflux disease without esophagitis; K44.9 Diaphragmatic hernia without obstruction or gangrene; K30 Functional dyspepsia; K64.4 Residual hemorrhoidal skin tags; K31.89 Other diseases of stomach and duodenum
CPT/HCPCS: 45385; 43239; 88305; 88312; J7120; A4216; J2405

== ENCOUNTER 2024-05-09 12:18 | Inpatient (IN) | payer MEDICARE, SELFPAY ==
[2024-05-09] VITALS (13 sets, daily range): BP systolic 106–151; BP diastolic 64–102; PULSE 86–105; RESP 16–18; TEMP 36.3–37.3; O2SAT 81–100; BMI 13.6
--- NOTE | 2024-05-09 13:05 | RAD_ITS ---
INDICATION: weakness EXAMINATION/TECHNIQUE: X-RAY - XR Chest 1 View COMPARISON: CT dated January 22, 2024 FINDINGS: LINES/DEVICES: There is a Mediport in place terminating within the expected region of the superior vena cava. LUNGS: There is a persistent ill-defined opacity within the right upper lung that appears somewhat nodular. The lungs are hyperinflated. No pneumothorax. MEDIASTINUM AND CARDIOVASCULAR STRUCTURES: Cardiac silhouette not enlarged. Central airways and mediastinal contour are unremarkable. BONES AND SOFT TISSUES: Unremarkable. RAD/Chest 1 View (Portable) IMPRESSION: Ill-defined opacity within the right upper lung that is partially nodular, may reflect some combination of atelectasis and/or pneumonia, cannot exclude a neoplastic process, consider CT with contrast for further characterization. Electronically Signed: Yissel Gann MD at 13:56 EDT ,
--- NOTE | 2024-05-09 13:06 | EKG12_ITS ---
Test Reason : Blood Pressure : / mmHG Vent. Rate : 097 BPM Atrial Rate : 097 BPM P-R Int : 144 ms QRS Dur : 100 ms QT Int : 374 ms P-R-T Axes : 080 099 070 degrees QTc Int : 474 ms Sinus rhythm with Premature atrial complexes with Aberrant conduction Right atrial enlargement Rightward axis Pulmonary disease pattern Septal infarct , age undetermined Abnormal ECG Confirmed by Carlos Ashley ([id number]), film editor supervisor GEORGE KESSLER ([id number]) on 05/10/2024 1:36:40 PM Referred By: Brett Boland Confirmed By:Carlos Ashley
--- NOTE | 2024-05-09 13:07 | EX.ED.DYSGE1 ---
HPI History of Present Illness Chief Complaint: Weakness Informant: patient and EMS Narrative Narrative: 73-year-old brought by EMS because of generalized weakness unable to get out of bed he estimates a week. He states he feels dehydrated. He states he has been drinking water but probably not enough. He has been urinating, he states less than normal. He has had diarrhea. He denies having any blood in his stool. No abdominal pain or chest pain or dyspnea. He has mild chronic cough associated with lung cancer he states he is on immunotherapy but not currently getting any IV chemotherapy or radiation although he has had that before. Follows with Dr. Pizano. [facility] Medical History Port-A-Cath in place Weight loss Oral candidiasis Hyponatremia Anemia Dehydration Swelling of both lower extremities Depression COPD (chronic obstructive pulmonary disease) Asthma Atrial fibrillation Irregular heart beat Protein calorie malnutrition Right upper lobe pneumonia Hoarseness Smoker History of steroid therapy Shortness of breath on exertion On home oxygen therapy Gastric reflux History of hiatal hernia Cancer Emphysema, unspecified Encounter for education Hiatal hernia GERD (gastroesophageal reflux disease) Barretts esophagus Wears glasses Alcohol use Easy bruising Injury of head and neck Wears partial dentures History of diverticulitis Shortness of breath on exertion History of edema Cardiology follow-up encounter History of stress test History of echocardiogram History of irregular heartbeat Tobacco abuse Hyperlipidemia Inguinal hernia Rectal prolapse Gonorrhea Schizophrenia Home Medications ?Medication ?Instructions ?Recorded ?Last Taken ?Type lidocaine-prilocaine 2.5 %-2.5 % 1 applic topical ONCE PRN port 08/25/22 Unknown Rx topical cream access 30 days #30 grams oxycodone-acetaminophen 5 mg-325 1 tab PO Q6H PRN PAIN 2 days #5 09/05/22 05/08/24 Rx mg tablet tabs cyclobenzaprine 10 mg tablet 10 mg PO BID MUSCLE SPASMS 09/19/22 05/08/24 History cholecalciferol (vitamin D3) 25 25 mcg PO DAILY SUPPLEMENT 10/28/22 05/08/24 History mcg (1,000 unit) tablet (Vitamin D3) ipratropium 0.5 mg-albuterol 3 mg 3 ml inhalation Q4HWA.RT COPD 09/11/23 05/08/24 Rx (2.5 mg base)/3 mL nebulization #180 mL soln folic acid 1 mg tablet 1 mg PO DAILY SUPPLEMENT #90 tabs 11/06/23 05/08/24 Rx albuterol sulfate 90 mcg/actuation 2 puff inhalation Q6H PRN 01/10/24 05/08/24 Rx aerosol inhaler (Proventil HFA) shortness of breath or wheezing #8.5 grams sennosides 8.6 mg-docusate sodium 1 tab-cap PO TID 01/17/24 05/08/24 History 50 mg capsule (Senna Plus) pantoprazole 40 mg tablet,delayed 40 mg PO DAILY GERD #30 tabs 01/23/24 05/08/24 Rx release polysaccharide iron complex 150 mg 150 mg PO DAILY SUPPLEMENT #90 01/29/24 05/08/24 Rx iron capsule (Ferrex) caps sodium chloride 1,000 mg soluble 1,000 mg PO TID electrolyte 01/29/24 05/08/24 History tablet replenishment lactulose 10 gram/15 mL oral 15 ml PO BID CONSTIPATION #946 mL 03/06/24 05/08/24 Rx solution nystatin 100,000 unit/mL oral 5 ml PO 4X/DAY FUNGAL INFECTION 05/09/24 05/08/24 History suspension Allergy/AdvReac Type Severity Reaction Status Date / Time No Known Allergies Allergy Verified 04/22/24 13:49 Family History Father Heart disease Brother Heart disease COPD (chronic obstructive pulmonary disease) Surgical History History of tonsillectomy Hx of biopsy History of esophagogastroduodenoscopy (EGD) History of meniscectomy of left knee History of herniorrhaphy Social History Smoking Status: Former smoker Tobacco: How many years used: 55 ROS ROS ED Constitutional Constitutional ED: Reports fatigue and weakness; Denies chills or fever(s) Eyes Eyes: Denies change in vision or diplopia ENT ENT ED: Denies rhinorrhea or sore throat Cardiovascular Cardiovascular: Denies chest pain or palpitations Respiratory/Chest Respiratory/Chest: Denies cough or dyspnea Gastrointestinal Gastrointestinal: Reports diarrhea; Denies abdominal pain, hematochezia, melena, nausea or vomiting Genitourinary Genitourinary ED: Denies dysuria, hematuria or urinary frequency Musculoskeletal Musculoskeletal: Denies back pain or neck pain Integumentary Denies abscess or rash Neurologic Neurologic: Denies headache(s), paresthesias or weakness Psychiatric Psychiatric: Denies anxiety or suicidal thoughts EXAM Physical Exam Const Vital Signs: 05/09/24 12:19 05/09/24 12:27 05/09/24 12:28 Temperature 99.2 F H 99.2 F H Temperature Source Oral Oral Pulse Rate 105 H 103 H Respiratory Rate 16 18 Respiratory Effort Short of Breath Blood Pressure 106/64 106/64 Blood Pressure Mean 78 78 Pulse Ox 81 81 Oxygen Delivery Method Nasal Cannula Nasal Cannula Oxygen Flow Rate (L/min) 2 2 05/09/24 13:27 05/09/24 14:00 05/09/24 15:00 Temperature 99 F 98.9 F 97.4 F L Temperature Source Oral Oral Oral Pulse Rate 96 96 102 H Respiratory Rate 18 16 18 Respiratory Effort Blood Pressure 128/78 H 132/75 H 127/94 H Blood Pressure Mean 94 94 105 Pulse Ox 96 96 96 Oxygen Delivery Method Nasal Cannula Nasal Cannula Nasal Cannula Oxygen Flow Rate (L/min) 4 4 4 05/09/24 16:00 05/09/24 17:00 Temperature 97.8 F 98 F Temperature Source Oral Oral Pulse Rate 94 94 Respiratory Rate 18 18 Respiratory Effort Blood Pressure 150/89 H 126/74 H Blood Pressure Mean 109 91 Pulse Ox 97 96 Oxygen Delivery Method Nasal Cannula Nasal Cannula Oxygen Flow Rate (L/min) 4 4 Positive well nourished and well developed General Appearance ED: well developed and NAD HEENT Reports dry mucous membranes normocephalic and atraumatic Mouth ED: Yes dry mucous membranes Mouth: dry mucous membranes Eyes PERRL and EOMs intact bilaterally Neck full ROM and supple Resp normal respiratory effort and clear to auscultation bilaterally Cardio regular rate, regular rhythm and no murmurs Rate: Negative for tachycardic GI non-tender and non-distended Auscultation: normoactive bowel sounds Palpation: soft Narrative: Multilobular mild rectal prolapse versus prolapsed nonthrombosed hemorrhoids and rectum. No abscess. No active bleeding or drainage. Trace green stool no melena. Back/Spine no CVA tenderness General Back: other FROM Extremity normal to inspection General Extremety ED: Negative for edema, pulses abnormal or tenderness General Extremity: Negative for edema or pulses abnormal Neuro oriented x3, CN's II-XII intact bilaterally and no sensory deficits noted Sensorium / Orientation: awake and alert Motor Exam: general weakness Psych mental status grossly normal Skin no rashes or lesions noted and no wounds MDM MDM MDM Narrative Medical decision making narrative: Patient appears clinically dehydrated, his labs reflect that. He is not anemic so I think his elevated BUN is due to dehydration not upper GI bleed. He does have a leukocytosis and a chest x-ray 1 view on my interpretation appears to show an opacity in the right upper lobe. This could be pneumonia, cancer, or both. Radiology in agreement and recommends CT with contrast to sort that out. In the meantime we did obtain a urinalysis that is negative for infection. Patient was given IV fluids. Vital signs remained stable. Patient underwent CT I reviewed the images and the result which I agree with, there is an infiltrative mass there and no evidence of consolidation/pneumonia. Patient is a little bit more alert on reevaluation after the IV fluids. Considering social determinants of care, he states he lives alone, does not have any help, he states yes he could use it, and given this and his significant dehydration and debility I think admission is warranted. Lab Data Attestation: I reviewed the patient's lab results. Labs: Laboratory Results - last 24 hr 05/09/24 05/09/24 13:16 14:25 WBC 13.6 H RBC 4.67 Hgb 14.4 Hct 46.3 MCV 99.1 H MCH 30.8 MCHC 31.1 L RDW Std Deviation 52.9 H RDW Coeff of Deidra 14.4 Plt Count 255 MPV 9.6 Immature Gran % (Auto) 0.400 Neut % (Auto) 84.8 H Lymph % (Auto) 4.3 L [place] % (Auto) 10.3 H Eos % (Auto) 0.1 Baso % (Auto) 0.1 Absolute Neuts (auto) 11.5 H Absolute Lymphs (auto) 0.58 L Nucleated RBC % 0 Sodium 133 L Potassium 3.8 Chloride 95 L Carbon Dioxide 29.0 Anion Gap 9 BUN 41 H Creatinine 1.19 Est GFR (MDRD) Af Amer 77 Est GFR (MDRD) Non-Af 63 BUN/Creatinine Ratio 34.5 H Glucose 125 H Lactic Acid 1.5 Uric Acid 6.9 Calcium 9.0 Magnesium 2.0 Total Bilirubin 0.70 AST 20 ALT 25 Alkaline Phosphatase 105 Total Creatine Kinase 77 Troponin I High Sens 35 Total Protein 6.6 Albumin 2.8 L Globulin 3.8 Albumin/Globulin Ratio 0.7 L Urine Color Yellow Urine Clarity Clear Urine pH 6.0 Ur Specific [place] 1.020 Urine Protein 30 H Urine Glucose (UA) Normal Urine Ketones 5 H Urine Occult Blood 25 H Urine Nitrite Negative Urine Bilirubin Negative Urine Urobilinogen Normal Ur Leukocyte Esterase Negative Urine RBC 0-5 SEEN Urine WBC 0-5 SEEN Ur Squamous Epith Cells 0-5 SEEN Urine Bacteria 1+ Hyaline Casts 0-5 SEEN Urine Mucus RARE Radiography Diagnostic Testing: Clinical Impression(s) from Imaging Studies Chest X-Ray 05/09/24 13:05 IMPRESSION: Ill-defined opacity within the right upper lung that is partially nodular, may reflect some combination of atelectasis and/or pneumonia, cannot exclude a neoplastic process, consider CT with contrast for further characterization. Electronically Signed: Yissel Gann MD at 13:56 EDT , Chest CT 05/09/24 15:29 IMPRESSION: Severe diffuse interstitial and emphysematous changes Right perihilar mass likely neoplastic infiltrating into the mediastinum with increasing opacification of the right upper lobe and multifocal cavitation with small bilateral lower lobe nodules likely metastatic There is encasement of the proximal right upper lobe pulmonary artery but no definitive evidence for bland thrombus Electronically Signed: Angelo Brock MD at 16:40 EDT , Rhythm Strip Rhythm Strip: Sinus Rhythm Rate: 95 Ectopy: PVC(s) EKG Initial EKG: Attestation: I personally reviewed and interpreted this EKG as follows: Interpretation: Sinus Rhythm and No Acute Injury Pattern Comments: pvcs Management Discussion w/another healthcare provider: Hospitalist Discharge Plan Dx/Rx/DC Orders Clinical Impression: Debility, Adenocarcinoma of right lung, Acute dehydration Disposition Disposition: Acute Care Hospital [facility] Discharge Date/Time: 05/09/24 18:27
[2024-05-09] MEDS: 0.9% Normal Saline (1000mL) 1,000 ML 999 ML IV (13:13)
[2024-05-09 13:22] LABS: Absolute Lymphocyte Count 0.58 X10^3/uL (0.83-4.51); Absolute Neutrophil Count 11.5 X10^3/uL (2.0-7.7); Basophil# 0.02 X10^3/uL; Basophil% 0.1 % (0-1); Eosinophil# 0.01 X10^3/uL; Eosinophils% 0.1 % (0-5); Hematocrit 46.3 % (40-54); Hemoglobin 14.4 g/dL (13.0-16.5); Lymphocyte # 0.58 X10^3/ul (0.83-4.51); Lymphocyte % 4.3 % (19-41); Mean Corp Hgb Conc 31.1 g/dL (32-36); Mean Corpuscular Hgb 30.8 pg (27.0-32.0); Mean Corpuscular Volume 99.1 fL (80-94); Mean Platelet Vol. 9.6 fl (6.2-12.0); Monocyte% 10.3 % (0-10); NRBC Flagged by Analyzer 0 % (0-5); Neutrophil # 11.48 X10^3/uL (2.7-7.7); Neutrophil % 84.8 % (47-70); POSITIVE DIFFERENTIAL YES; Platelet Count 255 K/mm3 (150-450); RBC Distribution Width CV 14.4 % (11.6-14.6); RBC Distribution Width SD 52.9 fl (35.1-43.9); Red Blood Count 4.67 M/mm3 (4.6-6.2); White Blood Count 13.6 K/mm3 (4.4-11.0)
[2024-05-09 14:00] LABS: Lactic Acid 1.5 mmol/L (0.4-1.9)
[2024-05-09 14:36] LABS: Color, Urine Yellow (Yellow); Glucose, Dipstick Normal (Normal); Ketone-Dipstick 5 mg/dl (Negative); Leukocyte Esterase-Dipstick Negative /ul (Negative); Nitrite-Dipstick Negative (Negative); Occult Blood-Urine 25 /ul (Negative); Protein-Dipstick 30 mg/dl (Negative); Urine Bilirubin Dipstick Negative (Negative); Urine Clarity Clear (Clear); Urine Urobilinogen Normal (Normal)
[2024-05-09 14:39] LABS: ALB/GLOB Ratio 0.7 RATIO (0.9-2.4); AST(SGOT) 20 U/L (15-37); Alanine Aminotransfer ALT/SGPT 25 U/L (16-61); Albumin, Serum 2.8 g/dL (3.2-5.0); Alkaline Phosphatase 105 U/L (45-117); Anion Gap 9 (5-15); BUN 41 mg/dL (7-18); BUN/Creat Ratio 34.5 RATIO (10-20); CPK Total, Creatine Kinase 77 U/L (39-308); Chloride 95 mmol/L (98-107); Creatinine, Serum 1.19 mg/dL (0.70-1.30); EST Glomerular Filtration Rate 63 mL/min (>60); Est Glom Filt Rate - Afr Amer 77 mL/min (>60); Globulin 3.8 g/dL (2.2-4.2); Glucose 125 mg/dL (74-106); Potassium 3.8 mmol/L (3.5-5.1); Protein, Total 6.6 g/dL (6.4-8.2); Sodium Level 133 mmol/L (136-145); Troponin-I HS 35 pg/mL (3.0-78.0)
[2024-05-09 14:44] LABS: Squamous Epithelial Cells - UA 0-5 SEEN /hpf (0-5)
[2024-05-09 14:45] LABS: Bacteria 1+ /hpf (None Seen); Hyaline Cast 0-5 SEEN /lpf (0-5); Mucous, Urine RARE /hpf (<or=2+); Red Blood Cells-Urine 0-5 SEEN /hpf (0-5); White Blood Cells 0-5 SEEN /hpf (0-5)
--- NOTE | 2024-05-09 15:29 | CT_ITS ---
INDICATION: weakness, lung ca, abn CXR EXAMINATION: CT CHEST WITH CONTRAST - CT Chest W/ Contrast Injection TECHNIQUE: Helically acquired images were obtained of the chest following IV contrast. A radiation dose optimization technique was used for this scan. IV Contrast dosage and agent: COMPARISON: January 22, 2024. FINDINGS: LUNGS, PLEURA AND LARGE AIRWAYS: Severe diffuse interstitial thickening in the left lung with minor subsegmental atelectasis at the left base.. Noncalcified nodule in the left lower lobe measuring 1.63 x 1.61 consistent with neoplasm . There is also diffuse interstitial and emphysematous change in the right lung There is extensive consolidation in the right upper lobe with multifocal cavitation. There is an infiltrative right perihilar mass extending into the right paratracheal space encasing proximal branches of the pulmonary artery to the right upper lobe there is a tiny nodule in the right lower lobe measuring 6 mm in size and minor compressive atelectasis there is pleural thickening in the right upper hemithorax. There is no pleural effusion or pneumothorax THYROID: No thyroid lesions. HEART AND PERICARDIUM: Heart size is normal. No pericardial effusion. VESSELS: Thoracic aorta is not dilated. No aortic dissection. No obvious central pulmonary embolism although this study was not performed with the pulmonary embolism protocol. MEDIASTINUM AND JEANE: No mediastinal or hilar adenopathy. Esophagus is unremarkable. No hiatal hernia. UPPER ABDOMEN: Small right renal cyst which will not require additional imaging BONES: Dorsal spine demonstrates degenerative change and multilevel chronic compression deformities No suspicious lytic or blastic abnormality. The parenchymal disease in the right upper lobe has progressed significantly since prior exam and the right infiltrative perihilar mass is new finding CT/Chest WITH Contrast IMPRESSION: Severe diffuse interstitial and emphysematous changes Right perihilar mass likely neoplastic infiltrating into the mediastinum with increasing opacification of the right upper lobe and multifocal cavitation with small bilateral lower lobe nodules likely metastatic There is encasement of the proximal right upper lobe pulmonary artery but no definitive evidence for bland thrombus Electronically Signed: Angelo Brock MD at 16:40 EDT ,
--- NOTE | 2024-05-09 17:55 | PCM.HP.STD ---
[facility] - General General Date of Admission: 05/09/24 Date of Service: 05/09/24 Chief Complaint: Feeling very weak for last 3 weeks. Failure to thrive HPI Narrative NADIYA MACHADO, is a 73 M with history of lung cancer follows Dr. Pizano was brought to ED by EMS for failure to thrive. Patient has been physically declining and losing weight. Patient has home health care but he needs more help. He easily gets short of breath on doing his ADL although he states his baseline shortness of breath is rare is better. EMS vitals shows blood pressure was 90/62, heart rate 62/min. Pulse ox is 92%. Later on blood pressure improved. In ED, vitals shows temperature 99.2 ?F 1 time was otherwise in normal temperature. Heart rate in 90s. Blood pressure improved to 126/24 after vomited dark normal saline bolus Patient had chest CT and he discussed in assessment and plan. Patient further admitted [facility] Medical History Port-A-Cath in place Weight loss Oral candidiasis Hyponatremia Anemia Dehydration Swelling of both lower extremities Depression COPD (chronic obstructive pulmonary disease) Asthma Atrial fibrillation Irregular heart beat Protein calorie malnutrition Right upper lobe pneumonia Hoarseness Smoker History of steroid therapy Shortness of breath on exertion On home oxygen therapy Gastric reflux History of hiatal hernia Cancer Emphysema, unspecified Encounter for education Hiatal hernia GERD (gastroesophageal reflux disease) Barretts esophagus Wears glasses Alcohol use Easy bruising Injury of head and neck Wears partial dentures History of diverticulitis Shortness of breath on exertion History of edema Cardiology follow-up encounter History of stress test History of echocardiogram History of irregular heartbeat Tobacco abuse Hyperlipidemia Inguinal hernia Rectal prolapse Gonorrhea Schizophrenia Home Medications ?Medication ?Instructions ?Recorded ?Last Taken ?Type lidocaine-prilocaine 2.5 %-2.5 % 1 applic topical ONCE PRN port 08/25/22 Unknown Rx topical cream access 30 days #30 grams oxycodone-acetaminophen 5 mg-325 1 tab PO Q6H PRN PAIN 2 days #5 09/05/22 05/08/24 Rx mg tablet tabs cyclobenzaprine 10 mg tablet 10 mg PO BID MUSCLE SPASMS 09/19/22 05/08/24 History cholecalciferol (vitamin D3) 25 25 mcg PO DAILY SUPPLEMENT 10/28/22 05/08/24 History mcg (1,000 unit) tablet (Vitamin D3) ipratropium 0.5 mg-albuterol 3 mg 3 ml inhalation Q4HWA.RT COPD 09/11/23 05/08/24 Rx (2.5 mg base)/3 mL nebulization #180 mL soln folic acid 1 mg tablet 1 mg PO DAILY SUPPLEMENT #90 tabs 11/06/23 05/08/24 Rx albuterol sulfate 90 mcg/actuation 2 puff inhalation Q6H PRN 01/10/24 05/08/24 Rx aerosol inhaler (Proventil HFA) shortness of breath or wheezing #8.5 grams sennosides 8.6 mg-docusate sodium 1 tab-cap PO TID 01/17/24 05/08/24 History 50 mg capsule (Senna Plus) pantoprazole 40 mg tablet,delayed 40 mg PO DAILY GERD #30 tabs 01/23/24 05/08/24 Rx release polysaccharide iron complex 150 mg 150 mg PO DAILY SUPPLEMENT #90 01/29/24 05/08/24 Rx iron capsule (Ferrex) caps sodium chloride 1,000 mg soluble 1,000 mg PO TID electrolyte 01/29/24 05/08/24 History tablet replenishment lactulose 10 gram/15 mL oral 15 ml PO BID CONSTIPATION #946 mL 03/06/24 05/08/24 Rx solution nystatin 100,000 unit/mL oral 5 ml PO 4X/DAY FUNGAL INFECTION 05/09/24 05/08/24 History suspension Allergy/AdvReac Type Severity Reaction Status Date / Time No Known Allergies Allergy Verified 04/22/24 13:49 Family History Father Heart disease Brother Heart disease COPD (chronic obstructive pulmonary disease) Surgical History History of tonsillectomy Hx of biopsy History of esophagogastroduodenoscopy (EGD) History of meniscectomy of left knee History of herniorrhaphy Social History Smoking Status: Former smoker Tobacco: How many years used: 55 ROS ROS Narrative Constitutional: Reports acute on chronic fatigue and weakness. No energy. No fever. Loss of weight HEENT: Reports systems reviewed and no addt'l complaints, except as documented Respiratory/Chest: Chronic dyspnea on exertion. CVS: No chest pain or shortness of breath Gastrointestinal: Denies coffee ground emesis, hematemesis or vomiting Genitourinary: Denies burning urination or new urinary tract symptoms Musculoskeletal: Denies acute joint pain or limited range of motion. No acute injury Neurologic: Denies seizure-like symptoms. skin: No ulcer. No rash Endocrinology: Reports systems reviewed and no addt'l complaints, except as documented Hematologic/Lymphatic: Reports systems reviewed and no addt'l complaints, except as documented Rest 14 ROS are negative except as mentioned in HPI Vital Signs Vital Signs Vital Signs: 05/09/24 12:19 05/09/24 12:27 05/09/24 12:28 Temperature 99.2 F H 99.2 F H Temperature Source Oral Oral Pulse Rate 105 H 103 H Respiratory Rate 16 18 Respiratory Effort Short of Breath Blood Pressure 106/64 106/64 Blood Pressure Mean 78 78 Pulse Ox 81 81 Oxygen Delivery Method Nasal Cannula Nasal Cannula Oxygen Flow Rate (L/min) 2 2 05/09/24 13:27 05/09/24 14:00 05/09/24 15:00 Temperature 99 F 98.9 F 97.4 F L Temperature Source Oral Oral Oral Pulse Rate 96 96 102 H Respiratory Rate 18 16 18 Respiratory Effort Blood Pressure 128/78 H 132/75 H 127/94 H Blood Pressure Mean 94 94 105 Pulse Ox 96 96 96 Oxygen Delivery Method Nasal Cannula Nasal Cannula Nasal Cannula Oxygen Flow Rate (L/min) 4 4 4 05/09/24 16:00 05/09/24 17:00 Temperature 97.8 F 98 F Temperature Source Oral Oral Pulse Rate 94 94 Respiratory Rate 18 18 Respiratory Effort Blood Pressure 150/89 H 126/74 H Blood Pressure Mean 109 91 Pulse Ox 97 96 Oxygen Delivery Method Nasal Cannula Nasal Cannula Oxygen Flow Rate (L/min) 4 4 Physical Exam Narrative General: Alert, Oriented x3, Cooperative HEENT: Atraumatic, PERRLA, EOMI, Normocephalic Oral: Oral mucosa dry no Gingival or Mucosal Lesions/ Ulcerations Neck: Supple, No JVD, Negative Carotid Bruits Chest wall/Lungs: Air entry diminished in bilateral lung bases. Mild fine expiratory rhonchi Cardiovascular: Sinus rhythm, Normal S1, Normal S2, systolic murmur Abdomen: Bowel Sounds Present, Soft, Non Tender, Non-Distended : No dysuria. No renal angle tenderness. No suprapubic tenderness. Extremities: No edema, Capillary Refill Less than 3 Seconds Skin: No rashes, No breakdown Musculoskeletal: Severe loss of subcutaneous fat and diffuse muscle atrophy of extremities, craniofacial, intervertebral and paravertebral muscles. No Tenderness to Palpation of Joints or Extremities Neurological: Cranial nerves II-XII grossly intact, DTR 2+/4. No acute focal neurological deficit. Psych/Mental Status: Flat affect Results Lab / Micro Data 05/09/24 13:16 05/09/24 13:16 Labs: Laboratory Results - last 24 hr 05/09/24 13:16: WBC 13.6 H, RBC 4.67, Hgb 14.4, Hct 46.3, MCV 99.1 H, MCH 30.8, MCHC 31.1 L, RDW Std Deviation 52.9 H, RDW Coeff of Deidra 14.4, Plt Count 255, MPV 9.6, Immature Gran % (Auto) 0.400, Neut % (Auto) 84.8 H, Lymph % (Auto) 4.3 L, [place] % (Auto) 10.3 H, Eos % (Auto) 0.1, Baso % (Auto) 0.1, Absolute Neuts (auto) 11.5 H, Absolute Lymphs (auto) 0.58 L, Nucleated RBC % 0, Sodium 133 L, Potassium 3.8, Chloride 95 L, Carbon Dioxide 29.0, Anion Gap 9, BUN 41 H, Creatinine 1.19, Est GFR (MDRD) Af Amer 77, Est GFR (MDRD) Non-Af 63, BUN/Creatinine Ratio 34.5 H, Glucose 125 H, Lactic Acid 1.5, Calcium 9.0, Total Bilirubin 0.70, AST 20, ALT 25, Alkaline Phosphatase 105, Total Creatine Kinase 77, Troponin I High Sens 35, Total Protein 6.6, Albumin 2.8 L, Globulin 3.8, Albumin/Globulin Ratio 0.7 L 05/09/24 14:25: Urine Color Yellow, Urine Clarity Clear, Urine pH 6.0, Ur Specific [place] 1.020, Urine Protein 30 H, Urine Glucose (UA) Normal, Urine Ketones 5 H, Urine Occult Blood 25 H, Urine Nitrite Negative, Urine Bilirubin Negative, Urine Urobilinogen Normal, Ur Leukocyte Esterase Negative, Urine RBC 0-5 SEEN, Urine WBC 0-5 SEEN, Ur Squamous Epith Cells 0-5 SEEN, Urine Bacteria 1+, Hyaline Casts 0-5 SEEN, Urine Mucus RARE Rhythm Strip Rhythm Strip: Sinus Rhythm Rate: 95 Ectopy: PVC(s) Imaging Radiology Impression Chest X-Ray 05/09/24 13:05 IMPRESSION: Ill-defined opacity within the right upper lung that is partially nodular, may reflect some combination of atelectasis and/or pneumonia, cannot exclude a neoplastic process, consider CT with contrast for further characterization. Electronically Signed: Yissel Gann MD at 13:56 EDT , Chest CT 05/09/24 15:29 IMPRESSION: Severe diffuse interstitial and emphysematous changes Right perihilar mass likely neoplastic infiltrating into the mediastinum with increasing opacification of the right upper lobe and multifocal cavitation with small bilateral lower lobe nodules likely metastatic There is encasement of the proximal right upper lobe pulmonary artery but no definitive evidence for bland thrombus Electronically Signed: Angelo Brock MD at 16:40 EDT , Assessment & Plan Assessment/Plan (1) Acute dehydration: (2) Chronic hypoxemic respiratory failure: (3) Failure to thrive: PLAN: Plan This is 73-year-old gentleman came to ED for declining physical health, loss of weight and failure to thrive 1. Acute debility due to loss of weight, dyspnea on exertion and inability to do ADL and dehydration: Patient is being admitted on MedSurg floor. PT and OT and case were consulted. Patient also dehydrated with low blood pressure by EMS but has improved. Continue IV fluid. Twelve-lead EKG shows NSR 97 beats minute, PAC with aberrant conduction, RAD, pulmonary disease pattern. QTc 474 ms 2. COPD, metastatic NSCLC adenocarcinoma with right superior sulcus tumor: Patient was last seen in oncology clinic on 04/22/2024 by JIMMY Jarrell. Oncology workup showed progressive disease in right and left hemithorax pulmonary parenchyma, progression in mediastinal nodes, T1-T3 vertebral bodies mass along posterior mediastinum, mass from T2 vertebral body into the spinal canal measuring 15 mm. Patient on nivolumab/ipilimumab, cycle 5. Chest CT was done in ED shows right perihilar mass likely mucoid plastic infiltrating into the mediastinum with increasing opacification of right upper lobe and multifocal cavitation with small bilateral lower lobe nodules likely metastatic. Encasement of proximal right upper lobe pulmonary artery but no definite evidence for bland thrombus. Severe diffuse interstitial and emphysematous changes. I have suspicion of either postobstructive pneumonia with multiple cavitation and mass infiltration. Therefore started on IV Unasyn. Pneumonia workup. Mild leukocytosis which may be from tumor, noninfectious. Patient currently on 4 L of oxygen suggestive of acute hypoxic 3. Chronic hyponatremia possible due to prerenal from dehydration/SIADH: UA reviewed. Kaylah ordered. Baseline sodium is around 133 and patient today sodium is 133. BUN elevated 41, creatinine 1.19. BUN/creatinine ratio 34.5. Monitor sodium after IV fluid replacement 4. Chronic severe protein calorie malnutrition, hypoalbuminemia: Serum albumin is 2.8. A/G ratio 0.7. Head Trimmer consult. 5. Hiatal hernia, Jaeger's esophagus, GERD: Patient follows Dr. Mayer. EGD showed short segment of Jaeger's esophagus, confirmed with biopsy. On pantoprazole 40 mg once daily. last EGD colonoscopy January 2024 showed acute duodenitis. Colonoscopy hemorrhoids on perianal exam. Diverticulosis in the sigmoid colon. 6. DVT prophylaxis, high risk: Lovenox 40 mg subcu daily Living will/advanced directive/end of life care: Patient does have living will or advanced directive. A of his friend is power of research chemical engineer for health. After discussion of benefits/risks procedures involved with full code, DNR CC arrest and DNR CC, the patient opted for DNR CC arrest with no Patient doesn't want artificial life support including intubation, tube feed, ventilator and/chest compression, central venous catheter, vasopressor and DC shock if needed Total time spent in [id number] encounter in discussion of advanced directive 17 minutes. Laboratory Results 05/09/24 13:16: WBC 13.6 H, RBC 4.67, Hgb 14.4, Hct 46.3, MCV 99.1 H, MCH 30.8, MCHC 31.1 L, RDW Std Deviation 52.9 H, RDW Coeff of Deidra 14.4, Plt Count 255, MPV 9.6, Immature Gran % (Auto) 0.400, Neut % (Auto) 84.8 H, Lymph % (Auto) 4.3 L, [place] % (Auto) 10.3 H, Eos % (Auto) 0.1, Baso % (Auto) 0.1, Absolute Neuts (auto) 11.5 H, Absolute Lymphs (auto) 0.58 L, Nucleated RBC % 0, Sodium 133 L, Potassium 3.8, Chloride 95 L, Carbon Dioxide 29.0, Anion Gap 9, BUN 41 H, Creatinine 1.19, Est GFR (MDRD) Af Amer 77, Est GFR (MDRD) Non-Af 63, BUN/Creatinine Ratio 34.5 H, Glucose 125 H, Lactic Acid 1.5, Calcium 9.0, Magnesium Pending, Total Bilirubin 0.70, AST 20, ALT 25, Alkaline Phosphatase 105, Total Creatine Kinase 77, Troponin I High Sens 35, Total Protein 6.6, Albumin 2.8 L, Globulin 3.8, Albumin/Globulin Ratio 0.7 L 05/09/24 14:25: Urine Color Yellow, Urine Clarity Clear, Urine pH 6.0, Ur Specific [place] 1.020, Urine Protein 30 H, Urine Glucose (UA) Normal, Urine Ketones 5 H, Urine Occult Blood 25 H, Urine Nitrite Negative, Urine Bilirubin Negative, Urine Urobilinogen Normal, Ur Leukocyte Esterase Negative, Urine RBC 0-5 SEEN, Urine WBC 0-5 SEEN, Ur Squamous Epith Cells 0-5 SEEN, Urine Bacteria 1+, Hyaline Casts 0-5 SEEN, Urine Mucus RARE Clinical Impression(s) from Imaging Studies Chest X-Ray 05/09/24 13:05 IMPRESSION: Ill-defined opacity within the right upper lung that is partially nodular, may reflect some combination of atelectasis and/or pneumonia, cannot exclude a neoplastic process, consider CT with contrast for further characterization. Electronically Signed: Yissel Gann MD at 13:56 EDT , Chest CT 05/09/24 15:29 IMPRESSION: Severe diffuse interstitial and emphysematous changes Right perihilar mass likely neoplastic infiltrating into the mediastinum with increasing opacification of the right upper lobe and multifocal cavitation with small bilateral lower lobe nodules likely metastatic There is encasement of the proximal right upper lobe pulmonary artery but no definitive evidence for bland thrombus Charges/Coding Visit Charges Inpatient E&M: 74000 Init Hosp L3 Procedures Hospitalists Procedures: 55427 Advncd Care Plan 30 Min
[2024-05-09 18:38] LABS: Uric Acid 6.9 mg/dL (3.5-7.2)
[2024-05-09] MEDS: Ampicillin/Sulbactam 3 GM in 0.9% Normal Saline (100mL MB+) 100 ML IV (20:30)
[2024-05-09] MEDS: guaiFENesin 1,200 MG Tablet 1200 MG PO (20:40)
[2024-05-09] MEDS: Enoxaparin 30 MG/0.3 ML Syringe SC (20:45)
[2024-05-09] MEDS: KCL 20MEQ in 0.9% NS 20 MEQ/1,000 ML IV.SOLN. 75 MEQ IV (22:56)
[2024-05-09 22:59] LABS: Protein, Urine (Random) 36.3 mg/dL (<11.9); Protein:Creat Ratio 593 mg/g CRE (0-200); Urine Chloride 12 mmol/L (Not Establ.); Urine Sodium 14 mmol/L (Not Establ.)
[2024-05-09 23:00] LABS: Osmolality, Urine 701 mOsm/KG
[2024-05-10 04:21] VITALS: BP 106/64; PULSE 65; RESP 16; TEMP 36.6; O2SAT 97
[2024-05-10 05:43] VITALS: BMI 15.7
[2024-05-10 06:41] LABS: Absolute Lymphocyte Count 0.55 X10^3/uL (0.83-4.51); Absolute Neutrophil Count 12.2 X10^3/uL (2.0-7.7); Basophil# 0.03 X10^3/uL; Basophil% 0.2 % (0-1); Eosinophil# 0.02 X10^3/uL; Eosinophils% 0.1 % (0-5); Hematocrit 43.3 % (40-54); Hemoglobin 13.7 g/dL (13.0-16.5); Lymphocyte # 0.55 X10^3/ul (0.83-4.51); Lymphocyte % 3.9 % (19-41); Mean Corp Hgb Conc 31.6 g/dL (32-36); Mean Corpuscular Volume 101.2 fL (80-94); Mean Platelet Vol. 9.8 fl (6.2-12.0); Monocyte# 1.37 X10^3/uL; Monocyte% 9.6 % (0-10); NRBC Flagged by Analyzer 0 % (0-5); Neutrophil % 85.8 % (47-70); POSITIVE DIFFERENTIAL YES; Platelet Count 200 K/mm3 (150-450); RBC Distribution Width CV 14.4 % (11.6-14.6); RBC Distribution Width SD 54.1 fl (35.1-43.9); Red Blood Count 4.28 M/mm3 (4.6-6.2); White Blood Count 14.2 K/mm3 (4.4-11.0)
[2024-05-10 07:32] LABS: Anion Gap 7 (5-15); BUN 29 mg/dL (7-18); BUN/Creat Ratio 38.5 RATIO (10-20); Calcium,Total 8.1 mg/dL (8.5-10.1); Chloride 103 mmol/L (98-107); Creatinine, Serum 0.75 mg/dL (0.70-1.30); EST Glomerular Filtration Rate 108 mL/min (>60); Est Glom Filt Rate - Afr Amer 130 mL/min (>60); Estimated Creatinine Clearance 52.25 ml/min; Glucose 116 mg/dL (74-106); Potassium 3.9 mmol/L (3.5-5.1); Sodium Level 136 mmol/L (136-145)
--- NOTE | 2024-05-10 07:51 | PN.HOSP_ITS ---
Reason for Visit Reason for Visit: Diagnoses Dehydration (05/09/24) Chronic respiratory failure with hypoxia (05/09/24) Subjective Subjective Patient is a 73-year-old gentleman with past medical history signal for metastatic non-small cell lung cancer, COPD who was brought to the emergency department by the EMS with decline in his health status and significant weight loss and assessment of adult failure to thrive made admitted to regular nursing floor with consultation placed to case management Objective Data Objective Data Vital Signs: Vital Signs Temp Pulse Resp BP Pulse Ox O2 Del Method O2 Flow Rate 98 F 65 16 106/64 97 High Flow 2 05/10/24 04:21 05/10/24 04:21 05/10/24 04:21 05/10/24 04:21 05/10/24 04:21 05/10/24 04:45 05/10/24 04:45 Oxygen Flow Rate (L/min) 2 Oxygen Delivery Method High Flow Weight: 45.6 kg Body Mass Index (BMI) 15.7 Intake & Output: Intake and Output for Last 24 Hours 05/08/24 05/09/24 05/10/24 23:59 23:59 23:59 Intake Total 1200 / 1200 312 / 312 Output Total 300 / 300 Balance 900 / 900 312 / 312 Lab / Micro Data 05/10/24 06:17 05/10/24 06:17 Labs: Laboratory Results - last 24 hr 05/09/24 13:16: WBC 13.6 H, RBC 4.67, Hgb 14.4, Hct 46.3, MCV 99.1 H, MCH 30.8, MCHC 31.1 L, RDW Std Deviation 52.9 H, RDW Coeff of Deidra 14.4, Plt Count 255, MPV 9.6, Immature Gran % (Auto) 0.400, Neut % (Auto) 84.8 H, Lymph % (Auto) 4.3 L, M janie % (Auto) 10.3 H, Eos % (Auto) 0.1, Baso % (Auto) 0.1, Absolute Neuts (auto) 11.5 H, Absolute Lymphs (auto) 0.58 L, Nucleated RBC % 0, Sodium 133 L, Potassium 3.8, Chloride 95 L, Carbon Dioxide 29.0, Anion Gap 9, BUN 41 H, Creatinine 1.19, Est GFR (MDRD) Af Amer 77, Est GFR (MDRD) Non-Af 63, B UN/Creatinine Ratio 34.5 H, Glucose 125 H, Lactic Acid 1.5, Uric Acid 6.9, Calcium 9.0, Magnesium 2.0, Total Bilirubin 0.70, AST 20, ALT 25, Alkaline Phosphatase 105, Total Creatine Kinase 77, Troponin I High Sens 35, Total Protein 6.6, Albumin 2.8 L, Globulin 3.8, Albumin/Globulin Ratio 0.7 L 05/09/24 14:25: Urine Color Yellow, Urine Clarity Clear, Urine pH 6.0, Ur Specific [place] 1.020, Urine Protein 30 H, Urine Glucose (UA) Normal, Urine Ketones 5 H, Urine Occult Blood 25 H, Urine Nitrite Negative, Urine Bilirubin Negative, Urine Urobilinogen Normal, Ur Leukocyte Esterase Negative, Urine RBC 0-5 SEEN, Urine WBC 0-5 SEEN, Ur Squamous Epith Cells 0-5 SEEN, Urine Bacteria 1+, Hyaline Casts 0-5 SEEN, Urine Mucus RARE 05/09/24 21:10: Urine Osmolality 701, U Random Total Protein 36.3 H, Ur Random Sodium 14, Urine Creatinine 61.20, Protein/Creatinin Ratio 593 H, Urine Potassium 18.0, Urine Chloride 12 05/10/24 06:17: WBC 14.2 H, RBC 4.28 L, Hgb 13.7, Hct 43.3, MCV 101.2 H, MCH 32.0, MCHC 31.6 L, RDW Std Deviation 54.1 H, RDW Coeff of Deidra 14.4, Plt Count 200, MPV 9.8, Immature Gran % (Auto) 0.400, Neut % (Auto) 85.8 H, Lymph % (Auto) 3.9 L, [place] % (Auto) 9.6, Eos % (Auto) 0.1, Baso % (Auto) 0.2, Absolute Neuts (auto) 12.2 H, Absolute Lymphs (auto) 0.55 L, Nucleated RBC % 0, Sodium 136, Potassium 3.9, Chloride 103, Carbon Dioxide 25.0, Anion Gap 7, BUN 29 H, Creatinine 0.75, Estim Creat Clear Calc 52.25, Est GFR (MDRD) Af Amer 130, Est GFR (MDRD) Non-Af 108, BUN/Creatinine Ratio 38.5 H, Glucose 116 H, Calcium 8.1 L Micro: Microbiology 05/09/24 20:10 Urine, Clean Catch Legionella Antigen - Final 05/09/24 20:10 Urine, Clean Catch Streptococcus pneumoniae Antigen (M - Final 05/09/24 18:45 Nasal Secretion MRSA (PCR) - Final 05/09/24 20:05 Mucosa - Nasopharyngeal Coronavirus COVID-19 PCR - Final Radiography Diagnostic Testing: Radiology Impression Chest X-Ray 05/09/24 13:05 IMPRESSION: Ill-defined opacity within the right upper lung that is partially nodular, may reflect some combination of atelectasis and/or pneumonia, cannot exclude a neoplastic process, consider CT with contrast for further characterization. Electronically Signed: Yissel Gann MD at 13:56 EDT , Chest CT 05/09/24 15:29 IMPRESSION: Severe diffuse interstitial and emphysematous changes Right perihilar mass likely neoplastic infiltrating into the mediastinum with increasing opacification of the right upper lobe and multifocal cavitation with small bilateral lower lobe nodules likely metastatic There is encasement of the proximal right upper lobe pulmonary artery but no definitive evidence for bland thrombus Electronically Signed: Angelo Brock MD at 16:40 EDT , Rhythm Strip Rhythm Strip: Sinus Rhythm Rate: 95 Ectopy: PVC(s) Physical Exam Narrative GENERAL: cooperative, but frail looking HEENT: Atraumatic; normocephalic EYES; Anicteric, Normal Conjunctiva NECK; supple, normal thyroid, RESPIRATORY: Diminished to auscultation CARDIOVASCULAR: Regular S1 S2, GI: soft, normoactive bowel sounds, : No Renal angle tenderness; EXTREMITIES: No edema, no clubbing, MUSCULOSKELETAL: Muscle wasting NEURO: Awake; no lateralizing signs. SKIN: No Rash PSYCH; Flat affect Assessment & Plan Assessment/Plan (1) Acute dehydration: (2) Chronic hypoxemic respiratory failure: (3) Failure to thrive: PLAN: Plan Patient is a 73-year-old gentleman with past medical history signal for metastatic non-small cell lung cancer, COPD who was brought to the emergency department by the EMS with decline in his health status and significant weight loss and assessment of adult failure to thrive made admitted to regular nursing floor with consultation placed to case management 1. Physical deconditioning ? Requested for PT OT eval and high school social science teacher to assist with discharge planning 2. 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 Oncology workup showed progressive disease in right and left hemithorax pulmonary parenchyma, progression in mediastinal nodes, T1-T3 vertebral bodies mass along posterior mediastinum, mass from T2 vertebral body into the spinal canal measuring 15 mm. Patient on nivolumab/ipilimumab, cycle 5. 4. Suspected postoperative pneumonia Chest CT was done in ED shows right perihilar mass likely mucoid plastic infiltrating into the mediastinum with increasing opacification of right upper lobe and multifocal cavitation with small bilateral lower lobe nodules likely metastatic. Encasement of proximal right upper lobe pulmonary artery but no definite evidence for bland thrombus. Severe diffuse interstitial and emphysematous changes. Subsequently started on Unasyn after cultures have been sent as well as supplemental oxygen 5. Hyponatremia ? Suspected to secondary to hypovolemic hyponatremia resolved with IV hydration. Patient also has chronicity to his hyponatremia and is on sodium tablet 6. Hiatal hernia with GERD and Jaeger's esophagus ? Patient is on PPI 7. Suspected severe protein calorie malnutrition ? Evidenced by cachexia, low BMI 15.7, muscle wasting, low oral intake this is also a result of patient underlying malignancy. Patient started on a show consult placed to dietitian 8. DVT prophylaxis ? On enoxaparin Time spent in the patient's overall evaluation,decision-making process, review of diagnostic data, adjustment of management, discussion with other providers, nursing nursing and ancillary staff involved in patient's care documentation, 52 Minutes Charges/Coding Visit Charges Inpatient E&M: 66943 [facility] Hosp L3
[2024-05-10 08:16] VITALS: BP 85/60; PULSE 104; RESP 18; TEMP 36.4; O2SAT 84; O2SAT 95
[2024-05-10 08:54] VITALS: O2SAT 95
--- NOTE | 2024-05-10 09:28 | CASEMGMT ---
WOODROW CARMICHAEL Assessment: Face to Face with pt for initial transition planning/care coordination assessment. RN JANY introduced self and role at [facility], pt voices understanding and consents to assessment. Pt is O x4 and answers all questions appropriately at this time, but very drowsy. Care providers, pharmacy, and demographics verified/updated. Admitting Dx: FTT, lung cancer Strata Score: 2 PCP:Anders Specialists:Harinder, onc; Friend, GI Preferred Pharmacy: [facility] Insurance: [employer] [facility] Adv Prescription Benefit: yes LNOK: Michael Barrios, nephew; Katja Fiore, friend Living Arrangements: Pt lives alone in a basement apt with 13 steps to enter with a rail. Pt reports up to a week ago he was I at home. Transportation: Pt drives self and denies concerns with transportation. DME:cane, walker, pox, oxygen through [employer] with portability HHC/SNF: Pt is active with [facility] and pt denies SNF stays. Pt states no concerns with going home at time of dc. Pt states that he may need help cleaning up his apt as he was incontinent for a week with diarrhea and his floors need cleaned. Pt appears very frail. PT, OT and ST ordered and will eval. Discussed with pt will follow with him after therapy evals. Updated RN JANY on MS3. Pt states no further concerns/needs. CM to follow. Advised pt to ask CM if any further question/concerns/needs arise, voices understanding. Pt Goal: Home Plan: TBD pending therapy evals and course of hospitalization Kris TROY CM
[2024-05-10] MEDS: Senna/Docusate Sodium 1 Tablet 2 TABLET PO ×2 (10:03→21:28)
[2024-05-10] MEDS: guaiFENesin 1,200 MG Tablet 1200 MG PO ×2 (10:03→21:28)
[2024-05-10] MEDS: Ampicillin/Sulbactam 3 GM in 0.9% Normal Saline (100mL MB+) 100 ML IV ×2 (10:09→21:29)
--- NOTE | 2024-05-10 10:25 | SP.MBSS_ITS ---
Modified Barium Swallow Patient Information Study Date: 05/10/24 Study Time: 10:15 Direct Billable Minutes: 122 Total Minutes procedure & reportin Diagnosis: Chronic hypox. respiratory fail. J96.11, Acute dehydration E86.0 Referring Physician: Steven Tovar Reason for Referral: Objectively assess swallow function, assess risk for aspiration, and determine recommendations for least restrictive diet textures and compensatory strategies to improve safety of swallow. Medical History: PMH: COPD, Atrial fibrillation, Right upper lobe pneumonia, Shortness of breath on exertion, GERD (gastroesophageal reflux disease), hx of tobacco abuse, and metastatic lung cancer (follows Dr. Pizano and Dr. Franz, hx of chemotherapy, radiation, immunotherapy) - SEE EMR for full PMH. Pt was brought to the ED by EMS on was brought to ED 05/09/2024 by EMS for failure to thrive. Patient had been physically declining and losing weight. Patient has home health care, but he needs more help. He easily gets short of breath doing his ADLs. He was admitted for management of failure to thrive, acute dehydration, chronic respiratory failure, and debility amongst several other comorbidities. ST consulted d/t swallowing difficulties. Current Diet Ordered: Regular / Thin Dentition: Edentulous (upper dentition) and Missing Teeth (lower dentition) Mental Status: WNL Respiratory Status: Oxygenating on Room Air Penetration-Aspiration Scale Penetration-Aspiration Scale: OBJECTIVE ASSESSMENT OF SWALLOW FUNCTION (QUANTITATIVE ? PER TRIAL): PENETRATION / ASPIRATION SCALE (GARCIA): 1 = does not enter airway 2 = enters airway/above vocal folds/ejected 3 = enters airway/above vocal folds/not ejected 4 = enters airway/contacts vocal folds/ejected 5 = enters airway/contacts vocal folds/not ejected 6 = enters airway/below vocal folds/ejected 7 = enters airway/below vocal folds/not ejected despite effort 8 = enters airway/below vocal folds/no effort VIDEOFLOROSCOPIC SCALE SCORE (GARCIA): Grade I = aspiration of material that has penetrated into the laryngeal vestibule, intact cough reflex Grade II = aspiration < 10 % of the bolus, intact cough reflex Grade III = aspiration of < 10 % of the bolus, reduced cough reflex or aspiration of > 10 % of the bolus, intact cough reflex Grade IV = aspiration of > 10 % of the bolus, reduced cough reflex Penetration-Aspiration Scale Score Thin Liquid via teaspoon: Result: 8= enters airway/below vocal folds/no effort Comment: Cued cough and re-swallow = ineffective. [place] Thick Liquid via teaspoon: Result: 8= enters airway/below vocal folds/no effort Honey Thick Liquid via teaspoon: Result: 2= enter airway/above vocal folds/ejected Pudding via teaspoon: Result: 2= enter airway/above vocal folds/ejected Thin Liquid via teaspoon Effortful swallow: Result: 8= enters airway/below vocal folds/no effort Thin Liquid via teaspoon Chin tuck: Result: 8= enters airway/below vocal folds/no effort Honey Thick Liquid via teaspoon Trial 2: Result: 3= enters airways/above vocal folds/not ejected Comment: Reflexive cough = somewhat effective; however, these residues were seen penetrating to the vocal folds during the following trial. Pudding via teaspoon Trial 2: Result: 1= does not enter airway Oral Phase Labial Seal: No Labial Escape Tongue Control During Bolus Hold: Posterior escape of less than half of bolus Bolus Transport/Lingual Motion: Delayed initiation of tongue motion Oral Residue: Trace residue lining oral structures Pharyngeal Phase Initiation of Pharyngeal Swallow: Bolus head at posterior laryngeal surgace of epiglottis Soft Palate Elevation: Trace column of contrast/air between soft palate and pharyngeal wall Laryngeal Elevation: Partial superior movement thyroid cart/partial apprx aryt- epig petiole Anterior Hyoid Excursion: Partial anterior movement Epiglottic Movement: No inversion Laryngeal Vestibule Closure at Height of Swallow: Incomplete; narrow column of air/contrast in laryngeal vestibule Pharyngeal Stripping Wave: Present - diminished Pharyngoesophageal Segment Opening: Parital distension and partial duration; parital obstruction of flow Tongue Base Retraction: Wide column of contrast between tongue base & post. pharyngeal wall Pharyngeal Residue: Majority of contrast within or on pharyngeal structures Esophageal Phase Esophageal Clearance: Esophageal retention w/ retrograde flow through pharyngoe sophageal seg Diagnosis/Impression Diagnosis: Severe oropharyngeal dysphagia R13.12 Impression: The oral phase is primarily marked by... -Did not assess cookie due to deficits in pharyngeal clearance, poor dentition, and STEEL DIE [employer]INTER concern for the patient being a high choking risk. -Delayed tongue motion for A-P transport. -Thin by tsp resulted in premature posterior loss to the posterior surface of the epiglottis prior to swallow onset. The pharyngeal phase is primarily marked by... -Decreased pharyngeal motility due to poor tongue base retraction, pharyngeal stripping wave, and UES opening/duration w/ >50% of pudding in the pharynx after the first swallow. Multiple swallows cleared a majority of the bolus. -Decreased airway closure due to poor anterior hyoid excursion and laryngeal elevation with no epiglottic inversion. SILENT aspiration of thin and nectar/mildly thick liquids by tsp. Laryngeal penetration of honey/moderately thick liquids penetrated to the vocal folds on subsequent trials, placing him at increased risk for post prandial aspiration. Reflexive cough (honey) and cued cough (thin and nectar) were not effective in clearing the laryngeal vestibule or trachea of penetrated or aspirated contrast. The esophageal phase is primarily marked by... -Trace-mild retention of various consistencies in the UES w/ retrograde flow through to the pyriforms. -Mild retention in the middle esophagus. Recommendations Diet: Puree Textures Comment: HOLD LIQUIDS BY MOUTH, HYDRATION VIA IV FLUIDS W/ PLAN FOR RE-ASSESSMENT OF ASPIRATION RISK VIA MBSS 05/13/2024 IF DEEMED APPROPRIATE BY STEEL DIE PRINTER. STEEL DIE PRINTER called to inform Dr. Tovar of speech POC, he was agreeable. Compensatory Strategies: Small Bites, Slow Rate, Sitting upright and Remain sitting upright for 30 minutes after PO intake Supervision: 1:1 Close Supervision (Assist feeding as needed) Recommend Repeat Modified Barium Swallow: Yes Comment: Will recommend repeat MBSS 05/13/2024 for re-assessment of aspiration risk and to determine if pt's diet can be advanced vs. if he should be considered for PEG placement. STEEL DIE PRINTER did page housing counselor, Dr. Mayer, to review UES deficits who recommended GI consult. Need for Skilled Speech Therapy Services: Yes Comment: -Ongoing assessment of diet tolerance (purees only) this weekend w/ plans for re-assessment via MBSS 05/13/2024. -Implement oropharyngeal strengthening (Effortful, Silvio, Alyssa, Yawn st retch, Shaker if tolerated) -Train in oral care. -Ok for ice chip trials w/ STEEL DIE PRINTER after oral care. Recommended Referrals: GI Consult (decreased UES opening/duration) and Dietitian Consult (STEEL DIE PRINTER left VM for Tommie marcano, recommending moist purees, but not liquidized purees for this patient over the weekend due to high aspiration risk w/ thin and thickened liquids.) Education Completed: 1. Described result of evaluation., 2. Pt understands evaluation & agrees with goals and treatment plan. and 7. Pt requires further education on strategies & risks. Status Active ST Patient: Active Contact Information [facility] Speech Therapy:: Felicity Nicole M.A. CCC-STEEL DIE PRINTER? Speech-Language Pathologist?? [facility] [address] [place] [address]? [email or web address]?? [phone]
--- NOTE | 2024-05-10 10:49 | CASEMGMT ---
Discharge Planning A list of?SNF providers including quality and resource use data and consistent with the patient's preferred geographic region, medical needs, and insurance network was created in [employer] Guide.? This list was provided to the SW. Samra Barron Discharge Planning Asst.
--- NOTE | 2024-05-10 11:30 | CASEMGMT ---
Addendum entered by Dallas Giraldo 05/10/24 11:39: Per James, the stairs to pt's basement apartment are also very steep. Original Note: WOODROW CARMICHAEL NOTE: WOODROW CARMICHAEL spoke w/James @ [facility]. She is aware pt has been admitted to [facility], stating she was the one who called the squad to have pt transferred to [facility] ER. See Herbie note from [facility] 05/09. Per James, pt's apt is a one-room efficiency apartment and when found yesterday, his mattress was completed soaked in BM as well as BM over the entire floor of his apartment. She states the apartment is not livable/pt not able to return to it. She also states there was no food in the home, except for some oral crackers and pt could not remember when he had eaten last. She also states pt has a nephew, Michael, listed as his LNOK, but she has never spoken w/him and is not aware of him being involved w/pt. Ana GIBSON, made aware of above. Jeannine FARIAS RN, CM
--- NOTE | 2024-05-10 12:25 | CASEMGMT ---
Social Work SW met with pt to discuss discharge plan. Pt lives in a basement one room efficiency apartment with 13 steps to enter. Pt is able to state that he lives alone and became ill over the last week and very debilitated and unable to care for himself. Pt is agreeable that he needs rehabilitation. SW informed pt that any chemo meds would be on hold during a rehab stay due to SNF rules. Pt stating he would want to talk to oncology prior to deciding this. Pt agreeable for SW to reach out to oncology. A list of SNF providers including quality and resource use data and consistent with the patient?s preferred geographic region, medical needs, and insurance network were provided from the [employer]Port Guide. Pt preferred provider is [facility]. Second choice is [facility] or [place]. SW spoke with pt regarding next of kin. Pt does not have children. HCPOA on file naming 1. Paula Fiore 2. Katja Adebayo (pt confirms they are friends and can be contacted but do not provide assistance) 3. Redd Barrios is pt's brother who is . Pt's nephew Michael Barrios is listed on face sheet. Michael lives in [place] and is not able to help. Pt denies any other individuals who can assist. SW to follow up with oncology and to make SNF referrals. ZA Millard
--- NOTE | 2024-05-10 13:34 | CASEMGMT ---
Social Work SW spoke with oncology and speech therapy. Pt to have a repeat MBS on Monday. DC planning will be on hold until after this study and determination of plans going forward are made. ZA Millard
[2024-05-10 14:23] VITALS: BP 109/62; PULSE 68; RESP 18; TEMP 36.6; O2SAT 94
[2024-05-10 21:26] VITALS: BP 120/73; PULSE 57; RESP 18; TEMP 36.7; O2SAT 94
[2024-05-10] MEDS: 0.9% Saline Lock 10 ML Syringe IV (21:29)
[2024-05-11 01:54] VITALS: BP 112/64; PULSE 62; RESP 18; TEMP 36.6; O2SAT 92
[2024-05-11 05:07] VITALS: BMI 16.8
[2024-05-11 07:00] VITALS: O2SAT 94
[2024-05-11 08:00] VITALS: BP 120/78; PULSE 75; RESP 18; TEMP 37.2; O2SAT 93
[2024-05-11 08:49] VITALS: O2SAT 93
[2024-05-11] MEDS: guaiFENesin 1,200 MG Tablet 1200 MG PO (08:56)
[2024-05-11] MEDS: Enoxaparin 40 MG/0.4 ML Syringe SC (08:56)
[2024-05-11] MEDS: Senna/Docusate Sodium 1 Tablet 2 TABLET PO ×2 (08:56→22:13)
[2024-05-11] MEDS: Ampicillin/Sulbactam 3 GM in 0.9% Normal Saline (100mL MB+) 100 ML IV ×2 (09:40→22:09)
--- NOTE | 2024-05-11 10:10 | PN.HOSP_ITS ---
Subjective Subjective Complaining of pain and discomfort from laying in bed Objective Data Objective Data Vital Signs: Vital Signs Temp Pulse Resp BP Pulse Ox O2 Del Method O2 Flow Rate 98.9 F 75 18 120/78 93 High Flow 3 05/11/24 08:00 05/11/24 08:00 05/11/24 08:00 05/11/24 08:00 05/11/24 08:49 05/11/24 08:49 05/11/24 08:49 Oxygen Flow Rate (L/min) 3 Oxygen Delivery Method High Flow Weight: 107 lb 5.842 oz Body Mass Index (BMI) 16.8 Intake & Output: Intake and Output for Last 24 Hours 05/10/24 05/11/24 05/12/24 03:59 03:59 03:59 Intake Total 1312 / 1312 1736.5 / 1736.5 Output Total 300 / 300 Balance 1012 / 1012 1736.5 / 1736.5 Medical Nutrition Assessment Dietitian: Malnutrition Criteria Met Start: 05/10/24 13:37 Freq: Status: Active Protocol: Document 05/10/24 13:37 SLA (Rec: 05/10/24 13:37 SLA [id number]) Nutrition Malnutrition Evidence of Malnutrition Exists Yes Malnutrition (severe): Chronic Evidenced By Suboptimal Energy Intake ( Severe),Weight Loss (Severe), Physical Changes (Severe) Clinical Problem Chronic Disease or Condition Related Malnutrition Etiology related to underlying cancer malignancy and inadequate energy intake Signs/Symptoms as evidenced by 8.1% unintended wt loss x 3 wks and po intake meeting <75% of usual for greater than 6 months; obvious fat loss/ muscle wasting throughout body ; BMI <16 Status Active Problem Recommendation Dietitian Recommendations/Changes Rec consider appetite stimulant to help encourage increased po intake Continue regular diet as ordered Will add fortified foods at meals as able Continue ONS at medpass Consider supplemental nutrition support to help prevent additional decline in pt nutritional status if in accordance to pt/family wishes Lab / Micro Data 05/10/24 06:17 05/10/24 06:17 Micro: Microbiology 05/09/24 20:05 Sputum, Expectorated/Coughed Gram Stain - Final 05/09/24 20:05 Mucosa - Nasopharyngeal Respiratory Panel (PCR) - Final 05/09/24 20:10 Urine, Clean Catch Legionella Antigen - Final 05/09/24 20:10 Urine, Clean Catch Streptococcus pneumoniae Antigen (M - Final 05/09/24 18:45 Nasal Secretion MRSA (PCR) - Final 05/09/24 20:05 Mucosa - Nasopharyngeal Coronavirus COVID-19 PCR - Final Rhythm Strip Rhythm Strip: Sinus Rhythm Rate: 95 Ectopy: PVC(s) Physical Exam Narrative General: Alert, Oriented x3, Cooperative, No apparent distress cachectic with severe protein calorie malnutrition HEENT: Atraumatic, PERRLA, EOMI, Normocephalic Oral: Moist Mucosa Neck: Supple, No JVD Lungs: Diminished, Normal air movement, No rhonchi, No wheeze, No rales Cardiovascular: Regular rate, Regular Rhythm, Normal S1, Normal S2, No murmurs Abdomen: Soft, Non Tender, Non-Distended, No Hepato-splenomegaly Extremities: No edema, Capillary Refill Less than 3 Seconds Skin: No rashes, No breakdown Musculoskeletal: No Tenderness to Palpation of Joints or Extremities Neurological: No focal neurological deficits, Motor Exam 5/5 strength throughout, Sensory exam intact to light touch and pain Psych/Mental Status: Flat Assessment & Plan Assessment/Plan (1) Acute dehydration: (2) Chronic hypoxemic respiratory failure: (3) Failure to thrive: PLAN: Plan 1. Physical deconditioning ? Requested for PT OT eval and social worker palliative care to assist with discharge planning 2. 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 Oncology workup showed progressive disease in right and left hemithorax pulmonary parenchyma, progression in mediastinal nodes, T1-T3 vertebral bodies mass along posterior mediastinum, mass from T2 vertebral body into the spinal canal measuring 15 mm. Patient on nivolumab/ipilimumab, cycle 5. 4. Suspected postoperative pneumonia Chest CT was done in ED shows right perihilar mass likely mucoid plastic infiltrating into the mediastinum with increasing opacification of right upper lobe and multifocal cavitation with small bilateral lower lobe nodules likely metastatic. Encasement of proximal right upper lobe pulmonary artery but no definite evidence for bland thrombus. Severe diffuse interstitial and emphysematous changes. Subsequently started on Unasyn after cultures have been sent as well as supplemental oxygen 05/11/2024: Having swallowing difficulty, repeat swallowing evaluation on Monday if still severely limited, will discuss options 5. Hyponatremia ? Suspected to secondary to hypovolemic hyponatremia resolved with IV hydration. Patient also has chronicity to his hyponatremia and is on sodium tablet 6. Hiatal hernia with GERD and Jaeger's esophagus ? Patient is on PPI 7. Suspected severe protein calorie malnutrition ? Evidenced by cachexia, low BMI 15.7, muscle wasting, low oral intake this is also a result of patient underlying malignancy. Patient started on a show consult placed to dietitian DVT: Lovenox Charges/Coding Visit Charges Inpatient E&M: 39285 Subs Hosp L2
[2024-05-11] MEDS: Ensure Plus High Protein 120 ML LIQUID PO (11:48)
[2024-05-11 14:26] VITALS: BP 113/79; PULSE 75; RESP 16; TEMP 37.2; O2SAT 92
[2024-05-11] MEDS: 0.9% Saline Lock 10 ML Syringe IV (22:13)
[2024-05-11] MEDS: guaiFENesin 600 MG Tablet 1200 MG PO (22:29)
--- NOTE | 2024-05-11 22:41 | EX.PCM.CON.G ---
HPI Consult Data Date of Consult: 05/11/24 HPI Narrative Reason for Consultation: Failure to thrive and dysphagia HPI Narrative: NADIYA MACHADO, is a 73 M with history of lung cancer follows Dr. Pizano was brought to ED by EMS for failure to thrive. Patient has been physically declining and losing weight. Patient has home health care but he needs more help. He easily gets short of breath on doing his ADL although he states his baseline shortness of breath is rare is better. He was diagnosed with Metastatic NSCLC adenocarcinoma type, R Superior Sulcus tumor. PET/CT 07/20/2023 reviewed, shows progressive disease in right and left hemithorax pulmonary parenchymal, progression in mediastinal nodes, increase in left lateral neck, T1-T3 vertebral bodies, Periauricular area. MRI thoracic spine 07/26/2022 reviewed, shows compression deformity of T1-T2 and T3, mass along the posterior mediastinum, mass from the T2 vertebral body into the spinal canal measuring 15 mm. I got to know him after that unfortunate diagnosis for progressive weight loss. He still has been losing a significant amount of weight and is down to 107 pounds. He's lost almost 75 pounds. He is closed to his baseline in regarding his respiratory status. I was asked to see him due to Severe oropharyngeal dysphagia and esophageal dysphagia [facility] Medical History Port-A-Cath in place Weight loss Oral candidiasis Hyponatremia Anemia Dehydration Swelling of both lower extremities Depression COPD (chronic obstructive pulmonary disease) Asthma Atrial fibrillation Irregular heart beat Protein calorie malnutrition Right upper lobe pneumonia Hoarseness Smoker History of steroid therapy Shortness of breath on exertion On home oxygen therapy Gastric reflux History of hiatal hernia Cancer Emphysema, unspecified Encounter for education Hiatal hernia GERD (gastroesophageal reflux disease) Barretts esophagus Wears glasses Alcohol use Easy bruising Injury of head and neck Wears partial dentures History of diverticulitis Shortness of breath on exertion History of edema Cardiology follow-up encounter History of stress test History of echocardiogram History of irregular heartbeat Tobacco abuse Hyperlipidemia Inguinal hernia Rectal prolapse Gonorrhea Schizophrenia Home Medications ?Medication ?Instructions ?Recorded ?Last Taken ?Type lidocaine-prilocaine 2.5 %-2.5 % 1 applic topical ONCE PRN port 08/25/22 Unknown Rx topical cream access 30 days #30 grams oxycodone-acetaminophen 5 mg-325 1 tab PO Q6H PRN PAIN 2 days #5 09/05/22 05/08/24 Rx mg tablet tabs cyclobenzaprine 10 mg tablet 10 mg PO BID MUSCLE SPASMS 09/19/22 05/08/24 History cholecalciferol (vitamin D3) 25 25 mcg PO DAILY SUPPLEMENT 10/28/22 05/08/24 History mcg (1,000 unit) tablet (Vitamin D3) ipratropium 0.5 mg-albuterol 3 mg 3 ml inhalation Q4HWA.RT COPD 09/11/23 05/08/24 Rx (2.5 mg base)/3 mL nebulization #180 mL soln folic acid 1 mg tablet 1 mg PO DAILY SUPPLEMENT #90 tabs 11/06/23 05/08/24 Rx albuterol sulfate 90 mcg/actuation 2 puff inhalation Q6H PRN 01/10/24 05/08/24 Rx aerosol inhaler (Proventil HFA) shortness of breath or wheezing #8.5 grams sennosides 8.6 mg-docusate sodium 1 tab-cap PO TID 01/17/24 05/08/24 History 50 mg capsule (Senna Plus) pantoprazole 40 mg tablet,delayed 40 mg PO DAILY GERD #30 tabs 01/23/24 05/08/24 Rx release polysaccharide iron complex 150 mg 150 mg PO DAILY SUPPLEMENT #90 01/29/24 05/08/24 Rx iron capsule (Ferrex) caps sodium chloride 1,000 mg soluble 1,000 mg PO TID electrolyte 01/29/24 05/08/24 History tablet replenishment lactulose 10 gram/15 mL oral 15 ml PO BID CONSTIPATION #946 mL 03/06/24 05/08/24 Rx solution nystatin 100,000 unit/mL oral 5 ml PO 4X/DAY FUNGAL INFECTION 05/09/24 05/08/24 History suspension Allergy/AdvReac Type Severity Reaction Status Date / Time No Known Allergies Allergy Verified 04/22/24 13:49 Family History Father Heart disease Brother Heart disease COPD (chronic obstructive pulmonary disease) Surgical History History of tonsillectomy Hx of biopsy History of esophagogastroduodenoscopy (EGD) History of meniscectomy of left knee History of herniorrhaphy Social History Smoking Status: Former smoker Tobacco: How many years used: 55 ROS ROS Narrative Constitutional: Reports acute on chronic fatigue and weakness. No energy. No fever. Loss of weight HEENT: Reports systems reviewed and no addt'l complaints, except as documented Respiratory/Chest: Chronic dyspnea on exertion. CVS: No chest pain or shortness of breath Gastrointestinal: Denies coffee ground emesis, hematemesis or vomiting Genitourinary: Denies burning urination or new urinary tract symptoms Musculoskeletal: Denies acute joint pain or limited range of motion. No acute injury Neurologic: Denies seizure-like symptoms. skin: No ulcer. No rash Endocrinology: Reports systems reviewed and no addt'l complaints, except as documented Hematologic/Lymphatic: Reports systems reviewed and no addt'l complaints, except as documented Rest 14 ROS are negative except as mentioned in HPI Physical Exam Narrative General: Alert, Oriented x3, Cooperative, No apparent distress cachectic with severe protein calorie malnutrition HEENT: Atraumatic, PERRLA, EOMI, Normocephalic Oral: Moist Mucosa Neck: Supple, No JVD Lungs: Diminished, Normal air movement, No rhonchi, No wheeze, No rales Cardiovascular: Regular rate, Regular Rhythm, Normal S1, Normal S2, No murmurs Abdomen: Soft, Non Tender, Non-Distended, No Hepato-splenomegaly Extremities: No edema, Capillary Refill Less than 3 Seconds Skin: No rashes, No breakdown Musculoskeletal: No Tenderness to Palpation of Joints or Extremities Neurological: No focal neurological deficits, Motor Exam 5/5 strength throughout, Sensory exam intact to light touch and pain Psych/Mental Status: Flat Medical Records Data Medical Nutrition Assessment Dietitian: Malnutrition Criteria Met Start: 05/10/24 13:37 Freq: Status: Active Protocol: Document 05/10/24 13:37 IZABELA (Rec: 05/10/24 13:37 IZABELA ..25.7) Nutrition Malnutrition Evidence of Malnutrition Exists Yes Malnutrition (severe): Chronic Evidenced By Suboptimal Energy Intake ( Severe),Weight Loss (Severe), Physical Changes (Severe) Clinical Problem Chronic Disease or Condition Related Malnutrition Etiology related to underlying cancer malignancy and inadequate energy intake Signs/Symptoms as evidenced by 8.1% unintended wt loss x 3 wks and po intake meeting <75% of usual for greater than 6 months; obvious fat loss/ muscle wasting throughout body ; BMI <16 Status Active Problem Recommendation Dietitian Recommendations/Changes Rec consider appetite stimulant to help encourage increased po intake Continue regular diet as ordered Will add fortified foods at meals as able Continue ONS at [facility] Consider supplemental nutrition support to help prevent additional decline in pt nutritional status if in accordance to pt/family wishes Lab / Micro Data 05/10/24 06:17 05/10/24 06:17 Micro: Microbiology 05/09/24 20:05 Sputum, Expectorated/Coughed Gram Stain - Final 05/09/24 20:05 Sputum, Expectorated/Coughed Respiratory Culture - Preliminary Appears to be normal respiratory janet. Further studies to follow. Rhythm Strip Rhythm Strip: Sinus Rhythm Rate: 95 Ectopy: PVC(s) Assessment & Plan Assessment/Plan (1) Acute dehydration: (2) Chronic hypoxemic respiratory failure: (3) Failure to thrive: PLAN: Plan Patient is a 73-year-old gentleman with past medical history signal for metastatic non-small cell lung cancer, COPD who was brought to the emergency department by the EMS with decline in his health status and significant weight loss and currently with severe oral dysphasia and esophageal dysphasia. Oropharyngeal dysphasia and esophageal dysphasia- I think patient would benefit from an upper endoscopy to see if he could undergo dilation and possible Botox to his upper esophageal sphincter via injection into cricophayngeus muscle. Suspect that he has significant orophargeal dysphasia secondary to weight loss and along with paraneoplastic effect of his lung cancer, combined with his radiation and chemotherapy treatments for his metastatic disease. He has very poor functional status at this time. I think he would also benefit from an alternative motive, feeding such as a feeding tube. This willl likely be done on Monday, May 13, 2024. NPO past midnight on May 12, 2024. Charges/Coding Visit Charges Inpatient E&M: 62673 Init Hosp L3
[2024-05-11 22:42] VITALS: BP 121/70; PULSE 66; RESP 16; TEMP 37.1; O2SAT 99
[2024-05-12] MEDS: Acetaminophen 325 MG Tablet 650 MG PO (05:36)
[2024-05-12] MEDS: Menthol/Lanolin/Calamine/Znox 113 GM Tube 1 APPLIC TOPICAL ×2 (05:37→09:15)
[2024-05-12 05:49] VITALS: BP 116/76; PULSE 65; RESP 16; TEMP 36.6; O2SAT 97
[2024-05-12 06:00] VITALS: BMI 14.0
[2024-05-12 07:22] LABS: Absolute Lymphocyte Count 0.37 X10^3/uL (0.83-4.51); Basophil# 0.02 X10^3/uL; Basophil% 0.2 % (0-1); Eosinophil# 0.15 X10^3/uL; Eosinophils% 1.2 % (0-5); Hematocrit 39.8 % (40-54); Lymphocyte # 0.37 X10^3/ul (0.83-4.51); Mean Corp Hgb Conc 30.2 g/dL (32-36); Mean Corpuscular Hgb 31.5 pg (27.0-32.0); Mean Corpuscular Volume 104.5 fL (80-94); Monocyte# 0.79 X10^3/uL; Monocyte% 6.4 % (0-10); NRBC Flagged by Analyzer 0 % (0-5); Neutrophil # 11.04 X10^3/uL (2.7-7.7); Neutrophil % 88.7 % (47-70); POSITIVE DIFFERENTIAL YES; Platelet Count 238 K/mm3 (150-450); RBC Distribution Width CV 14.2 % (11.6-14.6); RBC Distribution Width SD 55.5 fl (35.1-43.9); Red Blood Count 3.81 M/mm3 (4.6-6.2); White Blood Count 12.4 K/mm3 (4.4-11.0)
[2024-05-12 07:44] LABS: Anion Gap 3 (5-15); BUN 17 mg/dL (7-18); Calcium,Total 8.6 mg/dL (8.5-10.1); Chloride 104 mmol/L (98-107); Creatinine, Serum 0.61 mg/dL (0.70-1.30); EST Glomerular Filtration Rate 138 mL/min (>60); Est Glom Filt Rate - Afr Amer 167 mL/min (>60); Estimated Creatinine Clearance 46.52 ml/min; Glucose 152 mg/dL (74-106); Potassium 3.7 mmol/L (3.5-5.1); Sodium Level 140 mmol/L (136-145)
[2024-05-12 08:02] VITALS: O2SAT 95
[2024-05-12 09:05] VITALS: BP 99/63; PULSE 82; RESP 16; TEMP 36.9; O2SAT 92
[2024-05-12] MEDS: guaiFENesin 600 MG Tablet 1200 MG PO (09:15)
[2024-05-12] MEDS: 0.9% Saline Lock 10 ML Syringe IV (09:16)
[2024-05-12] MEDS: Senna/Docusate Sodium 1 Tablet 2 TABLET PO (09:17)
--- NOTE | 2024-05-12 09:39 | PN.HOSP_ITS ---
Subjective Subjective No issues overnight, tolerating pur?ed diet Objective Data Objective Data Vital Signs: Vital Signs Temp Pulse Resp BP Pulse Ox O2 Del Method O2 Flow Rate 98.4 F 82 16 99/63 92 High Flow 2 05/12/24 09:05 05/12/24 09:05 05/12/24 09:05 05/12/24 09:05 05/12/24 09:05 05/12/24 09:05 05/12/24 09:05 Oxygen Flow Rate (L/min) 2 Oxygen Delivery Method High Flow Weight: 89 lb 8.123 oz Body Mass Index (BMI) 14.0 Intake & Output: Intake and Output for Last 24 Hours 05/11/24 05/12/24 05/13/24 03:59 03:59 03:59 Intake Total 1736.5 / 1736.5 464 / 464 Balance 1736.5 / 1736.5 464 / 464 Medical Nutrition Assessment Dietitian: Malnutrition Criteria Met Start: 05/10/24 13:37 Freq: Status: Active Protocol: Document 05/10/24 13:37 SLA (Rec: 05/10/24 13:37 SLA [id number]) Nutrition Malnutrition Evidence of Malnutrition Exists Yes Malnutrition (severe): Chronic Evidenced By Suboptimal Energy Intake ( Severe),Weight Loss (Severe), Physical Changes (Severe) Clinical Problem Chronic Disease or Condition Related Malnutrition Etiology related to underlying cancer malignancy and inadequate energy intake Signs/Symptoms as evidenced by 8.1% unintended wt loss x 3 wks and po intake meeting <75% of usual for greater than 6 months; obvious fat loss/ muscle wasting throughout body ; BMI <16 Status Active Problem Recommendation Dietitian Recommendations/Changes Rec consider appetite stimulant to help encourage increased po intake Continue regular diet as ordered Will add fortified foods at meals as able Continue ONS at [facility] Consider supplemental nutrition support to help prevent additional decline in pt nutritional status if in accordance to pt/family wishes Lab / Micro Data 05/12/24 06:40 05/12/24 06:40 Labs: Laboratory Results - last 24 hr 05/12/24 06:40: WBC 12.4 H, RBC 3.81 L, Hgb 12.0 L, Hct 39.8 L, MCV 104.5 H, MCH 31.5, MCHC 30.2 L, RDW Std Deviation 55.5 H, RDW Coeff of Deidra 14.2, Plt Count 238, MPV 10.0, Immature Gran % (Auto) 0.500, Neut % (Auto) 88.7 H, Lymph % (Auto) 3.0 L, [place] % (Auto) 6.4, Eos % (Auto) 1.2, Baso % (Auto) 0.2, Absolute Neuts (auto) 11.0 H, Absolute Lymphs (auto) 0.37 L, Nucleated RBC % 0, Sodium 140, Potassium 3.7, Chloride 104, Carbon Dioxide 33.0 H, Anion Gap 3 L, BUN 17, Creatinine 0.61 L, Estim Creat Clear Calc 46.52, Est GFR (MDRD) Af Amer 167, Est GFR (MDRD) Non-Af 138, BUN/Creatinine Ratio 28.0 H, Glucose 152 H, Calcium 8.6 Micro: Microbiology 05/09/24 19:18 Blood Culture (Wb) - Anticubital Right Blood Culture - Preliminary No growth in 48 hours. 05/09/24 20:05 Sputum, Expectorated/Coughed Gram Stain - Final 05/09/24 20:05 Sputum, Expectorated/Coughed Respiratory Culture - Preliminary Appears to be normal respiratory janet. Further studies to follow. 05/09/24 20:05 Mucosa - Nasopharyngeal Respiratory Panel (PCR) - Final 05/09/24 20:10 Urine, Clean Catch Legionella Antigen - Final 05/09/24 20:10 Urine, Clean Catch Streptococcus pneumoniae Antigen (M - Final 05/09/24 18:45 Nasal Secretion MRSA (PCR) - Final 05/09/24 20:05 Mucosa - Nasopharyngeal Coronavirus COVID-19 PCR - Final Rhythm Strip Rhythm Strip: Sinus Rhythm Rate: 95 Ectopy: PVC(s) Physical Exam Narrative General: Alert, Oriented x3, Cooperative, No apparent distress, cachectic with severe protein calorie malnutrition HEENT: Atraumatic, PERRLA, EOMI, Normocephalic Oral: Moist Mucosa Neck: Supple, No JVD Lungs: Diminished, Normal air movement, No rhonchi, No wheeze, No rales Cardiovascular: Regular rate, Regular Rhythm, Normal S1, Normal S2, No murmurs Abdomen: Soft, Non Tender, Non-Distended, No Hepato-splenomegaly Extremities: No edema, Capillary Refill Less than 3 Seconds Skin: No rashes, No breakdown Musculoskeletal: No Tenderness to Palpation of Joints or Extremities Neurological: No focal neurological deficits, Motor Exam 5/5 strength throughout, Sensory exam intact to light touch and pain Psych/Mental Status: Flat Assessment & Plan Assessment/Plan (1) Acute dehydration: (2) Chronic hypoxemic respiratory failure: (3) Failure to thrive: PLAN: Plan 1. Physical deconditioning ? Requested for PT OT eval and social work program coordinator to assist with discharge planning 2. 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 Oncology workup showed progressive disease in right and left hemithorax pulmonary parenchyma, progression in mediastinal nodes, T1-T3 vertebral bodies mass along posterior mediastinum, mass from T2 vertebral body into the spinal canal measuring 15 mm. Patient on nivolumab/ipilimumab, cycle 5. 05/12/2020: Had a 20-minute discussion on advance care planning discussing the differences between palliative care and hospice care 4. Suspected postoperative pneumonia Chest CT was done in ED shows right perihilar mass likely mucoid plastic infiltrating into the mediastinum with increasing opacification of right upper lobe and multifocal cavitation with small bilateral lower lobe nodules likely metastatic. Encasement of proximal right upper lobe pulmonary artery but no definite evidence for bland thrombus. Severe diffuse interstitial and emphysematous changes. Subsequently started on Unasyn after cultures have been sent as well as supplemental oxygen 05/11/2024: Having swallowing difficulty, repeat swallowing evaluation on Monday if still severely limited, will discuss options 05/12/2024: Tolerating a pur?ed diet but still with some coughing, plan for swallowing evaluation tomorrow he is anxious to get home. 5. Hyponatremia ? Suspected to secondary to hypovolemic hyponatremia resolved with IV hydration. Patient also has chronicity to his hyponatremia and is on sodium tablet 6. Hiatal hernia with GERD and Jaeger's esophagus ? Patient is on PPI 7. Suspected severe protein calorie malnutrition ? Evidenced by cachexia, low BMI 15.7, muscle wasting, low oral intake this is also a result of patient underlying malignancy. Patient started on a show consult placed to dietitian DVT: Lovenox Charges/Coding Visit Charges Inpatient E&M: 99255 Subs Hosp L2
[2024-05-12] MEDS: Ampicillin/Sulbactam 3 GM in 0.9% Normal Saline (100mL MB+) 100 ML IV (10:13)
--- NOTE | 2024-05-12 18:34 | PN_ITS ---
Progress Note Requested to sign out AMA he did not want to stay for a repeat swallow evaluation or the PEG tube/feeding tube placement gastroenterology was recomme nding I discussed with him at length this morning about the need to stay in the hospital for further treatment, I did bring up hospice once again however he stated that he would want to continue to treat the cancer is much as possible but that he wanted to go home to clean his apartment. I discussed with him that he is on oxygen and needs evaluation and potentially feeding tube placement for swallowing difficulties in order to keep up his strength with chemotherapy, he was not excited about the idea of a feeding tube. He still elected to leave AMA, he was on Unasyn for possible aspiration pneumonia so I will send in a prescription for Augmentin.
== END 2024-05-12 13:44 | disposition left against medical advice (07) | DRG 177 ==
LOC: ED 17:45 → MS3 17:51
PROVIDERS: Admitting Provider Internal Medicine; Emergency Provider Emergency Medicine; PCP Family Medicine; Referring Provider Emergency Medicine; Visit Provider Family Medicine
DX: J69.0 Pneumonitis due to inhalation of food and vomit (principal); E43 Unspecified severe protein-calorie malnutrition; C78.01 Secondary malignant neoplasm of right lung; C78.02 Secondary malignant neoplasm of left lung; C77.1 Secondary and unspecified malignant neoplasm of intrathoracic lymph nodes; E87.1 Hypo-osmolality and hyponatremia; C34.11 Malignant neoplasm of upper lobe, right bronchus or lung; J96.11 Chronic respiratory failure with hypoxia; Z68.1 Body mass index [BMI] 19.9 or less, adult; E86.0 Dehydration; R62.7 Adult failure to thrive; J43.9 Emphysema, unspecified; K44.9 Diaphragmatic hernia without obstruction or gangrene; E78.5 Hyperlipidemia, unspecified; K22.70 Barrett's esophagus without dysplasia; I95.9 Hypotension, unspecified; R13.12 Dysphagia, oropharyngeal phase; Z66 Do not resuscitate; Z53.29 Procedure and treatment not carried out because of patient's decision for other reasons; R53.81 Other malaise; Z99.81 Dependence on supplemental oxygen; Z79.899 Other long term (current) drug therapy; Z87.891 Personal history of nicotine dependence
CPT/HCPCS: 36415; 71045; 71260; 74230; 80048; 80053; 81001; 82436; 82550; 82570; 83605; 83735; 83935; 84133; 84156; 84300; 84484; 84550; 85025; 87040; 87070; 87205; 87449; 87633; 87635; 87641; 92526; 92610; 92611; 93005; 94668; 97162; 97166; 97802; 99284; J7030; Q9967; A4216; J0295